=== PATIENT | female | born 1935 | race Caucasian/White ===

== ENCOUNTER 2017-12-13 21:16 | Emergency (ER) | payer MEDICARE, OTHER ==
[2017-12-13] MEDS ORDERED: Labetalol 100 MG/20 ML MDV IVPUSH ONE ×2 (21:58→22:41)
--- NOTE | 2017-12-13 22:05 | EDM.PDOC ---
ED HPI GENERAL MEDICAL PROBLEM - General Chief Complaint: Syncope Stated Complaint: MALINDA AMB Time Seen by Provider: 12/13/17 21:43 Source of Information: Reports: Patient History Limitations: Reports: No Limitations - History of Present Illness INITIAL COMMENTS - FREE TEXT/NARRATIVE: Patient is a 82-year-old female with history of hypertension, GERD, anemia, and hypothyroidism who presents to the ED via ambulance after becoming dizzy with standing at the counter cutting cheese. Patient states onset was at approximately 8:00 this evening. Patient lowered herself to the ground was unable to get back up off the floor. Patient crawled to her bedroom unable to activate her life alert. Once able to activate the life alert 911 was contacted and the ambulance was notified. She was transported to the ED found to be hypertensive with no concerning findings on initial exam by EMS. Patient states that no time did she fall or hit her head. She does feel weak on the right side and is concerned that she may be having a stroke.She denied any dizziness described as the room spinning. There was no chest pain, shortness of breath, nausea/vomiting, abdominal pain, vision changes, slurred speech, difficulty swallowing, numbness or tingling to extremities, dysuria, fever, or any additional complaints. - Related Data Allergies Allergy/AdvReac Type Severity Reaction Status Date / Time No Known Allergies Allergy Verified 12/13/17 21:35 Home Meds: Home Meds Atenolol 50 mg PO DAILY 07/21/14 [History] Doxazosin [Cardura] 2 mg PO DAILY 07/21/14 [History] Hydrochlorothiazide 25 mg PO DAILY 07/21/14 [History] Iron Polysaccharides Complex [Ferrex 150] 150 mg PO DAILY 07/21/14 [History] Levothyroxine 75 mcg PO DAILY 07/21/14 [History] Lisinopril 40 mg PO DAILY 07/21/14 [History] Omeprazole [priLOSEC OTC] 20 mg PO DAILY 07/21/14 [History] Acetaminophen [Tylenol] 650 mg PO TID 10 Days tab 07/24/14 [Rx] hydrALAZINE [Apresoline] 50 mg PO Q8H 30 Days tablet 07/24/14 [Rx] traMADol [Ultram] 50 mg PO Q4H PRN 30 Days tab 07/24/14 [Rx] Social & Family History - Tobacco Use Smoking Status *Q: Never Smoker Second Hand Smoke Exposure: No - Alcohol Use Days Per Week of Alcohol Use: 0 - Recreational Drug Use Recreational Drug Use: No ED ROS GENERAL - Review of Systems Review Of Systems: See Below Constitutional: Reports: No Symptoms HEENT: Reports: No Symptoms Respiratory: Reports: No Symptoms Cardiovascular: Reports: No Symptoms GI/Abdominal: Reports: No Symptoms : Reports: Incontinence (Patient states she's incontinent to urine unable to control her bladder.) Musculoskeletal: Reports: No Symptoms Skin: Reports: No Symptoms Neurological: Reports: Dizziness, Weakness. Denies: Headache, Numbness, Paresthesia, Tingling, Trouble Speaking, Difficulty Walking, Change in Speech, Gait Disturbance ED EXAM, NEURO - Physical Exam Exam: See Below Exam Limited By: No Limitations General Appearance: Alert, WD/WN, No Apparent Distress Eye Exam: Bilateral Eye: EOMI, Other (pin point pupils, difficult to ascertation responsiveness.) Ears: Hearing Grossly Normal Nose: Normal Inspection Throat/Mouth: Normal Voice, No Airway Compromise, Other (Slight deviation of the tongue to the right ). No: Dysphagia Head Exam: Atraumatic, Normocephalic Neck: Normal Inspection, Supple, Non-Tender, Full Range of Motion Respiratory/Chest: No Respiratory Distress, Lungs Clear, Normal Breath Sounds, No Accessory Muscle Use, Chest Non-Tender Cardiovascular: Normal Peripheral Pulses, Regular Rate, Rhythm, Systolic Murmur GI/Abdominal: Normal Bowel Sounds, Soft, Non-Tender, No Organomegaly, No Distention (Female) Exam: Other (Per patient she is unable to control her urine at this point. It is fairly running out of her. This is abnormal.) Neurological: Alert, Normal Mood/Affect, CN II-XII Intact, Oriented x 3, Abnormal Gait (With standing patient is unsteady on her feet unable to walk.), Other (Slight tongue deviation to the right. No facial droop. No significant slurred speech. Slight weakness noted to the right upper extremity. More dramatic on the right foot with plantar flexion. With rapid alternating movemets and fingerto nose testing patient is more ataxix on the right. Denies sensory changes. ). No: Normal Dorsiflexion, Normal Plantar Flexion DTR: 3+: Bicep (R), Bicep (L) Back Exam: Normal Inspection Extremities: Normal Inspection, Normal Range of Motion, Non-Tender, No Pedal Edema, Normal Capillary Refill Psychiatric: Normal Affect, Normal Mood Skin Exam: Warm, Dry, Intact, Normal Color Course - Vital Signs Last Recorded V/S: Last Vital Signs Temp 98.5 F 12/13/17 21:32 Pulse 72 12/13/17 22:59 Resp 18 12/13/17 21:32 BP 148/89 H 12/13/17 23:10 Pulse Ox 98 12/13/17 21:32 - Orders/Labs/Meds Orders: Active Orders 24 hr Category Date Time Status EKG Documentation Completion [RC] ASDIRECTED Care 12/13/17 21:39 Active EKG Documentation Completion [RC] STAT Care 12/13/17 21:40 Inactive Orthostatic Vital Signs [RC] ASDIRECTED Care 12/13/17 21:42 Active Chest 1V Frontal [CR] Stat Exams 12/13/17 21:40 Ordered Head wo Cont [CT] Stat Exams 12/13/17 22:06 Taken Labetalol [Normodyne] 100 mg Med 12/13/17 22:45 Active Sodium Chloride 0.9% [Normal Saline] 80 ml IV TITRATE Nitroglycerin/D5W [Nitroglycerin 25 MG/D5W 250 ML] Med 12/13/17 22:48 Active 25 mg in 250 ml IV TITRATE niCARdipine HCl [Nicardipine HCl] 25 mg Med 12/13/17 23:15 Active Sodium Chloride 0.9% [Normal Saline] 250 ml IV TITRATE EKG 12 Lead [EK] Stat Ther 12/13/17 21:39 Ordered Medication Orders Labetalol HCl 100 mg/ Sodium (Chloride) 100 mls @ 60 mls/hr IV TITRATE RICKY; 1 MG/MIN PRN Reason: Protocol Last Admin: 12/13/17 22:59 Dose: 1 mg/min, 60 mls/hr Nitroglycerin/Dextrose (Nitroglycerin 25 Mg/D5w 250 Ml) 25 mg in 250 mls @ 6 mls/hr IV TITRATE ONE; 10 MCG/MIN PRN Reason: Protocol Stop: 12/15/17 16:27 Last Titration: 12/13/17 23:27 Dose: 12 mcg/min, 7.2 mls/hr Admin: 12/13/17 23:00 Dose: 10 mcg/min, 6 mls/hr Nicardipine HCl 25 mg/ Sodium (Chloride) 260 mls @ 52 mls/hr IV TITRATE RICKY; 5 MG/HR PRN Reason: Protocol Last Admin: 12/13/17 23:34 Dose: 5 mg/hr, 52 mls/hr Labs: Laboratory Tests 12/13/17 12/13/17 12/13/17 Range/Units 21:36 21:47 21:47 WBC 12.05 H (3.98-10.04) K/mm3 RBC 3.95 L (3.98-5.22) M/mm3 Hgb 10.8 L (11.2-15.7) gm/L Hct 33.7 L (34.1-44.9) % MCV 85.3 (79.4-94.8) fl MCH 27.3 (25.6-32.2) pg MCHC 32.0 L (32.2-35.5) g/dl RDW Std Deviation 45.8 (36.4-46.3) fL Plt Count 311 (182-369) K/mm3 MPV 8.6 L (9.4-12.3) fl Neut % (Auto) 87.2 H (34.0-71.1) % Lymph % (Auto) 6.3 L (19.3-51.7) % Surry % (Auto) 4.6 L (4.7-12.5) % Eos % (Auto) 1.5 (0.7-5.8) Baso % (Auto) 0.2 (0.1-1.2) % Neut # (Auto) 10.51 H (1.56-6.13) K/mm3 Lymph # (Auto) 0.76 L (1.18-3.74) K/mm3 [place] # (Auto) 0.55 H (0.24-0.36) K/mm3 Eos # (Auto) 0.18 (0.04-0.36) K/mm3 Baso # (Auto) 0.03 (0.01-0.08) K/mm3 Manual Slide Review Abnormal smear PT 12.3 (8.0-13.0) SECONDS INR 1.15 APTT 34 (22-36) SECONDS Sodium 136 (136-145) mEq/L Potassium 3.5 (3.5-5.1) mEq/L Chloride 97 L (98-107) mEq/L Carbon Dioxide 26 (21-32) mEq/L Anion Gap 16.5 H (5-15) BUN 17 (7-18) mg/dL Creatinine 1.0 (0.55-1.02) mg/dL Est Cr Clr Drug Dosing 30.65 mL/min Estimated GFR (MDRD) 53 (>60) mL/min BUN/Creatinine Ratio 17.0 (14-18) Glucose 162 H (83-115) mg/dL Calcium 10.2 H (8.5-10.1) mg/dL Total Bilirubin 0.2 (0.2-1.0) mg/dL AST 23 (15-37) U/L ALT 23 (14-59) U/L Alkaline Phosphatase 73 (46-116) U/L Troponin I < 0.017 (0.00-0.056) ng/mL Total Protein 7.7 (6.4-8.2) g/dl Albumin 3.6 (3.4-5.0) g/dl Globulin 4.1 gm/dL Albumin/Globulin Ratio 0.9 L (1-2) TSH 3rd Generation 8.107 H (0.358-3.74) uIU/mL Urine Color (Yellow) Urine Appearance (Clear) Urine pH (5.0-8.0) Ur Specific [place] (1.005-1.030) Urine Protein (Negative) Urine Glucose (UA) (Negative) Urine Ketones (Negative) Urine Occult Blood (Negative) Urine Nitrite (Negative) Urine Bilirubin (Negative) Urine Urobilinogen (0.2-1.0) Ur Leukocyte Esterase (Negative) Urine RBC (0-5) /hpf Urine WBC (0-5) /hpf Ur Epithelial Cells (0-5) /hpf Urine Bacteria (FEW) /hpf Urine Mucus (FEW) /hpf 12/13/17 Range/Units 22:10 WBC (3.98-10.04) K/mm3 RBC (3.98-5.22) M/mm3 Hgb (11.2-15.7) gm/L Hct (34.1-44.9) % MCV (79.4-94.8) fl MCH (25.6-32.2) pg MCHC (32.2-35.5) g/dl RDW Std Deviation (36.4-46.3) fL Plt Count (182-369) K/mm3 MPV (9.4-12.3) fl Neut % (Auto) (34.0-71.1) % Lymph % (Auto) (19.3-51.7) % Surry % (Auto) (4.7-12.5) % Eos % (Auto) (0.7-5.8) Baso % (Auto) (0.1-1.2) % Neut # (Auto) (1.56-6.13) K/mm3 Lymph # (Auto) (1.18-3.74) K/mm3 [place] # (Auto) (0.24-0.36) K/mm3 Eos # (Auto) (0.04-0.36) K/mm3 Baso # (Auto) (0.01-0.08) K/mm3 Manual Slide Review PT (8.0-13.0) SECONDS INR APTT (22-36) SECONDS Sodium (136-145) mEq/L Potassium (3.5-5.1) mEq/L Chloride (98-107) mEq/L Carbon Dioxide (21-32) mEq/L Anion Gap (5-15) BUN (7-18) mg/dL Creatinine (0.55-1.02) mg/dL Est Cr Clr Drug Dosing mL/min Estimated GFR (MDRD) (>60) mL/min BUN/Creatinine Ratio (14-18) Glucose (83-115) mg/dL Calcium (8.5-10.1) mg/dL Total Bilirubin (0.2-1.0) mg/dL AST (15-37) U/L ALT (14-59) U/L Alkaline Phosphatase (46-116) U/L Troponin I (0.00-0.056) ng/mL Total Protein (6.4-8.2) g/dl Albumin (3.4-5.0) g/dl Globulin gm/dL Albumin/Globulin Ratio (1-2) TSH 3rd Generation (0.358-3.74) uIU/mL Urine Color Light yellow (Yellow) Urine Appearance Clear (Clear) Urine pH 7.5 (5.0-8.0) Ur Specific [place] 1.020 (1.005-1.030) Urine Protein 2+ H (Negative) Urine Glucose (UA) Negative (Negative) Urine Ketones Negative (Negative) Urine Occult Blood Trace-lysed H (Negative) Urine Nitrite Negative (Negative) Urine Bilirubin Negative (Negative) Urine Urobilinogen 0.2 (0.2-1.0) Ur Leukocyte Esterase Negative (Negative) Urine RBC 0-5 (0-5) /hpf Urine WBC 0-5 (0-5) /hpf Ur Epithelial Cells Not seen (0-5) /hpf Urine Bacteria Not seen (FEW) /hpf Urine Mucus Not seen (FEW) /hpf Meds: Medications Generic Name Dose Route Start Last Admin Trade Name Freq PRN Reason Stop Dose Admin Labetalol HCl 100 mg/ Sodium 100 mls @ 60 mls/hr 12/13/17 22:45 12/13/17 22: 59 Chloride IV 1 mg/min TITRATE RICKY 60 mls/hr Protocol Administration 1 MG/MIN Nitroglycerin/Dextrose 25 mg in 250 mls @ 6 mls/hr 12/13/17 22:48 12/13/17 23 :27 Nitroglycerin 25 Mg/D5w 250 Ml IV 12/15/17 16:27 12 mcg/min TITRATE ONE 7.2 mls/hr Protocol Titration 10 MCG/MIN Nicardipine HCl 25 mg/ Sodium 260 mls @ 52 mls/hr 12/13/17 23:15 12/13/17 23: 34 Chloride IV 5 mg/hr TITRATE RICKY 52 mls/hr Protocol Administration 5 MG/HR Discontinued Medications Generic Name Dose Route Start Last Admin Trade Name Cedricq PRN Reason Stop Dose Admin Labetalol HCl 10 mg 12/13/17 21:58 12/13/17 22:02 Normodyne IVPUSH 12/13/17 21:59 10 mg ONETIME ONE Administration Protocol Labetalol HCl 20 mg 12/13/17 22:41 12/13/17 22:43 Normodyne IVPUSH 12/13/17 22:42 20 mg ONETIME ONE Administration Protocol Labetalol HCl Confirm 12/13/17 22:42 Normodyne Administered 12/13/17 22:43 Dose 100 mg .ROUTE .STK-MED ONE Tenecteplase Confirm 12/13/17 23:09 Tnkase Administered 12/13/17 23:10 Dose 50 mg .ROUTE .STK-MED ONE - Re-Assessments/Exams Free Text/Narrative Re-Assessment/Exam: Initial examination findings concerning for a stroke. There is some mild tongue deviation to the right along with some ataxia of the upper extremity, weakness of the upper and lower extremities. [address] Reyes he will evaluate the patient as well. She is in the window for thrombolytic treatment. Onset per patient was 2 hours ago, 2000 hrs last known well time. Currently patient has no complaints other than feeling weak. Patient is hypertensive. Will order 10 milligrams of IV labetalol. EKG, CBC, chem 14, coag studies, troponin, TSH, UA, chest x-ray, and CT of the head will be obtained. [address] Reyes. Agrees mild weakness to the right upper extremities incomparison to the left. Right leg significantly more weak in comparison to the right with testing. Agrees patient is having a stroke. Per nursing staff symptoms are evolving. 12/13/17 22:27 CT head reviewed with Dr. Reyes. No intracranial hemorrhage noted. Small vessel edges the basal ganglia. Labs reviewed. Spoke with Patients daughter Rachelle Sethi to review Exclusion criteria. Patient has no exclusion criteria or relative contraindications. Blood pressure remains elevated 206/systolic. Ordered labetalol bolus 20 mg and IV drip 1 mg/m. Will also start a nitro drip in a second IV line 10 mics per minute to facilitate quicker decrease in BP. BP goal <160/90. Symptoms have slowly progressed during E.D. visit. No Neuro consult obtained. 3 hr window is approaching quickly. Discussed with Dr. Reyes and he agrees in administering TNK. Patient is a very active able to perform normal ADL's with no no issues. Dr. Reyes and myself spoke with the patient's daughter Rachelle Sethi and patient. They both agree with proceeding with administration of TNK. Risk, benefits, and alternative treatments were discussed with them. Risk of treatment is uncontrolled bleeding and at worst .All questions were answered. They both voiced understanding. TNK order placed. See order form. [40mg total, 4 mg IV bolus with 36 mg IV over the next hr.] 12/13/17 22:54 BP 196/82, heart rate 70, SPO2 97. 12/13/17 23:00 BP 177/81. Chest x-ray reviewed with Dr. Reyes with diffuse pulmonary vascularization and mild pulmonary fibrosis. Cardiomegaly present. 12/13/17 23:00 Per patients and daughters request will call [facility]. [facility]. No ICU beds available. [address] [facility] admission coordinator. Transferred to [facility] and spoke with Dr. Askew. He has accepted the patient. Requests starting nicardipine gtt for tighter control of BP. Transfer orders completed. Ambulance has been notified. Departure - Departure Time of Disposition: 11:50 Disposition: DC/Tfer to [facility] 02 Condition: Fair Clinical Impression: Cerebrovascular accident (CVA) Qualifiers: CVA mechanism: unspecified Qualified Code(s): I63.9 - Cerebral infarction, unspecified - Discharge Information Referrals: Marimar Huertas MD [Primary Care Provider] - Forms: ED Department Discharge - My Orders Last 24 Hours: My Active Orders 12/13/17 21:39 EKG Documentation Completion [RC] ASDIRECTED EKG 12 Lead [EK] Stat 12/13/17 21:40 EKG Documentation Completion [RC] STAT Chest 1V Frontal [CR] Stat 12/13/17 21:42 Orthostatic Vital Signs [RC] ASDIRECTED 12/13/17 22:06 Head wo Cont [CT] Stat 12/13/17 22:45 Labetalol [Normodyne] 100 mg Sodium Chloride 0.9% [Normal Saline] 80 ml IV TITRATE 12/13/17 22:48 Nitroglycerin/D5W [Nitroglycerin 25 MG/D5W 250 ML] 25 mg in 250 ml IV TITRATE 12/13/17 23:15 niCARdipine HCl [Nicardipine HCl] 25 mg Sodium Chloride 0.9% [Normal Saline] 250 ml IV TITRATE - Assessment/Plan Last 24 Hours: My Active Orders 12/13/17 21:39 EKG Documentation Completion [RC] ASDIRECTED EKG 12 Lead [EK] Stat 12/13/17 21:40 EKG Documentation Completion [RC] STAT Chest 1V Frontal [CR] Stat 12/13/17 21:42 Orthostatic Vital Signs [RC] ASDIRECTED 12/13/17 22:06 Head wo Cont [CT] Stat 12/13/17 22:45 Labetalol [Normodyne] 100 mg Sodium Chloride 0.9% [Normal Saline] 80 ml IV TITRATE 12/13/17 22:48 Nitroglycerin/D5W [Nitroglycerin 25 MG/D5W 250 ML] 25 mg in 250 ml IV TITRATE 12/13/17 23:15 niCARdipine HCl [Nicardipine HCl] 25 mg Sodium Chloride 0.9% [Normal Saline] 250 ml IV TITRATE
[2017-12-13] MEDS ORDERED: Labetalol 100 MG/20 ML MDV ONE (22:42)
[2017-12-13] MEDS ORDERED: Labetalol 100 MG in Sodium Chloride 0.9% 80 ML IV SCH (22:45)
[2017-12-13] MEDS ORDERED: Nitroglycerin/D5W 25 MG/250 ML BOTTLE IV ONE (22:48)
[2017-12-13] MEDS ORDERED: Tenecteplase 50 MG Kit ONE (23:09)
[2017-12-13] MEDS ORDERED: niCARdipine HCl 25 MG in Sodium Chloride 0.9% 250 ML IV SCH (23:15)
[2017-12-14 02:25] VITALS: BP 171/67
--- NOTE | 2017-12-14 08:04 | CT ---
Head CT Technique: Multiple axial sections through the brain were obtained. Intravenous contrast was not utilized. Comparison: Prior head CT exam of 07/21/14. Findings: Ventricles along with basal cisterns and sulci over the convexities are mildly prominent. No abnormal parenchymal densities are seen. No evidence of intracranial hemorrhage. No midline shift or mass effect is seen. Bone window settings were reviewed which show the visualized sinuses to appear clear. Impression: 1. Mild generalized atrophy. 2. No acute intracranial abnormality is identified on noncontrast head CT exam. Diagnostic code #2 I agree with preliminary report issued by [facility] ([facility] preliminary report dictated on 12/13/17, 11:30 PM Central Time)
--- NOTE | 2017-12-14 08:04 | CR ---
Chest: Portable view of the chest was obtained. Comparison: No prior chest x-ray. Heart is enlarged. Tortuous thoracic aorta is seen. Lungs are clear. Scoliosis is noted within the spine. Bony structures are osteopenic. Impression: 1. Cardiomegaly. Other incidental findings. Nothing acute is appreciated on portable chest x-ray. Diagnostic code #2
== END 2017-12-13 23:35 ==
LOC: JD.ED 21:16 → SUPCPDRO 21:16 → JD.ED 23:35
DX: I63.9 Cerebral infarction, unspecified (principal); I51.7 Cardiomegaly; J84.10 Pulmonary fibrosis, unspecified; Z79.899 Other long term (current) drug therapy
CPT/HCPCS: 36415; 70450; 71045; 80053; 81001; 84443; 84484; 85025; 85610; 85730; 93005; 96365; 96375; 96376; 99285; J7050; P9612

== ENCOUNTER 2019-11-09 10:47 | Day surgery (SDC) | payer MEDICARE, OTHER ==
[~2019-11-09 10:47] MED LIST: Lactated Ringers 1,000 ML IV SCH; Lidocaine 1%/Sod Bicarbonate in NS 8.4% 1 ML Syringe IDERM PRN; Sodium Chloride 0.9% 10 ML Syringe FLUSH PRN
[2019-11-09] MEDS ORDERED: Bacitracin Oint 15 GM Tube ONE (12:38)
[2019-11-09] MEDS ORDERED: Lidocaine 1% 30 ML SDV ONE (12:38)
--- NOTE | 2019-11-09 12:44 | PCM.PREANE ---
Preanesthetic Assessment - Anesthesia/Transfusion/Family Hx Anesthesia History: Prior Anesthesia Without Reaction Family History of Anesthesia Reaction: No - Review of Systems General: No Symptoms Pulmonary: No Symptoms Cardiovascular: No Symptoms (History of Atrial Fibrillation, Htn, elevated cholesterol. ) Gastrointestinal: No Symptoms Neurological: No Symptoms (TIA 2 years ago no residule symptoms) Other: Reports: None, Easy Bleeding, Easy Bruising (Anticoagulated on xarelto last dose was 11-07-19) - Physical Assessment NPO Status Date: 11/08/19 NPO Status Time: 23:45 Vital Signs: Last Vital Signs Temp 36.9 C 11/09/19 11:25 Pulse 58 L 11/09/19 11:25 Resp 16 11/09/19 11:25 BP 174/68 H 11/09/19 11:50 Pulse Ox 98 11/09/19 11:25 Height: 1.52 m Weight: 43.091 kg ASA Class: 3 Mental Status: Alert & Oriented x3 Airway Class: Mallampati = 2 Dentition: Reports: Normal Dentition Thyro-Mental Finger Breadths: 2 Mouth Opening Finger Breadths: 2 ROM/Head Extension: Full Lungs: Clear to Auscultation, Normal Respiratory Effort Cardiovascular: Regular Rate, Regular Rhythm - Allergies Allergies/Adverse Reactions: Allergies Allergy/AdvReac Type Severity Reaction Status Date / Time No Known Allergies Allergy Verified 11/08/19 15:07 - Acknowledgements Anesthesia Type Planned: General Anesthesia Pt an Appropriate Candidate for the Planned Anesthesia: Yes Alternatives and Risks of Anesthesia Discussed w Pt/Guardian: Yes Pt/Guardian Understands and Agrees with Anesthesia Plan: Yes PreAnesthesia Questionnaire HEENT History: Reports: Impaired Vision, Other (See Below) Other HEENT History: wears glasses, has partial Cardiovascular History: Reports: Afib, Aneurysm, High Cholesterol, Hypertension Respiratory History: Reports: None Gastrointestinal History: Reports: GERD, Hemorrhoids, PUD, Other (See Below) Other Gastrointestinal History: ulcer Genitourinary History: Reports: Other (See Below) Other Genitourinary History: hematuria, cystoscopy 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: Reports: None Musculoskeletal History: Reports: Osteoporosis Neurological History: Reports: TIA Psychiatric History: Reports: None Endocrine/Metabolic History: Reports: Hypothyroidism Hematologic History: Reports: Anemia, Iron Deficiency Immunologic History: Reports: None Oncologic (Cancer) History: Reports: None Dermatologic History: Reports: None - Past Surgical History Head Surgeries/Procedures: Reports: None HEENT Surgical History: Reports: Cataract Surgery Cardiovascular Surgical History: Reports: None Respiratory Surgical History: Reports: None GI Surgical History: Reports: Colonoscopy, EGD, Other (See Below) Other GI Surgeries/Procedures: stomach surgery x2 Female Surgical History: Reports: None Male Surgical History: Reports: None Endocrine Surgical History: Reports: None Neurological Surgical History: Reports: None Musculoskeletal Surgical History: Reports: None Oncologic Surgical History: Reports: None Dermatological Surgical History: Reports: None - SUBSTANCE USE Smoking Status *Q: Never Smoker Days Per Week of Alcohol Use: 3 Number of Drinks Per Day: 1 Total Drinks Per Week: 3 Recreational Drug Use History: No - HOME MEDS Home Medications: Home Meds Lisinopril 40 mg PO DAILY 07/21/14 [History] atenoloL [Atenolol] 50 mg PO DAILY 07/21/14 [History] hydroCHLOROthiazide [Hydrochlorothiazide] 25 mg PO DAILY 07/21/14 [History] hydrALAZINE [Apresoline] 50 mg PO Q8H 30 Days tablet 07/24/14 [Rx] Acetaminophen [Tylenol Extra Strength] 1,000 mg PO Q8H PRN 11/08/19 [History] Acetaminophen/Caffeine [Excedrin Tension Headache Cplt] 1 tab PO BID PRN [History] Calcium Carb/Vitamin D3/Vit K1 [Calcium + D Soft Chewable Tab] 1 tab PO DAILY [History] Folic Acid 1 mg PO DAILY 11/08/19 [History] Lactose-Reduced Food [Ensure] 237 ml PO BID 11/08/19 [History] Latanoprost 1 drop EYEBOTH BEDTIME 11/08/19 [History] Levothyroxine Sodium 88 mcg PO DAILY 11/08/19 [History] Multivitamin [Daily Multiple Vitamin] 1 tab PO DAILY 11/08/19 [History] Propylene Glycol/PEG 400/Pf [Systane 0.3-0.4% Eye Drop] 1 drop EYEBOTH QID PRN 11/08/19 [History] Rivaroxaban [Xarelto] 15 mg PO DAILY 11/08/19 [History] Urine Leukocyte Test [Azo] 2 tab PO TID PRN 11/08/19 [History] Vit C/Vit E/Lutein/Minerals 1 [Prosight with Lutein] 1 cap PO DAILY 11/08/19 [ History] amLODIPine [Norvasc] 5 mg PO DAILY 11/08/19 [History] atorvaSTATin [Lipitor] 40 mg PO DAILY 11/08/19 [History] polyethylene glycoL 3350 [MiraLAX] 17 gm PO DAILY 11/08/19 [History] raNITIdine HCl [Zantac] 150 mg PO DAILY 11/08/19 [History] - CURRENT (IN HOUSE) MEDS Current Meds: Current Medications Lactated Ringer's (Ringers, Lactated) 1,000 mls @ 125 mls/hr IV ASDIRECTED RICKY Stop: 11/09/19 23:00 Lidocaine/Sodium Bicarbonate (Buffered Lidocaine 1% In Ns 8.4%) 0.25 ml IDERM ONETIME PRN PRN Reason: Prior to IV Start Stop: 11/09/19 18:00 Sodium Chloride (Saline Flush) 10 ml FLUSH ASDIRECTED PRN PRN Reason: Keep Vein Open Stop: 11/09/19 18:00
[2019-11-09] MEDS ORDERED: Ondansetron 4 MG/2 ML SDV IVPUSH PRN (13:03)
[2019-11-09] MEDS ORDERED: fentaNYL 100 MCG/2 ML SDV IVPUSH PRN (13:03)
[2019-11-09] MEDS ORDERED: Lidocaine 1% 4 ML ONE (13:06)
[2019-11-09] MEDS ORDERED: Propofol 200 MG/20 ML SDV ONE (13:08)
[2019-11-09] MEDS ORDERED: fentaNYL 100 MCG/2 ML SDV ONE (13:08)
[2019-11-09] MEDS ORDERED: Lidocaine 1% with EPINEPHrine 1:100,000 20 ML MDV ONE (13:10)
[2019-11-09] MEDS ORDERED: Lactated Ringers 1,000 ML ONE (13:14)
--- NOTE | 2019-11-09 14:22 | PCM.OPNOTE ---
- General Post-Op/Procedure Note Date of Surgery/Procedure: 11/09/19 Operative Procedure(s): excsion of SCC left cheek with layered closure Pre Op Diagnosis: SCC of face Post-Op Diagnosis: Same Anesthesia Technique: MAC Primary Surgeon: Hardik Hennessy EBLeticia in mLs: 5 Complications: None Condition: Good
--- NOTE | 2019-11-09 14:45 | PCM48HPAN ---
Post Anesthesia Note - EVALUATION WITHIN 48HRS OF ANESTHETIC Vital Signs in Normal Range: Yes Patient Participated in Evaluation: Yes Respiratory Function Stable: Yes Airway Patent: Yes Cardiovascular Function Stable: Yes Hydration Status Stable: Yes Pain Control Satisfactory: Yes Nausea and Vomiting Control Satisfactory: Yes Mental Status Recovered: Yes Vital Signs: Last Vital Signs Temp 97.9 F 11/09/19 14:20 Pulse 55 L 11/09/19 14:20 Resp 14 11/09/19 14:20 BP 159/66 H 11/09/19 14:20 Pulse Ox 100 11/09/19 14:20
[2019-11-09 15:10] VITALS: BP 165/69; PULSE 61
--- NOTE | 2019-11-10 08:20 | OR ---
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 OPERATION PERFORMED: Excision and layered closure under frozen section control. ESTIMATED BLOOD LOSS: 5 mL. FINDINGS: Skin cancer, squamous cell carcinoma and the margins were clear. The margin and lesion measured 3 cm. DESCRIPTION OF PROCEDURE: The patient was taken to the operating room, placed in a supine position, connected to monitoring equipment, given IV sedation. The left cheek where the lesion had been marked was prepped with Betadine, draped off in a sterile fashion. Lesion was anesthetized with 1% Xylocaine, it measured 3 cm and elliptically incised with visual margins and sent to Pathology with a silk marking suture on the lateral margin. Frozen section control returned a diagnosis of invasive squamous cell carcinoma with clear margins. Bleeding points were controlled with suture ligature of 4-0 Vicryl suture and the deep tissues were brought together after undermining with interrupted 4-0 Vicryl suture, Burow's triangles were taken on the either side, and the skin was closed with interrupted 4-0 Prolene suture. Sterile dressing placed. Patient tolerated the procedure and sent to recovery room in a stable condition. ANESTHESIA: MMODAL /[id number]
== END 2019-11-09 15:10 | disposition home or self-care (01) ==
LOC: JD.SDS 10:47
PROVIDERS: ATTEND Surgery
DX: C76.0 Malignant neoplasm of head, face and neck (principal); I10 Essential (primary) hypertension; M81.0 Age-related osteoporosis without current pathological fracture; E78.49 Other hyperlipidemia; E03.9 Hypothyroidism, unspecified; Z79.899 Other long term (current) drug therapy; Z79.01 Long term (current) use of anticoagulants
CPT/HCPCS: 11643; 12052; A9270; J2001; J2704; J3010; J7120

== ENCOUNTER 2020-12-10 17:16 | Inpatient (IN) | payer MEDICARE, OTHER ==
[2020-12-10] MEDS ORDERED: Acetaminophen 325 MG Tab PO ONE (17:39)
[2020-12-10] MEDS ORDERED: cefTRIAXone 2 GM in Sodium Chloride 0.9% 100 ML IV ONE (17:42)
--- NOTE | 2020-12-10 17:42 | EDM.PDOC ---
ED HPI GENERAL MEDICAL PROBLEM - General Chief Complaint: Genitourinary Problem Stated Complaint: [facility] Time Seen by Provider: 12/10/20 17:39 Source of Information: Reports: Patient History Limitations: Reports: No Limitations - History of Present Illness INITIAL COMMENTS - FREE TEXT/NARRATIVE: 85-year-old female presents to the ED with acute onset of a fever of 102 degrees with yennifer rigors x2 today. Patient was diagnosed with a urinary tract infection through the walk-in clinic at [place] yesterday and started on Macrobid 100 mg twice daily for of which she has taken 2 tablets. She is nauseated and has eaten very little today. She feels generally weak lightheaded and dizzy upon standing. She complains of diffuse abdominal pressure discomfort and feels that she is constipated. Has not had a good bowel movement for at least 5 days. Patient has lost a good deal of weight since I have seen her last. He has not taken any Tylenol or Motrin for fever relief today. Onset: Sudden Onset Date: 12/07/20 Duration: Day(s):, Getting Worse Location: Reports: Generalized (Fever chills with rigors today. Loss of appetite no vomiting) Quality: Reports: Other (Or chills and loss of appetite) Severity: Severe Improves with: Reports: None Worsens with: Reports: None Context: Denies: Activity, Exercise, Lifting, Sick Contact, Trauma, Other Associated Symptoms: Reports: Cough, Fever/Chills, Loss of Appetite (Nonproductive cough), Malaise, Weakness. 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 (see below) (Only the Macrobid prescribed yesterday.) Lower Abdominal Pain Score (Numeric/FACES): 8 - Related Data Allergies Allergy/AdvReac Type Severity Reaction Status Date / Time No Known Allergies Allergy Verified 12/10/20 19:50 Home Meds: Home Meds Lisinopril 40 mg PO 199907/21/14 [History] atenoloL [Atenolol] 50 mg PO 0807/21/14 [History] hydroCHLOROthiazide [Hydrochlorothiazide] 25 mg PO 0807/21/14 [History] Acetaminophen [Tylenol Extra Strength] 1,000 mg PO Q8H PRN 11/08/19 [History] Acetaminophen/Caffeine [Excedrin Tension Headache Cplt] 1 tab PO BID PRN 11/08/19 [History] Calcium Carb/Vitamin D3/Vit K1 [Calcium + D Soft Chewable Tab] 1 tab PO 199911/08/19 [History] Folic Acid 1 mg PO 0800 11/08/19 [History] Lactose-Reduced Food [Ensure] 237 ml PO BID 11/08/19 [History] Latanoprost 1 drop EYEBOTH BEDTIME 11/08/19 [History] Levothyroxine Sodium 88 mcg PO 0800 11/08/19 [History] Multivitamin [Daily Multiple Vitamin] 1 tab PO DAILY 11/08/19 [History] Propylene Glycol/PEG 400/Pf [Systane 0.3-0.4% Eye Drop] 1 drop EYEBOTH QID PRN 11/08/19 [History] Rivaroxaban [Xarelto] 15 mg PO 1700 11/08/19 [History] Urine Leukocyte Test [Azo] 2 tab PO TID PRN 11/08/19 [History] Vit C/Vit E/Lutein/Minerals 1 [Prosight with Lutein] 1 cap PO DAILY 11/08/19 [History] amLODIPine [Norvasc] 5 mg PO 0800 11/08/19 [History] atorvaSTATin [Lipitor] 40 mg PO 199911/08/19 [History] polyethylene glycoL 3350 [MiraLAX] 17 gm PO 0800 11/08/19 [History] raNITIdine HCL [Zantac] 150 mg PO DAILY 11/08/19 [History] Ascorbic Acid [Vitamin C] 500 mg PO DAILY 12/10/20 [History] Famotidine [Pepcid] 20 mg PO 0800 12/10/20 [History] Zinc 50 mg PO DAILY 12/10/20 [History] hydrALAZINE [Apresoline] 50 mg PO 0800,1400,199912/10/20 [History] Past Medical History HEENT History: Reports: Impaired Vision, Other (See Below) Other HEENT History: wears glasses, has partial Cardiovascular History: Reports: Afib, Aneurysm, High Cholesterol, Hypertension Respiratory History: Reports: None Gastrointestinal History: Reports: GERD, Hemorrhoids, PUD, Other (See Below) Other Gastrointestinal History: ulcer Genitourinary History: Reports: Other (See Below) Other Genitourinary History: hematuria, cystoscopy 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 Musculoskeletal History: Reports: Osteoporosis Neurological History: Reports: TIA Psychiatric History: Reports: None Endocrine/Metabolic History: Reports: Hypothyroidism Hematologic History: Reports: Anemia, Iron Deficiency Immunologic History: Reports: None Oncologic (Cancer) History: Reports: None Dermatologic History: Reports: None - Past Surgical History Head Surgeries/Procedures: Reports: None HEENT Surgical History: Reports: Cataract Surgery Cardiovascular Surgical History: Reports: None Respiratory Surgical History: Reports: None GI Surgical History: Reports: Colonoscopy, EGD, Other (See Below) Other GI Surgeries/Procedures: stomach surgery x2 Female Surgical History: Reports: None Endocrine Surgical History: Reports: None Neurological Surgical History: Reports: None Musculoskeletal Surgical History: Reports: None Oncologic Surgical History: Reports: None Dermatological Surgical History: Reports: None Social & Family History - Tobacco Use Tobacco Use Status *Q: Never Tobacco User - Caffeine Use Caffeine Use: Reports: Tea - Recreational Drug Use Recreational Drug Use: No - Living Situation & Occupation Living situation: Reports: , Alone Occupation: Retired ED ROS GENERAL - Review of Systems Review Of Systems: See Below Constitutional: Reports: Fever, Chills, Malaise, Weakness, Fatigue, Decreased Appetite, Weight Loss HEENT: Reports: Glasses, Other (Decreased visual acuity from macular degeneration.) Respiratory: Reports: Shortness of Breath, Cough. Denies: Wheezing, Pleuritic Chest Pain, Sputum, Hemoptysis (Nonproductive) Cardiovascular: Reports: Blood Pressure Problem, Dyspnea on Exertion (A few times today.), Lightheadedness. Denies: Chest Pain, Claudication, Edema, Orthopnea, Palpitations Endocrine: Reports: Fatigue GI/Abdominal: Reports: Abdominal Pain, Constipation (Feels abdominal pain is all infraumbilical and lower due to not having a bowel 1 for the last 5 days.) : Reports: Dysuria, Frequency, Incontinence (3 days ago.), Urgency Musculoskeletal: Reports: Neck Pain, Shoulder Pain ( shoulder and neck at times.), Back Pain ( Incontinence both stress and urge components.), Joint Pain (Knees hips) Skin: Reports: Bruising (Bruises easily.) Neurological: Reports: Dizziness (Dizzy today.), Weakness. Denies: Confusion, Headache, Numbness, Pre-Existing Deficit, Syncope, Tingling, Trouble Speaking, Difficulty Walking Psychiatric: Reports: No Symptoms Hematologic/Lymphatic: Reports: No Symptoms Immunologic: Reports: No Symptoms ED EXAM, RENAL/ - Physical Exam Exam: See Below Exam Limited By: No Limitations General Appearance: Alert, WD/WN, Anxious, Mild Distress, Other (Patient is definitely very warm to palpation. Nurses recorded temperature 38.8 degrees. Heart rate is 88 and sinus respiratory 16 with sats of 92 to 94% room air BP 180/67.) Eye Exam: Bilateral Eye: Normal Inspection, PERRL (No scleral icterus mild blepharal pallor.) Throat/Mouth: Normal Oropharynx ( but not coated), Other (Is mildly dry) Head: Atraumatic, Normocephalic ( versus otherwise normal), Other (Overt signs of any head or facial trauma.) Neck: Normal Inspection, Supple, Limited Range of Motion (Limited range of motion of her neck with loss of 10 degrees flexion), Tender Lateral ( and lateral rotation bilaterally.). No: Full Range of Motion, Lymphadenopathy (L), Lymphadenopathy (R) Respiratory/Chest: No Respiratory Distress, Lungs Clear, Normal Breath Sounds, No Accessory Muscle Use Cardiovascular: Regular Rate, Rhythm, No Edema, No Gallop, No Rub, Systolic Murmur (Grade 1 out of 6 pansystolic ejection murmur). No: Normal Peripheral Pulses GI/Abdominal: No Organomegaly ( but no rebound tenderness), Distended (The abdomen is distended and diffusely tympanic to percussion. Tenderness in the midline infraumbilical.), Guarding, Abnormal Bowel Sounds (Sounds are hyperactive in all 4 quadrants.). No: Rigid, Rebound (Guarding), Tender Back Exam: Other (Her kyphosis of her thoracic spine.) Extremities: Normal Inspection, Normal Range of Motion, Non-Tender Neurological: Alert, Oriented, CN II-XII Intact, Normal Cognition Psychiatric: Normal Affect, Normal Mood Skin Exam: Warm, Dry, Intact, Normal Color, No Rash Course - Vital Signs Last Recorded V/S: Last Vital Signs Temp 37.7 C 12/10/20 18:29 Pulse 88 12/10/20 17:23 Resp 16 12/10/20 17:23 BP 180/67 H 12/10/20 17:23 Pulse Ox 92 L 12/10/20 17:23 - Orders/Labs/Meds Orders: Active Orders 24 hr Category Date Time Status EKG Documentation Completion [RC] STAT Care 12/10/20 18:43 Active CORONAVIRUS COVID-19 [facility] [MOLEC] Stat Lab 12/10/20 18:38 Ordered CULTURE BLOOD [BC] Stat Lab 12/10/20 18:14 Received CULTURE BLOOD [BC] Stat Lab 12/10/20 18:26 Received CULTURE URINE [RM] Stat Lab 12/10/20 18:00 Received REFLEX LACTIC ACID YES OR NO [CHEM] Routine Lab 12/10/20 19:11 Received Dextrose 5%-0.9% NaCl [Dextrose 5%-Normal Saline] 1,000 Med 12/10/20 17:45 Active ml IV ASDIRECTED Medication Orders Dextrose/Sodium Chloride (Dextrose 5%-Normal Saline) 1,000 mls @ 150 mls/hr IV ASDIRECTED RICKY Last Admin: 12/10/20 18:27 Dose: 150 mls/hr Documented by: TURNER Labs: Laboratory Tests 12/10/20 12/10/20 12/10/20 Range/Units 18:00 18:14 18:26 WBC 11.77 H (3.98-10.04) K/mm3 RBC 3.27 L (3.98-5.22) M/mm3 Hgb 9.5 L (11.2-15.7) gm/dl Hct 30.7 L (34.1-44.9) % MCV 93.9 D (79.4-94.8) fl MCH 29.1 (25.6-32.2) pg MCHC 30.9 L (32.2-35.5) g/dl RDW Std Deviation 46.2 (36.4-46.3) fL Plt Count 218 D (182-369) K/mm3 MPV 9.0 L (9.4-12.3) fl Neut % (Auto) 94.4 H (34.0-71.1) % Lymph % (Auto) 2.2 L (19.3-51.7) % Eagle % (Auto) 2.6 L (4.7-12.5) % Eos % (Auto) 0.3 L (0.7-5.8) Baso % (Auto) 0.2 (0.1-1.2) % Neut # (Auto) 11.12 H (1.56-6.13) K/mm3 Lymph # (Auto) 0.26 L (1.18-3.74) K/mm3 Eagle # (Auto) 0.31 (0.24-0.36) K/mm3 Eos # (Auto) 0.03 L (0.04-0.36) K/mm3 Baso # (Auto) 0.02 (0.01-0.08) K/mm3 Manual Slide Review Abnormal smear Sodium (136-145) mEq/L Potassium (3.5-5.1) mEq/L Chloride (98-107) mEq/L Carbon Dioxide (21-32) mEq/L Anion Gap (5-15) BUN (7-18) mg/dL Creatinine (0.55-1.02) mg/dL Est Cr Clr Drug Dosing mL/min Estimated GFR (MDRD) (>60) mL/min BUN/Creatinine Ratio (14-18) Glucose (83-115) mg/dL Lactic Acid 5.6 H* (0.4-2.0) mmol/L Calcium (8.5-10.1) mg/dL Magnesium (1.8-2.4) mg/dl Total Bilirubin (0.2-1.0) mg/dL AST (15-37) U/L ALT (14-59) U/L Alkaline Phosphatase (46-116) U/L C-Reactive Protein (<1.0) mg/dL NT-Pro-B Natriuret Pep (0-450) pg/mL Total Protein (6.4-8.2) g/dl Albumin (3.4-5.0) g/dl Globulin gm/dL Albumin/Globulin Ratio (1-2) Urine Color Yellow (Yellow) Urine Appearance Clear (Clear) Urine pH 7.0 (5.0-8.0) Ur Specific [place] 1.020 (1.005-1.030) Urine Protein 1+ H (Negative) Urine Glucose (UA) Negative (Negative) Urine Ketones 1+ H (Negative) Urine Occult Blood Trace-intact H (Negative) Urine Nitrite Negative (Negative) Urine Bilirubin Negative (Negative) Urine Urobilinogen 0.2 (0.2-1.0) Ur Leukocyte Esterase 1+ H (Negative) Urine RBC 10-20 H (0-5) /hpf Urine WBC 20-30 H (0-5) /hpf Ur Squamous Epith Cells Not seen (0-5) /hpf Urine Bacteria Few (FEW) /hpf Urine Mucus Not seen (FEW) /hpf 12/10/20 12/10/20 12/10/20 Range/Units 18:26 18:26 18:26 WBC (3.98-10.04) K/mm3 RBC (3.98-5.22) M/mm3 Hgb (11.2-15.7) gm/dl Hct (34.1-44.9) % MCV (79.4-94.8) fl MCH (25.6-32.2) pg MCHC (32.2-35.5) g/dl RDW Std Deviation (36.4-46.3) fL Plt Count (182-369) K/mm3 MPV (9.4-12.3) fl Neut % (Auto) (34.0-71.1) % Lymph % (Auto) (19.3-51.7) % Eagle % (Auto) (4.7-12.5) % Eos % (Auto) (0.7-5.8) Baso % (Auto) (0.1-1.2) % Neut # (Auto) (1.56-6.13) K/mm3 Lymph # (Auto) (1.18-3.74) K/mm3 Eagle # (Auto) (0.24-0.36) K/mm3 Eos # (Auto) (0.04-0.36) K/mm3 Baso # (Auto) (0.01-0.08) K/mm3 Manual Slide Review Sodium 135 L (136-145) mEq/L Potassium 3.4 L (3.5-5.1) mEq/L Chloride 99 (98-107) mEq/L Carbon Dioxide 23 (21-32) mEq/L Anion Gap 16.4 H (5-15) BUN 13 (7-18) mg/dL Creatinine 0.7 (0.55-1.02) mg/dL Est Cr Clr Drug Dosing 2.14 mL/min Estimated GFR (MDRD) > 60 (>60) mL/min BUN/Creatinine Ratio 18.6 H (14-18) Glucose 104 (83-115) mg/dL Lactic Acid (0.4-2.0) mmol/L Calcium 8.5 D (8.5-10.1) mg/dL Magnesium 1.0 L (1.8-2.4) mg/dl Total Bilirubin 0.4 (0.2-1.0) mg/dL AST 18 (15-37) U/L ALT 13 L (14-59) U/L Alkaline Phosphatase 49 (46-116) U/L C-Reactive Protein 3.4 H* (<1.0) mg/dL NT-Pro-B Natriuret Pep 4184 H (0-450) pg/mL Total Protein 5.5 L (6.4-8.2) g/dl Albumin 2.3 L (3.4-5.0) g/dl Globulin 3.2 gm/dL Albumin/Globulin Ratio 0.7 L (1-2) Urine Color (Yellow) Urine Appearance (Clear) Urine pH (5.0-8.0) Ur Specific [place] (1.005-1.030) Urine Protein (Negative) Urine Glucose (UA) (Negative) Urine Ketones (Negative) Urine Occult Blood (Negative) Urine Nitrite (Negative) Urine Bilirubin (Negative) Urine Urobilinogen (0.2-1.0) Ur Leukocyte Esterase (Negative) Urine RBC (0-5) /hpf Urine WBC (0-5) /hpf Ur Squamous Epith Cells (0-5) /hpf Urine Bacteria (FEW) /hpf Urine Mucus (FEW) /hpf Meds: Medications Generic Name Dose Route Start Last Admin Trade Name Freq PRN Reason Stop Dose Admin Dextrose/Sodium Chloride 1,000 mls @ 150 mls/hr 12/10/20 17:45 12/10/20 18:27 Dextrose 5%-Normal Saline IV 150 mls/hr ASDIRECTED RICKY Administration Discontinued Medications Generic Name Dose Route Start Last Admin Trade Name Freq PRN Reason Stop Dose Admin Acetaminophen 650 mg 12/10/20 17:39 12/10/20 18:29 Tylenol PO 12/10/20 17:40 650 mg ONETIME ONE Administration Ceftriaxone Sodium 2 gm/ 100 mls @ 200 mls/hr 12/10/20 17:42 12/10/20 18:28 Sodium Chloride IV 12/10/20 18:11 200 mls/hr ONETIME ONE Administration - Radiology Interpretation Free Text/Narrative:: 85-year-old female attends the ED with acute onset of high fever of 102 degrees at home and confirmed here to be 38.8 C. She has had associated rigors and chills x2 today. Not able to eat anything today. Has not taken anything for fever relief. She was seen through the walk-in clinic at [place] yesterday and diagnosed with a urinary tract infection. She was started on Macrobid 100 mg twice daily which she has taken 2 tablets. Her other complaint is diffuse lower abdominal pain and discomfort feeling very bloated. No bowel movement for about 5 days. Where she felt the bulge she had this morning was very minimal with no blood. Plan septic work-up to be completed. She will be given Rocephin 2 g IV as soon as blood cultures x2 are completed. X-ray of the abdomen x-ray of the chest to be done. She never did have COVID-19 illness and has had both of her COVID-19 illness vaccinations. She is likely going to need to come in to hospital for care due to weakness and living alone. Tylenol 650 mg by mouth for fever relief. - Re-Assessments/Exams Free Text/Narrative Re-Assessment/Exam: 12/10/20 18:45 KUB reveals soft tissue density within the pelvis most likely due to enlarged fecal filled rectum. No other findings of constipation are seen. Degenerative changes scoliosis is seen within the spine. No abnormal calcifications are appreciated vascular calcification is noted previous surgery is noted within the upper abdomen. Chest x-ray reveals heart is enlarged. Tortuous thoracic aorta is appreciated. Lungs are clear with no acute pa renchymal changes. Bony structures are grossly intact. 12/10/20 19:24 Total white count is elevated 11.77 with 94.4% neutrophils on the auto differential. Hemoglobin is low at 9.5 with hematocrit of 30.7 platelet count is 218,000. The smear reveals 1+ poikilocytosis 1+ hypochromasia 1+ ovalocytes neutrophilia and lymphopenia chemistry shows a sodium of 135 and a potassium low normal at 3.4. Chloride is 99 with a bicarb of 23. Anion gap is 16.4. BUN is 13 with a creatinine of 0.7. Estimated GFR is greater than 60. Glucose is 104. Lactic acid is markedly elevated at 5.6. Calcium is 8.5 with a magnesium of only 1.0. Total bilirubin is 0.4 AST is 18 ALT is 13 and alk phosphatase is 49 C-reactive protein is 3.4 total protein is 5.5 with an albumin fraction of only 2.3. The urinalysis today shows 1+ proteinuria 1+ ketones trace of occult blood. 1+ leukocyte esterase with 10-20 RBCs per high-power field and 20-30 WBCs per high-power field a urine culture will be ordered although the patient is on Macrobid for the last day. BNP is still in progress. 12/10/20 19:25 we had the urinalysis and urine culture that was ordered sent over from [place] but it is stating that there is no growth after 24 hour 12/10/20 19:45 Reactive protein is returned at 3.4 BNP is markedly elevated at 4184. 12/10/20 19:[address] Saha in regards to admitting this patient to the hospital. She has a combination of significant congestive heart failure with an elevated lactic acid due to not eating or drinking much for the last 2 to 3 days. Does have a significant urinary tract infection with fever chills and rigors. Her initial lactic acid returned at 5.6 months to my [facility]. Patient does not appear to be that ill. Blood pressure is currently 110/50 with O2 sats of 93% room air. Chest x-ray is clear with no signs of pulmonary edema or pleural effusion. Plan I will open her IV up to D5 normal saline at full. She will also be given Lasix 20 mg IV at this time. The plan will be to place her in the intensive care unit for adequate intake and output values. Departure - Departure Time of Disposition: 19:52 Disposition: Admitted As Inpatient 67 Condition: Fair Clinical Impression: Upper urinary tract infection, Acute febrile illness, Hypomagnesemia - Discharge Information *PRESCRIPTION DRUG MONITORING PROGRAM REVIEWED*: Not Applicable *COPY OF PRESCRIPTION DRUG MONITORING REPORT IN PATIENT TU: Not Applicable Instructions: Urinary Tract Infection, Adult, Hypomagnesemia Referrals: Marimar Huertas MD [Primary Care Provider] - Forms: ED Department Discharge Sepsis Event Note (ED) - Evaluation Sepsis Screening Result: No Definite Risk - Focused Exam Vital Signs: Vital Signs Temp Temp Pulse Resp BP Pulse Ox 12/10/20 18:29 37.7 C 12/10/20 17:23 38.8 C H 88 16 180/67 H 92 L - My Orders Last 24 Hours: My Active Orders 12/10/20 17:45 Dextrose 5%-0.9% NaCl [Dextrose 5%-Normal Saline] 1,000 ml IV ASDIRECTED 12/10/20 18:00 CULTURE URINE [RM] Stat 12/10/20 18:14 CULTURE BLOOD [BC] Stat 12/10/20 18:26 CULTURE BLOOD [BC] Stat 12/10/20 18:38 CORONAVIRUS COVID-19 MIKALA [MOLEC] Stat 12/10/20 18:43 EKG Documentation Completion [RC] STAT 12/10/20 19:11 REFLEX LACTIC ACID YES OR NO [CHEM] Routine - Assessment/Plan Last 24 Hours: My Active Orders 12/10/20 17:45 Dextrose 5%-0.9% NaCl [Dextrose 5%-Normal Saline] 1,000 ml IV ASDIRECTED 12/10/20 18:00 CULTURE URINE [RM] Stat 12/10/20 18:14 CULTURE BLOOD [BC] Stat 12/10/20 18:26 CULTURE BLOOD [BC] Stat 12/10/20 18:38 CORONAVIRUS COVID-19 MIKALA [MOLEC] Stat 12/10/20 18:43 EKG Documentation Completion [RC] STAT 12/10/20 19:11 REFLEX LACTIC ACID YES OR NO [CHEM] Routine
[2020-12-10] MEDS ORDERED: Dextrose 5%-0.9% NaCl 1,000 ML IV SCH ×2 (17:45→20:00)
--- NOTE | 2020-12-10 18:21 | CR ---
Abdomen: Supine portable view of the abdomen was obtained. Comparison: No prior abdominal x-ray is available Soft tissue density is seen within the pelvis most likely due to enlarged fecal filled rectum. No other findings of constipation are seen. Degenerative change and scoliosis is seen within the spine. No abnormal calcifications are appreciated. Vascular calcification is noted. Previous surgery is noted within the upper abdomen. Impression: 1. Soft tissue density within the pelvis most likely representing stool within an enlarged rectum. 2. Other findings as noted above. Nothing acute is otherwise seen. Diagnostic code #3
--- NOTE | 2020-12-10 18:21 | CR ---
Chest: Portable view of the chest was obtained. Comparison: Prior chest x-ray of 12/13/17. Heart is enlarged. Tortuous thoracic aorta is seen. Lungs are clear with no acute parenchymal change. Bony structures are grossly intact. Impression: 1. Findings as noted above. 2. Nothing acute is appreciated. Diagnostic code #2
[2020-12-10] MEDS ORDERED: Furosemide 20 MG/2 ML VIAL IVPUSH ONE (19:50)
[2020-12-10] MEDS ORDERED: Magnesium Sulfate/Water 4 GM in Premix Bag 1 BAG IV ONE (19:53)
[2020-12-10] MEDS ORDERED: Ondansetron 4 MG/2 ML SDV IV PRN (20:58)
[2020-12-10] MEDS ORDERED: Acetaminophen 325 MG Tab PO PRN (20:58)
--- NOTE | 2020-12-10 21:14 | PCM.HP.2 ---
H&P History of Present Illness - General Date of Service: 12/10/20 Admit Problem/Dx: Admission Diagnosis/Problem Admission Diagnosis/Problem Sepsis - History of Present Illness Initial Comments - Free Text/Narative: 85-year-old female who presents to the emergency department with complaints of fever, chills, and weakness. Patient was seen at the walk-in clinic yesterday after having dysuria for 1 week. She was started on Macrobid 100 mg twice a day, but symptoms worsened today after 2 doses. Patient states that she is feeling lightheaded and dizzy and worse when standing. She complains of constipation and some abdominal discomfort. She did have a good bowel movement just before I saw her in the emergency department. Patient is not eating well and has had a poor appetite. She states that she supposed to get an iron infusion because of worsening anemia by oncology. 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 When she arrived at the emergency department she had a fever of 102. Her white count was 11,000, Pulse 88, respiratory rate of 16, and a blood pressure of 180/67. She only fulfilled one of the SIRS criteria. Urine cultures done yesterday at the clinic showed no growth. In the emergency department her urine was positive for 20-30 WBCs, 10-20 RBCs and no epithelial cells making it a clean-catch. She was given 2 g Rocephin in the emergency department. Lactic acid was elevated at 5.6, anion gap was 16.4, and proBNP was 4184. Lower Abdominal Pain Score (Numeric/FACES): 8 - Related Data Allergies/Adverse Reactions: Allergies Allergy/AdvReac Type Severity Reaction Status Date / Time No Known Allergies Allergy Verified 12/10/20 19:50 Home Medications: Home Meds Lisinopril 40 mg PO 199907/21/14 [History] atenoloL [Atenolol] [place] 79907/21/14 [History] hydroCHLOROthiazide [Hydrochlorothiazide] 25 [place] 79907/21/14 [History] Acetaminophen [Tylenol Extra Strength] 1,000 mg PO Q8H PRN 11/08/19 [History] Calcium Carb/Vitamin D3/Vit K1 [Calcium + D Soft Chewable Tab] 2 tab PO 199911/08/19 [History] Folic Acid 1 [place] 79911/08/19 [History] Lactose-Reduced Food [Ensure] 237 ml PO BID 11/08/19 [History] Latanoprost 1 drop EYEBOTH BEDTIME 11/08/19 [History] Multivitamin [Daily Multiple Vitamin] 1 tab PO 0800 11/08/19 [History] Propylene Glycol/PEG 400/Pf [Systane 0.3-0.4% Eye Drop] 1 drop EYEBOTH QID PRN 11/08/19 [History] Urine Leukocyte Test [Azo] 2 tab PO TID PRN 11/08/19 [History] amLODIPine [Norvasc] 5 mg PO 0800 11/08/19 [History] Ascorbic Acid [Vitamin C] 500 mg PO DAILY 12/10/20 [History] Calcium Carbonate [Tums] 400 mg PO ASDIRECTED PRN 12/10/20 [History] Chlorhexidine Gluconate [Peridex] 0.5 oz PO BID 12/10/20 [History] Cholecalciferol (Vitamin D3) [Vitamin D3] 1,000 mg PO DAILY 12/10/20 [History] Famotidine [Pepcid] 20 mg PO 0800 12/10/20 [History] Levothyroxine [Synthroid] 100 mcg PO 0800 12/10/20 [History] Lutein/Minerals/Vit A,C & E [Ocuvite] 1 tab PO DAILY 12/10/20 [History] Neomycin/Bacitracin/Polymyxinb [Antibiotic Ointment] 1 applic TOP DAILY PRN 12/10/20 [History] Nitrofurantoin Monohyd/M-Cryst [Macrobid 100 mg Capsule] 100 mg PO 0800,1400 12/10/20 [History] Psyllium Husk/Aspartame [Metamucil Sugar Free] 1 tbsp PO 0800 12/10/20 [History] Rivaroxaban [Xarelto] 20 mg PO 1700 12/10/20 [History] Zinc 25 mg PO DAILY 12/10/20 [History] atorvaSTATin [Lipitor] 20 mg PO 199912/10/20 [History] hydrALAZINE [Apresoline] 50 mg PO 0800,1400,199912/10/20 [History] traMADol [Ultram] 50 mg PO Q6H PRN 12/10/20 [History] Propylene Glycol [Systane Balance] 1 drop EYEBOTH 12/11/20 [History] Past Medical History HEENT History: Reports: Impaired Vision, Other (See Below) Other HEENT History: wears glasses, has partial Cardiovascular History: Reports: Afib, Aneurysm, High Cholesterol, Hypertension Respiratory History: Reports: None Gastrointestinal History: Reports: GERD, Hemorrhoids, PUD, Other (See Below) Other Gastrointestinal History: ulcer Genitourinary History: Reports: Other (See Below) Other Genitourinary History: hematuria, cystoscopy DEEP FAT COOK FRY History: Reports: None Musculoskeletal History: Reports: Osteoporosis Neurological History: Reports: TIA Psychiatric History: Reports: None Endocrine/Metabolic History: Reports: Hypothyroidism Hematologic History: Reports: Anemia, Iron Deficiency Immunologic History: Reports: None Oncologic (Cancer) History: Reports: None Dermatologic History: Reports: None - Past Surgical History Head Surgeries/Procedures: Reports: None HEENT Surgical History: Reports: Cataract Surgery Cardiovascular Surgical History: Reports: None Respiratory Surgical History: Reports: None GI Surgical History: Reports: Colonoscopy, EGD, Other (See Below) Other GI Surgeries/Procedures: stomach surgery x2 Female Surgical History: Reports: None Endocrine Surgical History: Reports: None Neurological Surgical History: Reports: None Musculoskeletal Surgical History: Reports: None Oncologic Surgical History: Reports: None Dermatological Surgical History: Reports: None Social & Family History - Tobacco Use Tobacco Use Status *Q: Never Tobacco User - Caffeine Use Caffeine Use: Reports: Tea - Recreational Drug Use Recreational Drug Use: No - Living Situation & Occupation Living situation: Reports: , Alone Occupation: Retired H&P Review of Systems - Review of Systems: Review Of Systems: Comprehensive ROS is negative, except as noted in HPI. Exam - Exam Exam: See Below - Vital Signs Vital Signs: Last Vital Signs Temp 100 F 12/10/20 18:29 Pulse 88 12/10/20 17:23 Resp 16 12/10/20 17:23 BP 180/67 H 12/10/20 17:23 Pulse Ox 92 L 12/10/20 17:23 Weight: 5 lb - Exam Quality Assessment: No: Supplemental Oxygen General: Alert, Oriented, Mild Distress HEENT: Conjunctiva Clear, Hearing Intact, Mucosa Moist & [place], Normal Nasal Septum Neck: Supple, Trachea Midline, 2 Lungs: Clear to Auscultation, Normal Respiratory Effort Cardiovascular: Regular Rate, Regular Rhythm GI/Abdominal Exam: Normal Bowel Sounds, Soft, Non-Tender, No Organomegaly, No Distention Extremities: Normal Inspection, Normal Range of Motion, Non-Tender, No Pedal Edema, Normal Capillary Refill Skin: Warm, Dry, Intact Neuro Extensive - Mental Status: Alert, Oriented x3, Normal Mood/Affect, Normal Cognition Psychiatric: Alert, Normal Affect, Normal Mood - Patient Data Lab Results Last 24 hrs: Laboratory Results - last 24 hr 12/10/20 12/10/20 12/10/20 Range/Units 18:00 18:14 18:26 WBC 11.77 H (3.98-10.04) K/mm3 RBC 3.27 L (3.98-5.22) M/mm3 Hgb 9.5 L (11.2-15.7) gm/dl Hct 30.7 L (34.1-44.9) % MCV 93.9 D (79.4-94.8) fl MCH 29.1 (25.6-32.2) pg MCHC 30.9 L (32.2-35.5) g/dl RDW Std Deviation 46.2 (36.4-46.3) fL Plt Count 218 D (182-369) K/mm3 MPV 9.0 L (9.4-12.3) fl Neut % (Auto) 94.4 H (34.0-71.1) % Lymph % (Auto) 2.2 L (19.3-51.7) % [place] % (Auto) 2.6 L (4.7-12.5) % Eos % (Auto) 0.3 L (0.7-5.8) Baso % (Auto) 0.2 (0.1-1.2) % Neut # (Auto) 11.12 H (1.56-6.13) K/mm3 Lymph # (Auto) 0.26 L (1.18-3.74) K/mm3 [place] # (Auto) 0.31 (0.24-0.36) K/mm3 Eos # (Auto) 0.03 L (0.04-0.36) K/mm3 Baso # (Auto) 0.02 (0.01-0.08) K/mm3 Manual Slide Review Abnormal smear Sodium (136-145) mEq/L Potassium (3.5-5.1) mEq/L Chloride (98-107) mEq/L Carbon Dioxide (21-32) mEq/L Anion Gap (5-15) BUN (7-18) mg/dL Creatinine (0.55-1.02) mg/dL Est Cr Clr Drug Dosing mL/min Estimated GFR (MDRD) (>60) mL/min BUN/Creatinine Ratio (14-18) Glucose (83-115) mg/dL Lactic Acid 5.6 H* (0.4-2.0) mmol/L Calcium (8.5-10.1) mg/dL Magnesium (1.8-2.4) mg/dl Total Bilirubin (0.2-1.0) mg/dL AST (15-37) U/L ALT (14-59) U/L Alkaline Phosphatase (46-116) U/L C-Reactive Protein (<1.0) mg/dL NT-Pro-B Natriuret Pep (0-450) pg/mL Total Protein (6.4-8.2) g/dl Albumin (3.4-5.0) g/dl Globulin gm/dL Albumin/Globulin Ratio (1-2) Urine Color Yellow (Yellow) Urine Appearance Clear (Clear) Urine pH 7.0 (5.0-8.0) Ur Specific [place] 1.020 (1.005-1.030) Urine Protein 1+ H (Negative) Urine Glucose (UA) Negative (Negative) Urine Ketones 1+ H (Negative) Urine Occult Blood Trace-intact H (Negative) Urine Nitrite Negative (Negative) Urine Bilirubin Negative (Negative) Urine Urobilinogen 0.2 (0.2-1.0) Ur Leukocyte Esterase 1+ H (Negative) Urine RBC 10-20 H (0-5) /hpf Urine WBC 20-30 H (0-5) /hpf Ur Squamous Epith Cells Not seen (0-5) /hpf Urine Bacteria Few (FEW) /hpf Urine Mucus Not seen (FEW) /hpf 12/10/20 12/10/20 12/10/20 Range/Units 18:26 18:26 18:26 WBC (3.98-10.04) K/mm3 RBC (3.98-5.22) M/mm3 Hgb (11.2-15.7) gm/dl Hct (34.1-44.9) % MCV (79.4-94.8) fl MCH (25.6-32.2) pg MCHC (32.2-35.5) g/dl RDW Std Deviation (36.4-46.3) fL Plt Count (182-369) K/mm3 MPV (9.4-12.3) fl Neut % (Auto) (34.0-71.1) % Lymph % (Auto) (19.3-51.7) % [place] % (Auto) (4.7-12.5) % Eos % (Auto) (0.7-5.8) Baso % (Auto) (0.1-1.2) % Neut # (Auto) (1.56-6.13) K/mm3 Lymph # (Auto) (1.18-3.74) K/mm3 [place] # (Auto) (0.24-0.36) K/mm3 Eos # (Auto) (0.04-0.36) K/mm3 Baso # (Auto) (0.01-0.08) K/mm3 Manual Slide Review Sodium 135 L (136-145) mEq/L Potassium 3.4 L (3.5-5.1) mEq/L Chloride 99 (98-107) mEq/L Carbon Dioxide 23 (21-32) mEq/L Anion Gap 16.4 H (5-15) BUN 13 (7-18) mg/dL Creatinine 0.7 (0.55-1.02) mg/dL Est Cr Clr Drug Dosing 2.14 mL/min Estimated GFR (MDRD) > 60 (>60) mL/min BUN/Creatinine Ratio 18.6 H (14-18) Glucose 104 (83-115) mg/dL Lactic Acid (0.4-2.0) mmol/L Calcium 8.5 D (8.5-10.1) mg/dL Magnesium 1.0 L (1.8-2.4) mg/dl Total Bilirubin 0.4 (0.2-1.0) mg/dL AST 18 (15-37) U/L ALT 13 L (14-59) U/L Alkaline Phosphatase 49 (46-116) U/L C-Reactive Protein 3.4 H* (<1.0) mg/dL NT-Pro-B Natriuret Pep 4184 H (0-450) pg/mL Total Protein 5.5 L (6.4-8.2) g/dl Albumin 2.3 L (3.4-5.0) g/dl Globulin 3.2 gm/dL Albumin/Globulin Ratio 0.7 L (1-2) Urine Color (Yellow) Urine Appearance (Clear) Urine pH (5.0-8.0) Ur Specific [place] (1.005-1.030) Urine Protein (Negative) Urine Glucose (UA) (Negative) Urine Ketones (Negative) Urine Occult Blood (Negative) Urine Nitrite (Negative) Urine Bilirubin (Negative) Urine Urobilinogen (0.2-1.0) Ur Leukocyte Esterase (Negative) Urine RBC (0-5) /hpf Urine WBC (0-5) /hpf Ur Squamous Epith Cells (0-5) /hpf Urine Bacteria (FEW) /hpf Urine Mucus (FEW) /hpf Result Diagrams: 12/11/20 05:32 12/11/20 05:32 Sepsis Event Note - Evaluation Sepsis Screening Result: No Definite Risk - Focused Exam Vital Signs: Vital Signs Temp Temp Pulse Resp BP Pulse Ox 12/10/20 18:29 100 F 12/10/20 17:23 102 F H 88 16 180/67 H 92 L - Problem List (1) Severe sepsis SNOMED Code(s): 77338754 ICD Code: A41.9 - SEPSIS, UNSPECIFIED ORGANISM; R65.20 - SEVERE SEPSIS WITHOUT SEPTIC SHOCK Status: Acute Current Visit: Yes (2) Hypomagnesemia SNOMED Code(s): 144892568 ICD Code: E83.42 - HYPOMAGNESEMIA Status: Acute Current Visit: Yes (3) UTI, Urinary tract infectious disease SNOMED Code(s): 39070863 ICD Code: N39.0 - URINARY TRACT INFECTION, SITE NOT SPECIFIED Status: Acute Current Visit: No (4) CHF (congestive heart failure) SNOMED Code(s): 60938677 ICD Code: I50.9 - HEART FAILURE, UNSPECIFIED Status: Acute Current Visit: Yes Problem List Initiated/Reviewed/Updated: Yes Orders Last 24hrs: Active Orders 24 hr Category Date Time Status Admission Status [Patient Status] [ADT] Routine ADT 12/10/20 19:55 Active EKG Documentation Completion [RC] STAT Care 12/10/20 18:43 Active Oxygen Therapy [RC] PRN Care 12/10/20 20:59 Ordered Up With Assistance [RC] ASDIRECTED Care 12/10/20 20:58 Ordered VTE/DVT Education [RC] PER UNIT ROUTINE Care 12/10/20 20:59 Ordered Vital Signs [RC] ASDIRECTED Care 12/10/20 20:58 Ordered Consult to Entry Level Software Engineer [CONS] Routine Cons 12/10/20 20:58 Ordered PT Evaluation and Treatment [CONS] Routine Cons 12/10/20 20:58 Ordered Regular Diet [DIET] Diet 12/11/20 Breakfast Ordered C-REACTIVE PROTEIN [CHEM] AM Lab 12/11/20 05:11 Ordered CBC WITH AUTO DIFF [HEME] AM Lab 12/11/20 05:11 Ordered COMPREHENSIVE METABOLIC PN,CMP [CHEM] AM Lab 12/11/20 05:11 Ordered CORONAVIRUS COVID-19 MIKALA [MOLEC] Stat Lab 12/10/20 20:49 Received CULTURE BLOOD [BC] Stat Lab 12/10/20 18:14 Received CULTURE BLOOD [BC] Stat Lab 12/10/20 18:26 Received CULTURE URINE [RM] Stat Lab 12/10/20 18:00 Received MAGNESIUM [CHEM] AM Lab 12/11/20 05:11 Ordered REFLEX LACTIC ACID YES OR NO [CHEM] Routine Lab 12/10/20 19:11 Received Acetaminophen [TylenoL] Med 12/10/20 20:58 Ordered 650 mg PO Q4H PRN Dextrose 5%-0.9% NaCl [Dextrose 5%-Normal Saline] 1,000 Med 12/10/20 17:45 Act brenda ml IV ASDIRECTED Dextrose 5%-0.9% NaCl [Dextrose 5%-Normal Saline] 1,000 Med 12/10/20 20:00 Active ml IV ASDIRECTED Magnesium Sulfate/Water [Magnesium Sulfate in Water 4 Med 12/10/20 19:53 Active GM/50 ML] 4 gm Premix Bag 1 bag IV ONETIME Ondansetron [Zofran] Med 12/10/20 20:58 Ordered 4 mg IV Q4H PRN Sodium Chloride 0.9% with KCl 20 mEq @ 125 mL/Hr (1000 Med 12/10/20 21:15 Ordered mL) NS + KCl 20mEq/L [Normal Saline with 20 mEq KCl] 1,000 ml IV ASDIRECTED cefTRIAXone [Rocephin] 2 gm Med 12/11/20 18:00 Ordered Sodium Chloride 0.9% [Normal Saline] 100 ml IV Q24H Resuscitation Status Routine Resus Stat 12/10/20 20:58 Ordered Medication Orders Acetaminophen (Tylenol) 650 mg PO Q4H PRN PRN Reason: Pain (Mild 1-3)/fever Dextrose/Sodium Chloride (Dextrose 5%-Normal Saline) 1,000 mls @ 150 mls/hr IV ASDIRECTED [facility] Last Infusion: 12/10/20 20:03 Dose: 999 mls/hr Documented by: Admin: 12/10/20 18:27 Dose: 150 mls/hr Documented by: TURNER Dextrose/Sodium Chloride (Dextrose 5%-Normal Saline) 1,000 mls @ 999 mls/hr IV ASDIRECTED [facility] Magnesium Sulfate 4 gm/ Premix 50 mls @ 12.5 mls/hr IV ONETIME ONE Stop: 12/10/20 23:52 Last Admin: 12/10/20 20:35 Dose: 12.5 mls/hr Documented by: BONNY Potassium Chloride/Sodium Chloride (Normal Saline With 20 Meq Kcl) 1,000 mls @ 125 mls/hr IV ASDIRECTED [facility] Stop: 12/11/20 05:14 Ondansetron HCl (Zofran) 4 mg IV Q4H PRN PRN Reason: Nausea/Vomiting Assessment/Plan Comment:: Assessment 85-year-old female with severe sepsis secondary to a urinary tract infection started on Macrobid yesterday at the walk-in clinic and failed outpatient treatment. Severe sepsis Urinary tract infection * Patient with a fever of 102 on presentation to the emergency department * Normal heart rate although this may be blunted secondary to beta-paulino, atenolol * Blood pressure elevated * WBC 11.7 * C-reactive protein 3.4 * Lactic acid 5.6 * UA: WBC 20-30 * Blood cultures, urine cultures done in the emergency department * Urine culture was also done yesterday at the clinic * Rocephin 2 g given in the emergency department Possible CHF Hypertension * Cardiomegaly seen on chest x-ray, no signs of congestion * BNP markedly elevated at 4184 * History of atrial fibrillation * On Xarelto * Currently in sinus rhythm * Given Lasix 20 mg IV in the emergency department Hypomagnesemia Hypokalemia * Magnesium 1.0 * Potassium 3.4 Malnourished, protein, calorie deficient, moderate * 10 pound weight loss over the last year * Hypoalbuminemia with albumin of 2.3 likely secondary to poor oral intake although there are is slight proteinuria of 1+ on dipstick Iron deficiency anemia * 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 She did move them just before I saw her in the emergency department. * Abdominal x-ray showed likely stool in the rectum Plan * Admit to ICU * Strict I's and O's with Flores catheter for critical I's and O's * Replenish magnesium and potassium * Continue Rocephin 2 g daily * Follow CBC, CMP, magnesium, C-reactive protein * Get iron panel for the morning and B12 * Echocardiogram in the morning * Follow respiratory status closely secondary to possible fluid overload with fluid resuscitation * VTE prophylaxis with Xarelto * CODE STATUS DNR/DNI - Mortality Measure Prognosis:: Good
[2020-12-10] MEDS ORDERED: NS + KCl 20mEq/L 1,000 ML IV SCH ×2 (21:15→21:45)
[2020-12-10] MEDS: Potassium Chloride 10 MEQ in Premix Bag 1 BAG IV SCH (23:06)
[2020-12-10] MEDS: Magnesium Sulfate/Water 2 GM in Premix Bag 1 BAG IV ONE (23:33)
[2020-12-11] MEDS: Potassium Chloride 10 MEQ in Premix Bag 1 BAG IV SCH (00:06)
[2020-12-11] MEDS: Magnesium Sulfate/Water 2 GM in Premix Bag 1 BAG IV ONE (01:06)
[2020-12-11] MEDS ORDERED: NS + KCl 20mEq/L 1,000 ML IV SCH (02:30)
[2020-12-11] MEDS ORDERED: traMADol 50 MG Tab PO PRN (08:18)
[2020-12-11] MEDS ORDERED: Calcium Carbonate 500 MG Tab.Chew PO PRN (08:18)
[2020-12-11] MEDS: Folic Acid 1 MG Tab PO SCH (08:41)
[2020-12-11] MEDS ORDERED: Carboxymethylcellulose Sodium 1% Ophth Gel 15 ML Bottle EYEBOTH PRN (08:41)
[2020-12-11] MEDS: Multivitamins,Therapeutic Tab PO SCH (08:41)
[2020-12-11] MEDS: Famotidine 20 MG Tab PO SCH (08:41)
[2020-12-11] MEDS: Potassium Chloride 20 MEQ Tab.ER PO SCH ×2 (08:41→20:20)
[2020-12-11] MEDS: Atenolol 50 MG Tab PO SCH (08:41)
[2020-12-11] MEDS: hydrALAZINE 25 MG Tab PO SCH ×3 (08:42→20:19)
[2020-12-11] MEDS ORDERED: LACTOSE REDUCED FOOD PO SCH (09:00)
[2020-12-11] MEDS ORDERED: Chlorhexidine Gluconate 0.12% Oral Rinse 118 ML Bottle PO SCH (09:00)
[2020-12-11] MEDS ORDERED: Sodium Chloride 0.9% 10 ML Syringe FLUSH PRN (11:15)
--- NOTE | 2020-12-11 15:40 | PCM.PN ---
- General Info Date of Service: 12/11/20 Admission Dx/Problem (Free Text): Admission Diagnosis/Problem Admission Diagnosis/Problem Sepsis Subjective Update: Patient is doing much better. She is been afebrile overnight and she generally has started feeling better. Dietary consult was ordered and they are in to see her. Patient also states that she had a significant bowel movement this morning. Functional Status: Reports: Pain Controlled - Review of Systems General: Reports: No Symptoms HEENT: Reports: No Symptoms Pulmonary: Reports: No Symptoms Cardiovascular: Reports: No Symptoms Gastrointestinal: Reports: No Symptoms Musculoskeletal: Reports: No Symptoms Neurological: Reports: No Symptoms Psychiatric: Reports: No Symptoms - Patient Data Vitals - Most Recent: Last Vital Signs Temp 99.0 F 12/11/20 12:00 Pulse 64 12/11/20 11:00 Resp 18 12/11/20 11:00 BP 117/60 12/11/20 08:42 Pulse Ox 93 L 12/11/20 11:00 Weight - Most Recent: 82 lb 11.197 oz I&O - Last 24 Hours: Intake & Output 12/11/20 12/11/20 12/11/20 06:59 14:59 22:59 Intake Total 850 160 Output Total 750 425 Balance 100 -265 Lab Results Last 24 Hours: Laboratory Results - last 24 hr 12/10/20 12/10/20 12/10/20 Range/Units 18:00 18:14 18:26 WBC 11.77 H (3.98-10.04) K/mm3 RBC 3.27 L (3.98-5.22) M/mm3 Hgb 9.5 L (11.2-15.7) gm/dl Hct 30.7 L (34.1-44.9) % MCV 93.9 D (79.4-94.8) fl MCH 29.1 (25.6-32.2) pg MCHC 30.9 L (32.2-35.5) g/dl RDW Std Deviation 46.2 (36.4-46.3) fL Plt Count 218 D (182-369) K/mm3 MPV 9.0 L (9.4-12.3) fl Neut % (Auto) 94.4 H (34.0-71.1) % Lymph % (Auto) 2.2 L (19.3-51.7) % [place] % (Auto) 2.6 L (4.7-12.5) % Eos % (Auto) 0.3 L (0.7-5.8) Baso % (Auto) 0.2 (0.1-1.2) % Neut # (Auto) 11.12 H (1.56-6.13) K/mm3 Lymph # (Auto) 0.26 L (1.18-3.74) K/mm3 [place] # (Auto) 0.31 (0.24-0.36) K/mm3 Eos # (Auto) 0.03 L (0.04-0.36) K/mm3 Baso # (Auto) 0.02 (0.01-0.08) K/mm3 Manual Slide Review Abnormal smear Sodium (136-145) mEq/L Potassium (3.5-5.1) mEq/L Chloride (98-107) mEq/L Carbon Dioxide (21-32) mEq/L Anion Gap (5-15) BUN (7-18) mg/dL Creatinine (0.55-1.02) mg/dL Est Cr Clr Drug Dosing mL/min Estimated GFR (MDRD) (>60) mL/min BUN/Creatinine Ratio (14-18) Glucose (83-115) mg/dL Lactic Acid 5.6 H* (0.4-2.0) mmol/L Calcium (8.5-10.1) mg/dL Magnesium (1.8-2.4) mg/dl Iron (50-170) ug/dL TIBC (100-400) ug/dL % Saturation (20-55) % Transferrin (202-364) mg/dL Total Bilirubin (0.2-1.0) mg/dL AST (15-37) U/L ALT (14-59) U/L Alkaline Phosphatase (46-116) U/L C-Reactive Protein (<1.0) mg/dL NT-Pro-B Natriuret Pep (0-450) pg/mL Total Protein (6.4-8.2) g/dl Albumin (3.4-5.0) g/dl Globulin gm/dL Albumin/Globulin Ratio (1-2) Vitamin B12 (193-986) pg/ml Urine Color Yellow (Yellow) Urine Appearance Clear (Clear) Urine pH 7.0 (5.0-8.0) Ur Specific [place] 1.020 (1.005-1.030) Urine Protein 1+ H (Negative) Urine Glucose (UA) Negative (Negative) Urine Ketones 1+ H (Negative) Urine Occult Blood Trace-intact H (Negative) Urine Nitrite Negative (Negative) Urine Bilirubin Negative (Negative) Urine Urobilinogen 0.2 (0.2-1.0) Ur Leukocyte Esterase 1+ H (Negative) Urine RBC 10-20 H (0-5) /hpf Urine WBC 20-30 H (0-5) /hpf Ur Squamous Epith Cells Not seen (0-5) /hpf Urine Bacteria Few (FEW) /hpf Urine Mucus Not seen (FEW) /hpf SARS-CoV-2 RNA (MIKALA) (NEGATIVE) MRSA (PCR) 12/10/20 12/10/20 12/10/20 Range/Units 18:26 18:26 18:26 WBC (3.98-10.04) K/mm3 RBC (3.98-5.22) M/mm3 Hgb (11.2-15.7) gm/dl Hct (34.1-44.9) % MCV (79.4-94.8) fl MCH (25.6-32.2) pg MCHC (32.2-35.5) g/dl RDW Std Deviation (36.4-46.3) fL Plt Count (182-369) K/mm3 MPV (9.4-12.3) fl Neut % (Auto) (34.0-71.1) % Lymph % (Auto) (19.3-51.7) % [place] % (Auto) (4.7-12.5) % Eos % (Auto) (0.7-5.8) Baso % (Auto) (0.1-1.2) % Neut # (Auto) (1.56-6.13) K/mm3 Lymph # (Auto) (1.18-3.74) K/mm3 [place] # (Auto) (0.24-0.36) K/mm3 Eos # (Auto) (0.04-0.36) K/mm3 Baso # (Auto) (0.01-0.08) K/mm3 Manual Slide Review Sodium 135 L (136-145) mEq/L Potassium 3.4 L (3.5-5.1) mEq/L Chloride 99 (98-107) mEq/L Carbon Dioxide 23 (21-32) mEq/L Anion Gap 16.4 H (5-15) BUN 13 (7-18) mg/dL Creatinine 0.7 (0.55-1.02) mg/dL Est Cr Clr Drug Dosing 2.14 mL/min Estimated GFR (MDRD) > 60 (>60) mL/min BUN/Creatinine Ratio 18.6 H (14-18) Glucose 104 (83-115) mg/dL Lactic Acid (0.4-2.0) mmol/L Calcium 8.5 D (8.5-10.1) mg/dL Magnesium 1.0 L (1.8-2.4) mg/dl Iron (50-170) ug/dL TIBC (100-400) ug/dL % Saturation (20-55) % Transferrin (202-364) mg/dL Total Bilirubin 0.4 (0.2-1.0) mg/dL AST 18 (15-37) U/L ALT 13 L (14-59) U/L Alkaline Phosphatase 49 (46-116) U/L C-Reactive Protein 3.4 H* (<1.0) mg/dL NT-Pro-B Natriuret Pep 4184 H (0-450) pg/mL Total Protein 5.5 L (6.4-8.2) g/dl Albumin 2.3 L (3.4-5.0) g/dl Globulin 3.2 gm/dL Albumin/Globulin Ratio 0.7 L (1-2) Vitamin B12 (193-986) pg/ml Urine Color (Yellow) Urine Appearance (Clear) Urine pH (5.0-8.0) Ur Specific [place] (1.005-1.030) Urine Protein (Negative) Urine Glucose (UA) (Negative) Urine Ketones (Negative) Urine Occult Blood (Negative) Urine Nitrite (Negative) Urine Bilirubin (Negative) Urine Urobilinogen (0.2-1.0) Ur Leukocyte Esterase (Negative) Urine RBC (0-5) /hpf Urine WBC (0-5) /hpf Ur Squamous Epith Cells (0-5) /hpf Urine Bacteria (FEW) /hpf Urine Mucus (FEW) /hpf SARS-CoV-2 RNA ([place]AL[place]) (NEGATIVE) MRSA (PCR) 12/10/20 12/10/20 12/11/20 Range/Units 20:49 21:26 01:28 WBC (3.98-10.04) K/mm3 RBC (3.98-5.22) M/mm3 Hgb (11.2-15.7) gm/dl Hct (34.1-44.9) % MCV (79.4-94.8) fl MCH (25.6-32.2) pg MCHC (32.2-35.5) g/dl RDW Std Deviation (36.4-46.3) fL Plt Count (182-369) K/mm3 MPV (9.4-12.3) fl Neut % (Auto) (34.0-71.1) % Lymph % (Auto) (19.3-51.7) % [place] % (Auto) (4.7-12.5) % Eos % (Auto) (0.7-5.8) Baso % (Auto) (0.1-1.2) % Neut # (Auto) (1.56-6.13) K/mm3 Lymph # (Auto) (1.18-3.74) K/mm3 [place] # (Auto) (0.24-0.36) K/mm3 Eos # (Auto) (0.04-0.36) K/mm3 Baso # (Auto) (0.01-0.08) K/mm3 Manual Slide Review Sodium (136-145) mEq/L Potassium (3.5-5.1) mEq/L Chloride (98-107) mEq/L Carbon Dioxide (21-32) mEq/L Anion Gap (5-15) BUN (7-18) mg/dL Creatinine (0.55-1.02) mg/dL Est Cr Clr Drug Dosing mL/min Estimated GFR (MDRD) (>60) mL/min BUN/Creatinine Ratio (14-18) Glucose (83-115) mg/dL Lactic Acid 2.9 H* 1.4 (0.4-2.0) mmol/L Calcium (8.5-10.1) mg/dL Magnesium (1.8-2.4) mg/dl Iron (50-170) ug/dL TIBC (100-400) ug/dL % Saturation (20-55) % Transferrin (202-364) mg/dL Total Bilirubin (0.2-1.0) mg/dL AST (15-37) U/L ALT (14-59) U/L Alkaline Phosphatase (46-116) U/L C-Reactive Protein (<1.0) mg/dL NT-Pro-B Natriuret Pep (0-450) pg/mL Total Protein (6.4-8.2) g/dl Albumin (3.4-5.0) g/dl Globulin gm/dL Albumin/Globulin Ratio (1-2) Vitamin B12 (193-986) pg/ml Urine Color (Yellow) Urine Appearance (Clear) Urine pH (5.0-8.0) Ur Specific [place] (1.005-1.030) Urine Protein (Negative) Urine Glucose (UA) (Negative) Urine Ketones (Negative) Urine Occult Blood (Negative) Urine Nitrite (Negative) Urine Bilirubin (Negative) Urine Urobilinogen (0.2-1.0) Ur Leukocyte Esterase (Negative) Urine RBC (0-5) /hpf Urine WBC (0-5) /hpf Ur Squamous Epith Cells (0-5) /hpf Urine Bacteria (FEW) /hpf Urine Mucus (FEW) /hpf SARS-CoV-2 RNA ([place]) Negative (NEGATIVE) MRSA (PCR) 12/11/20 12/11/20 12/11/20 Range/Units 05:32 05:32 05:32 WBC 15.42 H (3.98-10.04) K/mm3 RBC 3.64 L (3.98-5.22) M/mm3 Hgb 10.5 L (11.2-15.7) gm/dl Hct 33.6 L (34.1-44.9) % MCV 92.3 (79.4-94.8) fl MCH 28.8 (25.6-32.2) pg MCHC 31.3 L (32.2-35.5) g/dl RDW Std Deviation 47.0 H (36.4-46.3) fL Plt Count 258 (182-369) K/mm3 MPV 9.0 L (9.4-12.3) fl Neut % (Auto) 92.6 H (34.0-71.1) % Lymph % (Auto) 4.0 L (19.3-51.7) % [place] % (Auto) 2.8 L (4.7-12.5) % Eos % (Auto) 0.3 L (0.7-5.8) Baso % (Auto) 0.1 (0.1-1.2) % Neut # (Auto) 14.27 H (1.56-6.13) K/mm3 Lymph # (Auto) 0.62 L (1.18-3.74) K/mm3 [place] # (Auto) 0.43 H (0.24-0.36) K/mm3 Eos # (Auto) 0.05 (0.04-0.36) K/mm3 Baso # (Auto) 0.02 (0.01-0.08) K/mm3 Manual Slide Review Abnormal smear Sodium 137 (136-145) mEq/L Potassium 3.2 L (3.5-5.1) mEq/L Chloride 101 (98-107) mEq/L Carbon Dioxide 26 (21-32) mEq/L Anion Gap 13.2 (5-15) BUN 14 (7-18) mg/dL Creatinine 0.9 (0.55-1.02) mg/dL Est Cr Clr Drug Dosing 27.55 mL/min Estimated GFR (MDRD) 60 (>60) mL/min BUN/Creatinine Ratio 15.6 (14-18) Glucose 123 H (83-115) mg/dL Lactic Acid (0.4-2.0) mmol/L Calcium 9.0 (8.5-10.1) mg/dL Magnesium 3.0 H (1.8-2.4) mg/dl Iron (50-170) ug/dL TIBC (100-400) ug/dL % Saturation (20-55) % Transferrin (202-364) mg/dL Total Bilirubin 0.3 (0.2-1.0) mg/dL AST 22 (15-37) U/L ALT 16 (14-59) U/L Alkaline Phosphatase 58 (46-116) U/L C-Reactive Protein 9.9 H* (<1.0) mg/dL NT-Pro-B Natriuret Pep (0-450) pg/mL Total Protein 6.6 (6.4-8.2) g/dl Albumin 2.5 L (3.4-5.0) g/dl Globulin 4.1 gm/dL Albumin/Globulin Ratio 0.6 L (1-2) Vitamin B12 687 (193-986) pg/ml Urine Color (Yellow) Urine Appearance (Clear) Urine pH (5.0-8.0) Ur Specific [place] (1.005-1.030) Urine Protein (Negative) Urine Glucose (UA) (Negative) Urine Ketones (Negative) Urine Occult Blood (Negative) Urine Nitrite (Negative) Urine Bilirubin (Negative) Urine Urobilinogen (0.2-1.0) Ur Leukocyte Esterase (Negative) Urine RBC (0-5) /hpf Urine WBC (0-5) /hpf Ur Squamous Epith Cells (0-5) /hpf Urine Bacteria (FEW) /hpf Urine Mucus (FEW) /hpf SARS-CoV-2 RNA ([place]) (NEGATIVE) MRSA (PCR) 12/11/20 12/11/20 Range/Units 05:32 07:25 WBC (3.98-10.04) K/mm3 RBC (3.98-5.22) M/mm3 Hgb (11.2-15.7) gm/dl Hct (34.1-44.9) % MCV (79.4-94.8) fl MCH (25.6-32.2) pg MCHC (32.2-35.5) g/dl RDW Std Deviation (36.4-46.3) fL Plt Count (182-369) K/mm3 MPV (9.4-12.3) fl Neut % (Auto) (34.0-71.1) % Lymph % (Auto) (19.3-51.7) % [place] % (Auto) (4.7-12.5) % Eos % (Auto) (0.7-5.8) Baso % (Auto) (0.1-1.2) % Neut # (Auto) (1.56-6.13) K/mm3 Lymph # (Auto) (1.18-3.74) K/mm3 [place] # (Auto) (0.24-0.36) K/mm3 Eos # (Auto) (0.04-0.36) K/mm3 Baso # (Auto) (0.01-0.08) K/mm3 Manual Slide Review Sodium (136-145) mEq/L Potassium (3.5-5.1) mEq/L Chloride (98-107) mEq/L Carbon Dioxide (21-32) mEq/L Anion Gap (5-15) BUN (7-18) mg/dL Creatinine (0.55-1.02) mg/dL Est Cr Clr Drug Dosing mL/min Estimated GFR (MDRD) (>60) mL/min BUN/Creatinine Ratio (14-18) Glucose (83-115) mg/dL Lactic Acid (0.4-2.0) mmol/L Calcium (8.5-10.1) mg/dL Magnesium (1.8-2.4) mg/dl Iron 12 L (50-170) ug/dL TIBC 230 (100-400) ug/dL % Saturation 5 L (20-55) % Transferrin 184 L (202-364) mg/dL Total Bilirubin (0.2-1.0) mg/dL AST (15-37) U/L ALT (14-59) U/L Alkaline Phosphatase (46-116) U/L C-Reactive Protein (<1.0) mg/dL NT-Pro-B Natriuret Pep (0-450) pg/mL Total Protein (6.4-8.2) g/dl Albumin (3.4-5.0) g/dl Globulin gm/dL Albumin/Globulin Ratio (1-2) Vitamin B12 (193-986) pg/ml Urine Color (Yellow) Urine Appearance (Clear) Urine pH (5.0-8.0) Ur Specific [place] (1.005-1.030) Urine Protein (Negative) Urine Glucose (UA) (Negative) Urine Ketones (Negative) Urine Occult Blood (Negative) Urine Nitrite (Negative) Urine Bilirubin (Negative) Urine Urobilinogen (0.2-1.0) Ur Leukocyte Esterase (Negative) Urine RBC (0-5) /hpf Urine WBC (0-5) /hpf Ur Squamous Epith Cells (0-5) /hpf Urine Bacteria (FEW) /hpf Urine Mucus (FEW) /hpf SARS-CoV-2 RNA ([place]) (NEGATIVE) MRSA (PCR) Negative Med Orders - Current: Current Medications Acetaminophen (Tylenol) 650 mg PO Q4H PRN PRN Reason: Pain (Mild 1-3)/fever Last Admin: 12/11/20 10:05 Dose: 650 mg Documented by: Amlodipine Besylate (Norvasc) 5 mg PO DAILY [facility] Artificial Tears (Refresh Liquigel 1%) 0 ml EYEBOTH QID PRN PRN Reason: Dry Eyes Atenolol (Tenormin) 50 mg PO DAILY [facility] Last Admin: 12/11/20 08:41 Dose: 50 mg Documented by: Calcium Carbonate/Glycine (Tums) 500 mg PO ASDIRECTED PRN PRN Reason: upset stomach Famotidine (Pepcid) 20 mg PO DAILY [facility] Last Admin: 12/11/20 08:41 Dose: 20 mg Documented by: Folic Acid (Folic Acid) 1 mg PO DAILY [facility] Last Admin: 12/11/20 08:41 Dose: 1 mg Documented by: Hydralazine HCl (Apresoline) 50 mg PO TID [facility] Last Admin: 12/11/20 08:42 Dose: 50 mg Documented by: Ceftriaxone Sodium 2 gm/ (Sodium Chloride) 100 mls @ 200 mls/hr IV Q24H [facility] Latanoprost (Xalatan 0.005% Ophth Soln) 0 ml EYEBOTH BEDTIME [facility] Levothyroxine Sodium (Synthroid) 100 mcg PO ACBREAKFAST [facility] Lisinopril (Prinivil) 40 mg PO 2000 [facility] Multivitamins (Thera) 1 each PO DAILY [facility] Last Admin: 12/11/20 08:41 Dose: 1 each Documented by: Ondansetron HCl (Zofran) 4 mg IV Q4H PRN PRN Reason: Nausea/Vomiting Potassium Chloride (Klor-Con M20) 40 meq PO BID [facility] Stop: 12/11/20 21:01 Last Admin: 12/11/20 08:41 Dose: 40 meq Documented by: Psyllium Husk (Metamucil Sugar Free) 1 pkt PO DAILY [facility] Rivaroxaban (Xarelto) 15 mg PO 1700 [facility] Simvastatin (Zocor) 20 mg PO 2000 [facility] Sodium Chloride (Saline Flush) 10 ml FLUSH ASDIRECTED PRN PRN Reason: Keep Vein Open Tramadol HCl (Ultram) 50 mg PO Q6H PRN PRN Reason: Pain Discontinued Medications Acetaminophen (Tylenol) 650 mg PO ONETIME ONE Stop: 12/10/20 17:40 Last Admin: 12/10/20 18:29 Dose: 650 mg Documented by: Chlorhexidine Gluconate (Chlorhexidine Gluconate 0.12% Rinse) 0 ml PO BID [facility] Furosemide (Lasix) 20 mg IVPUSH ONETIME ONE Stop: 12/10/20 19:51 Last Admin: 12/10/20 19:58 Dose: 20 mg Documented by: Dextrose/Sodium Chloride (Dextrose 5%-Normal Saline) 1,000 mls @ 150 mls/hr IV ASDIRECTED [facility] Last Infusion: 12/10/20 20:03 Dose: 999 mls/hr Documented by: Ceftriaxone Sodium 2 gm/ (Sodium Chloride) 100 mls @ 200 mls/hr IV ONETIME ONE Stop: 12/10/20 18:11 Last Admin: 12/10/20 18:28 Dose: 200 mls/hr Documented by: Dextrose/Sodium Chloride (Dextrose 5%-Normal Saline) 1,000 mls @ 999 mls/hr IV ASDIRECTED [facility] Magnesium Sulfate 4 gm/ Premix 50 mls @ 12.5 mls/hr IV ONETIME ONE Stop: 12/10/20 23:52 Last Admin: 12/10/20 20:35 Dose: 12.5 mls/hr Documented by: Potassium Chloride/Sodium Chloride (Normal Saline With 20 Meq Kcl) 1,000 mls @ 125 mls/hr IV ASDIRECTED [facility]ICK[facility] Stop: 12/11/20 05:14 Potassium Chloride/Sodium Chloride (Normal Saline With 20 Meq Kcl) 1,000 mls @ 75 mls/hr IV ASDIRECTED RICKY Last Infusion: 12/11/20 02:19 Dose: 50 mls/hr Documented by: Potassium Chloride 10 meq/ (Premix) 100 mls @ 100 mls/hr IV Q1H [facility] Stop: 12/11/20 00:29 Last Admin: 12/11/20 00:06 Dose: 100 mls/hr Documented by: Magnesium Sulfate 2 gm/ Premix 50 mls @ 25 mls/hr IV ONETIME ONE Stop: 12/11/20 02:59 Last Admin: 12/11/20 01:06 Dose: Not Given Documented by: Potassium Chloride/Sodium Chloride (Normal Saline With 20 Meq Kcl) 1,000 mls @ 50 mls/hr IV ASDIRECTED [facility]ICK[facility] Ferric Sodium Gluconate Complex 250 mg/ Sodium Chloride 120 mls @ 60 mls/hr IV ONETIME ONE Stop: 12/11/20 14:29 Last Admin: 12/11/20 12:59 Dose: 60 mls/hr Documented by: Non-Formulary Medication (Lactose-Reduced Food [Ensure]) 237 ml PO BID [facility]ICKY - Exam Quality Assessment: No: Supplemental Oxygen General: Alert, Oriented HEENT: Pupils Equal Neck: Supple Lungs: Clear to Auscultation, Normal Respiratory Effort Cardiovascular: Regular Rate, Regular Rhythm GI/Abdominal Exam: Normal Bowel Sounds, Soft, Non-Tender, No Organomegaly, No Distention, No Abnormal Bruit Back Exam: Normal Inspection, Full Range of Motion Peripheral Pulses: 2+: Posterior Tibial (L), Posterior Tibial (R), Dorsalis Pedis (L), Dorsalis Pedis (R) Skin: Warm, Dry, Intact Neurological: No New Focal Deficit Psy/Mental Status: Alert, Normal Affect, Normal Mood - Patient Data Lab Results Last 24 hrs: Laboratory Results - last 24 hr 12/10/20 12/10/20 12/10/20 Range/Units 18:00 18:14 18:26 WBC 11.77 H (3.98-10.04) K/mm3 RBC 3.27 L (3.98-5.22) M/mm3 Hgb 9.5 L (11.2-15.7) gm/dl Hct 30.7 L (34.1-44.9) % MCV 93.9 D (79.4-94.8) fl MCH 29.1 (25.6-32.2) pg MCHC 30.9 L (32.2-35.5) g/dl RDW Std Deviation 46.2 (36.4-46.3) fL Plt Count 218 D (182-369) K/mm3 MPV 9.0 L (9.4-12.3) fl Neut % (Auto) 94.4 H (34.0-71.1) % Lymph % (Auto) 2.2 L (19.3-51.7) % [place] % (Auto) 2.6 L (4.7-12.5) % Eos % (Auto) 0.3 L (0.7-5.8) Baso % (Auto) 0.2 (0.1-1.2) % Neut # (Auto) 11.12 H (1.56-6.13) K/mm3 Lymph # (Auto) 0.26 L (1.18-3.74) K/mm3 [place] # (Auto) 0.31 (0.24-0.36) K/mm3 Eos # (Auto) 0.03 L (0.04-0.36) K/mm3 Baso # (Auto) 0.02 (0.01-0.08) K/mm3 Manual Slide Review Abnormal smear Sodium (136-145) mEq/L Potassium (3.5-5.1) mEq/L Chloride (98-107) mEq/L Carbon Dioxide (21-32) mEq/L Anion Gap (5-15) BUN (7-18) mg/dL Creatinine (0.55-1.02) mg/dL Est Cr Clr Drug Dosing mL/min Estimated GFR (MDRD) (>60) mL/min BUN/Creatinine Ratio (14-18) Glucose (83-115) mg/dL Lactic Acid 5.6 H* (0.4-2.0) mmol/L Calcium (8.5-10.1) mg/dL Magnesium (1.8-2.4) mg/dl Iron (50-170) ug/dL TIBC (100-400) ug/dL % Saturation (20-55) % Transferrin (202-364) mg/dL Total Bilirubin (0.2-1.0) mg/dL AST (15-37) U/L ALT (14-59) U/L Alkaline Phosphatase (46-116) U/L C-Reactive Protein (<1.0) mg/dL NT-Pro-B Natriuret Pep (0-450) pg/mL Total Protein (6.4-8.2) g/dl Albumin (3.4-5.0) g/dl Globulin gm/dL Albumin/Globulin Ratio (1-2) Vitamin B12 (193-986) pg/ml Urine Color Yellow (Yellow) Urine Appearance Clear (Clear) Urine pH 7.0 (5.0-8.0) Ur Specific [place] 1.020 (1.005-1.030) Urine Protein 1+ H (Negative) Urine Glucose (UA) Negative (Negative) Urine Ketones 1+ H (Negative) Urine Occult Blood Trace-intact H (Negative) Urine Nitrite Negative (Negative) Urine Bilirubin Negative (Negative) Urine Urobilinogen 0.2 (0.2-1.0) Ur Leukocyte Esterase 1+ H (Negative) Urine RBC 10-20 H (0-5) /hpf Urine WBC 20-30 H (0-5) /hpf Ur Squamous Epith Cells Not seen (0-5) /hpf Urine Bacteria Few (FEW) /hpf Urine Mucus Not seen (FEW) /hpf SARS-CoV-2 RNA ([place]) (NEGATIVE) MRSA (PCR) 12/10/20 12/10/20 12/10/20 Range/Units 18:26 18:26 18:26 WBC (3.98-10.04) K/mm3 RBC (3.98-5.22) M/mm3 Hgb (11.2-15.7) gm/dl Hct (34.1-44.9) % MCV (79.4-94.8) fl MCH (25.6-32.2) pg MCHC (32.2-35.5) g/dl RDW Std Deviation (36.4-46.3) fL Plt Count (182-369) K/mm3 MPV (9.4-12.3) fl Neut % (Auto) (34.0-71.1) % Lymph % (Auto) (19.3-51.7) % [place] % (Auto) (4.7-12.5) % Eos % (Auto) (0.7-5.8) Baso % (Auto) (0.1-1.2) % Neut # (Auto) (1.56-6.13) K/mm3 Lymph # (Auto) (1.18-3.74) K/mm3 [place] # (Auto) (0.24-0.36) K/mm3 Eos # (Auto) (0.04-0.36) K/mm3 Baso # (Auto) (0.01-0.08) K/mm3 Manual Slide Review Sodium 135 L (136-145) mEq/L Potassium 3.4 L (3.5-5.1) mEq/L Chloride 99 (98-107) mEq/L Carbon Dioxide 23 (21-32) mEq/L Anion Gap 16.4 H (5-15) BUN 13 (7-18) mg/dL Creatinine 0.7 (0.55-1.02) mg/dL Est Cr Clr Drug Dosing 2.14 mL/min Estimated GFR (MDRD) > 60 (>60) mL/min BUN/Creatinine Ratio 18.6 H (14-18) Glucose 104 (83-115) mg/dL Lactic Acid (0.4-2.0) mmol/L Calcium 8.5 D (8.5-10.1) mg/dL Magnesium 1.0 L (1.8-2.4) mg/dl Iron (50-170) ug/dL TIBC (100-400) ug/dL % Saturation (20-55) % Transferrin (202-364) mg/dL Total Bilirubin 0.4 (0.2-1.0) mg/dL AST 18 (15-37) U/L ALT 13 L (14-59) U/L Alkaline Phosphatase 49 (46-116) U/L C-Reactive Protein 3.4 H* (<1.0) mg/dL NT-Pro-B Natriuret Pep 4184 H (0-450) pg/mL Total Protein 5.5 L (6.4-8.2) g/dl Albumin 2.3 L (3.4-5.0) g/dl Globulin 3.2 gm/dL Albumin/Globulin Ratio 0.7 L (1-2) Vitamin B12 (193-986) pg/ml Urine Color (Yellow) Urine Appearance (Clear) Urine pH (5.0-8.0) Ur Specific [place] (1.005-1.030) Urine Protein (Negative) Urine Glucose (UA) (Negative) Urine Ketones (Negative) Urine Occult Blood (Negative) Urine Nitrite (Negative) Urine Bilirubin (Negative) Urine Urobilinogen (0.2-1.0) Ur Leukocyte Esterase (Negative) Urine RBC (0-5) /hpf Urine WBC (0-5) /hpf Ur Squamous Epith Cells (0-5) /hpf Urine Bacteria (FEW) /hpf Urine Mucus (FEW) /hpf SARS-CoV-2 RNA ([facility]) (NEGATIVE) MRSA (PCR) 12/10/20 12/10/20 12/11/20 Range/Units 20:49 21:26 01:28 WBC (3.98-10.04) K/mm3 RBC (3.98-5.22) M/mm3 Hgb (11.2-15.7) gm/dl Hct (34.1-44.9) % MCV (79.4-94.8) fl MCH (25.6-32.2) pg MCHC (32.2-35.5) g/dl RDW Std Deviation (36.4-46.3) fL Plt Count (182-369) K/mm3 MPV (9.4-12.3) fl Neut % (Auto) (34.0-71.1) % Lymph % (Auto) (19.3-51.7) % [place] % (Auto) (4.7-12.5) % Eos % (Auto) (0.7-5.8) Baso % (Auto) (0.1-1.2) % Neut # (Auto) (1.56-6.13) K/mm3 Lymph # (Auto) (1.18-3.74) K/mm3 [place] # (Auto) (0.24-0.36) K/mm3 Eos # (Auto) (0.04-0.36) K/mm3 Baso # (Auto) (0.01-0.08) K/mm3 Manual Slide Review Sodium (136-145) mEq/L Potassium (3.5-5.1) mEq/L Chloride (98-107) mEq/L Carbon Dioxide (21-32) mEq/L Anion Gap (5-15) BUN (7-18) mg/dL Creatinine (0.55-1.02) mg/dL Est Cr Clr Drug Dosing mL/min Estimated GFR (MDRD) (>60) mL/min BUN/Creatinine Ratio (14-18) Glucose (83-115) mg/dL Lactic Acid 2.9 H* 1.4 (0.4-2.0) mmol/L Calcium (8.5-10.1) mg/dL Magnesium (1.8-2.4) mg/dl Iron (50-170) ug/dL TIBC (100-400) ug/dL % Saturation (20-55) % Transferrin (202-364) mg/dL Total Bilirubin (0.2-1.0) mg/dL AST (15-37) U/L ALT (14-59) U/L Alkaline Phosphatase (46-116) U/L C-Reactive Protein (<1.0) mg/dL NT-Pro-B Natriuret Pep (0-450) pg/mL Total Protein (6.4-8.2) g/dl Albumin (3.4-5.0) g/dl Globulin gm/dL Albumin/Globulin Ratio (1-2) Vitamin B12 (193-986) pg/ml Urine Color (Yellow) Urine Appearance (Clear) Urine pH (5.0-8.0) Ur Specific [place] (1.005-1.030) Urine Protein (Negative) Urine Glucose (UA) (Negative) Urine Ketones (Negative) Urine Occult Blood (Negative) Urine Nitrite (Negative) Urine Bilirubin (Negative) Urine Urobilinogen (0.2-1.0) Ur Leukocyte Esterase (Negative) Urine RBC (0-5) /hpf Urine WBC (0-5) /hpf Ur Squamous Epith Cells (0-5) /hpf Urine Bacteria (FEW) /hpf Urine Mucus (FEW) /hpf SARS-CoV-2 RNA ([facility]) Negative (NEGATIVE) MRSA (PCR) 12/11/20 12/11/20 12/11/20 Range/Units 05:32 05:32 05:32 WBC 15.42 H (3.98-10.04) K/mm3 RBC 3.64 L (3.98-5.22) M/mm3 Hgb 10.5 L (11.2-15.7) gm/dl Hct 33.6 L (34.1-44.9) % MCV 92.3 (79.4-94.8) fl MCH 28.8 (25.6-32.2) pg MCHC 31.3 L (32.2-35.5) g/dl RDW Std Deviation 47.0 H (36.4-46.3) fL Plt Count 258 (182-369) K/mm3 MPV 9.0 L (9.4-12.3) fl Neut % (Auto) 92.6 H (34.0-71.1) % Lymph % (Auto) 4.0 L (19.3-51.7) % [place] % (Auto) 2.8 L (4.7-12.5) % Eos % (Auto) 0.3 L (0.7-5.8) Baso % (Auto) 0.1 (0.1-1.2) % Neut # (Auto) 14.27 H (1.56-6.13) K/mm3 Lymph # (Auto) 0.62 L (1.18-3.74) K/mm3 [place] # (Auto) 0.43 H (0.24-0.36) K/mm3 Eos # (Auto) 0.05 (0.04-0.36) K/mm3 Baso # (Auto) 0.02 (0.01-0.08) K/mm3 Manual Slide Review Abnormal smear Sodium 137 (136-145) mEq/L Potassium 3.2 L (3.5-5.1) mEq/L Chloride 101 (98-107) mEq/L Carbon Dioxide 26 (21-32) mEq/L Anion Gap 13.2 (5-15) BUN 14 (7-18) mg/dL Creatinine 0.9 (0.55-1.02) mg/dL Est Cr Clr Drug Dosing 27.55 mL/min Estimated GFR (MDRD) 60 (>60) mL/min BUN/Creatinine Ratio 15.6 (14-18) Glucose 123 H (83-115) mg/dL Lactic Acid (0.4-2.0) mmol/L Calcium 9.0 (8.5-10.1) mg/dL Magnesium 3.0 H (1.8-2.4) mg/dl Iron (50-170) ug/dL TIBC (100-400) ug/dL % Saturation (20-55) % Transferrin (202-364) mg/dL Total Bilirubin 0.3 (0.2-1.0) mg/dL AST 22 (15-37) U/L ALT 16 (14-59) U/L Alkaline Phosphatase 58 (46-116) U/L C-Reactive Protein 9.9 H* (<1.0) mg/dL NT-Pro-B Natriuret Pep (0-450) pg/mL Total Protein 6.6 (6.4-8.2) g/dl Albumin 2.5 L (3.4-5.0) g/dl Globulin 4.1 gm/dL Albumin/Globulin Ratio 0.6 L (1-2) Vitamin B12 687 (193-986) pg/ml Urine Color (Yellow) Urine Appearance (Clear) Urine pH (5.0-8.0) Ur Specific [place] (1.005-1.030) Urine Protein (Negative) Urine Glucose (UA) (Negative) Urine Ketones (Negative) Urine Occult Blood (Negative) Urine Nitrite (Negative) Urine Bilirubin (Negative) Urine Urobilinogen (0.2-1.0) Ur Leukocyte Esterase (Negative) Urine RBC (0-5) /hpf Urine WBC (0-5) /hpf Ur Squamous Epith Cells (0-5) /hpf Urine Bacteria (FEW) /hpf Urine Mucus (FEW) /hpf SARS-CoV-2 RNA ([facility]) (NEGATIVE) MRSA (PCR) 12/11/20 12/11/20 Range/Units 05:32 07:25 WBC (3.98-10.04) K/mm3 RBC (3.98-5.22) M/mm3 Hgb (11.2-15.7) gm/dl Hct (34.1-44.9) % MCV (79.4-94.8) fl MCH (25.6-32.2) pg MCHC (32.2-35.5) g/dl RDW Std Deviation (36.4-46.3) fL Plt Count (182-369) K/mm3 MPV (9.4-12.3) fl Neut % (Auto) (34.0-71.1) % Lymph % (Auto) (19.3-51.7) % [place] % (Auto) (4.7-12.5) % Eos % (Auto) (0.7-5.8) Baso % (Auto) (0.1-1.2) % Neut # (Auto) (1.56-6.13) K/mm3 Lymph # (Auto) (1.18-3.74) K/mm3 [place] # (Auto) (0.24-0.36) K/mm3 Eos # (Auto) (0.04-0.36) K/mm3 Baso # (Auto) (0.01-0.08) K/mm3 Manual Slide Review Sodium (136-145) mEq/L Potassium (3.5-5.1) mEq/L Chloride (98-107) mEq/L Carbon Dioxide (21-32) mEq/L Anion Gap (5-15) BUN (7-18) mg/dL Creatinine (0.55-1.02) mg/dL Est Cr Clr Drug Dosing mL/min Estimated GFR (MDRD) (>60) mL/min BUN/Creatinine Ratio (14-18) Glucose (83-115) mg/dL Lactic Acid (0.4-2.0) mmol/L Calcium (8.5-10.1) mg/dL Magnesium (1.8-2.4) mg/dl Iron 12 L (50-170) ug/dL TIBC 230 (100-400) ug/dL % Saturation 5 L (20-55) % Transferrin 184 L (202-364) mg/dL Total Bilirubin (0.2-1.0) mg/dL AST (15-37) U/L ALT (14-59) U/L Alkaline Phosphatase (46-116) U/L C-Reactive Protein (<1.0) mg/dL NT-Pro-B Natriuret Pep (0-450) pg/mL Total Protein (6.4-8.2) g/dl Albumin (3.4-5.0) g/dl Globulin gm/dL Albumin/Globulin Ratio (1-2) Vitamin B12 (193-986) pg/ml Urine Color (Yellow) Urine Appearance (Clear) Urine pH (5.0-8.0) Ur Specific [place] (1.005-1.030) Urine Protein (Negative) Urine Glucose (UA) (Negative) Urine Ketones (Negative) Urine Occult Blood (Negative) Urine Nitrite (Negative) Urine Bilirubin (Negative) Urine Urobilinogen (0.2-1.0) Ur Leukocyte Esterase (Negative) Urine RBC (0-5) /hpf Urine WBC (0-5) /hpf Ur Squamous Epith Cells (0-5) /hpf Urine Bacteria (FEW) /hpf Urine Mucus (FEW) /hpf SARS-CoV-2 RNA ([place]) (NEGATIVE) MRSA (PCR) Negative Result Diagrams: 12/11/20 05:32 12/11/20 05:32 Sepsis Event Note - Evaluation Sepsis Screening Result: No Definite Risk - Focused Exam Vital Signs: Vital Signs Temp Pulse Resp BP BP Pulse Ox 12/11/20 12:00 99.0 F 12/11/20 11:00 64 18 93 L 12/11/20 10:44 99.1 F 12/11/20 10:00 67 17 94 L 12/11/20 09:00 67 18 95 12/11/20 08:42 117/60 12/11/20 08:41 71 21 H 117/60 91 L 12/11/20 08:40 72 20 93 L 12/11/20 08:01 77 20 92 L 02/23/21 08:00 99.9 F 80 23 H 116/51 L 92 L 12/11/20 07:59 79 25 H 91 L 12/11/20 07:00 76 19 89 L 12/11/20 06:00 73 19 89 L 12/11/20 05:00 70 17 91 L 12/11/20 04:00 99.2 F 20 133/53 L 92 L - Problem List & Annotations (1) Severe sepsis SNOMED Code(s): 52640385 Code(s): A41.9 - SEPSIS, UNSPECIFIED ORGANISM; R65.20 - SEVERE SEPSIS WITHOUT SEPTIC SHOCK Status: Acute Current Visit: Yes (2) Hypomagnesemia SNOMED Code(s): 376346923 Code(s): E83.42 - HYPOMAGNESEMIA Status: Acute Current Visit: Yes (3) UTI, Urinary tract infectious disease SNOMED Code(s): 40157144 Code(s): N39.0 - URINARY TRACT INFECTION, SITE NOT SPECIFIED Status: Acute Current Visit: No (4) CHF (congestive heart failure) SNOMED Code(s): 81918504 Code(s): I50.9 - HEART FAILURE, UNSPECIFIED Status: Acute Current Visit: Yes - Problem List Review Problem List Initiated/Reviewed/Updated: Yes - My Orders Last 24 Hours: My Active Orders 12/10/20 20:58 Up With Assistance [RC] ASDIRECTED Vital Signs [RC] Q4HR Consult to Credit Review Analyst [CONS] Routine PT Evaluation and Treatment [CONS] Routine Acetaminophen [TylenoL] 650 mg PO Q4H PRN Ondansetron [Zofran] 4 mg IV Q4H PRN Resuscitation Status Routine 12/10/20 20:59 Oxygen Therapy [RC] PRN VTE/DVT Education [RC] 12/10/20 22:32 Urinary Catheter Assessment [RC] Q4HR 12/10/20 22:45 Insert Flores Catheter [Insert Urinary Catheter] [OM.PC] Q24H 12/11/20 Breakfast Regular Diet [DIET] 12/11/20 08:18 Calcium Carbonate [Tums] 500 mg PO ASDIRECTED PRN traMADol [Ultram] 50 mg PO Q6H PRN 12/11/20 08:41 Carboxymethylcellulose Sodium [Refresh Liquigel 1%] 0 ml EYEBOTH QID PRN 12/11/20 09:00 Famotidine [Pepcid] 20 mg PO DAILY Folic Acid 1 mg PO DAILY Multivitamins,Therapeutic [Thera] 1 each PO DAILY Potassium Chloride [Klor-Con M20] 40 meq PO BID atenoloL [Tenormin] 50 mg PO DAILY hydrALAZINE [Apresoline] 50 mg PO TID 12/11/20 10:36 Consult to Occupational Therapy [OT Evaluation and Treatment] [CONS] Routine 12/11/20 11:15 Sodium Chloride 0.9% [Saline Flush] 10 ml FLUSH ASDIRECTED PRN Convert IV to Saline Lock [OM.PC] Routine 12/11/20 11:18 Patient Status [ADT] Routine 12/11/20 15:03 Remove Flores Catheter [Urinary Catheter Removal] [RC] PER UNIT ROUTINE 12/11/20 17:00 Rivaroxaban [Xarelto] 15 mg PO 1700 12/11/20 18:00 cefTRIAXone [Rocephin] 2 gm Sodium Chloride 0.9% [Normal Saline] 100 ml IV Q24H 12/11/20 20:00 Simvastatin [Zocor] 20 mg PO 1999 lisinopriL [Prinivil] 40 mg PO 199912/11/20 21:00 Latanoprost [Xalatan 0.005% Ophth Soln] 0 ml EYEBOTH BEDTIME 12/12/20 05:11 C-REACTIVE PROTEIN [CHEM] AM CBC WITH AUTO DIFF [HEME] AM CMP [COMPREHENSIVE METABOLIC PN,CMP] [CHEM] AM MAGNESIUM [CHEM] AM 12/12/20 06:00 Levothyroxine [Synthroid] 100 mcg PO ACBREAKFAST 12/12/20 07:00 Echo Comp wo Cont [US] Routine 12/12/20 09:00 Psyllium Husk/Aspartame [Metamucil Sugar Free] 1 pkt PO DAILY amLODIPine [Norvasc] 5 mg PO DAILY - Plan Plan:: 12/10/2020: Day of admission Assessment 85-year-old female with severe sepsis secondary to a urinary tract infection started on Macrobid yesterday at the walk-in clinic and failed outpatient treatment. Severe sepsis Urinary tract infection * Patient with a fever of 102 on presentation to the emergency department * Normal heart rate although this may be blunted secondary to beta-paulino, atenolol * Blood pressure elevated * WBC 11.7 * C-reactive protein 3.4 * Lactic acid 5.6 * UA: WBC 20-30 * Blood cultures, urine cultures done in the emergency department * Urine culture was also done yesterday at the clinic * Rocephin 2 g given in the emergency department Possible CHF Hypertension * Cardiomegaly seen on chest x-ray, no signs of congestion * BNP markedly elevated at 4184 * History of atrial fibrillation * On Xarelto * Currently in sinus rhythm * Given Lasix 20 mg IV in the emergency department Hypomagnesemia Hypokalemia * Magnesium 1.0 * Potassium 3.4 Malnourished, protein, calorie deficient, moderate * 10 pound weight loss over the last year * Hypoalbuminemia with albumin of 2.3 likely secondary to poor oral intake although there are is slight proteinuria of 1+ on dipstick Iron deficiency anemia * 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 She did move them just before I saw her in the emergency department. * Abdominal x-ray showed likely stool in the rectum Plan * Admit to ICU * Strict I's and O's with Flores catheter for critical I's and O's * Replenish magnesium and potassium * Continue Rocephin 2 g daily * Follow CBC, CMP, magnesium, C-reactive protein * Get iron panel for the morning and B12 * Echocardiogram in the morning * Follow respiratory status closely secondary to possible fluid overload with fluid resuscitation * VTE prophylaxis with Xarelto * CODE STATUS DNR/DNI 12/11/2020 Patient is doing much better. She no longer is septic, lactic acid is less than 2, but her WBC did increase to 15. This is not surprising secondary to severi ty of illness. Patient did not have any signs of congestive heart failure after the fluid boluses but will continue to wait for the echocardiogram. Urine and blood cultures are still pending. She continues on Rocephin 2 g daily. Magnesium increased to 3.0, this is likely secondary to labs being drawn shortly after the infusion of magnesium. We will recheck again in the morning. Potassium did decrease to 3.2 even with K riders. IV fluids can be stopped now and she can be removed off of ICU status. Anion gap improved to 13.2. Patient will receive IV iron today secondary to severe iron deficiency anemia. Iron is 12 with percent saturation of 5. B12 was normal. Dietary consulting. Recheck labs in the morning and patient length of stay should be 2 more days.
[2020-12-11] MEDS ORDERED: Rivaroxaban 15 MG Tab PO SCH (17:00)
[2020-12-11] MEDS ORDERED: cefTRIAXone 2 GM in Sodium Chloride 0.9% 100 ML IV SCH (18:00)
[2020-12-11] MEDS ORDERED: Lisinopril 20 MG Tab PO SCH (20:00)
[2020-12-11] MEDS ORDERED: Simvastatin 20 MG Tab PO SCH (20:00)
[2020-12-11] MEDS ORDERED: Latanoprost 0.005% Ophth Soln 2.5 ML Bottle EYEBOTH SCH (21:00)
[2020-12-12] MEDS ORDERED: Levothyroxine 100 MCG Tab PO SCH (06:00)
[2020-12-12] MEDS: Multivitamins,Therapeutic Tab PO SCH (08:27)
[2020-12-12] MEDS: Famotidine 20 MG Tab PO SCH (08:27)
[2020-12-12] MEDS: Atenolol 50 MG Tab PO SCH (08:28)
[2020-12-12] MEDS: Folic Acid 1 MG Tab PO SCH (08:30)
[2020-12-12] MEDS: hydrALAZINE 25 MG Tab PO SCH ×2 (08:30→15:29)
[2020-12-12] MEDS ORDERED: Psyllium Husk Powder Sugar Free 5.85 GM Packet PO SCH (09:00)
[2020-12-12] MEDS ORDERED: amLODIPine 5 MG Tab PO SCH (09:00)
[2020-12-12] MEDS ORDERED: Hydrochlorothiazide 25 MG Tab PO SCH (10:00)
[2020-12-12] MEDS ORDERED: Saccharomyces Boulardii (Probiotic) 250 MG Cap PO SCH (10:45)
[2020-12-12] MEDS: Bismuth Subsalicylate 262 MG/15 ML Susp 236 ML Bottle PO PRN ×2 (12:32→13:44)
[2020-12-12 13:57] VITALS: PULSE 56
[2020-12-12] MEDS ORDERED: Loperamide 2 MG Cap PO ONE (15:10)
--- NOTE | 2020-12-12 15:10 | PCM.DCSUM1 ---
Discharge Summary - Hospital Course HPI Initial Comments: 85-year-old female who presents to the emergency department with complaints of fever, chills, and weakness. Patient was seen at the walk-in clinic yesterday after having dysuria for 1 week. She was started on Macrobid 100 mg twice a day, but symptoms worsened today after 2 doses. Patient states that she is feeling lightheaded and dizzy and worse when standing. She complains of constipation and some abdominal discomfort. She did have a good bowel movement just before I saw her in the emergency department. Patient is not eating well and has had a poor appetite. She states that she supposed to get an iron infusion because of worsening anemia by oncology. 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 When she arrived at the emergency department she had a fever of 102. Her white count was 11,000, Pulse 88, respiratory rate of 16, and a blood pressure of 180/67. She only fulfilled one of the SIRS criteria. Urine cultures done yesterday at the clinic showed no growth. In the emergency department her urine was positive for 20-30 WBCs, 10-20 RBCs and no epithelial cells making it a clean-catch. She was given 2 g Rocephin in the emergency department. Lactic acid was elevated at 5.6, anion gap was 16.4, and proBNP was 4184. Assessment 85-year-old female with severe sepsis secondary to a urinary tract infection started on Macrobid yesterday at the walk-in clinic and failed outpatient treatment. Severe sepsis Urinary tract infection * Patient with a fever of 102 on presentation to the emergency department * Normal heart rate although this may be blunted secondary to beta-paulino, atenolol * Blood pressure elevated * WBC 11.7 * C-reactive protein 3.4 * Lactic acid 5.6 * UA: WBC 20-30 * Blood cultures, urine cultures done in the emergency department * Urine culture was also done yesterday at the clinic * Rocephin 2 g given in the emergency department Possible CHF Hypertension * Cardiomegaly seen on chest x-ray, no signs of congestion * BNP markedly elevated at 4184 * History of atrial fibrillation * On Xarelto * Currently in sinus rhythm * Given Lasix 20 mg IV in the emergency department Hypomagnesemia Hypokalemia * Magnesium 1.0 * Potassium 3.4 Malnourished, protein, calorie deficient, moderate * 10 pound weight loss over the last year * Hypoalbuminemia with albumin of 2.3 likely secondary to poor oral intake although there are is slight proteinuria of 1+ on dipstick Iron deficiency anemia * 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 She did move them just before I saw her in the emergency department. * Abdominal x-ray showed likely stool in the rectum Plan * Admit to ICU * Strict I's and O's with Flores catheter for critical I's and O's * Replenish magnesium and potassium * Continue Rocephin 2 g daily * Follow CBC, CMP, magnesium, C-reactive protein * Get iron panel for the morning and B12 * Echocardiogram in the morning * Follow respiratory status closely secondary to possible fluid overload with fluid resuscitation * VTE prophylaxis with Xarelto * CODE STATUS DNR/DNI Diagnosis: Stroke: No - Discharge Data Discharge Date: 12/12/20 Discharge Disposition: Home, Self-Care 01 Condition: Stable - Referral to Home Health Primary Care Physician: Marimar Huertas MD - Discharge Diagnosis/Problem(s) (1) Severe sepsis SNOMED Code(s): 73532082 ICD Code: A41.9 - SEPSIS, UNSPECIFIED ORGANISM; R65.20 - SEVERE SEPSIS WITHOUT SEPTIC SHOCK Status: Acute Current Visit: Yes (2) Hypomagnesemia SNOMED Code(s): 696640281 ICD Code: E83.42 - HYPOMAGNESEMIA Status: Acute Current Visit: Yes (3) UTI, Urinary tract infectious disease SNOMED Code(s): 48321016 ICD Code: N39.0 - URINARY TRACT INFECTION, SITE NOT SPECIFIED Status: Acute Current Visit: No (4) CHF (congestive heart failure) SNOMED Code(s): 20371546 ICD Code: I50.9 - HEART FAILURE, UNSPECIFIED Status: Acute Current Visit: Yes - Patient Summary/Data Consults: Consultations 12/10/20 20:58 Consult to [facility] [CONS] Routine PT Evaluation and Treatment [CONS] Routine 12/11/20 10:36 Consult to Occupational Therapy [OT Evaluation and Treatment] [CONS] Routine Hospital Course: 12/11/2020 Patient is doing much better. She no longer is septic, lactic acid is less than 2, but her WBC did increase to 15. This is not surprising secondary to severity of illness. Patient did not have any signs of congestive heart failure after the fluid boluses but will continue to wait for the echocardiogram. Urine and blood cultures are still pending. She continues on Rocephin 2 g daily. Magnesium increased to 3.0, this is likely secondary to labs being drawn shortly after the infusion of magnesium. We will recheck again in the morning. Potassium did decrease to 3.2 even with K riders. IV fluids can be stopped now and she can be removed off of ICU status. Anion gap improved to 13.2. Patient will receive IV iron today secondary to severe iron deficiency anemia. Iron is 12 with percent saturation of 5. B12 was normal. Dietary consulting. Recheck labs in the morning and patient length of stay should be 2 more days. 12/12/2020 Patient is doing well. She is ambulated with physical therapy on her walker. Her white count is dropped to 8.8. Urine culture both here and from [facility] were negative for growth. Magnesium is down to 2.1 and kidney function is normal. Echocardiogram did show normal left ventricular systolic function with ejection fraction of 65 to 70%. There was restrictive pattern of LV diastolic filling, grade 3. Otherwise essentially normal echo. Patient will be discharged today back to assisted living on Keflex. Patient did have multiple bouts of diarrhea while she was in the hospital. She when she came in she had a large amount of stool noted on x-ray. Apparently she takes Imodium at her assisted living when she has diarrhea then she becomes constipated and goes to the same cycle again. She will be given 1 Imodium 2 mg before discharge, but she will need to discuss this with her primary care provider. This is not secondary to infectious diarrhea but most likely functional. - Patient Instructions Diet: Usual Diet as Tolerated Activity: As Tolerated Driving: Do Not Drive Showering/Bathing: May Shower Notify Provider of: Fever, Increased Pain, Nausea and/or Vomiting Other/Special Instructions: Follow up with your PCP in a week. - Discharge Plan *PRESCRIPTION DRUG MONITORING PROGRAM REVIEWED*: Not Applicable *COPY OF PRESCRIPTION DRUG MONITORING REPORT IN PATIENT TU: Not Applicable Prescriptions/Med Rec: Saccharomyces Boulardii [Florastor] 500 mg PO BID #60 cap cephALEXin [Keflex] 500 mg PO QID #16 cap Home Medications: Home Meds Lisinopril 40 mg PO 199907/21/14 [History] atenoloL [Atenolol] 50 mg PO 0807/21/14 [History] hydroCHLOROthiazide [Hydrochlorothiazide] 25 mg PO 0807/21/14 [History] Acetaminophen [Tylenol Extra Strength] 1,000 mg PO Q8H PRN 11/08/19 [History] Calcium Carb/Vitamin D3/Vit K1 [Calcium + D Soft Chewable Tab] 2 tab PO 199911/08/19 [History] Folic Acid 1 mg PO 0811/08/19 [History] Lactose-Reduced Food [Ensure] 237 ml PO BID 11/08/19 [History] Latanoprost 1 drop EYEBOTH BEDTIME 11/08/19 [History] Multivitamin [Daily Multiple Vitamin] [place] [address]/08/19 [History] Propylene Glycol/PEG 400/Pf [Systane 0.3-0.4% Eye Drop] 1 drop EYEBOTH QID PRN 11/08/19 [History] Urine Leukocyte Test [Azo] 2 tab PO TID PRN 11/08/19 [History] amLODIPine [Norvasc] 5 mg PO 0800 11/08/19 [History] Ascorbic Acid [Vitamin C] 500 mg PO DAILY 12/10/20 [History] Calcium Carbonate [Tums] 400 mg PO ASDIRECTED PRN 12/10/20 [History] Chlorhexidine Gluconate [Peridex] 0.5 oz PO BID 12/10/20 [History] Cholecalciferol (Vitamin D3) [Vitamin D3] 1,000 mg PO DAILY 12/10/20 [History] Famotidine [Pepcid] 20 mg PO 0800 12/10/20 [History] Levothyroxine [Synthroid] 100 mcg PO 0800 12/10/20 [History] Lutein/Minerals/Vit A,C & E [Ocuvite] 1 tab PO DAILY 12/10/20 [History] Neomycin/Bacitracin/Polymyxinb [Antibiotic Ointment] 1 applic TOP DAILY PRN 12/10/20 [History] Nitrofurantoin Monohyd/M-Cryst [Macrobid 100 mg Capsule] 100 mg PO 0800,1400 12/10/20 [History] Psyllium Husk/Aspartame [Metamucil Sugar Free] 1 tbsp PO 0800 12/10/20 [History] Rivaroxaban [Xarelto] 20 mg PO 1700 12/10/20 [History] Zinc 25 mg PO DAILY 12/10/20 [History] atorvaSTATin [Lipitor] 20 mg PO 199912/10/20 [History] hydrALAZINE [Apresoline] 50 mg PO 0800,1400,199912/10/20 [History] traMADol [Ultram] 50 mg PO Q6H PRN 12/10/20 [History] Propylene Glycol [Systane Balance] 1 drop EYEBOTH 12/11/20 [History] Saccharomyces Boulardii [Florastor] 500 mg PO BID #60 cap 12/12/20 [Rx] cephALEXin [Keflex] 500 mg PO QID #16 cap 12/12/20 [Rx] Patient Handouts: Hypomagnesemia, Heart Failure Action Plan, Urinary Tract Infection, Adult, Sepsis, Self Care, Adult Forms: ED Department Discharge Referrals: Marimar Huertas MD [Primary Care Provider] - - Discharge Summary/Plan Comment DC Time >30 min.: Yes - General Info Date of Service: 12/12/20 Admission Dx/Problem (Free Text: Admission Diagnosis/Problem Admission Diagnosis/Problem Sepsis Subjective Update: Patient is doing well. Her only complaint is diarrhea. Functional Status: Reports: Pain Controlled - Review of Systems General: Reports: No Symptoms HEENT: Reports: No Symptoms Pulmonary: Reports: No Symptoms Cardiovascular: Reports: No Symptoms Gastrointestinal: Reports: Diarrhea Musculoskeletal: Reports: No Symptoms - Patient Data Vitals - Most Recent: Last Vital Signs Temp 97.9 F 12/12/20 13:45 Pulse 58 L 12/12/20 13:45 Resp 18 12/12/20 13:45 BP 147/74 H 12/12/20 13:45 Pulse Ox 97 12/12/20 13:45 Weight - Most Recent: 82 lb 8 oz I&O - Last 24 hours: Intake & Output 12/12/20 12/12/20 12/12/20 06:59 14:59 22:59 Intake Total 360 90 Output Total 750 Balance -390 90 Lab Results - Last 24 hrs: Laboratory Results - last 24 hr 12/12/20 12/12/20 Range/Units 05:45 05:45 WBC 8.80 (3.98-10.04) K/mm3 RBC 3.87 L (3.98-5.22) M/mm3 Hgb 11.0 L (11.2-15.7) gm/dl Hct 35.6 (34.1-44.9) % MCV 92.0 (79.4-94.8) fl MCH 28.4 (25.6-32.2) pg MCHC 30.9 L (32.2-35.5) g/dl RDW Std Deviation 47.2 H (36.4-46.3) fL Plt Count 249 (182-369) K/mm3 MPV 9.7 (9.4-12.3) fl Neut % (Auto) 73.0 H (34.0-71.1) % Lymph % (Auto) 9.9 L (19.3-51.7) % [place] % (Auto) 6.5 (4.7-12.5) % Eos % (Auto) 10.2 H (0.7-5.8) Baso % (Auto) 0.2 (0.1-1.2) % Neut # (Auto) 6.42 H (1.56-6.13) K/mm3 Lymph # (Auto) 0.87 L (1.18-3.74) K/mm3 [place] # (Auto) 0.57 H (0.24-0.36) K/mm3 Eos # (Auto) 0.90 H (0.04-0.36) K/mm3 Baso # (Auto) 0.02 (0.01-0.08) K/mm3 Manual Slide Review Abnormal smear Sodium 137 (136-145) mEq/L Potassium 4.4 (3.5-5.1) mEq/L Chloride 102 (98-107) mEq/L Carbon Dioxide 26 (21-32) mEq/L Anion Gap 13.4 (5-15) BUN 15 (7-18) mg/dL Creatinine 0.8 (0.55-1.02) mg/dL Est Cr Clr Drug Dosing 30.92 mL/min Estimated GFR (MDRD) > 60 (>60) mL/min BUN/Creatinine Ratio 18.8 H (14-18) Glucose 97 (83-115) mg/dL Calcium 9.1 (8.5-10.1) mg/dL Magnesium 2.1 (1.8-2.4) mg/dl Total Bilirubin 0.2 (0.2-1.0) mg/dL AST 27 (15-37) U/L ALT 16 (14-59) U/L Alkaline Phosphatase 57 (46-116) U/L C-Reactive Protein 10.9 H* (<1.0) mg/dL Total Protein 6.6 (6.4-8.2) g/dl Albumin 2.4 L (3.4-5.0) g/dl Globulin 4.2 gm/dL Albumin/Globulin Ratio 0.6 L (1-2) BUD Results - Last 24 hrs: Microbiology 12/10/20 18:00 Urine Culture - Final Urine, Bladder MIXED TRAVIS SUGGESTIVE OF CONTAMINATION. 12/10/20 18:14 Aerobic Blood Culture - Preliminary Blood NO GROWTH AFTER 1 DAY Anaerobic Blood Culture - Preliminary NO GROWTH AFTER 1 DAY 12/10/20 18:26 Aerobic Blood Culture - Preliminary Blood NO GROWTH AFTER 1 DAY Anaerobic Blood Culture - Preliminary NO GROWTH AFTER 1 DAY Med Orders - Current: Current Medications Acetaminophen (Tylenol) 650 mg PO Q4H PRN PRN Reason: Pain (Mild 1-3)/fever Last Admin: 12/11/20 10:05 Dose: 650 mg Documented by: Amlodipine Besylate (Norvasc) 5 mg PO DAILY [facility] Last Admin: 12/12/20 08:30 Dose: 5 mg Documented by: Artificial Tears (Refresh Liquigel 1%) 0 ml EYEBOTH QID PRN PRN Reason: Dry Eyes Atenolol (Tenormin) 50 mg PO DAILY [facility] Last Admin: 12/12/20 08:28 Dose: 50 mg Documented by: Bismuth Subsalicylate (Pepto Bismol) 30 ml PO Q1H PRN PRN Reason: Diarrhea Last Admin: 12/12/20 13:44 Dose: 30 ml Documented by: Calcium Carbonate/Glycine (Tums) 500 mg PO ASDIRECTED PRN PRN Reason: upset stomach Famotidine (Pepcid) 20 mg PO DAILY [facility] Last Admin: 12/12/20 08:27 Dose: 20 mg Documented by: Folic Acid (Folic Acid) 1 mg PO DAILY [facility] Last Admin: 12/12/20 08:30 Dose: 1 mg Documented by: Hydralazine HCl (Apresoline) 50 mg PO TID [facility] Last Admin: 12/12/20 08:30 Dose: 50 mg Documented by: Hydrochlorothiazide (Hydrochlorothiazide) 25 mg PO 0800 [facility] Last Admin: 12/12/20 10:15 Dose: 25 mg Documented by: Ceftriaxone Sodium 2 gm/ (Sodium Chloride) 100 mls @ 200 mls/hr IV Q24H [facility] Last Admin: 12/11/20 17:59 Dose: 200 mls/hr Documented by: Latanoprost (Xalatan 0.005% Ophth Soln) 0 ml EYEBOTH BEDTIME [facility] Last Admin: 12/11/20 20:47 Dose: 2 drop Documented by: Levothyroxine Sodium (Synthroid) 100 mcg PO ACBREAKFAST [facility] Last Admin: 12/12/20 05:43 Dose: 100 mcg Documented by: Lisinopril (Prinivil) 40 mg PO 1999 [facility] Last Admin: 12/11/20 20:27 Dose: 40 mg Documented by: Multivitamins (Thera) 1 each PO DAILY [facility] Last Admin: 12/12/20 08:27 Dose: 1 each Documented by: Ondansetron HCl (Zofran) 4 mg IV Q4H PRN PRN Reason: Nausea/Vomiting Psyllium Husk (Metamucil Sugar Free) 1 pkt PO DAILY [facility] Last Admin: 12/12/20 08:30 Dose: 1 pkt Documented by: Rivaroxaban (Xarelto) 15 mg PO 1700 [facility] Last Admin: 12/11/20 16:13 Dose: 15 mg Documented by: Saccharomyces Boulardii (Florastor) 500 mg PO BID [facility] Last Admin: 12/12/20 11:19 Dose: 500 mg Documented by: Simvastatin (Zocor) 20 mg PO 2000 [facility] Last Admin: 12/11/20 20:21 Dose: 20 mg Documented by: Sodium Chloride (Saline Flush) 10 ml FLUSH ASDIRECTED PRN PRN Reason: Keep Vein Open Tramadol HCl (Ultram) 50 mg PO Q6H PRN PRN Reason: Pain Discontinued Medications Acetaminophen (Tylenol) 650 mg PO ONETIME ONE Stop: 12/10/20 17:40 Last Admin: 12/10/20 18:29 Dose: 650 mg Documented by: Chlorhexidine Gluconate (Chlorhexidine Gluconate 0.12% Rinse) 0 ml PO BID RICKY Last Admin: 12/12/20 09:00 Dose: Not Given Documented by: Furosemide (Lasix) 20 mg IVPUSH ONETIME ONE Stop: 12/10/20 19:51 Last Admin: 12/10/20 19:58 Dose: 20 mg Documented by: Dextrose/Sodium Chloride (Dextrose 5%-Normal Saline) 1,000 mls @ 150 mls/hr IV ASDIRECTED [facility] Last Infusion: 12/10/20 20:03 Dose: 999 mls/hr Documented by: Ceftriaxone Sodium 2 gm/ (Sodium Chloride) 100 mls @ 200 mls/hr IV ONETIME ONE Stop: 12/10/20 18:11 Last Admin: 12/10/20 18:28 Dose: 200 mls/hr Documented by: Dextrose/Sodium Chloride (Dextrose 5%-Normal Saline) 1,000 mls @ 999 mls/hr IV ASDIRECTED [facility] Magnesium Sulfate 4 gm/ Premix 50 mls @ 12.5 mls/hr IV ONETIME ONE Stop: 12/10/20 23:52 Last Admin: 12/10/20 20:35 Dose: 12.5 mls/hr Documented by: Potassium Chloride/Sodium Chloride (Normal Saline With 20 Meq Kcl) 1,000 mls @ 125 mls/hr IV ASDIRECTED [facility] Stop: 12/11/20 05:14 Potassium Chloride/Sodium Chloride (Normal Saline With 20 Meq Kcl) 1,000 mls @ 75 mls/hr IV ASDIRECTED [facility] Last Infusion: 12/11/20 02:19 Dose: 50 mls/hr Documented by: Potassium Chloride 10 meq/ (Premix) 100 mls @ 100 mls/hr IV Q1H [facility] Stop: 12/11/20 00:29 Last Admin: 12/11/20 00:06 Dose: 100 mls/hr Documented by: Magnesium Sulfate 2 gm/ Premix 50 mls @ 25 mls/hr IV ONETIME ONE Stop: 12/11/20 02:59 Last Admin: 12/11/20 01:06 Dose: Not Given Documented by: Potassium Chloride/Sodium Chloride (Normal Saline With 20 Meq Kcl) 1,000 mls @ 50 mls/hr IV ASDIRECTED [facility] Ferric Sodium Gluconate Complex 250 mg/ Sodium Chloride 120 mls @ 60 mls/hr IV ONETIME ONE Stop: 12/11/20 14:29 Last Admin: 12/11/20 12:59 Dose: 60 mls/hr Documented by: Non-Formulary Medication (Lactose-Reduced Food [Ensure]) 237 ml PO BID RICYK Potassium Chloride (Klor-Con M20) 40 meq PO BID [facility]ICKY Stop: 12/11/20 21:01 Last Admin: 12/11/20 20:20 Dose: 40 meq Documented by: - Exam Quality Assessment: Denies: Supplemental Oxygen General: Reports: Alert, Oriented HEENT: Reports: Pupils Equal, Mucous Membr. Moist/[place] Neck: Reports: Supple Lungs: Reports: Clear to Auscultation, Normal Respiratory Effort Cardiovascular: Reports: Regular Rate, Regular Rhythm GI/Abdominal Exam: Normal Bowel Sounds, Soft, Non-Tender, No Organomegaly, No Distention, No Abnormal Bruit Extremities: Normal Inspection, Normal Range of Motion, Non-Tender, No Pedal Edema, Normal Capillary Refill Skin: Reports: Warm, Dry, Intact Psy/Mental Status: Reports: Alert, Normal Affect, Normal Mood
[2020-12-12 15:32] VITALS: BP 158/77
== END 2020-12-12 15:55 | disposition home or self-care (01) | DRG 872 ==
LOC: JD.ED 17:16 → JD.ICU 19:56 → UNDOADMIN 20:36 → JD.ICU 20:36 → UNDODISIN 12-12 15:55
PROVIDERS: ADMIT Family Medicine; ATTEND Family Medicine
DX: A41.9 Sepsis, unspecified organism (principal); N39.0 Urinary tract infection, site not specified; E44.0 Moderate protein-calorie malnutrition; R65.20 Severe sepsis without septic shock; I50.9 Heart failure, unspecified; I10 Essential (primary) hypertension; Z66 Do not resuscitate; Z87.11 Personal history of peptic ulcer disease; I11.0 Hypertensive heart disease with heart failure; E83.42 Hypomagnesemia; D64.9 Anemia, unspecified; I72.9 Aneurysm of unspecified site; E87.6 Hypokalemia; Z79.01 Long term (current) use of anticoagulants; D50.9 Iron deficiency anemia, unspecified; K59.00 Constipation, unspecified; K59.1 Functional diarrhea; H54.7 Unspecified visual loss; I48.91 Unspecified atrial fibrillation; E78.00 Pure hypercholesterolemia, unspecified; K21.9 Gastro-esophageal reflux disease without esophagitis; M81.0 Age-related osteoporosis without current pathological fracture; E03.9 Hypothyroidism, unspecified; Z20.822 Contact with and (suspected) exposure to COVID-19; Z86.73 Personal history of transient ischemic attack (TIA), and cerebral infarction without residual deficits; Z79.890 Hormone replacement therapy; Z98.49 Cataract extraction status, unspecified eye; Z79.899 Other long term (current) drug therapy; Z98.890 Other specified postprocedural states; R06.02 Shortness of breath
CPT/HCPCS: 36415; 51702; 71045; 71045-26; 74018; 74018-26; 80053; 81001; 82607; 83540; 83605; 83735; 83880; 84466; 85025; 86140; 87040; 87086; 87641; 93005; 93306; 96365; 97110-GO; 97110-GP; 97116-GP; 97162-GP; 97165-GO; 97530-GO; 99223; 99233; 99239; 99285; 99285-25; A9270-GY; J0696; J1940; J2916; J3475; J3480; J7042; U0002

== ENCOUNTER 2021-03-16 14:06 | Observation (INO) | payer MEDICARE, OTHER ==
[2021-03-16] MEDS ORDERED: Sodium Chloride 0.9% 10 ML Syringe FLUSH PRN ×2 (14:44→18:16)
[2021-03-16] MEDS ORDERED: Ondansetron 4 MG/2 ML SDV IVPUSH ONE (14:44)
[2021-03-16] MEDS ORDERED: Sodium Chloride 0.9% 1,000 ML IV SCH (14:45)
[2021-03-16] MEDS ORDERED: Ketorolac 15 MG/ML SDV IVPUSH ONE (14:45)
[2021-03-16] MEDS ORDERED: HYDROmorphone 0.5 MG/0.5 ML Syringe IVPUSH ONE (14:46)
--- NOTE | 2021-03-16 16:56 | EDM.PDOC ---
ED HPI GENERAL MEDICAL PROBLEM - General Chief Complaint: Back Pain or Injury Stated Complaint: [facility] Time Seen by Provider: 03/16/21 14:20 Source of Information: Reports: Patient, EMS, Family History Limitations: Reports: No Limitations - History of Present Illness INITIAL COMMENTS - FREE TEXT/NARRATIVE: The patient presents by [facility] from assisted living at [facility] for low back pain and abdominal pain. This started on Thursday with low back pain. She does not have a history of low back pain. She did not fall or hurt herself. She went to physical therapy on and that made it worse. She now has abdominal pain with it. She has not had a bowel movement since Thursday. She has some nausea but no vomiting. She has no fever, chills, cough, congestion, runny nose, chest pain or shortness of breath. She has no dysuria. She has generalized weakness. Her daughter saw her on Thursday and she was happy and active and getting around on with her walker. Today she cannot get out of bed. She was going to bring her in on her own but the patient could not get up. Onset: Gradual Duration: Day(s): Location: Reports: Abdomen, Back Quality: Reports: Sharp Severity: Severe Improves with: Reports: Immobilization Worsens with: Reports: Movement Associated Symptoms: Reports: Nausea/Vomiting. 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 ARTIST: Reports: EKG, IV/IO, Other Medication(s) Lower Back Pain Score (Numeric/FACES): 9 - Related Data Allergies Allergy/AdvReac Type Severity Reaction Status Date / Time No Known Allergies Allergy Verified 03/16/21 14:17 Home Meds: Home Meds Lisinopril 40 mg PO QPM 07/21/14 [History] atenoloL [Atenolol] 50 mg PO QAM 07/21/14 [History] hydroCHLOROthiazide [Hydrochlorothiazide] 25 mg PO QAM 07/21/14 [History] Acetaminophen [Tylenol Extra Strength] 500 mg PO TID PRN 11/08/19 [History] Calcium Carb/Vitamin D3/Vit K1 [Calcium + D Soft Chewable Tab] 2 tab PO QPM 11/08/19 [History] Folic Acid 1 mg PO QAM 11/08/19 [History] Latanoprost 1 drop EYEBOTH QPM 11/08/19 [History] Urine Leukocyte Test [Azo] 2 tab PO TID PRN 11/08/19 [History] amLODIPine [Norvasc] 5 mg PO QAM 11/08/19 [History] Calcium Carbonate [Tums] 400 mg PO ASDIRECTED PRN 12/10/20 [History] Cholecalciferol (Vitamin D3) [Vitamin D3] 1,000 mg PO QAM 12/10/20 [History] Famotidine [Pepcid] 20 mg PO QAM 12/10/20 [History] Levothyroxine [Synthroid] 100 mcg PO QAM 12/10/20 [History] Neomycin/Bacitracin/Polymyxinb [Antibiotic Ointment] 1 applic TOP DAILY PRN 12/10/20 [History] Psyllium Husk/Aspartame [Metamucil Sugar Free] 1 tbsp PO QAM PRN 12/10/20 [History] Rivaroxaban [Xarelto] 15 mg PO QPM 12/10/20 [History] atorvaSTATin [Lipitor] 20 mg PO QPM 12/10/20 [History] hydrALAZINE [Apresoline] 50 mg PO TID 12/10/20 [History] traMADol [Ultram] 50 mg PO Q6H PRN 12/10/20 [History] Multivit-Min/FA/Lycopen/Lutein [Centrum Silver Tablet] 1 tab PO QAM 03/16/21 [History] Non-Formulary Medication [NF Drug] 1 drop EYEBOTH DAILY PRN 03/16/21 [History] Non-Formulary Medication [NF Drug] 1 drop EYEBOTH QPM 03/16/21 [History] Past Medical History HEENT History: Reports: Impaired Vision, Other (See Below) Other HEENT History: wears glasses, has partial Cardiovascular History: Reports: Afib, Aneurysm, High Cholesterol, Hypertension Respiratory History: Reports: None Gastrointestinal History: Reports: GERD, Hemorrhoids, PUD, Other (See Below) Other Gastrointestinal History: ulcer Genitourinary History: Reports: Other (See Below) Other Genitourinary History: hematuria, cystoscopy 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: Musculoskeletal History: Reports: Osteoporosis Neurological History: Reports: TIA Psychiatric History: Reports: None Endocrine/Metabolic History: Reports: Hypothyroidism Hematologic History: Reports: Anemia, Iron Deficiency Immunologic History: Reports: None Oncologic (Cancer) History: Reports: None Dermatologic History: Reports: None - Infectious Disease History Infectious Disease History: Reports: None - Past Surgical History HEENT Surgical History: Reports: Cataract Surgery GI Surgical History: Reports: Colonoscopy, EGD, Other (See Below) Other GI Surgeries/Procedures: stomach surgery x2 Social & Family History - Tobacco Use Tobacco Use Status *Q: Never Tobacco User - Caffeine Use Caffeine Use: Reports: None - Recreational Drug Use Recreational Drug Use: No - Living Situation & Occupation Living situation: Reports: , Alone Occupation: Retired ED ROS GENERAL - Review of Systems Review Of Systems: See Below Constitutional: Reports: No Symptoms HEENT: Reports: No Symptoms Respiratory: Reports: No Symptoms Cardiovascular: Reports: No Symptoms Endocrine: Reports: No Symptoms GI/Abdominal: Reports: Abdominal Pain, Constipation, Nausea. Denies: Diarrhea, Vomiting : Reports: No Symptoms Musculoskeletal: Reports: Back Pain ED EXAM,LOWER BACK PAIN/INJURY - Physical Exam Exam: See Below Exam Limited By: No Limitations General Appearance: Alert, No Apparent Distress Ears: Normal External Exam Nose: Normal Inspection Head: Atraumatic, Normocephalic Neck: Normal Inspection, Supple, Non-Tender Respiratory/Chest: No Respiratory Distress, Lungs Clear, Normal Breath Sounds Cardiovascular: Regular Rate, Rhythm, No Edema, No Murmur GI/Abdominal: Soft, No Organomegaly, No Mass, Tender (moderate generalized tenderness) Back Exam: Other (Pain upon palpation to the lower back) Course - Vital Signs Last Recorded V/S: Last Vital Signs Temp 98 F 03/16/21 14:11 Pulse 73 03/16/21 14:11 Resp 18 03/16/21 14:11 BP 197/96 H 03/16/21 14:11 Pulse Ox 100 03/16/21 14:11 - Orders/Labs/Meds Orders: Active Orders 24 hr Category Date Time Status Cardiac Monitoring [RC] . DIRECTED Care 03/16/21 14:44 Active Enema [RC] ASDIRECTED Care 03/16/21 16:40 Active Oxygen Therapy [RC] PRN Care 03/16/21 14:44 Active Peripheral IV Care [RC] . DIRECTED Care 03/16/21 14:45 Active Abdomen Pelvis wo Cont [CT] Stat Exams 03/16/21 14:46 Taken Lumbar Spine wo Cont [CT] Stat Exams 03/16/21 14:46 Taken CORONAVIRUS COVID-19 MIKALA [MOLEC] Stat Lab 03/16/21 16:54 Ordered Sodium Chloride 0.9% [Normal Saline] 1,000 ml Med 03/16/21 14:45 Active IV ASDIRECTED Sodium Chloride 0.9% [Saline Flush] Med 03/16/21 14:44 Active 10 ml FLUSH ASDIRECTED PRN ED Antiemetic Medication Reflex [OM.PC] Stat Oth 03/16/21 14:44 Ordered Peripheral IV Insertion Adult [OM.PC] Stat Oth 03/16/21 14:44 Ordered Medication Orders Sodium Chloride (Normal Saline) 1,000 mls @ 125 mls/hr IV ASDIRECTED RICKY Last Admin: 03/16/21 15:02 Dose: 125 mls/hr Documented by: SADIE Sodium Chloride (Sodium Chloride 0.9% 10 Ml Syringe) 10 ml FLUSH ASDIRECTED PRN PRN Reason: Keep Vein Open Last Admin: 03/16/21 15:06 Dose: 10 ml Documented by: SADIE Labs: Laboratory Tests 03/16/21 03/16/21 03/16/21 Range/Units 14:20 15:00 15:00 WBC 10.25 H (3.98-10.04) K/mm3 RBC 4.22 (3.98-5.22) M/mm3 Hgb 13.2 D (11.2-15.7) gm/dl Hct 38.7 (34.1-44.9) % MCV 91.7 (79.4-94.8) fl MCH 31.3 (25.6-32.2) pg MCHC 34.1 (32.2-35.5) g/dl RDW Std Deviation 44.3 (36.4-46.3) fL Plt Count 207 (182-369) K/mm3 MPV 9.3 L (9.4-12.3) fl Neut % (Auto) 80.9 H (34.0-71.1) % Lymph % (Auto) 10.1 L (19.3-51.7) % [place] % (Auto) 8.6 (4.7-12.5) % Eos % (Auto) 0 L (0.7-5.8) Baso % (Auto) 0.1 (0.1-1.2) % Neut # (Auto) 8.29 H (1.56-6.13) K/mm3 Lymph # (Auto) 1.04 L (1.18-3.74) K/mm3 [place] # (Auto) 0.88 H (0.24-0.36) K/mm3 Eos # (Auto) 0.00 L (0.04-0.36) K/mm3 Baso # (Auto) 0.01 (0.01-0.08) K/mm3 PT 10.9 (9.7-12.0) SECONDS INR 1.02 APTT 28.0 (21.7-31.4) SECONDS Sodium (136-145) mEq/L Potassium (3.5-5.1) mEq/L Chloride (98-107) mEq/L Carbon Dioxide (21-32) mEq/L Anion Gap (5-15) BUN (7-18) mg/dL Creatinine (0.55-1.02) mg/dL Est Cr Clr Drug Dosing mL/min Estimated GFR (MDRD) (>60) mL/min BUN/Creatinine Ratio (14-18) Glucose (70-99) mg/dL Lactic Acid (0.4-2.0) mmol/L Calcium (8.5-10.1) mg/dL Total Bilirubin (0.2-1.0) mg/dL AST (15-37) U/L ALT (14-59) U/L Alkaline Phosphatase (46-116) U/L C-Reactive Protein (<1.0) mg/dL Total Protein (6.4-8.2) g/dl Albumin (3.4-5.0) g/dl Globulin gm/dL Albumin/Globulin Ratio (1-2) Lipase (73-393) U/L Urine Color Yellow (Yellow) Urine Appearance Clear (Clear) Urine pH 7.0 (5.0-8.0) Ur Specific [place] 1.025 (1.005-1.030) Urine Protein 2+ H (Negative) Urine Glucose (UA) Negative (Negative) Urine Ketones Negative (Negative) Urine Occult Blood 1+ H (Negative) Urine Nitrite Negative (Negative) Urine Bilirubin Negative (Negative) Urine Urobilinogen 0.2 (0.2-1.0) Ur Leukocyte Esterase Negative (Negative) Urine RBC 0-5 (0-5) /hpf Urine WBC 0-5 (0-5) /hpf Ur Epithelial Cells 0-5 (0-5) /hpf Urine Bacteria Rare (FEW) /hpf Urine Mucus Not seen (FEW) /hpf 03/16/21 03/16/21 Range/Units 15:00 15:00 WBC (3.98-10.04) K/mm3 RBC (3.98-5.22) M/mm3 Hgb (11.2-15.7) gm/dl Hct (34.1-44.9) % MCV (79.4-94.8) fl MCH (25.6-32.2) pg MCHC (32.2-35.5) g/dl RDW Std Deviation (36.4-46.3) fL Plt Count (182-369) K/mm3 MPV (9.4-12.3) fl Neut % (Auto) (34.0-71.1) % Lymph % (Auto) (19.3-51.7) % [place] % (Auto) (4.7-12.5) % Eos % (Auto) (0.7-5.8) Baso % (Auto) (0.1-1.2) % Neut # (Auto) (1.56-6.13) K/mm3 Lymph # (Auto) (1.18-3.74) K/mm3 [place] # (Auto) (0.24-0.36) K/mm3 Eos # (Auto) (0.04-0.36) K/mm3 Baso # (Auto) (0.01-0.08) K/mm3 PT (9.7-12.0) SECONDS INR APTT (21.7-31.4) SECONDS Sodium 124 L D (136-145) mEq/L Potassium 3.5 (3.5-5.1) mEq/L Chloride 86 L D (98-107) mEq/L Carbon Dioxide 24 (21-32) mEq/L Anion Gap 17.5 H (5-15) BUN 12 (7-18) mg/dL Creatinine 0.7 (0.55-1.02) mg/dL Est Cr Clr Drug Dosing 37.45 mL/min Estimated GFR (MDRD) > 60 (>60) mL/min BUN/Creatinine Ratio 17.1 (14-18) Glucose 110 H (70-99) mg/dL Lactic Acid 1.6 (0.4-2.0) mmol/L Calcium 9.3 (8.5-10.1) mg/dL Total Bilirubin 0.6 (0.2-1.0) mg/dL AST 28 (15-37) U/L ALT 29 (14-59) U/L Alkaline Phosphatase 86 (46-116) U/L C-Reactive Protein 1.9 H* (<1.0) mg/dL Total Protein 7.4 (6.4-8.2) g/dl Albumin 3.2 L (3.4-5.0) g/dl Globulin 4.2 gm/dL Albumin/Globulin Ratio 0.8 L (1-2) Lipase 201 (73-393) U/L Urine Color (Yellow) Urine Appearance (Clear) Urine pH (5.0-8.0) Ur Specific [place] (1.005-1.030) Urine Protein (Negative) Urine Glucose (UA) (Negative) Urine Ketones (Negative) Urine Occult Blood (Negative) Urine Nitrite (Negative) Urine Bilirubin (Negative) Urine Urobilinogen (0.2-1.0) Ur Leukocyte Esterase (Negative) Urine RBC (0-5) /hpf Urine WBC (0-5) /hpf Ur Epithelial Cells (0-5) /hpf Urine Bacteria (FEW) /hpf Urine Mucus (FEW) /hpf Meds: Medications Generic Name Dose Route Start Last Admin Trade Name Cedricq PRN Reason Stop Dose Admin Sodium Chloride 1,000 mls @ 125 mls/hr 03/16/21 14:45 03/16/21 15:02 Normal Saline IV 125 mls/hr ASDIRECTED RICKY Administration Sodium Chloride 10 ml 03/16/21 14:44 03/16/21 15:06 Sodium Chloride 0.9% 10 Ml Syringe FLUSH 10 ml ASDIRECTED PRN Administration Keep Vein Open Discontinued Medications Generic Name Dose Route Start Last Admin Trade Name Freq PRN Reason Stop Dose Admin Hydromorphone HCl 0.25 mg 03/16/21 14:46 03/16/21 14:59 Hydromorphone 0.5 Mg/0.5 Ml Syringe IVPUSH 03/16/21 14:47 0.25 mg ONETIME ONE Administration Ketorolac Tromethamine 15 mg 03/16/21 14:45 03/16/21 14:56 Ketorolac 15 Mg/Ml Sdv IVPUSH 03/16/21 14:46 15 mg ONETIME ONE Administration Ondansetron HCl 4 mg 03/16/21 14:44 03/16/21 14:56 Ondansetron 4 Mg/2 Ml Sdv IVPUSH 03/16/21 14:45 4 mg ONETIME ONE Administration - Re-Assessments/Exams Free Text/Narrative Re-Assessment/Exam: 03/16/21 17:05 I ordered an IV NS at 125mL/hr, zofran 4mg IV, dilaudid 0.25mg IV, toradol 15mg IV, labs, UA and a CT of her abdomen and pelvis and CT of her lumbar spine. 03/16/21 17:18 Her WBC was elevated at 10.25. Her PT and PTT look good. Her Na was low at 124. Her anion gap is elevated at 17.5. Her CRP is elevated at 1.9. Her lipase is normal. Her UA shows no UTI. The CT of her abdomen and pelvis shows severe constipation with several air and fluid filled loops of bowel seen throughout the abdomen. Grossly, there is no definitive evidence for a discrete high grade bowel obstruction at this time. Not that there is a right femoral hernia with herniated loops of small bowel which do not appear obstructed or strangulated at this time. Consider bloating, mild ileus, or mild partial obstruction related to severe constipation. No evidence of bowel perforation. Incidental findings as detailed above. Note is made of a 5cm X 3.8cm infrarenal abdominal aortic aneurysm. No definitive evidence of aneurysmal rupture at this time. The CT of her lumbar spine shows compression injury at L1 with approximately 30% loss in vertebral body height. Additional linear fracture through the right L1 pedicle. There is mild associated prevertebral swelling at this level. Findings are therefore concerning for acute to subacute injuries. Acute on chronic injuries are all also within the differential. Consider correlation with lumbar spine. Multilevel degenerative and disc disease. I had my nurse try an enema and she could not hold any water. I feel she needs to be admitted for the compression fracture and constipation. I talked with Dr Romano and he agreed to the admission. Departure - Departure Time of Disposition: 17:30 Disposition: Refer to Observation Condition: Fair Clinical Impression: Hyponatremia Fracture of lumbar spine Qualifiers: Encounter type: initial encounter Lumbar vertebra fracture level: L1 Fracture type: closed Fracture morphology: other fracture Qualified Code(s): S32.018A - Other fracture of first lumbar vertebra, initial encounter for closed fracture Constipation Qualifiers: Constipation type: other constipation type Qualified Code(s): K59.09 - Other constipation - Discharge Information Referrals: Marimar Huertas MD [Primary Care Provider] - Forms: ED Department Discharge Sepsis Event Note (ED) - Evaluation Sepsis Screening Result: No Definite Risk - Focused Exam Vital Signs: Vital Signs Temp Pulse Resp BP Pulse Ox 03/16/21 14:11 98 F 73 18 197/96 H 100 - My Orders Last 24 Hours: My Active Orders 03/16/21 14:44 Cardiac Monitoring [RC] . DIRECTED Oxygen Therapy [RC] PRN Sodium Chloride 0.9% [Saline Flush] 10 ml FLUSH ASDIRECTED PRN ED Antiemetic Medication Reflex [OM.PC] Stat Peripheral IV Insertion Adult [OM.PC] Stat 03/16/21 14:45 Peripheral IV Care [RC] . DIRECTED Sodium Chloride 0.9% [Normal Saline] 1,000 ml IV ASDIRECTED 03/16/21 14:46 Abdomen Pelvis wo Cont [CT] Stat Lumbar Spine wo Cont [CT] Stat 03/16/21 16:40 Enema [RC] ASDIRECTED 03/16/21 16:54 CORONAVIRUS COVID-19 MIKALA [MOLEC] Stat - Assessment/Plan Last 24 Hours: My Active Orders 03/16/21 14:44 Cardiac Monitoring [RC] . DIRECTED Oxygen Therapy [RC] PRN Sodium Chloride 0.9% [Saline Flush] 10 ml FLUSH ASDIRECTED PRN ED Antiemetic Medication Reflex [OM.PC] Stat Peripheral IV Insertion Adult [OM.PC] Stat 03/16/21 14:45 Peripheral IV Care [RC] . DIRECTED Sodium Chloride 0.9% [Normal Saline] 1,000 ml IV ASDIRECTED 03/16/21 14:46 Abdomen Pelvis wo Cont [CT] Stat Lumbar Spine wo Cont [CT] Stat 03/16/21 16:40 Enema [RC] ASDIRECTED 03/16/21 16:54 CORONAVIRUS COVID-19 MIKALA [MOLEC] Stat
[2021-03-16] MEDS ORDERED: Magnesium Citrate Solution 296 ML Bottle PO ONE (18:20)
[2021-03-16] MEDS ORDERED: Temazepam 7.5 MG Cap PO PRN (18:23)
[2021-03-16] MEDS: Acetaminophen 325 MG Tab PO PRN (21:51)
[2021-03-17] MEDS ORDERED: Psyllium Husk Powder Sugar Free 5.85 GM Packet PO PRN (06:51)
[2021-03-17] MEDS ORDERED: Calcium Carbonate 500 MG Tab.Chew PO PRN (06:51)
--- NOTE | 2021-03-17 06:51 | PCM.HP.2 ---
H&P History of Present Illness - General Date of Service: 03/16/21 Admit Problem/Dx: Admission Diagnosis/Problem Admission Diagnosis/Problem Compression fracture Source of Information: Patient, Family History Limitations: Reports: No Limitations - History of Present Illness Initial Comments - Free Text/Narative: The patient is an 86-year-old lady who had been brought to the emergency department via EMS secondary to severe back pain. The patient has been in assisted living at [facility]. She had also been having some abdominal pain. Patient says that the pain in her back started 5 days ago. She had gone to a chiropractor and she said that this made it worse. CT scan completed in the emergency department showed compression fracture of L1 along with severe consti pation and increased intestinal gas. The patient also reported that she had constipation and had not had a bowel movement since 4 days prior to presentation. She also has generalized weakness. She has denied any fever or chills. Some nausea but no vomiting. She was unable to get out of bed. The patient has her daughter with her today. Note: The patient was seen and examined on March 16, 2021 however, [employer] was nonfunctional at time of history and physical. IT was called and take it was established. Ticket number [phone] [id number] Onset of Symptoms: Reports: Gradual Duration of Symptoms: Reports: Day(s): Location: Reports: Back Quality: Reports: Ache, Stabbing Severity: Moderate Improves with: Reports: Medication, Rest Worsens with: Reports: Movement Associated Symptoms: Reports: Other (Constipation, abdominal pain) Lower Back Pain Score (Numeric/FACES): 0 - Related Data Allergies/Adverse Reactions: Allergies Allergy/AdvReac Type Severity Reaction Status Date / Time No Known Allergies Allergy Verified 03/16/21 14:17 Home Medications: Home Meds Lisinopril 40 mg PO QPM 07/21/14 [History] atenoloL [Atenolol] 50 mg PO QAM 07/21/14 [History] hydroCHLOROthiazide [Hydrochlorothiazide] 25 mg PO QAM 07/21/14 [History] Acetaminophen [Tylenol Extra Strength] 500 mg PO TID PRN 11/08/19 [History] Calcium Carb/Vitamin D3/Vit K1 [Calcium + D Soft Chewable Tab] 2 tab PO QPM [History] Folic Acid 1 mg PO QAM 11/08/19 [History] Latanoprost 1 drop EYEBOTH QPM 11/08/19 [History] Urine Leukocyte Test [Azo] 2 tab PO TID PRN 11/08/19 [History] amLODIPine [Norvasc] 5 mg PO QAM 11/08/19 [History] Calcium Carbonate [Tums] 400 mg PO ASDIRECTED PRN 12/10/20 [History] Cholecalciferol (Vitamin D3) [Vitamin D3] 1,000 mg PO QAM 12/10/20 [History] Famotidine [Pepcid] 20 mg PO QAM 12/10/20 [History] Levothyroxine [Synthroid] 100 mcg PO QAM 12/10/20 [History] Neomycin/Bacitracin/Polymyxinb [Antibiotic Ointment] 1 applic TOP DAILY PRN 12/10/20 [History] Psyllium Husk/Aspartame [Metamucil Sugar Free] 1 tbsp PO QAM PRN 12/10/20 [History] Rivaroxaban [Xarelto] 15 mg PO PCDINNER 12/10/20 [History] atorvaSTATin [Lipitor] 20 mg PO QPM 12/10/20 [History] hydrALAZINE [Apresoline] 50 mg PO TID 12/10/20 [History] traMADol [Ultram] 50 mg PO Q6H PRN 12/10/20 [History] Multivit-Min/FA/Lycopen/Lutein [Centrum Silver Tablet] 1 tab PO QAM 03/16/21 [History] Past Medical History HEENT History: Reports: Impaired Vision, Other (See Below) Other HEENT History: wears glasses, has partial Cardiovascular History: Reports: Afib, Aneurysm, High Cholesterol, Hypertension Respiratory History: Reports: None Gastrointestinal History: Reports: GERD, Hemorrhoids, PUD, Other (See Below) Other Gastrointestinal History: ulcer Genitourinary History: Reports: Other (See Below) Other Genitourinary History: hematuria, cystoscopy 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: Musculoskeletal History: Reports: Arthritis, Osteoporosis Neurological History: Reports: Migraines, TIA Psychiatric History: Reports: None Endocrine/Metabolic History: Reports: Hypothyroidism Hematologic History: Reports: Anemia, Iron Deficiency Immunologic History: Reports: None Oncologic (Cancer) History: Reports: None Dermatologic History: Reports: None - Infectious Disease History Infectious Disease History: Reports: None - Past Surgical History Head Surgeries/Procedures: Reports: None HEENT Surgical History: Reports: Cataract Surgery Cardiovascular Surgical History: Reports: None Respiratory Surgical History: Reports: None GI Surgical History: Reports: Colonoscopy, EGD, Other (See Below) Other GI Surgeries/Procedures: stomach surgery x2 Female Surgical History: Reports: None Endocrine Surgical History: Reports: None Neurological Surgical History: Reports: None Musculoskeletal Surgical History: Reports: None Oncologic Surgical History: Reports: None Dermatological Surgical History: Reports: None Social & Family History - Tobacco Use Tobacco Use Status *Q: Never Tobacco User - Caffeine Use Caffeine Use: Reports: Tea Caffeine Use Comment: Patient reports she drink some tea but not very often - Recreational Drug Use Recreational Drug Use: No - Living Situation & Occupation Living situation: Reports: , Alone, Assisted Living Occupation: Retired H&P Review of Systems - Review of Systems: Review Of Systems: See Below General: Reports: Weakness HEENT: Reports: No Symptoms Pulmonary: Reports: No Symptoms Cardiovascular: Reports: No Symptoms Gastrointestinal: Reports: Abdominal Pain, Constipation, Other (Bloating) Genitourinary: Reports: No Symptoms Musculoskeletal: Reports: Back Pain Skin: Reports: No Symptoms Psychiatric: Reports: No Symptoms Neurological: Reports: No Symptoms Hematologic/Lymphatic: Reports: No Symptoms Immunologic: Reports: No Symptoms Exam - Exam Exam: See Below - Vital Signs Vital Signs: Last Vital Signs Temp 36.8 C 03/16/21 21:28 Pulse 61 03/16/21 21:28 Resp 13 03/16/21 21:28 BP 157/61 H 03/16/21 21:28 Pulse Ox 96 03/16/21 21:28 Weight: 42.366 kg - Exam Quality Assessment: No: Supplemental Oxygen, DVT Prophylaxis General: Alert, Oriented, Cooperative, Mild Distress, Other (Thin, elderly) HEENT: Conjunctiva Clear, EACs Clear, EOMI, Hearing Intact, Nares Patent, PERRLA. No: Mucosa Moist & [place] (Dry) Neck: Supple, Trachea Midline Lungs: Clear to Auscultation, Normal Respiratory Effort Cardiovascular: Regular Rate, Regular Rhythm GI/Abdominal Exam: Soft, Non-Tender, Distended. No: Normal Bowel Sounds (Hypoactive), Guarding, Rigid (Female) Exam: Deferred Rectal (Female) Exam: Deferred Back Exam: Paraspinal Tenderness (Around L1). No: Normal Inspection (Appropriate for age) Extremities: Normal Inspection, No Pedal Edema Skin: Warm, Dry, Intact Neuro Extensive - Mental Status: Alert, Oriented x3 Psychiatric: Alert, Normal Affect - Patient Data Lab Results Last 24 hrs: Laboratory Results - last 24 hr 03/16/21 03/16/21 03/16/21 Range/Units 14:20 15:00 15:00 WBC 10.25 H (3.98-10.04) K/mm3 RBC 4.22 (3.98-5.22) M/mm3 Hgb 13.2 D (11.2-15.7) gm/dl Hct 38.7 (34.1-44.9) % MCV 91.7 (79.4-94.8) fl MCH 31.3 (25.6-32.2) pg MCHC 34.1 (32.2-35.5) g/dl RDW Std Deviation 44.3 (36.4-46.3) fL Plt Count 207 (182-369) K/mm3 MPV 9.3 L (9.4-12.3) fl Neut % (Auto) 80.9 H (34.0-71.1) % Lymph % (Auto) 10.1 L (19.3-51.7) % [place] % (Auto) 8.6 (4.7-12.5) % Eos % (Auto) 0 L (0.7-5.8) Baso % (Auto) 0.1 (0.1-1.2) % Neut # (Auto) 8.29 H (1.56-6.13) K/mm3 Lymph # (Auto) 1.04 L (1.18-3.74) K/mm3 [place] # (Auto) 0.88 H (0.24-0.36) K/mm3 Eos # (Auto) 0.00 L (0.04-0.36) K/mm3 Baso # (Auto) 0.01 (0.01-0.08) K/mm3 PT 10.9 (9.7-12.0) SECONDS INR 1.02 APTT 28.0 (21.7-31.4) SECONDS Sodium (136-145) mEq/L Potassium (3.5-5.1) mEq/L Chloride (98-107) mEq/L Carbon Dioxide (21-32) mEq/L Anion Gap (5-15) BUN (7-18) mg/dL Creatinine (0.55-1.02) mg/dL Est Cr Clr Drug Dosing mL/min Estimated GFR (MDRD) (>60) mL/min BUN/Creatinine Ratio (14-18) Glucose (70-99) mg/dL Lactic Acid (0.4-2.0) mmol/L Calcium (8.5-10.1) mg/dL Total Bilirubin (0.2-1.0) mg/dL AST (15-37) U/L ALT (14-59) U/L Alkaline Phosphatase (46-116) U/L C-Reactive Protein (<1.0) mg/dL Total Protein (6.4-8.2) g/dl Albumin (3.4-5.0) g/dl Globulin gm/dL Albumin/Globulin Ratio (1-2) Lipase (73-393) U/L Urine Color Yellow (Yellow) Urine Appearance Clear (Clear) Urine pH 7.0 (5.0-8.0) Ur Specific [place] 1.025 (1.005-1.030) Urine Protein 2+ H (Negative) Urine Glucose (UA) Negative (Negative) Urine Ketones Negative (Negative) Urine Occult Blood 1+ H (Negative) Urine Nitrite Negative (Negative) Urine Bilirubin Negative (Negative) Urine Urobilinogen 0.2 (0.2-1.0) Ur Leukocyte Esterase Negative (Negative) Urine RBC 0-5 (0-5) /hpf Urine WBC 0-5 (0-5) /hpf Ur Epithelial Cells 0-5 (0-5) /hpf Urine Bacteria Rare (FEW) /hpf Urine Mucus Not seen (FEW) /hpf SARS-CoV-2 RNA ([place]) (NEGATIVE) MRSA (PCR) 03/16/21 03/16/21 03/16/21 Range/Units 15:00 15:00 17:04 WBC (3.98-10.04) K/mm3 RBC (3.98-5.22) M/mm3 Hgb (11.2-15.7) gm/dl Hct (34.1-44.9) % MCV (79.4-94.8) fl MCH (25.6-32.2) pg MCHC (32.2-35.5) g/dl RDW Std Deviation (36.4-46.3) fL Plt Count (182-369) K/mm3 MPV (9.4-12.3) fl Neut % (Auto) (34.0-71.1) % Lymph % (Auto) (19.3-51.7) % [place] % (Auto) (4.7-12.5) % Eos % (Auto) (0.7-5.8) Baso % (Auto) (0.1-1.2) % Neut # (Auto) (1.56-6.13) K/mm3 Lymph # (Auto) (1.18-3.74) K/mm3 [place] # (Auto) (0.24-0.36) K/mm3 Eos # (Auto) (0.04-0.36) K/mm3 Baso # (Auto) (0.01-0.08) K/mm3 PT (9.7-12.0) SECONDS INR APTT (21.7-31.4) SECONDS Sodium 124 L D (136-145) mEq/L Potassium 3.5 (3.5-5.1) mEq/L Chloride 86 L D (98-107) mEq/L Carbon Dioxide 24 (21-32) mEq/L Anion Gap 17.5 H (5-15) BUN 12 (7-18) mg/dL Creatinine 0.7 (0.55-1.02) mg/dL Est Cr Clr Drug Dosing 37.45 mL/min Estimated GFR (MDRD) > 60 (>60) mL/min BUN/Creatinine Ratio 17.1 (14-18) Glucose 110 H (70-99) mg/dL Lactic Acid 1.6 (0.4-2.0) mmol/L Calcium 9.3 (8.5-10.1) mg/dL Total Bilirubin 0.6 (0.2-1.0) mg/dL AST 28 (15-37) U/L ALT 29 (14-59) U/L Alkaline Phosphatase 86 (46-116) U/L C-Reactive Protein 1.9 H* (<1.0) mg/dL Total Protein 7.4 (6.4-8.2) g/dl Albumin 3.2 L (3.4-5.0) g/dl Globulin 4.2 gm/dL Albumin/Globulin Ratio 0.8 L (1-2) Lipase 201 (73-393) U/L Urine Color (Yellow) Urine Appearance (Clear) Urine pH (5.0-8.0) Ur Specific [place] (1.005-1.030) Urine Protein (Negative) Urine Glucose (UA) (Negative) Urine Ketones (Negative) Urine Occult Blood (Negative) Urine Nitrite (Negative) Urine Bilirubin (Negative) Urine Urobilinogen (0.2-1.0) Ur Leukocyte Esterase (Negative) Urine RBC (0-5) /hpf Urine WBC (0-5) /hpf Ur Epithelial Cells (0-5) /hpf Urine Bacteria (FEW) /hpf Urine Mucus (FEW) /hpf SARS-CoV-2 RNA ([place]) Negative (NEGATIVE) MRSA (PCR) 03/16/21 03/17/21 Range/Units 21:10 05:25 WBC 7.04 (3.98-10.04) K/mm3 RBC 4.32 (3.98-5.22) M/mm3 Hgb 13.3 (11.2-15.7) gm/dl Hct 40.5 (34.1-44.9) % MCV 93.8 (79.4-94.8) fl MCH 30.8 (25.6-32.2) pg MCHC 32.8 (32.2-35.5) g/dl RDW Std Deviation 44.8 (36.4-46.3) fL Plt Count 211 (182-369) K/mm3 MPV 9.9 (9.4-12.3) fl Neut % (Auto) 70.5 (34.0-71.1) % Lymph % (Auto) 18.0 L (19.3-51.7) % [place] % (Auto) 10.2 (4.7-12.5) % Eos % (Auto) 0.9 (0.7-5.8) Baso % (Auto) 0.1 (0.1-1.2) % Neut # (Auto) 4.96 (1.56-6.13) K/mm3 Lymph # (Auto) 1.27 (1.18-3.74) K/mm3 [place] # (Auto) 0.72 H (0.24-0.36) K/mm3 Eos # (Auto) 0.06 (0.04-0.36) K/mm3 Baso # (Auto) 0.01 (0.01-0.08) K/mm3 PT (9.7-12.0) SECONDS INR APTT (21.7-31.4) SECONDS Sodium (136-145) mEq/L Potassium (3.5-5.1) mEq/L Chloride (98-107) mEq/L Carbon Dioxide (21-32) mEq/L Anion Gap (5-15) BUN (7-18) mg/dL Creatinine (0.55-1.02) mg/dL Est Cr Clr Drug Dosing mL/min Estimated GFR (MDRD) (>60) mL/min BUN/Creatinine Ratio (14-18) Glucose (70-99) mg/dL Lactic Acid (0.4-2.0) mmol/L Calcium (8.5-10.1) mg/dL Total Bilirubin (0.2-1.0) mg/dL AST (15-37) U/L ALT (14-59) U/L Alkaline Phosphatase (46-116) U/L C-Reactive Protein (<1.0) mg/dL Total Protein (6.4-8.2) g/dl Albumin (3.4-5.0) g/dl Globulin gm/dL Albumin/Globulin Ratio (1-2) Lipase (73-393) U/L Urine Color (Yellow) Urine Appearance (Clear) Urine pH (5.0-8.0) Ur Specific [place] (1.005-1.030) Urine Protein (Negative) Urine Glucose (UA) (Negative) Urine Ketones (Negative) Urine Occult Blood (Negative) Urine Nitrite (Negative) Urine Bilirubin (Negative) Urine Urobilinogen (0.2-1.0) Ur Leukocyte Esterase (Negative) Urine RBC (0-5) /hpf Urine WBC (0-5) /hpf Ur Epithelial Cells (0-5) /hpf Urine Bacteria (FEW) /hpf Urine Mucus (FEW) /hpf SARS-CoV-2 RNA ([place]) (NEGATIVE) MRSA (PCR) Negative Result Diagrams: 03/17/21 05:25 03/17/21 05:25 Sepsis Event Note - Evaluation Sepsis Screening Result: No Definite Risk - Focused Exam Vital Signs: Vital Signs Temp Pulse Resp BP Pulse Ox 03/16/21 21:28 36.8 C 61 13 157/61 H 96 - Problem List (1) Compression fracture of first lumbar vertebra SNOMED Code(s): 912140014, 417384679, [id number] ICD Code: S32.010A - WEDGE COMPRESSION FRACTURE OF FIRST LUMBAR VERTEBRA, INIT Status: Acute Priority: High Current Visit: Yes Qualifiers: Encounter type: subsequent encounter Fracture healing: with routine healing Qualified Code(s): S32.010D - Wedge compression fracture of first lumbar vertebra, subsequent encounter for fracture with routine healing (2) Low back pain SNOMED Code(s): 054564597 ICD Code: M54.5 - LOW BACK PAIN Status: Chronic Priority: High Current Visit: Yes Qualifiers: Chronicity: chronic Back pain laterality: bilateral Sciatica presence: unspecified whether sciatica present Qualified Code(s): M54.5 - Low back pain; G89.29 - Other chronic pain (3) Constipation SNOMED Code(s): 46107998 ICD Code: K59.00 - CONSTIPATION, UNSPECIFIED Status: Acute Priority: High Current Visit: Yes Qualifiers: Constipation type: slow transit constipation Qualified Code(s): K59.01 - Slow transit constipation (4) Weakness generalized SNOMED Code(s): 49528122 ICD Code: R53.1 - WEAKNESS Status: Chronic Priority: Medium Current Visit: Yes Problem List Initiated/Reviewed/Updated: Yes Orders Last 24hrs: Active Orders 24 hr Category Date Time Status Patient Status [ADT] Routine ADT 03/16/21 18:02 Active Oxygen Therapy [RC] PRN Care 03/16/21 14:44 Active OT Evaluation and Treatment [CONS] Routine Cons 03/16/21 18:23 Active PT Evaluation and Treatment [CONS] Routine Cons 03/16/21 18:22 Active Clear Liquid Diet [DIET] Diet 03/16/21 Dinner Active Abdomen Pelvis wo Cont [CT] Stat Exams 03/16/21 14:46 Taken Lumbar Spine wo Cont [CT] Stat Exams 03/16/21 14:46 Taken CMP [COMPREHENSIVE METABOLIC PN,CMP] [CHEM] Routine Lab 03/17/21 05:25 Received MAGNESIUM [CHEM] Routine Lab 03/17/21 05:25 Received Acetaminophen [TylenoL] Med 03/16/21 18:22 Active 650 mg PO Q6H PRN Sodium Chloride 0.9% [Saline Flush] Med 03/16/21 14:44 Active 10 ml FLUSH ASDIRECTED PRN Temazepam [Restoril] Med 03/16/21 18:23 Active 7.5 mg PO BEDTIME PRN Convert IV to Saline Lock [OM.PC] Routine Oth 03/16/21 18:16 Ordered ED Antiemetic Medication Reflex [OM.PC] Stat Ot 03/16/21 14:44 Ordered Peripheral IV Insertion Adult [OM.PC] Stat Oth 03/16/21 14:44 Ordered Resuscitation Status Routine Resus Stat 03/16/21 18:15 Ordered Medication Orders Acetaminophen (Acetaminophen 325 Mg Tab) 650 mg PO Q6H PRN PRN Reason: Pain (moderate 4-6) Last Admin: 03/16/21 21:51 Dose: 650 mg Documented by: BENJAMIN Sodium Chloride (Sodium Chloride 0.9% 10 Ml Syringe) 10 ml FLUSH ASDIRECTED PRN PRN Reason: Keep Vein Open Last Admin: 03/16/21 15:06 Dose: 10 ml Documented by: SADIE Temazepam (Temazepam 7.5 Mg Cap) 7.5 mg PO BEDTIME PRN PRN Reason: Sleep Last Admin: 03/16/21 21:50 Dose: 7.5 mg Documented by: BENJAMIN Assessment/Plan Comment:: The patient is an 86-year-old lady who had been admitted to observation out of concern for constipation, compression fracture of L1 vertebrae and associated lower back pain. The patient has been placed on magnesium citrate along with soapsuds enema if magnesium citrate does not work. The patient will also be ad mitted for pain control due to the compression fracture. The patient will be kept on other than narcotic pain medications as this can worsen her constipation. This will need to be followed as an outpatient. I have also ordered the patient to have clear liquid diet initially. The concern for this patient is that if she has worsening weakness that she may not be eligible for current level of care at her [facility] assisted living. PT OT has been ordered. Repeat laboratory studies have been ordered for the morning. - Mortality Measure Prognosis:: Good
[2021-03-17] MEDS ORDERED: Famotidine 20 MG Tab PO SCH (08:00)
[2021-03-17] MEDS ORDERED: amLODIPine 5 MG Tab PO SCH (08:00)
[2021-03-17] MEDS ORDERED: Hydrochlorothiazide 25 MG Tab PO SCH (08:00)
[2021-03-17] MEDS ORDERED: Folic Acid 1 MG Tab PO SCH (08:00)
[2021-03-17] MEDS ORDERED: Levothyroxine 100 MCG Tab PO SCH (08:00)
[2021-03-17] MEDS ORDERED: Atenolol 50 MG Tab PO SCH (08:00)
[2021-03-17 08:22] VITALS: PULSE 61
--- NOTE | 2021-03-17 08:39 | PCM.DCSUM1 ---
Discharge Summary - Hospital Course HPI Initial Comments: The patient was admitted secondary to pain control as well as severe constipation with bloating. Diagnosis: Stroke: No - Discharge Data Discharge Date: 03/17/21 Discharge Disposition: Home, Self-Care 01 Condition: Good - Referral to Home Health Primary Care Physician: Marimar Huertas MD - Patient Summary/Data Consults: Consultations 03/16/21 18:22 PT Evaluation and Treatment [CONS] Routine 03/16/21 18:23 OT Evaluation and Treatment [CONS] Routine Hospital Course: The patient is an 86-year-old lady who had been admitted to observation yesterday out of concern for severe back pain. The patient reportedly had at least 6 days worth of severe back pain and she had gone to a chiropractor which she thought made the pain worse. In the emergency department the patient had a CT scan was found to have a compression fracture of L1. CT scan also showed that the patient had considerable fecal loading along with bloating from gas. She had not had a bowel movement in at least 4 to 5 days. She did have some uncomfortable abdominal pain as well. The patient had been given mag citrate with the possibility of having soapsuds enema if necessary. By day of discharge the patient had several bowel movements and had been feeling better. The patient also had been recommended to follow-up with her primary care physician for possible referral for kyphoplasty. With the use of nonnarcotic pain medication the patient had improved. The patient had been tolerating her diet. The patient's daughter also reports that she has a higher level of care available at the assisted living center if necessary. The patient has been recommended to continue with her diet as tolerated. She is also to have activity as tolerated. The patient has been discharged from acute hospitalization with the recommendations listed above. - Patient Instructions Diet: Heart Healthy Diet Activity: As Tolerated - Discharge Plan Home Medications: Home Meds Lisinopril 40 mg PO QPM 07/21/14 [History] atenoloL [Atenolol] 50 mg PO QAM 07/21/14 [History] hydroCHLOROthiazide [Hydrochlorothiazide] 25 mg PO QAM 07/21/14 [History] Acetaminophen [Tylenol Extra Strength] 500 mg PO TID PRN 11/08/19 [History] Calcium Carb/Vitamin D3/Vit K1 [Calcium + D Soft Chewable Tab] 2 tab PO QPM 11/08/19 [History] Folic Acid 1 mg PO QAM 11/08/19 [History] Latanoprost 1 drop EYEBOTH QPM 11/08/19 [History] Urine Leukocyte Test [Azo] 2 tab PO TID PRN 11/08/19 [History] amLODIPine [Norvasc] 5 mg PO QAM 11/08/19 [History] Calcium Carbonate [Tums] 400 mg PO ASDIRECTED PRN 12/10/20 [History] Cholecalciferol (Vitamin D3) [Vitamin D3] 1,000 mg PO QAM 12/10/20 [History] Famotidine [Pepcid] 20 mg PO QAM 12/10/20 [History] Levothyroxine [Synthroid] 100 mcg PO QAM 12/10/20 [History] Neomycin/Bacitracin/Polymyxinb [Antibiotic Ointment] 1 applic TOP DAILY PRN 12/10/20 [History] Psyllium Husk/Aspartame [Metamucil Sugar Free] 1 tbsp PO QAM PRN 12/10/20 [History] Rivaroxaban [Xarelto] 15 mg PO PCDINNER 12/10/20 [History] atorvaSTATin [Lipitor] 20 mg PO QPM 12/10/20 [History] hydrALAZINE [Apresoline] 50 mg PO TID 12/10/20 [History] Multivit-Min/FA/Lycopen/Lutein [Centrum Silver Tablet] 1 tab PO QAM 03/16/21 [History] Patient Handouts: Chronic Constipation Forms: ED Department Discharge Referrals: Marimar Huertas MD [Primary Care Provider] - - Discharge Summary/Plan Comment DC Time >30 min.: Yes - General Info Date of Service: 03/17/21 Admission Dx/Problem (Free Text: Admission Diagnosis/Problem Admission Diagnosis/Problem Compression fracture L1, Constipation Subjective Update: The patient has been ambulating. She says that she feels much better. She has been transitioning to the bathroom without assistance. She feels like she can go home. Functional Status: Reports: Pain Controlled, Tolerating Diet - Review of Systems General: Reports: No Symptoms HEENT: Reports: No Symptoms Pulmonary: Reports: No Symptoms Cardiovascular: Reports: No Symptoms Gastrointestinal: Reports: No Symptoms Genitourinary: Reports: No Symptoms Musculoskeletal: Reports: Neck Pain Skin: Reports: No Symptoms Neurological: Reports: No Symptoms Psychiatric: Reports: No Symptoms - Patient Data Vitals - Most Recent: Last Vital Signs Temp 36.7 C 03/17/21 08:13 Pulse 61 03/17/21 08:13 Resp 16 03/17/21 08:13 BP 168/64 H 03/17/21 08:13 Pulse Ox 98 03/17/21 08:13 Weight - Most Recent: 42.366 kg I&O - Last 24 hours: Intake & Output 03/16/21 03/17/21 03/17/21 22:59 06:59 14:59 Intake Total 400 Output Total 600 Balance -200 Lab Results - Last 24 hrs: Laboratory Results - last 24 hr 03/16/21 03/16/21 03/16/21 Range/Units 14:20 15:00 15:00 WBC 10.25 H (3.98-10.04) K/mm3 RBC 4.22 (3.98-5.22) M/mm3 Hgb 13.2 D (11.2-15.7) gm/dl Hct 38.7 (34.1-44.9) % MCV 91.7 (79.4-94.8) fl MCH 31.3 (25.6-32.2) pg MCHC 34.1 (32.2-35.5) g/dl RDW Std Deviation 44.3 (36.4-46.3) fL Plt Count 207 (182-369) K/mm3 MPV 9.3 L (9.4-12.3) fl Neut % (Auto) 80.9 H (34.0-71.1) % Lymph % (Auto) 10.1 L (19.3-51.7) % [place] % (Auto) 8.6 (4.7-12.5) % Eos % (Auto) 0 L (0.7-5.8) Baso % (Auto) 0.1 (0.1-1.2) % Neut # (Auto) 8.29 H (1.56-6.13) K/mm3 Lymph # (Auto) 1.04 L (1.18-3.74) K/mm3 [place] # (Auto) 0.88 H (0.24-0.36) K/mm3 Eos # (Auto) 0.00 L (0.04-0.36) K/mm3 Baso # (Auto) 0.01 (0.01-0.08) K/mm3 PT 10.9 (9.7-12.0) SECONDS INR 1.02 APTT 28.0 (21.7-31.4) SECONDS Sodium (136-145) mEq/L Potassium (3.5-5.1) mEq/L Chloride (98-107) mEq/L Carbon Dioxide (21-32) mEq/L Anion Gap (5-15) BUN (7-18) mg/dL Creatinine (0.55-1.02) mg/dL Est Cr Clr Drug Dosing mL/min Estimated GFR (MDRD) (>60) mL/min BUN/Creatinine Ratio (14-18) Glucose (70-99) mg/dL Lactic Acid (0.4-2.0) mmol/L Calcium (8.5-10.1) mg/dL Magnesium (1.8-2.4) mg/dL Total Bilirubin (0.2-1.0) mg/dL AST (15-37) U/L ALT (14-59) U/L Alkaline Phosphatase (46-116) U/L C-Reactive Protein (<1.0) mg/dL Total Protein (6.4-8.2) g/dl Albumin (3.4-5.0) g/dl Globulin gm/dL Albumin/Globulin Ratio (1-2) Lipase (73-393) U/L Urine Color Yellow (Yellow) Urine Appearance Clear (Clear) Urine pH 7.0 (5.0-8.0) Ur Specific [place] 1.025 (1.005-1.030) Urine Protein 2+ H (Negative) Urine Glucose (UA) Negative (Negative) Urine Ketones Negative (Negative) Urine Occult Blood 1+ H (Negative) Urine Nitrite Negative (Negative) Urine Bilirubin Negative (Negative) Urine Urobilinogen 0.2 (0.2-1.0) Ur Leukocyte Esterase Negative (Negative) Urine RBC 0-5 (0-5) /hpf Urine WBC 0-5 (0-5) /hpf Ur Epithelial Cells 0-5 (0-5) /hpf Urine Bacteria Rare (FEW) /hpf Urine Mucus Not seen (FEW) /hpf SARS-CoV-2 RNA (MI[place]ALA) (NEGATIVE) MRSA (PCR) 05/29/21 05/29/21 05/29/21 Range/Units 15:00 15:00 17:04 WBC (3.98-10.04) K/mm3 RBC (3.98-5.22) M/mm3 Hgb (11.2-15.7) gm/dl Hct (34.1-44.9) % MCV (79.4-94.8) fl MCH (25.6-32.2) pg MCHC (32.2-35.5) g/dl RDW Std Deviation (36.4-46.3) fL Plt Count (182-369) K/mm3 MPV (9.4-12.3) fl Neut % (Auto) (34.0-71.1) % Lymph % (Auto) (19.3-51.7) % [place] % (Auto) (4.7-12.5) % Eos % (Auto) (0.7-5.8) Baso % (Auto) (0.1-1.2) % Neut # (Auto) (1.56-6.13) K/mm3 Lymph # (Auto) (1.18-3.74) K/mm3 [place] # (Auto) (0.24-0.36) K/mm3 Eos # (Auto) (0.04-0.36) K/mm3 Baso # (Auto) (0.01-0.08) K/mm3 PT (9.7-12.0) SECONDS INR APTT (21.7-31.4) SECONDS Sodium 124 L D (136-145) mEq/L Potassium 3.5 (3.5-5.1) mEq/L Chloride 86 L D (98-107) mEq/L Carbon Dioxide 24 (21-32) mEq/L Anion Gap 17.5 H (5-15) BUN 12 (7-18) mg/dL Creatinine 0.7 (0.55-1.02) mg/dL Est Cr Clr Drug Dosing 37.45 mL/min Estimated GFR (MDRD) > 60 (>60) mL/min BUN/Creatinine Ratio 17.1 (14-18) Glucose 110 H (70-99) mg/dL Lactic Acid 1.6 (0.4-2.0) mmol/L Calcium 9.3 (8.5-10.1) mg/dL Magnesium (1.8-2.4) mg/dL Total Bilirubin 0.6 (0.2-1.0) mg/dL AST 28 (15-37) U/L ALT 29 (14-59) U/L Alkaline Phosphatase 86 (46-116) U/L C-Reactive Protein 1.9 H* (<1.0) mg/dL Total Protein 7.4 (6.4-8.2) g/dl Albumin 3.2 L (3.4-5.0) g/dl Globulin 4.2 gm/dL Albumin/Globulin Ratio 0.8 L (1-2) Lipase 201 (73-393) U/L Urine Color (Yellow) Urine Appearance (Clear) Urine pH (5.0-8.0) Ur Specific [place] (1.005-1.030) Urine Protein (Negative) Urine Glucose (UA) (Negative) Urine Ketones (Negative) Urine Occult Blood (Negative) Urine Nitrite (Negative) Urine Bilirubin (Negative) Urine Urobilinogen (0.2-1.0) Ur Leukocyte Esterase (Negative) Urine RBC (0-5) /hpf Urine WBC (0-5) /hpf Ur Epithelial Cells (0-5) /hpf Urine Bacteria (FEW) /hpf Urine Mucus (FEW) /hpf SARS-CoV-2 RNA ([place]) Negative (NEGATIVE) MRSA (PCR) 03/16/21 03/17/21 03/17/21 Range/Units 21:10 05:25 05:25 WBC 7.04 (3.98-10.04) K/mm3 RBC 4.32 (3.98-5.22) M/mm3 Hgb 13.3 (11.2-15.7) gm/dl Hct 40.5 (34.1-44.9) % MCV 93.8 (79.4-94.8) fl MCH 30.8 (25.6-32.2) pg MCHC 32.8 (32.2-35.5) g/dl RDW Std Deviation 44.8 (36.4-46.3) fL Plt Count 211 (182-369) K/mm3 MPV 9.9 (9.4-12.3) fl Neut % (Auto) 70.5 (34.0-71.1) % Lymph % (Auto) 18.0 L (19.3-51.7) % [place] % (Auto) 10.2 (4.7-12.5) % Eos % (Auto) 0.9 (0.7-5.8) Baso % (Auto) 0.1 (0.1-1.2) % Neut # (Auto) 4.96 (1.56-6.13) K/mm3 Lymph # (Auto) 1.27 (1.18-3.74) K/mm3 [place] # (Auto) 0.72 H (0.24-0.36) K/mm3 Eos # (Auto) 0.06 (0.04-0.36) K/mm3 Baso # (Auto) 0.01 (0.01-0.08) K/mm3 PT (9.7-12.0) SECONDS INR APTT (21.7-31.4) SECONDS Sodium 128 L (136-145) mEq/L Potassium 3.6 (3.5-5.1) mEq/L Chloride 92 L (98-107) mEq/L Carbon Dioxide 30 (21-32) mEq/L Anion Gap 9.6 (5-15) BUN 12 (7-18) mg/dL Creatinine 0.7 (0.55-1.02) mg/dL Est Cr Clr Drug Dosing 39.30 mL/min Estimated GFR (MDRD) > 60 (>60) mL/min BUN/Creatinine Ratio 17.1 (14-18) Glucose 91 (70-99) mg/dL Lactic Acid (0.4-2.0) mmol/L Calcium 9.0 (8.5-10.1) mg/dL Magnesium 2.0 (1.8-2.4) mg/dL Total Bilirubin 0.5 (0.2-1.0) mg/dL AST 33 (15-37) U/L ALT 30 (14-59) U/L Alkaline Phosphatase 83 (46-116) U/L C-Reactive Protein (<1.0) mg/dL Total Protein 7.1 (6.4-8.2) g/dl Albumin 2.9 L (3.4-5.0) g/dl Globulin 4.2 gm/dL Albumin/Globulin Ratio 0.7 L (1-2) Lipase (73-393) U/L Urine Color (Yellow) Urine Appearance (Clear) Urine pH (5.0-8.0) Ur Specific [place] (1.005-1.030) Urine Protein (Negative) Urine Glucose (UA) (Negative) Urine Ketones (Negative) Urine Occult Blood (Negative) Urine Nitrite (Negative) Urine Bilirubin (Negative) Urine Urobilinogen (0.2-1.0) Ur Leukocyte Esterase (Negative) Urine RBC (0-5) /hpf Urine WBC (0-5) /hpf Ur Epithelial Cells (0-5) /hpf Urine Bacteria (FEW) /hpf Urine Mucus (FEW) /hpf SARS-CoV-2 RNA ([place]) (NEGATIVE) MRSA (PCR) Negative Med Orders - Current: Current Medications Acetaminophen (Acetaminophen 325 Mg Tab) 650 mg PO Q6H PRN PRN Reason: Pain (moderate 4-6) Last Admin: 03/16/21 21:51 Dose: 650 mg Documented by: Amlodipine Besylate (Amlodipine 5 Mg Tab) 5 mg PO QAM RICKY Atenolol (Atenolol 50 Mg Tab) 50 mg PO QAM [facility] Atorvastatin Calcium (Atorvastatin 20 Mg Tab) 20 mg PO QPM [facility] Calcium Carbonate/Glycine (Calcium Carbonate 500 Mg Tab.Chew) 500 mg PO ASDIRECTED PRN PRN Reason: upset stomach Famotidine (Famotidine 20 Mg Tab) 20 mg PO QAM [facility] Folic Acid (Folic Acid 1 Mg Tab) 1 mg PO QAM [facility] Hydralazine HCl (Hydralazine 25 Mg Tab) 50 mg PO TID RICKY Hydrochlorothiazide (Hydrochlorothiazide 25 Mg Tab) 25 mg PO QAM [facility] Latanoprost (Latanoprost 0.005% Ophth Soln 2.5 Ml Bottle) ml EYEBOTH QPM [facility] Levothyroxine Sodium (Levothyroxine 100 Mcg Tab) 100 mcg PO QAM [facility] Non-Formulary Medication (Calcium Carb/Vitamin D3/Vit K1 [Calcium + D Soft Chewable Tab]) 2 tab PO QPM RICKY Non-Formulary Medication (Lisinopril [Lisinopril]) 40 mg PO QPM RICKY Non-Formulary Medication (Rivaroxaban [Xarelto]) 15 mg PO PCDINNER [facility] Psyllium Husk (Psyllium Husk Powder Sugar Free 5.85 Gm Packet) 1 pkt PO QAM PRN PRN Reason: Constipation Sodium Chloride (Sodium Chloride 0.9% 10 Ml Syringe) 10 ml FLUSH ASDIRECTED PRN PRN Reason: Keep Vein Open Last Admin: 03/16/21 15:06 Dose: 10 ml Documented by: Temazepam (Temazepam 7.5 Mg Cap) 7.5 mg PO BEDTIME PRN PRN Reason: Sleep Last Admin: 03/16/21 21:50 Dose: 7.5 mg Documented by: Discontinued Medications Hydromorphone HCl (Hydromorphone 0.5 Mg/0.5 Ml Syringe) 0.25 mg IVPUSH ONETIME ONE Stop: 03/16/21 14:47 Last Admin: 03/16/21 14:59 Dose: 0.25 mg Documented by: Sodium Chloride (Normal Saline) 1,000 mls @ 125 mls/hr IV ASDIRECTED RICKY Last Admin: 03/16/21 15:02 Dose: 125 mls/hr Documented by: Ketorolac Tromethamine (Ketorolac 15 Mg/Ml Sdv) 15 mg IVPUSH ONETIME ONE Stop: 03/16/21 14:46 Last Admin: 03/16/21 14:56 Dose: 15 mg Documented by: Magnesium Citrate (Magnesium Citrate Solution 296 Ml Bottle) 296 ml PO ONETIME ONE Stop: 03/16/21 18:21 Last Admin: 03/16/21 18:36 Dose: 296 ml Documented by: Ondansetron HCl (Ondansetron 4 Mg/2 Ml Sdv) 4 mg IVPUSH ONETIME ONE Stop: 03/16/21 14:45 Last Admin: 03/16/21 14:56 Dose: 4 mg Documented by: Sodium Chloride (Sodium Chloride 0.9% 10 Ml Syringe) 10 ml FLUSH ASDIRECTED PRN PRN Reason: Keep Vein Open - Exam Quality Assessment: Denies: Supplemental Oxygen, DVT Prophylaxis General: Reports: Alert, Oriented, Cooperative HEENT: Reports: Pupils Equal, Pupils Reactive, EOMI Neck: Reports: Supple, Trachea Midline Lungs: Reports: Clear to Auscultation, Normal Respiratory Effort Cardiovascular: Reports: Regular Rate, Regular Rhythm GI/Abdominal Exam: Normal Bowel Sounds, Soft, Non-Tender, No Distention (Female) Exam: Deferred Rectal (Female) Exam: Deferred Back Exam: Reports: Normal Inspection (Age-appropriate), Vertebral Tenderness (Much improved) Extremities: Normal Inspection, No Pedal Edema Skin: Reports: Warm, Dry, Intact Neurological: Reports: No New Focal Deficit Psy/Mental Status: Reports: Alert, Normal Affect, Normal Mood
[2021-03-17] MEDS: Acetaminophen 325 MG Tab PO PRN (08:51)
[2021-03-17] MEDS ORDERED: hydrALAZINE 25 MG Tab PO SCH (09:00)
--- NOTE | 2021-03-17 16:27 | CT ---
CT abdomen and pelvis Technique: Multiple axial sections were obtained from above the dome of the diaphragm inferiorly through the pubic symphysis. Intravenous and oral contrast were not utilized. Reconstructed coronal and sagittal images were obtained. Comparison: Prior CT abdomen study of 01/18/14. Findings: Visualized lung bases show nothing acute. Noncontrast appearance of the liver shows no focal abnormality. Gallbladder is felt to be visualized. Extrahepatic biliary ducts appear to be slightly prominent in size which most likely is incidental if patient has no corresponding symptoms. Spleen size is normal. Minimal calcifications are seen within the spleen compatible with old granuloma. No adrenal abnormalities are seen. Left kidney shows a cyst within the upper pole measuring 1.5 cm. Pancreas shows no discrete abnormality. Ectasia is noted of the distal thoracic aorta with AP dimension of 2.9 cm. Distal aorta is aneurysmal with AP dimension of 3.7 cm. Diffuse atherosclerotic calcification is seen within the abdominal aorta and iliac vessels. No pelvic mass or adenopathy is seen. There is a distal sigmoid loop of bowel which descends into a right inguinal hernia without evidence of bowel dilatation. Slight increased stool is seen within the colon. Diffuse degenerative change and scoliosis is noted within the spine. Compression fracture is seen within L1 which most likely is fairly acute in age. Old fracture is noted within the inferior right pubic ramus. Impression: 1. Mild increased stool throughout the colon is seen. 2. 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 3. Right inguinal hernia containing a loop of sigmoid bowel. 4. Fairly acute compression fracture of L1. 5. Other findings believed to be incidental as noted above. Diagnostic code #3 I agree with preliminary report from [facility], finalized on 03/16/21, 5:15 PM CDT, code 1
[2021-03-17] MEDS ORDERED: Latanoprost 0.005% Ophth Soln 2.5 ML Bottle EYEBOTH SCH (18:00)
[2021-03-17] MEDS ORDERED: LISINOPRIL 40 MG PO SCH (18:00)
[2021-03-17] MEDS ORDERED: Calcium Carbonate/Vitamin D3 600 MG-200 Units Tab PO SCH (18:00)
[2021-03-17] MEDS ORDERED: atorvaSTATin 20 MG Tab PO SCH (18:00)
--- NOTE | 2021-03-17 18:33 | CT ---
CT lumbar spine Technique: Multiple axial sections were obtained from the top of T12 inferiorly through the L5-S1 disc. Reconstructed coronal and sagittal images were obtained. No intravenous or oral contrast was utilized. Findings: T12-L1: There is a compression deformity within the superior L1 vertebral body. Fracture is also noted within the right side of the L1 pedicle. No extension into the other posterior elements are seen. Very minimal retrolisthesis of the posterior vertebral line is seen into the central canal by approximately 3.4 mm. No central canal stenosis is seen. Severe disc space narrowing is noted at L2-3, L3-4 and L4-5 with diffuse vacuum phenomena. Spondylolisthesis is noted at L4-5 due to degenerative apophyseal change. There is diffuse posterior disc bulges noted throughout the lumbar spine. Scoliosis is seen within the spine. Diffuse osteopenia is noted. Small unilateral spondylitic defect is seen at L5-S1 on the right side. Impression: 1. Mild compressive deformity within the superior endplate of L1 with fracture involving the right pedicle. These findings are most likely fairly acute. 2. Diffuse degenerative change as noted above. Diagnostic code #3 I agree with preliminary report from [facility], finalized on 03/16/21, 5:27 PM CDT, code 1
[2021-03-17] MEDS ORDERED: RIVAROXABAN 15 MG PO SCH (19:00)
[2021-03-18 06:00] VITALS: BP 177/61
== END 2021-03-17 13:38 | disposition home or self-care (01) ==
LOC: JD.ED 14:06 → JD.MS 18:02
PROVIDERS: ADMIT Internal Medicine; ATTEND Internal Medicine
DX: S32.010A Wedge compression fracture of first lumbar vertebra, initial encounter for closed fracture (principal); K59.00 Constipation, unspecified; G89.29 Other chronic pain; R14.0 Abdominal distension (gaseous); I10 Essential (primary) hypertension; E78.00 Pure hypercholesterolemia, unspecified; K21.9 Gastro-esophageal reflux disease without esophagitis; E03.9 Hypothyroidism, unspecified; Z20.822 Contact with and (suspected) exposure to COVID-19; Z79.899 Other long term (current) drug therapy; Z79.890 Hormone replacement therapy; Z98.890 Other specified postprocedural states
CPT/HCPCS: 36415; 72131; 74176; 80053; 81001; 83605; 83690; 83735; 85025; 85610; 85730; 86140; 87641; A9270; J1170; J1885; J2405; J7030; U0002; 96374; 96375; 99217; 99219; 99285; 99285-25; G0378

== ENCOUNTER 2021-03-18 09:55 | Inpatient (IN) | payer MEDICARE, OTHER ==
[2021-03-18] MEDS ORDERED: Sodium Chloride 0.9% 10 ML Syringe FLUSH PRN (10:22)
[2021-03-18] MEDS ORDERED: Ketorolac 15 MG/ML SDV IVPUSH ONE (10:23)
[2021-03-18] MEDS ORDERED: HYDROmorphone 0.5 MG/0.5 ML Syringe IVPUSH ONE (10:23)
--- NOTE | 2021-03-18 11:26 | EDM.PDOC ---
ED HPI GENERAL MEDICAL PROBLEM - General Chief Complaint: Back Pain or Injury Stated Complaint: [facility] Time Seen by Provider: 03/18/21 10:03 Source of Information: Reports: Patient, EMS History Limitations: Reports: No Limitations - History of Present Illness INITIAL COMMENTS - FREE TEXT/NARRATIVE: The patient presents by [facility] for low back pain. She was seen in the ER a couple of days ago and admitted. She has a compression fracture at L1 and she had severe constipation. She is having good bowel movements but she continues to have sever pain in her low back. She is requiring help at the assisted living facility. Our hospitalist did want to keep her in the hospital one more day but the patient admits she wanted to go home and she was doing good. The tylenol she is taking is not helping. Her ultram she was on was stopped because it was thought that caused the severe constipation. She has no fever, chills, cough, chest pain, shortness of breath, numbness or weakness. She has no bowel or bladder problems. Onset: Gradual Duration: Day(s): Location: Reports: Back Quality: Reports: Sharp Severity: Severe Improves with: Reports: Immobilization Worsens with: Reports: Movement Context: Denies: Trauma Associated Symptoms: Reports: No Other Symptoms Middle Back Pain Score (Numeric/FACES): 8 - Related Data Allergies Allergy/AdvReac Type Severity Reaction Status Date / Time No Known Allergies Allergy Verified 03/18/21 10:10 Home Meds: Home Meds Lisinopril 40 mg PO QPM 07/21/14 [History] atenoloL [Atenolol] 50 mg PO QAM 07/21/14 [History] hydroCHLOROthiazide [Hydrochlorothiazide] 25 mg PO QAM 07/21/14 [History] Acetaminophen [Tylenol Extra Strength] 500 mg PO TID PRN 11/08/19 [History] Calcium Carb/Vitamin D3/Vit K1 [Calcium + D Soft Chewable Tab] 2 tab PO QPM 11/08/19 [History] Folic Acid 1 mg PO QAM 11/08/19 [History] Latanoprost 1 drop EYEBOTH QPM 11/08/19 [History] amLODIPine [Norvasc] 5 mg PO QAM 11/08/19 [History] Calcium Carbonate [Tums] 400 mg PO ASDIRECTED PRN 12/10/20 [History] Cholecalciferol (Vitamin D3) [Vitamin D3] 1,000 mg PO QAM 12/10/20 [History] Famotidine [Pepcid] 20 mg PO QAM 12/10/20 [History] Levothyroxine [Synthroid] 100 mcg PO QAM 12/10/20 [History] Neomycin/Bacitracin/Polymyxinb [Antibiotic Ointment] 1 applic TOP DAILY PRN 12/10/20 [History] Psyllium Husk/Aspartame [Metamucil Sugar Free] 1 tbsp PO QAM PRN 12/10/20 [History] Rivaroxaban [Xarelto] 15 mg PO PCDINNER 12/10/20 [History] atorvaSTATin [Lipitor] 20 mg PO QPM 12/10/20 [History] hydrALAZINE [Apresoline] 50 mg PO TID 12/10/20 [History] Multivit-Min/FA/Lycopen/Lutein [Centrum Silver Tablet] 1 tab PO QAM 03/16/21 [History] Past Medical History HEENT History: Reports: Impaired Vision, Other (See Below) Other HEENT History: wears glasses, has partial Cardiovascular History: Reports: Afib, Aneurysm, High Cholesterol, Hypertension Respiratory History: Reports: None Gastrointestinal History: Reports: GERD, Hemorrhoids, PUD, Other (See Below) Other Gastrointestinal History: ulcer Genitourinary History: Reports: Other (See Below) Other Genitourinary History: hematuria, cystoscopy [employer] History: Reports: Musculoskeletal History: Reports: Arthritis, Osteoporosis Neurological History: Reports: Migraines, TIA Psychiatric History: Reports: None Endocrine/Metabolic History: Reports: Hypothyroidism Hematologic History: Reports: Anemia, Iron Deficiency Immunologic History: Reports: None Oncologic (Cancer) History: Reports: None Dermatologic History: Reports: None - Infectious Disease History Infectious Disease History: Reports: None - Past Surgical History Head Surgeries/Procedures: Reports: None HEENT Surgical History: Reports: Cataract Surgery Cardiovascular Surgical History: Reports: None Respiratory Surgical History: Reports: None GI Surgical History: Reports: Colonoscopy, EGD, Other (See Below) Other GI Surgeries/Procedures: stomach surgery x2 Female Surgical History: Reports: None Endocrine Surgical History: Reports: None Neurological Surgical History: Reports: None Musculoskeletal Surgical History: Reports: None Oncologic Surgical History: Reports: None Dermatological Surgical History: Reports: None Social & Family History - Tobacco Use Tobacco Use Status *Q: Never Tobacco User - Caffeine Use Caffeine Use: Reports: None Caffeine Use Comment: Patient reports she drink some tea but not very often - Recreational Drug Use Recreational Drug Use: No - Living Situation & Occupation Living situation: Reports: , Alone, Assisted Living Occupation: Retired ED ROS GENERAL - Review of Systems Review Of Systems: See Below Constitutional: Reports: No Symptoms HEENT: Reports: No Symptoms Respiratory: Reports: No Symptoms Cardiovascular: Reports: No Symptoms Endocrine: Reports: No Symptoms GI/Abdominal: Reports: No Symptoms : Reports: No Symptoms Musculoskeletal: Reports: Back Pain ED EXAM,LOWER BACK PAIN/INJURY - Physical Exam Exam: See Below Exam Limited By: No Limitations General Appearance: Alert, No Apparent Distress Ears: Normal External Exam Nose: Normal Inspection Head: Atraumatic, Normocephalic Neck: Normal Inspection Respiratory/Chest: No Respiratory Distress, Lungs Clear, Normal Breath Sounds Cardiovascular: Regular Rate, Rhythm, No Edema, No Murmur GI/Abdominal: Soft, Non-Tender, No Organomegaly, No Mass Back Exam: Other (Pain upon palpation to the low back) Course - Vital Signs Last Recorded V/S: Last Vital Signs Temp 98.1 F 03/18/21 10:00 Pulse 65 03/18/21 10:00 Resp 16 03/18/21 10:00 BP 188/83 H 03/18/21 10:00 Pulse Ox 9 L 03/18/21 10:00 - Orders/Labs/Meds Orders: Active Orders 24 hr Category Date Time Status Peripheral IV Care [RC] . DIRECTED Care 03/18/21 10:22 Active Potassium Chloride [KCl in Water 10 MEQ/100 ML] 10 meq Med 03/18/21 13:48 Active Premix Bag 1 bag IV ONETIME Sodium Chloride 0.9% [Normal Saline] 1,000 ml Med 03/18/21 14:00 Active IV ASDIRECTED Sodium Chloride 0.9% [Saline Flush] Med 03/18/21 10:22 Active 10 ml FLUSH ASDIRECTED PRN Peripheral IV Insertion Adult [OM.PC] Routine Oth 03/18/21 10:22 Ordered Medication Orders Potassium Chloride 10 meq/ (Premix) 100 mls @ 100 mls/hr IV ONETIME ONE Stop: 03/18/21 14:47 Sodium Chloride (Normal Saline) 1,000 mls @ 100 mls/hr IV ASDIRECTED RICKY Sodium Chloride (Sodium Chloride 0.9% 10 Ml Syringe) 10 ml FLUSH ASDIRECTED PRN PRN Reason: Keep Vein Open Last Admin: 03/18/21 10:37 Dose: 10 ml Documented by: SADIE Labs: Laboratory Tests 03/18/21 03/18/21 03/18/21 Range/Units 11:05 11:05 13:25 WBC 9.88 (3.98-10.04) K/mm3 RBC 4.12 (3.98-5.22) M/mm3 Hgb 12.9 (11.2-15.7) gm/dl Hct 37.5 (34.1-44.9) % MCV 91.0 (79.4-94.8) fl MCH 31.3 (25.6-32.2) pg MCHC 34.4 (32.2-35.5) g/dl RDW Std Deviation 42.8 (36.4-46.3) fL Plt Count 207 (182-369) K/mm3 MPV 9.4 (9.4-12.3) fl Neut % (Auto) 84.9 H (34.0-71.1) % Lymph % (Auto) 6.3 L (19.3-51.7) % Henry % (Auto) 8.4 (4.7-12.5) % Eos % (Auto) 0 L (0.7-5.8) Baso % (Auto) 0.1 (0.1-1.2) % Neut # (Auto) 8.39 H (1.56-6.13) K/mm3 Lymph # (Auto) 0.62 L (1.18-3.74) K/mm3 Henry # (Auto) 0.83 H (0.24-0.36) K/mm3 Eos # (Auto) 0.00 L (0.04-0.36) K/mm3 Baso # (Auto) 0.01 (0.01-0.08) K/mm3 Manual Slide Review Abnormal smear Sodium 119 L (136-145) mEq/L Potassium 2.9 L (3.5-5.1) mEq/L Chloride 83 L (98-107) mEq/L Carbon Dioxide 28 (21-32) mEq/L Anion Gap 10.9 (5-15) BUN 9 (7-18) mg/dL Creatinine 0.6 (0.55-1.02) mg/dL Est Cr Clr Drug Dosing 51.73 mL/min Estimated GFR (MDRD) > 60 (>60) mL/min BUN/Creatinine Ratio 15.0 (14-18) Glucose 122 H (70-99) mg/dL Calcium 9.1 (8.5-10.1) mg/dL Total Bilirubin 0.6 (0.2-1.0) mg/dL AST 52 H (15-37) U/L ALT 46 (14-59) U/L Alkaline Phosphatase 90 (46-116) U/L Total Protein 7.2 (6.4-8.2) g/dl Albumin 2.9 L (3.4-5.0) g/dl Globulin 4.3 gm/dL Albumin/Globulin Ratio 0.7 L (1-2) Urine Color Yellow (Yellow) Urine Appearance Clear (Clear) Urine pH 7.5 (5.0-8.0) Ur Specific [place] 1.025 (1.005-1.030) Urine Protein 1+ H (Negative) Urine Glucose (UA) Negative (Negative) Urine Ketones Negative (Negative) Urine Occult Blood Trace-intact H (Negative) Urine Nitrite Negative (Negative) Urine Bilirubin Negative (Negative) Urine Urobilinogen 0.2 (0.2-1.0) Ur Leukocyte Esterase Negative (Negative) Urine RBC 5-10 H (0-5) /hpf Urine WBC Not seen (0-5) /hpf Ur Epithelial Cells 0-5 (0-5) /hpf Urine Bacteria Rare (FEW) /hpf Urine Mucus Not seen (FEW) /hpf Meds: Medications Generic Name Dose Route Start Last Admin Trade Name Freq PRN Reason Stop Dose Admin Potassium Chloride 10 meq/ 100 mls @ 100 mls/hr 03/18/21 13:48 Premix IV 03/18/21 14:47 ONETIME ONE Sodium Chloride 1,000 mls @ 100 mls/hr 03/18/21 14:00 Normal Saline IV ASDIRECTED RICKY Sodium Chloride 10 ml 03/18/21 10:22 03/18/21 10:37 Sodium Chloride 0.9% 10 Ml Syringe FLUSH 10 ml ASDIRECTED PRN Administration Keep Vein Open Discontinued Medications Generic Name Dose Route Start Last Admin Trade Name Billy PRN Reason Stop Dose Admin Hydromorphone HCl 0.25 mg 03/18/21 10:23 03/18/21 10:37 Hydromorphone 0.5 Mg/0.5 Ml Syringe IVPUSH 03/18/21 10:24 0.25 mg ONETIME ONE Administration Ketorolac Tromethamine 15 mg 03/18/21 10:23 03/18/21 10:34 Ketorolac 15 Mg/Ml Sdv IVPUSH 03/18/21 10:24 15 mg ONETIME ONE Administration - Re-Assessments/Exams Free Text/Narrative Re-Assessment/Exam: 03/18/21 11:27 I ordered an IV saline lock, labs, toradol 15mg IV and dilaudid 0.25mg IV. 03/18/21 14:08 Her CBC looks good. Her Na is low at 119. Her potassium is low at 2.9. Her AST is elevated at 52. Her UA shows no UTI. My nurse gave her something to eat and drink but she would not eat or drink. We did get her up. She needed help and had more pain. She is slightly confused. I do not feel she will do well at home. I called Dr Romano and he agreed to the admission. Departure - Departure Time of Disposition: 14:20 Disposition: Refer to Observation Clinical Impression: Generalized weakness, Hyponatremia, Hypokalemia Compression fracture of L1 lumbar vertebra Qualifiers: Encounter type: subsequent encounter Fracture healing: with routine healing Qualified Code(s): S32.010D - Wedge compression fracture of first lumbar vertebra, subsequent encounter for fracture with routine healing Failure to thrive Qualifiers: Failure to thrive age range: in Qualified Code(s): P92.6 - Failure to thrive in - Discharge Information Referrals: Marimar Huertas MD [Primary Care Provider] - Forms: ED Department Discharge Sepsis Event Note (ED) - Evaluation Sepsis Screening Result: No Definite Risk - Focused Exam Vital Signs: Vital Signs Temp Pulse Resp BP Pulse Ox 03/18/21 10:00 98.1 F 65 16 188/83 H 9 L - My Orders Last 24 Hours: My Active Orders 03/18/21 10:22 Peripheral IV Care [RC] . DIRECTED Sodium Chloride 0.9% [Saline Flush] 10 ml FLUSH ASDIRECTED PRN Peripheral IV Insertion Adult [OM.PC] Routine 03/18/21 13:48 Potassium Chloride [KCl in Water 10 MEQ/100 ML] 10 meq Premix Bag 1 bag IV ONETIME 03/18/21 14:00 Sodium Chloride 0.9% [Normal Saline] 1,000 ml IV ASDIRECTED - Assessment/Plan Last 24 Hours: My Active Orders 03/18/21 10:22 Peripheral IV Care [RC] . DIRECTED Sodium Chloride 0.9% [Saline Flush] 10 ml FLUSH ASDIRECTED PRN Peripheral IV Insertion Adult [OM.PC] Routine 03/18/21 13:48 Potassium Chloride [KCl in Water 10 MEQ/100 ML] 10 meq Premix Bag 1 bag IV ONETIME 03/18/21 14:00 Sodium Chloride 0.9% [Normal Saline] 1,000 ml IV ASDIRECTED
[2021-03-18] MEDS ORDERED: Potassium Chloride 10 MEQ in Premix Bag 1 BAG IV ONE (13:48)
[2021-03-18] MEDS ORDERED: Sodium Chloride 0.9% 1,000 ML IV SCH ×2 (14:00→14:30)
[2021-03-18] MEDS ORDERED: Psyllium Husk Powder Sugar Free 5.85 GM Packet PO PRN (14:13)
[2021-03-18] MEDS ORDERED: HYDROmorphone 0.5 MG/0.5 ML Syringe IVPUSH PRN (14:16)
[2021-03-18] MEDS ORDERED: Docusate Sodium 100 MG Cap PO PRN (14:16)
[2021-03-18] MEDS ORDERED: Ondansetron 4 MG Tab.DIS PO PRN (14:16)
--- NOTE | 2021-03-18 14:27 | PCM.HP.2 ---
H&P History of Present Illness - General Date of Service: 03/18/21 Admit Problem/Dx: Admission Diagnosis/Problem Admission Diagnosis/Problem Failure to thrive Source of Information: Patient History Limitations: Reports: No Limitations - History of Present Illness Initial Comments - Free Text/Narative: The patient is an 86-year-old lady who was admitted to acute inpatient [facility] – [place], [place] secondary to pain control as well as inability to ambulate. Patient previously had been admitted on March 16, 2021 for lower back pain due to a compression fracture of L1 and she had been discharged on March 17, 2021 as she thought she could safely go home. The patient came back into the emergency department unable to care for herself and requiring extensive pain control. The patient's history otherwise has been unchanged from her previous history on March 16, 2021. Onset of Symptoms: Reports: Gradual Duration of Symptoms: Reports: Day(s):, Getting Worse Location: Reports: Back Quality: Reports: Ache, Stabbing Severity: Moderate Improves with: Reports: Medication Worsens with: Reports: Movement Context: Reports: Trauma (Compression fracture L1) Associated Symptoms: Reports: Confusion Middle Back Pain Score (Numeric/FACES): 8 - Related Data Allergies/Adverse Reactions: Allergies Allergy/AdvReac Type Severity Reaction Status Date / Time No Known Allergies Allergy Verified 03/18/21 10:10 Home Medications: Home Meds Lisinopril 40 mg PO QPM 07/21/14 [History] atenoloL [Atenolol] 50 mg PO QAM 07/21/14 [History] hydroCHLOROthiazide [Hydrochlorothiazide] 25 mg PO QAM 07/21/14 [History] Acetaminophen [Tylenol Extra Strength] 500 mg PO TID PRN 11/08/19 [History] Calcium Carb/Vitamin D3/Vit K1 [Calcium + D Soft Chewable Tab] 2 tab PO QPM 11/08/19 [History] Folic Acid 1 mg PO QAM 11/08/19 [History] Latanoprost 1 drop EYEBOTH QPM 11/08/19 [History] amLODIPine [Norvasc] 5 mg PO QAM 11/08/19 [History] Calcium Carbonate [Tums] 400 mg PO ASDIRECTED PRN 12/10/20 [History] Cholecalciferol (Vitamin D3) [Vitamin D3] 1,000 mg PO QAM 12/10/20 [History] Famotidine [Pepcid] 20 mg PO QAM 12/10/20 [History] Levothyroxine [Synthroid] 100 mcg PO QAM 12/10/20 [History] Neomycin/Bacitracin/Polymyxinb [Antibiotic Ointment] 1 applic TOP DAILY PRN 12/10/20 [History] Psyllium Husk/Aspartame [Metamucil Sugar Free] 1 tbsp PO QAM PRN 12/10/20 [History] Rivaroxaban [Xarelto] 15 mg PO PCDINNER 12/10/20 [History] atorvaSTATin [Lipitor] 20 mg PO QPM 12/10/20 [History] hydrALAZINE [Apresoline] 50 mg PO TID 12/10/20 [History] Multivit-Min/FA/Lycopen/Lutein [Centrum Silver Tablet] 1 tab PO QAM 03/16/21 [History] Past Medical History HEENT History: Reports: Impaired Vision, Other (See Below) Other HEENT History: wears glasses, has partial Cardiovascular History: Reports: Afib, Aneurysm, High Cholesterol, Hypertension Respiratory History: Reports: None Gastrointestinal History: Reports: GERD, Hemorrhoids, PUD, Other (See Below) Other Gastrointestinal History: ulcer Genitourinary History: Reports: Other (See Below) Other Genitourinary History: hematuria, cystoscopy GOVERNMENT AFFAIRS FELLOW History: Reports: Musculoskeletal History: Reports: Arthritis, Osteoporosis Neurological History: Reports: Migraines, TIA Psychiatric History: Reports: None Endocrine/Metabolic History: Reports: Hypothyroidism Hematologic History: Reports: Anemia, Iron Deficiency Immunologic History: Reports: None Oncologic (Cancer) History: Reports: None Dermatologic History: Reports: None - Infectious Disease History Infectious Disease History: Reports: None - Past Surgical History Head Surgeries/Procedures: Reports: None HEENT Surgical History: Reports: Cataract Surgery Cardiovascular Surgical History: Reports: None Respiratory Surgical History: Reports: None GI Surgical History: Reports: Colonoscopy, EGD, Other (See Below) Other GI Surgeries/Procedures: stomach surgery x2 Female Surgical History: Reports: None Endocrine Surgical History: Reports: None Neurological Surgical History: Reports: None Musculoskeletal Surgical History: Reports: None Oncologic Surgical History: Reports: None Dermatological Surgical History: Reports: None Social & Family History - Tobacco Use Tobacco Use Status *Q: Never Tobacco User - Caffeine Use Caffeine Use: Reports: None Caffeine Use Comment: Patient reports she drink some tea but not very often - Recreational Drug Use Recreational Drug Use: No - Living Situation & Occupation Living situation: Reports: , Alone, Assisted Living Occupation: Retired H&P Review of Systems - Review of Systems: Review Of Systems: See Below General: Reports: Weakness HEENT: Reports: No Symptoms Pulmonary: Reports: No Symptoms Cardiovascular: Reports: No Symptoms Gastrointestinal: Reports: No Symptoms Genitourinary: Reports: No Symptoms Musculoskeletal: Reports: Back Pain Skin: Reports: No Symptoms Psychiatric: Reports: No Symptoms Neurological: Reports: No Symptoms Hematologic/Lymphatic: Reports: No Symptoms Immunologic: Reports: No Symptoms Exam - Exam Exam: See Below - Vital Signs Vital Signs: Last Vital Signs Temp 36.7 C 03/18/21 10:00 Pulse 65 03/18/21 10:00 Resp 16 03/18/21 10:00 BP 188/83 H 03/18/21 10:00 Pulse Ox 9 L 03/18/21 10:00 Weight: 49.895 kg - Exam Quality Assessment: DVT Prophylaxis (The patient is currently taking Xarelto). No: Supplemental Oxygen General: Alert, Oriented, Cooperative, Lethargic HEENT: Conjunctiva Clear, EACs Clear, EOMI, Hearing Intact. No: Mucosa Moist & [place] (Dry) Neck: Supple, Trachea Midline Lungs: Clear to Auscultation, Normal Respiratory Effort, Other (Increased AP diameter stiff rib cage) Cardiovascular: Regular Rate, Regular Rhythm GI/Abdominal Exam: Normal Bowel Sounds, Soft, No Distention (Female) Exam: Deferred Rectal (Female) Exam: Deferred Back Exam: Decreased Range of Motion, Paraspinal Tenderness (Lumbar) Extremities: Normal Inspection, Normal Range of Motion, No Pedal Edema Skin: Warm, Dry, Intact Neurological: Cranial Nerves Intact, Normal Speech. No: Normal Gait Psychiatric: Alert, Normal Affect, Normal Mood - Patient Data Lab Results Last 24 hrs: Laboratory Results - last 24 hr 03/18/21 03/18/21 03/18/21 Range/Units 11:05 11:05 13:25 WBC 9.88 (3.98-10.04) K/mm3 RBC 4.12 (3.98-5.22) M/mm3 Hgb 12.9 (11.2-15.7) gm/dl Hct 37.5 (34.1-44.9) % MCV 91.0 (79.4-94.8) fl MCH 31.3 (25.6-32.2) pg MCHC 34.4 (32.2-35.5) g/dl RDW Std Deviation 42.8 (36.4-46.3) fL Plt Count 207 (182-369) K/mm3 MPV 9.4 (9.4-12.3) fl Neut % (Auto) 84.9 H (34.0-71.1) % Lymph % (Auto) 6.3 L (19.3-51.7) % [place] % (Auto) 8.4 (4.7-12.5) % Eos % (Auto) 0 L (0.7-5.8) Baso % (Auto) 0.1 (0.1-1.2) % Neut # (Auto) 8.39 H (1.56-6.13) K/mm3 Lymph # (Auto) 0.62 L (1.18-3.74) K/mm3 [place] # (Auto) 0.83 H (0.24-0.36) K/mm3 Eos # (Auto) 0.00 L (0.04-0.36) K/mm3 Baso # (Auto) 0.01 (0.01-0.08) K/mm3 Manual Slide Review Abnormal smear Sodium 119 L (136-145) mEq/L Potassium 2.9 L (3.5-5.1) mEq/L Chloride 83 L (98-107) mEq/L Carbon Dioxide 28 (21-32) mEq/L Anion Gap 10.9 (5-15) BUN 9 (7-18) mg/dL Creatinine 0.6 (0.55-1.02) mg/dL Est Cr Clr Drug Dosing 51.73 mL/min Estimated GFR (MDRD) > 60 (>60) mL/min BUN/Creatinine Ratio 15.0 (14-18) Glucose 122 H (70-99) mg/dL Calcium 9.1 (8.5-10.1) mg/dL Total Bilirubin 0.6 (0.2-1.0) mg/dL AST 52 H (15-37) U/L ALT 46 (14-59) U/L Alkaline Phosphatase 90 (46-116) U/L Total Protein 7.2 (6.4-8.2) g/dl Albumin 2.9 L (3.4-5.0) g/dl Globulin 4.3 gm/dL Albumin/Globulin Ratio 0.7 L (1-2) Urine Color Yellow (Yellow) Urine Appearance Clear (Clear) Urine pH 7.5 (5.0-8.0) Ur Specific [place] 1.025 (1.005-1.030) Urine Protein 1+ H (Negative) Urine Glucose (UA) Negative (Negative) Urine Ketones Negative (Negative) Urine Occult Blood Trace-intact H (Negative) Urine Nitrite Negative (Negative) Urine Bilirubin Negative (Negative) Urine Urobilinogen 0.2 (0.2-1.0) Ur Leukocyte Esterase Negative (Negative) Urine RBC 5-10 H (0-5) /hpf Urine WBC Not seen (0-5) /hpf Ur Epithelial Cells 0-5 (0-5) /hpf Urine Bacteria Rare (FEW) /hpf Urine Mucus Not seen (FEW) /hpf Result Diagrams: 03/18/21 11:05 03/18/21 11:05 Sepsis Event Note - Evaluation Sepsis Screening Result: No Definite Risk - Focused Exam Vital Signs: Vital Signs Temp Pulse Resp BP Pulse Ox 03/18/21 10:00 36.7 C 65 16 188/83 H 9 L *Q Meaningful Use (ADM) - VTE *Q VTE Mechanical Contraindications *Q: At Risk for Falls VTE Pharmacological Contraindications *Q: Risk of Bleeding - Problem List (1) Compression fracture of first lumbar vertebra SNOMED Code(s): 984012006, 213290043, 49743067531544000 ICD Code: S32.010A - WEDGE COMPRESSION FRACTURE OF FIRST LUMBAR VERTEBRA, INIT Status: Chronic Priority: High Current Visit: Yes Qualifiers: Encounter type: subsequent encounter Fracture healing: with routine healing Qualified Code(s): S32.010D - Wedge compression fracture of first lumbar vertebra, subsequent encounter for fracture with routine healing (2) Failure to thrive SNOMED Code(s): 12191692 ICD Code: [id number] - Status: Chronic Priority: High Current Visit: Yes Qualifiers: Failure to thrive age range: in adult Qualified Code(s): R62.7 - Adult failure to thrive (3) Hypokalemia SNOMED Code(s): 42490242 ICD Code: E87.6 - HYPOKALEMIA Status: Acute Priority: High Current Visit: Yes (4) Hyponatremia SNOMED Code(s): 19230944 ICD Code: E87.1 - HYPO-OSMOLALITY AND HYPONATREMIA Status: Acute Priority: High Current Visit: Yes (5) Weakness generalized SNOMED Code(s): 98612146 ICD Code: R53.1 - WEAKNESS Status: Chronic Priority: Medium Current Visit: Yes Problem List Initiated/Reviewed/Updated: Yes Orders Last 24hrs: Active Orders 24 hr Category Date Time Status Patient Status [ADT] Routine ADT 03/18/21 14:16 Ordered Oxygen Therapy [RC] PRN Care 03/18/21 14:16 Ordered Peripheral IV Care [RC] . DIRECTED Care 03/18/21 10:22 Active Up With Assistance [RC] ASDIRECTED Care 03/18/21 14:16 Ordered VTE/DVT Education [RC] PER UNIT ROUTINE Care 03/18/21 14:16 Ordered Vital Signs [RC] Q4H Care 03/18/21 14:16 Ordered OT Evaluation and Treatment [CONS] Routine Cons 03/18/21 14:16 Ordered PT Evaluation and Treatment [CONS] Routine Cons 03/18/21 14:16 Ordered Heart Healthy Diet [DIET] Diet 03/18/21 Dinner Ordered CBC WITH AUTO DIFF [HEME] AM Lab 03/19/21 05:11 Ordered COMPREHENSIVE METABOLIC PN,CMP [CHEM] AM Lab 03/19/21 05:11 Ordered MAGNESIUM [CHEM] AM Lab 03/19/21 05:11 Ordered Acetaminophen [TylenoL] Med 03/18/21 14:16 Ordered 650 mg PO Q4H PRN Calcium Carb/Vitamin D3/Vit K1 [Calcium + D Soft Med 03/18/21 18:00 Ordered Chewable Tab] 2 tab PO QPM Calcium Carbonate [Tums] Med 03/18/21 14:13 Ordered 400 mg PO ASDIRECTED PRN Cholecalciferol (Vitamin D3) [Vitamin D3] Med 03/19/21 08:00 Ordered 1,000 mg PO QAM Docusate Sodium [Colace] Med 03/18/21 14:16 Ordered 100 mg PO BID PRN Famotidine [Pepcid] Med 03/19/21 08:00 Ordered 20 mg PO QAM Folic Acid Med 03/19/21 08:00 Ordered 1 mg PO QAM HYDROmorphone [Dilaudid] Med 03/18/21 14:16 Ordered 0.25 mg IVPUSH Q2H PRN Latanoprost [Xalatan 0.005% Ophth Soln] Med 03/18/21 18:00 Ordered 1 drop EYEBOTH QPM Levothyroxine [Synthroid] Med 03/19/21 08:00 Ordered 100 mcg PO QAM Lisinopril [Lisinopril] Med 03/18/21 18:00 Ordered 40 mg PO QPM Ondansetron [Zofran ODT] Med 03/18/21 14:16 Ordered 4 mg PO Q4H PRN Potassium Chloride [KCl in Water 10 MEQ/100 ML] 10 meq Med 03/18/21 13:48 Active Premix Bag 1 bag IV ONETIME Potassium Chloride [KCl in Water 10 MEQ/100 ML] 10 meq Med 03/18/21 14:30 Ordered Premix Bag 1 bag IV Q1H Psyllium Husk/Aspartame [Metamucil Sugar Free] Med 03/18/21 14:13 Ordered 1 tbsp PO QAM PRN Rivaroxaban [Xarelto] Med 03/18/21 19:00 Ordered 15 mg PO PCDINNER Sodium Chloride 0.9% [Normal Saline] 1,000 ml Med 03/18/21 14:00 Active IV ASDIRECTED Sodium Chloride 0.9% [Normal Saline] 1,000 ml Med 03/18/21 14:30 Ordered IV ASDIRECTED Sodium Chloride 0.9% [Saline Flush] Med 03/18/21 10:22 Active 10 ml FLUSH ASDIRECTED PRN Temazepam [Restoril] Med 03/18/21 14:16 Ordered 7.5 mg PO BEDTIME PRN amLODIPine [Norvasc] Med 03/19/21 08:00 Ordered 5 mg PO QAM atenoloL [Tenormin] Med 03/19/21 08:00 Ordered 50 mg PO QAM atorvaSTATin [Lipitor] Med 03/18/21 18:00 Ordered 20 mg PO QPM hydrALAZINE [Apresoline] Med 03/18/21 15:00 Ordered 50 mg PO TID hydroCHLOROthiazide Med 03/19/21 08:00 Ordered 25 mg PO QAM oxyCODONE Med 03/18/21 14:16 Ordered 5 mg PO Q4H PRN Peripheral IV Insertion Adult [OM.PC] Routine Oth 03/18/21 10:22 Ordered VTE Mechanical Contraindications [AST] Per Unit Routine Oth 03/18/21 14:16 Ord ered VTE Pharmacological Contraindications [AST] Per Unit Oth 03/18/21 14:16 Ordered Routine Resuscitation Status Routine Resus Stat 03/18/21 14:16 Ordered Medication Orders Acetaminophen (Acetaminophen 325 Mg Tab) 650 mg PO Q4H PRN PRN Reason: Pain (Mild 1-3)/fever Amlodipine Besylate (Amlodipine 5 Mg Tab) 5 mg PO QAM RICKY Atenolol (Atenolol 50 Mg Tab) 50 mg PO QAM [facility]ICK[facility] Atorvastatin Calcium (Atorvastatin 20 Mg Tab) 20 mg PO QPM [facility]ICK[facility] Calcium Carbonate/Glycine (Calcium Carbonate 500 Mg Tab.Chew) 400 mg PO ASDIRECTED PRN PRN Reason: upset stomach Docusate Sodium (Docusate Sodium 100 Mg Cap) 100 mg PO BID PRN PRN Reason: Constipation Famotidine (Famotidine 20 Mg Tab) 20 mg PO QAM RICKY Folic Acid (Folic Acid 1 Mg Tab) 1 mg PO QAM [facility]ICK[facility] Hydralazine HCl (Hydralazine 25 Mg Tab) 50 mg PO TID RICK[facility] Hydrochlorothiazide (Hydrochlorothiazide 25 Mg Tab) 25 mg PO QAM [facility] Hydromorphone HCl (Hydromorphone 0.5 Mg/0.5 Ml Syringe) 0.25 mg IVPUSH Q2H PRN PRN Reason: Pain (severe 7-10) Potassium Chloride 10 meq/ (Premix) 100 mls @ 100 mls/hr IV ONETIME ONE Stop: 03/18/21 14:47 Last Admin: 03/18/21 14:21 Dose: 100 mls/hr Documented by: MORKJOR Sodium Chloride (Normal Saline) 1,000 mls @ 100 mls/hr IV ASDIRECTED [facility] Last Admin: 03/18/21 14:22 Dose: 100 mls/hr Documented by: MORKJOR Sodium Chloride (Normal Saline) 1,000 mls @ 75 mls/hr IV ASDIRECTED RICKY Potassium Chloride 10 meq/ (Premix) 100 mls @ 100 mls/hr IV Q1H [facility]ICKY Stop: 03/18/21 18:29 Latanoprost (Latanoprost 0.005% Ophth Soln 2.5 Ml Bottle) 0 ml EYEBOTH QPM [facility]ICK[facility] Levothyroxine Sodium (Levothyroxine 100 Mcg Tab) 100 mcg [facility] Non-Formulary Medication (Calcium Carb/Vitamin D3/Vit K1 [Calcium + D Soft Chewable Tab]) 2 tab PO QPM [facility] Non-Formulary Medication (Cholecalciferol (Vitamin D3) [Vitamin D3]) 1,000 mg PO QAM [facility] Non-Formulary Medication (Lisinopril [Lisinopril]) 40 mg PO QPM [facility] Non-Formulary Medication (Rivaroxaban [Xarelto]) 15 mg PO PCDINNER [facility] Ondansetron HCl (Ondansetron 4 Mg Tab.Dis) 4 mg PO Q4H PRN PRN Reason: nausea, able to take PO Oxycodone HCl (Oxycodone 5 Mg Tab) 5 mg PO Q4H PRN PRN Reason: Pain (moderate 4-6) Psyllium Husk (Psyllium Husk Powder Sugar Free 5.85 Gm Packet) pkt PO QAM PRN PRN Reason: Constipation Sodium Chloride (Sodium Chloride 0.9% 10 Ml Syringe) 10 ml FLUSH ASDIRECTED PRN PRN Reason: Keep Vein Open Last Admin: 03/18/21 10:37 Dose: 10 ml Documented by: SADIE Temazepam (Temazepam 7.5 Mg Cap) 7.5 mg PO BEDTIME PRN PRN Reason: Sleep Assessment/Plan Comment:: Patient is an 86-year-old lady who has been readmitted secondary to increasing pain at home and inability to complete her activities of daily living. The patient has been admitted as an inpatient in order to receive intensive PT OT, I V fluid support and monitoring. Patient be kept on regular diet as tolerated. The patient's pain will be controlled with the use of IV narcotics. I have also ordered PT OT to assist the patient to evaluate her for rehabilitation. Patient is currently in a DO NOT INTUBATE/DO NOT RESUSCITATE category. I have ordered repeat labs for the morning. The patient also does not require DVT prophylaxis as she is a fall risk and she is currently taking Xarelto. The patient is likely going to be requiring skilled nursing care. - Mortality Measure Prognosis:: Good
[2021-03-18] MEDS: hydrALAZINE 25 MG Tab PO SCH ×2 (15:49→19:59)
[2021-03-18] MEDS: Potassium Chloride 10 MEQ in Premix Bag 1 BAG IV SCH ×4 (17:07→20:53)
[2021-03-18] MEDS: Latanoprost 0.005% Ophth Soln 2.5 ML Bottle EYEBOTH SCH (17:09)
[2021-03-18] MEDS: Lisinopril 20 MG Tab PO SCH (17:09)
[2021-03-18] MEDS: atorvaSTATin 20 MG Tab PO SCH (17:09)
[2021-03-18] MEDS: Rivaroxaban 15 MG Tab PO SCH (18:19)
[2021-03-18] MEDS: Simethicone 80 MG Tab.Chew PO PRN (18:48)
[2021-03-18] MEDS: oxyCODONE 5 MG Tab PO PRN (20:00)
[2021-03-19] MEDS: oxyCODONE 5 MG Tab PO PRN ×3 (01:05→15:35)
[2021-03-19] MEDS: Simethicone 80 MG Tab.Chew PO PRN ×3 (01:06→13:58)
[2021-03-19] MEDS: Acetaminophen 325 MG Tab PO PRN ×2 (02:44→19:34)
[2021-03-19] MEDS: Levothyroxine 100 MCG Tab PO SCH (05:48)
--- NOTE | 2021-03-19 07:23 | PCM.PN ---
- General Info Date of Service: 03/19/21 - Patient Data Vitals - Most Recent: Last Vital Signs Temp 36.6 C 03/19/21 04:08 Pulse 55 L 03/19/21 04:08 Resp 16 03/19/21 04:08 BP 170/67 H 03/19/21 04:08 Pulse Ox 99 03/19/21 04:08 Weight - Most Recent: 42.093 kg I&O - Last 24 Hours: Intake & Output 03/18/21 03/19/21 03/19/21 22:59 06:59 14:59 Intake Total 450 2046 Output Total 700 Balance 450 1346 Lab Results Last 24 Hours: Laboratory Results - last 24 hr 03/18/21 03/18/21 03/18/21 Range/Units 11:05 11:05 13:25 WBC 9.88 (3.98-10.04) K/mm3 RBC 4.12 (3.98-5.22) M/mm3 Hgb 12.9 (11.2-15.7) gm/dl Hct 37.5 (34.1-44.9) % MCV 91.0 (79.4-94.8) fl MCH 31.3 (25.6-32.2) pg MCHC 34.4 (32.2-35.5) g/dl RDW Std Deviation 42.8 (36.4-46.3) fL Plt Count 207 (182-369) K/mm3 MPV 9.4 (9.4-12.3) fl Neut % (Auto) 84.9 H (34.0-71.1) % Lymph % (Auto) 6.3 L (19.3-51.7) % Eddy % (Auto) 8.4 (4.7-12.5) % Eos % (Auto) 0 L (0.7-5.8) Baso % (Auto) 0.1 (0.1-1.2) % Neut # (Auto) 8.39 H (1.56-6.13) K/mm3 Lymph # (Auto) 0.62 L (1.18-3.74) K/mm3 Eddy # (Auto) 0.83 H (0.24-0.36) K/mm3 Eos # (Auto) 0.00 L (0.04-0.36) K/mm3 Baso # (Auto) 0.01 (0.01-0.08) K/mm3 Manual Slide Review Abnormal smear Sodium 119 L (136-145) mEq/L Potassium 2.9 L (3.5-5.1) mEq/L Chloride 83 L (98-107) mEq/L Carbon Dioxide 28 (21-32) mEq/L Anion Gap 10.9 (5-15) BUN 9 (7-18) mg/dL Creatinine 0.6 (0.55-1.02) mg/dL Est Cr Clr Drug Dosing 51.73 mL/min Estimated GFR (MDRD) > 60 (>60) mL/min BUN/Creatinine Ratio 15.0 (14-18) Glucose 122 H (70-99) mg/dL Calcium 9.1 (8.5-10.1) mg/dL Magnesium (1.8-2.4) mg/dL Total Bilirubin 0.6 (0.2-1.0) mg/dL AST 52 H (15-37) U/L ALT 46 (14-59) U/L Alkaline Phosphatase 90 (46-116) U/L Total Protein 7.2 (6.4-8.2) g/dl Albumin 2.9 L (3.4-5.0) g/dl Globulin 4.3 gm/dL Albumin/Globulin Ratio 0.7 L (1-2) Urine Color Yellow (Yellow) Urine Appearance Clear (Clear) Urine pH 7.5 (5.0-8.0) Ur Specific [place] 1.025 (1.005-1.030) Urine Protein 1+ H (Negative) Urine Glucose (UA) Negative (Negative) Urine Ketones Negative (Negative) Urine Occult Blood Trace-intact H (Negative) Urine Nitrite Negative (Negative) Urine Bilirubin Negative (Negative) Urine Urobilinogen 0.2 (0.2-1.0) Ur Leukocyte Esterase Negative (Negative) Urine RBC 5-10 H (0-5) /hpf Urine WBC Not seen (0-5) /hpf Ur Epithelial Cells 0-5 (0-5) /hpf Urine Bacteria Rare (FEW) /hpf Urine Mucus Not seen (FEW) /hpf 03/19/21 03/19/21 Range/Units 06:20 06:20 WBC 6.78 (3.98-10.04) K/mm3 RBC 4.23 (3.98-5.22) M/mm3 Hgb 13.0 (11.2-15.7) gm/dl Hct 37.8 (34.1-44.9) % MCV 89.4 (79.4-94.8) fl MCH 30.7 (25.6-32.2) pg MCHC 34.4 (32.2-35.5) g/dl RDW Std Deviation 41.4 (36.4-46.3) fL Plt Count 218 (182-369) K/mm3 MPV 9.3 L (9.4-12.3) fl Neut % (Auto) (34.0-71.1) % Lymph % (Auto) (19.3-51.7) % Eddy % (Auto) (4.7-12.5) % Eos % (Auto) (0.7-5.8) Baso % (Auto) (0.1-1.2) % Neut # (Auto) (1.56-6.13) K/mm3 Lymph # (Auto) (1.18-3.74) K/mm3 Eddy # (Auto) (0.24-0.36) K/mm3 Eos # (Auto) (0.04-0.36) K/mm3 Baso # (Auto) (0.01-0.08) K/mm3 Manual Slide Review Sodium 119 L (136-145) mEq/L Potassium 3.7 (3.5-5.1) mEq/L Chloride 85 L (98-107) mEq/L Carbon Dioxide 26 (21-32) mEq/L Anion Gap 11.7 (5-15) BUN 13 (7-18) mg/dL Creatinine 0.5 L (0.55-1.02) mg/dL Est Cr Clr Drug Dosing 54.66 mL/min Estimated GFR (MDRD) > 60 (>60) mL/min BUN/Creatinine Ratio 26.0 H (14-18) Glucose 109 H (70-99) mg/dL Calcium 8.7 (8.5-10.1) mg/dL Magnesium 1.4 L (1.8-2.4) mg/dL Total Bilirubin 0.5 (0.2-1.0) mg/dL AST 58 H (15-37) U/L ALT 58 (14-59) U/L Alkaline Phosphatase 89 (46-116) U/L Total Protein 6.8 (6.4-8.2) g/dl Albumin 2.6 L (3.4-5.0) g/dl Globulin 4.2 gm/dL Albumin/Globulin Ratio 0.6 L (1-2) Urine Color (Yellow) Urine Appearance (Clear) Urine pH (5.0-8.0) Ur Specific [place] (1.005-1.030) Urine Protein (Negative) Urine Glucose (UA) (Negative) Urine Ketones (Negative) Urine Occult Blood (Negative) Urine Nitrite (Negative) Urine Bilirubin (Negative) Urine Urobilinogen (0.2-1.0) Ur Leukocyte Esterase (Negative) Urine RBC (0-5) /hpf Urine WBC (0-5) /hpf Ur Epithelial Cells (0-5) /hpf Urine Bacteria (FEW) /hpf Urine Mucus (FEW) /hpf Med Orders - Current: Current Medications Acetaminophen (Acetaminophen 325 Mg Tab) 650 mg PO Q4H PRN PRN Reason: Pain (Mild 1-3)/fever Last Admin: 03/19/21 02:44 Dose: 650 mg Documented by: Amlodipine Besylate (Amlodipine 5 Mg Tab) 5 mg PO QAM [facility] Atenolol (Atenolol 50 Mg Tab) 50 mg PO QAM [facility] Atorvastatin Calcium (Atorvastatin 20 Mg Tab) 20 mg PO QPM [facility] Last Admin: 03/18/21 17:09 Dose: 20 mg Documented by: Calcium Carbonate (Calcium Carbonate/Vitamin D3 600 Mg-200 Units Tab) 2 tab PO QPM [facility] Calcium Carbonate/Glycine (Calcium Carbonate 500 Mg Tab.Chew) 500 mg PO ASDIRECTED PRN PRN Reason: upset stomach Cholecalciferol (Cholecalciferol (Vitamin D3) 25 Mcg Tab) 25 mcg PO QAM [facility] Docusate Sodium (Docusate Sodium 100 Mg Cap) 100 mg PO BID PRN PRN Reason: Constipation Famotidine (Famotidine 20 Mg Tab) 20 mg PO QAM [facility] Folic Acid (Folic Acid 1 Mg Tab) 1 mg PO QAM [facility] Hydralazine HCl (Hydralazine 25 Mg Tab) 50 mg PO TID [facility] Last Admin: 03/18/21 19:59 Dose: 50 mg Documented by: Hydrochlorothiazide (Hydrochlorothiazide 25 Mg Tab) 25 mg PO QAM [facility] Hydromorphone HCl (Hydromorphone 0.5 Mg/0.5 Ml Syringe) 0.25 mg IVPUSH Q2H PRN PRN Reason: Pain (severe 7-10) Last Admin: 03/18/21 17:15 Dose: 0.25 mg Documented by: Sodium Chloride (Normal Saline) 1,000 mls @ 75 mls/hr IV ASDIRECTED [facility] Last Admin: 03/19/21 01:53 Dose: 75 mls/hr Documented by: Latanoprost (Latanoprost 0.005% Ophth Soln 2.5 Ml Bottle) 0 ml EYEBOTH QPM [facility] Last Admin: 03/18/21 17:09 Dose: 2.5 ml Documented by: Levothyroxine Sodium (Levothyroxine 100 Mcg Tab) 100 mcg PO ACBREAKFAST [facility] Last Admin: 03/19/21 05:48 Dose: 100 mcg Documented by: Lisinopril (Lisinopril 20 Mg Tab) 40 mg PO QPM [facility] Last Admin: 03/18/21 17:09 Dose: 40 mg Documented by: Ondansetron HCl (Ondansetron 4 Mg Tab.Dis) 4 mg PO Q4H PRN PRN Reason: nausea, able to take PO Last Admin: 03/18/21 22:07 Dose: 4 mg Documented by: Oxycodone HCl (Oxycodone 5 Mg Tab) 5 mg PO Q4H PRN PRN Reason: Pain (moderate 4-6) Last Admin: 03/19/21 01:05 Dose: 5 mg Documented by: Psyllium Husk (Psyllium Husk Powder Sugar Free 5.85 Gm Packet) 1 pkt PO QAM PRN PRN Reason: Constipation Rivaroxaban (Rivaroxaban 15 Mg Tab) 15 mg PO PCDINNER [facility] Last Admin: 03/18/21 18:19 Dose: 15 mg Documented by: Simethicone (Simethicone 80 Mg Tab.Chew) 80 mg PO Q6H PRN PRN Reason: Gas Last Admin: 03/19/21 01:06 Dose: 80 mg Documented by: Sodium Chloride (Sodium Chloride 0.9% 10 Ml Syringe) 10 ml FLUSH ASDIRECTED PRN PRN Reason: Keep Vein Open Last Admin: 03/18/21 10:37 Dose: 10 ml Documented by: Temazepam (Temazepam 7.5 Mg Cap) 7.5 mg PO BEDTIME PRN PRN Reason: Sleep Discontinued Medications Hydromorphone HCl (Hydromorphone 0.5 Mg/0.5 Ml Syringe) 0.25 mg IVPUSH ONETIME ONE Stop: 03/18/21 10:24 Last Admin: 03/18/21 10:37 Dose: 0.25 mg Documented by: Potassium Chloride 10 meq/ (Premix) 100 mls @ 100 mls/hr IV ONETIME ONE Stop: 03/18/21 14:47 Last Admin: 03/18/21 14:21 Dose: 100 mls/hr Documented by: Sodium Chloride (Normal Saline) 1,000 mls @ 100 mls/hr IV ASDIRECTED [facility] Last Admin: 03/18/21 14:22 Dose: 100 mls/hr Documented by: Potassium Chloride 10 meq/ (Premix) 100 mls @ 100 mls/hr IV Q1H [facility] Stop: 03/18/21 18:29 Last Admin: 03/18/21 20:53 Dose: 100 mls/hr Documented by: Ketorolac Tromethamine (Ketorolac 15 Mg/Ml Sdv) 15 mg IVPUSH ONETIME ONE Stop: 03/18/21 10:24 Last Admin: 03/18/21 10:34 Dose: 15 mg Documented by: - Patient Data Lab Results Last 24 hrs: Laboratory Results - last 24 hr 03/18/21 03/18/21 03/18/21 Range/Units 11:05 11:05 13:25 WBC 9.88 (3.98-10.04) K/mm3 RBC 4.12 (3.98-5.22) M/mm3 Hgb 12.9 (11.2-15.7) gm/dl Hct 37.5 (34.1-44.9) % MCV 91.0 (79.4-94.8) fl MCH 31.3 (25.6-32.2) pg MCHC 34.4 (32.2-35.5) g/dl RDW Std Deviation 42.8 (36.4-46.3) fL Plt Count 207 (182-369) K/mm3 MPV 9.4 (9.4-12.3) fl Neut % (Auto) 84.9 H (34.0-71.1) % Lymph % (Auto) 6.3 L (19.3-51.7) % Eddy % (Auto) 8.4 (4.7-12.5) % Eos % (Auto) 0 L (0.7-5.8) Baso % (Auto) 0.1 (0.1-1.2) % Neut # (Auto) 8.39 H (1.56-6.13) K/mm3 Lymph # (Auto) 0.62 L (1.18-3.74) K/mm3 Eddy # (Auto) 0.83 H (0.24-0.36) K/mm3 Eos # (Auto) 0.00 L (0.04-0.36) K/mm3 Baso # (Auto) 0.01 (0.01-0.08) K/mm3 Manual Slide Review Abnormal smear Sodium 119 L (136-145) mEq/L Potassium 2.9 L (3.5-5.1) mEq/L Chloride 83 L (98-107) mEq/L Carbon Dioxide 28 (21-32) mEq/L Anion Gap 10.9 (5-15) BUN 9 (7-18) mg/dL Creatinine 0.6 (0.55-1.02) mg/dL Est Cr Clr Drug Dosing 51.73 mL/min Estimated GFR (MDRD) > 60 (>60) mL/min BUN/Creatinine Ratio 15.0 (14-18) Glucose 122 H (70-99) mg/dL Calcium 9.1 (8.5-10.1) mg/dL Magnesium (1.8-2.4) mg/dL Total Bilirubin 0.6 (0.2-1.0) mg/dL AST 52 H (15-37) U/L ALT 46 (14-59) U/L Alkaline Phosphatase 90 (46-116) U/L Total Protein 7.2 (6.4-8.2) g/dl Albumin 2.9 L (3.4-5.0) g/dl Globulin 4.3 gm/dL Albumin/Globulin Ratio 0.7 L (1-2) Urine Color Yellow (Yellow) Urine Appearance Clear (Clear) Urine pH 7.5 (5.0-8.0) Ur Specific [place] 1.025 (1.005-1.030) Urine Protein 1+ H (Negative) Urine Glucose (UA) Negative (Negative) Urine Ketones Negative (Negative) Urine Occult Blood Trace-intact H (Negative) Urine Nitrite Negative (Negative) Urine Bilirubin Negative (Negative) Urine Urobilinogen 0.2 (0.2-1.0) Ur Leukocyte Esterase Negative (Negative) Urine RBC 5-10 H (0-5) /hpf Urine WBC Not seen (0-5) /hpf Ur Epithelial Cells 0-5 (0-5) /hpf Urine Bacteria Rare (FEW) /hpf Urine Mucus Not seen (FEW) /hpf 03/19/21 03/19/21 Range/Units 06:20 06:20 WBC 6.78 (3.98-10.04) K/mm3 RBC 4.23 (3.98-5.22) M/mm3 Hgb 13.0 (11.2-15.7) gm/dl Hct 37.8 (34.1-44.9) % MCV 89.4 (79.4-94.8) fl MCH 30.7 (25.6-32.2) pg MCHC 34.4 (32.2-35.5) g/dl RDW Std Deviation 41.4 (36.4-46.3) fL Plt Count 218 (182-369) K/mm3 MPV 9.3 L (9.4-12.3) fl Neut % (Auto) (34.0-71.1) % Lymph % (Auto) (19.3-51.7) % Eddy % (Auto) (4.7-12.5) % Eos % (Auto) (0.7-5.8) Baso % (Auto) (0.1-1.2) % Neut # (Auto) (1.56-6.13) K/mm3 Lymph # (Auto) (1.18-3.74) K/mm3 Eddy # (Auto) (0.24-0.36) K/mm3 Eos # (Auto) (0.04-0.36) K/mm3 Baso # (Auto) (0.01-0.08) K/mm3 Manual Slide Review Sodium 119 L (136-145) mEq/L Potassium 3.7 (3.5-5.1) mEq/L Chloride 85 L (98-107) mEq/L Carbon Dioxide 26 (21-32) mEq/L Anion Gap 11.7 (5-15) BUN 13 (7-18) mg/dL Creatinine 0.5 L (0.55-1.02) mg/dL Est Cr Clr Drug Dosing 54.66 mL/min Estimated GFR (MDRD) > 60 (>60) mL/min BUN/Creatinine Ratio 26.0 H (14-18) Glucose 109 H (70-99) mg/dL Calcium 8.7 (8.5-10.1) mg/dL Magnesium 1.4 L (1.8-2.4) mg/dL Total Bilirubin 0.5 (0.2-1.0) mg/dL AST 58 H (15-37) U/L ALT 58 (14-59) U/L Alkaline Phosphatase 89 (46-116) U/L Total Protein 6.8 (6.4-8.2) g/dl Albumin 2.6 L (3.4-5.0) g/dl Globulin 4.2 gm/dL Albumin/Globulin Ratio 0.6 L (1-2) Urine Color (Yellow) Urine Appearance (Clear) Urine pH (5.0-8.0) Ur Specific [place] (1.005-1.030) Urine Protein (Negative) Urine Glucose (UA) (Negative) Urine Ketones (Negative) Urine Occult Blood (Negative) Urine Nitrite (Negative) Urine Bilirubin (Negative) Urine Urobilinogen (0.2-1.0) Ur Leukocyte Esterase (Negative) Urine RBC (0-5) /hpf Urine WBC (0-5) /hpf Ur Epithelial Cells (0-5) /hpf Urine Bacteria (FEW) /hpf Urine Mucus (FEW) /hpf Result Diagrams: 03/19/21 06:20 03/19/21 06:20 Sepsis Event Note - Evaluation Sepsis Screening Result: No Definite Risk - Focused Exam Vital Signs: Vital Signs Temp Pulse Resp BP Pulse Ox 03/19/21 04:08 36.6 C 55 L 16 170/67 H 99 03/19/21 01:10 179/84 H 03/19/21 00:59 36.4 C 65 18 179/94 H 99 03/18/21 19:59 162/87 H 03/18/21 19:53 36.4 C 57 L 16 162/87 H 97 - Plan Plan:: Patient is an 86-year-old lady who has been readmitted secondary to increasing pain at home and inability to complete her activities of daily living. The patient has been admitted as an inpatient in order to receive intensive PT OT, IV fluid support and monitoring. Patient be kept on regular diet as tolerated. The patient's pain will be controlled with the use of IV narcotics. I have also ordered PT OT to assist the patient to evaluate her for rehabilitation. Patient is currently in a DO NOT INTUBATE/DO NOT RESUSCITATE category. I have ordered repeat labs for the morning. The patient also does not require DVT prophylaxis as she is a fall risk and she is currently taking Xarelto. The patient is likely going to be requiring snf care.
--- NOTE | 2021-03-19 07:25 | PCM.PN ---
- General Info Date of Service: 03/19/21 Admission Dx/Problem (Free Text): Admission Diagnosis/Problem Admission Diagnosis/Problem Failure to thrive Functional Status: Reports: Pain Controlled, Tolerating Diet, Ambulating, Urinating. Denies: New Symptoms - Review of Systems General: Reports: Weakness, Fatigue. Denies: Fever, Malaise, Chills HEENT: Reports: No Symptoms. Denies: Headaches, Visual Changes Pulmonary: Reports: No Symptoms. Denies: Shortness of Breath, Cough, Sputum, Wheezing Cardiovascular: Reports: No Symptoms. Denies: Chest Pain, Palpitations, Dyspnea on Exertion, Edema Gastrointestinal: Reports: Abdominal Pain (lower quadrant), Constipation (chronic ), Decreased Appetite (chronic per daughter ). Denies: Diarrhea, Nausea, Vomiting Genitourinary: Reports: No Symptoms. Denies: Pain Musculoskeletal: Reports: Back Pain Skin: Reports: No Symptoms. Denies: Cyanosis Neurological: Reports: Difficulty Walking, Weakness, Gait Disturbance. Denies: Confusion, Dizziness, Headache, Numbness, Seizure, Syncope, Tingling Psychiatric: Reports: No Symptoms - Patient Data Vitals - Most Recent: Last Vital Signs Temp 97.9 F 03/19/21 04:08 Pulse 55 L 03/19/21 04:08 Resp 16 03/19/21 04:08 BP 170/67 H 03/19/21 04:08 Pulse Ox 99 03/19/21 04:08 Weight - Most Recent: 92 lb 12.8 oz I&O - Last 24 Hours: Intake & Output 03/18/21 03/19/21 03/19/21 22:59 06:59 14:59 Intake Total 450 2046 Output Total 700 Balance 450 1346 Lab Results Last 24 Hours: Laboratory Results - last 24 hr 03/18/21 03/18/21 03/18/21 Range/Units 11:05 11:05 13:25 WBC 9.88 (3.98-10.04) K/mm3 RBC 4.12 (3.98-5.22) M/mm3 Hgb 12.9 (11.2-15.7) gm/dl Hct 37.5 (34.1-44.9) % MCV 91.0 (79.4-94.8) fl MCH 31.3 (25.6-32.2) pg MCHC 34.4 (32.2-35.5) g/dl RDW Std Deviation 42.8 (36.4-46.3) fL Plt Count 207 (182-369) K/mm3 MPV 9.4 (9.4-12.3) fl Neut % (Auto) 84.9 H (34.0-71.1) % Lymph % (Auto) 6.3 L (19.3-51.7) % [place] % (Auto) 8.4 (4.7-12.5) % Eos % (Auto) 0 L (0.7-5.8) Baso % (Auto) 0.1 (0.1-1.2) % Neut # (Auto) 8.39 H (1.56-6.13) K/mm3 Lymph # (Auto) 0.62 L (1.18-3.74) K/mm3 [place] # (Auto) 0.83 H (0.24-0.36) K/mm3 Eos # (Auto) 0.00 L (0.04-0.36) K/mm3 Baso # (Auto) 0.01 (0.01-0.08) K/mm3 Manual Slide Review Abnormal smear Sodium 119 L (136-145) mEq/L Potassium 2.9 L (3.5-5.1) mEq/L Chloride 83 L (98-107) mEq/L Carbon Dioxide 28 (21-32) mEq/L Anion Gap 10.9 (5-15) BUN 9 (7-18) mg/dL Creatinine 0.6 (0.55-1.02) mg/dL Est Cr Clr Drug Dosing 51.73 mL/min Estimated GFR (MDRD) > 60 (>60) mL/min BUN/Creatinine Ratio 15.0 (14-18) Glucose 122 H (70-99) mg/dL Calcium 9.1 (8.5-10.1) mg/dL Magnesium (1.8-2.4) mg/dL Total Bilirubin 0.6 (0.2-1.0) mg/dL AST 52 H (15-37) U/L ALT 46 (14-59) U/L Alkaline Phosphatase 90 (46-116) U/L Total Protein 7.2 (6.4-8.2) g/dl Albumin 2.9 L (3.4-5.0) g/dl Globulin 4.3 gm/dL Albumin/Globulin Ratio 0.7 L (1-2) Urine Color Yellow (Yellow) Urine Appearance Clear (Clear) Urine pH 7.5 (5.0-8.0) Ur Specific [place] 1.025 (1.005-1.030) Urine Protein 1+ H (Negative) Urine Glucose (UA) Negative (Negative) Urine Ketones Negative (Negative) Urine Occult Blood Trace-intact H (Negative) Urine Nitrite Negative (Negative) Urine Bilirubin Negative (Negative) Urine Urobilinogen 0.2 (0.2-1.0) Ur Leukocyte Esterase Negative (Negative) Urine RBC 5-10 H (0-5) /hpf Urine WBC Not seen (0-5) /hpf Ur Epithelial Cells 0-5 (0-5) /hpf Urine Bacteria Rare (FEW) /hpf Urine Mucus Not seen (FEW) /hpf 03/19/21 03/19/21 Range/Units 06:20 06:20 WBC 6.78 (3.98-10.04) K/mm3 RBC 4.23 (3.98-5.22) M/mm3 Hgb 13.0 (11.2-15.7) gm/dl Hct 37.8 (34.1-44.9) % MCV 89.4 (79.4-94.8) fl MCH 30.7 (25.6-32.2) pg MCHC 34.4 (32.2-35.5) g/dl RDW Std Deviation 41.4 (36.4-46.3) fL Plt Count 218 (182-369) K/mm3 MPV 9.3 L (9.4-12.3) fl Neut % (Auto) 80.5 H (34.0-71.1) % Lymph % (Auto) 9.6 L (19.3-51.7) % [place] % (Auto) 9.6 (4.7-12.5) % Eos % (Auto) 0 L (0.7-5.8) Baso % (Auto) 0.0 L (0.1-1.2) % Neut # (Auto) 5.60 (1.56-6.13) K/mm3 Lymph # (Auto) 0.67 L (1.18-3.74) K/mm3 [place] # (Auto) 0.67 H (0.24-0.36) K/mm3 Eos # (Auto) 0.00 L (0.04-0.36) K/mm3 Baso # (Auto) 0.00 L (0.01-0.08) K/mm3 Manual Slide Review Normal smear Sodium 119 L (136-145) mEq/L Potassium 3.7 (3.5-5.1) mEq/L Chloride 85 L (98-107) mEq/L Carbon Dioxide 26 (21-32) mEq/L Anion Gap 11.7 (5-15) BUN 13 (7-18) mg/dL Creatinine 0.5 L (0.55-1.02) mg/dL Est Cr Clr Drug Dosing 54.66 mL/min Estimated GFR (MDRD) > 60 (>60) mL/min BUN/Creatinine Ratio 26.0 H (14-18) Glucose 109 H (70-99) mg/dL Calcium 8.7 (8.5-10.1) mg/dL Magnesium 1.4 L (1.8-2.4) mg/dL Total Bilirubin 0.5 (0.2-1.0) mg/dL AST 58 H (15-37) U/L ALT 58 (14-59) U/L Alkaline Phosphatase 89 (46-116) U/L Total Protein 6.8 (6.4-8.2) g/dl Albumin 2.6 L (3.4-5.0) g/dl Globulin 4.2 gm/dL Albumin/Globulin Ratio 0.6 L (1-2) Urine Color (Yellow) Urine Appearance (Clear) Urine pH (5.0-8.0) Ur Specific [place] (1.005-1.030) Urine Protein (Negative) Urine Glucose (UA) (Negative) Urine Ketones (Negative) Urine Occult Blood (Negative) Urine Nitrite (Negative) Urine Bilirubin (Negative) Urine Urobilinogen (0.2-1.0) Ur Leukocyte Esterase (Negative) Urine RBC (0-5) /hpf Urine WBC (0-5) /hpf Ur Epithelial Cells (0-5) /hpf Urine Bacteria (FEW) /hpf Urine Mucus (FEW) /hpf Med Orders - Current: Current Medications Acetaminophen (Acetaminophen 325 Mg Tab) 650 mg PO Q4H PRN PRN Reason: Pain (Mild 1-3)/fever Last Admin: 03/19/21 02:44 Dose: 650 mg Documented by: Amlodipine Besylate (Amlodipine 5 Mg Tab) 5 mg PO QAM [facility] Atenolol (Atenolol 50 Mg Tab) 50 mg PO QAM [facility] Atorvastatin Calcium (Atorvastatin 20 Mg Tab) 20 mg PO QPM [facility] Last Admin: 03/18/21 17:09 Dose: 20 mg Documented by: Calcium Carbonate (Calcium Carbonate/Vitamin D3 600 Mg-200 Units Tab) 2 tab PO QPM [facility] Calcium Carbonate/Glycine (Calcium Carbonate 500 Mg Tab.Chew) 500 mg PO ASDIRECTED PRN PRN Reason: upset stomach Cholecalciferol (Cholecalciferol (Vitamin D3) 25 Mcg Tab) 25 mcg PO QAM [facility] Docusate Sodium (Docusate Sodium 100 Mg Cap) 100 mg PO BID PRN PRN Reason: Constipation Famotidine (Famotidine 20 Mg Tab) 20 mg PO QAM [facility] Folic Acid (Folic Acid 1 Mg Tab) 1 mg PO QAM [facility] Hydralazine HCl (Hydralazine 25 Mg Tab) 50 mg PO TID [facility] Last Admin: 03/18/21 19:59 Dose: 50 mg Documented by: Hydrochlorothiazide (Hydrochlorothiazide 25 Mg Tab) 25 mg PO QAM [facility] Hydromorphone HCl (Hydromorphone 0.5 Mg/0.5 Ml Syringe) 0.25 mg IVPUSH Q2H PRN PRN Reason: Pain (severe 7-10) Last Admin: 03/18/21 17:15 Dose: 0.25 mg Documented by: Sodium Chloride (Normal Saline) 1,000 mls @ 75 mls/hr IV ASDIRECTED [facility] Last Admin: 03/19/21 01:53 Dose: 75 mls/hr Documented by: Latanoprost (Latanoprost 0.005% Ophth Soln 2.5 Ml Bottle) 0 ml EYEBOTH QPM [facility] Last Admin: 03/18/21 17:09 Dose: 2.5 ml Documented by: Levothyroxine Sodium (Levothyroxine 100 Mcg Tab) 100 mcg PO ACBREAKFAST [facility] Last Admin: 03/19/21 05:48 Dose: 100 mcg Documented by: Lisinopril (Lisinopril 20 Mg Tab) 40 mg PO QPM [facility] Last Admin: 03/18/21 17:09 Dose: 40 mg Documented by: Ondansetron HCl (Ondansetron 4 Mg Tab.Dis) 4 mg PO Q4H PRN PRN Reason: nausea, able to take PO Last Admin: 03/18/21 22:07 Dose: 4 mg Documented by: Oxycodone HCl (Oxycodone 5 Mg Tab) 5 mg PO Q4H PRN PRN Reason: Pain (moderate 4-6) Last Admin: 03/19/21 01:05 Dose: 5 mg Documented by: Psyllium Husk (Psyllium Husk Powder Sugar Free 5.85 Gm Packet) 1 pkt PO QAM PRN PRN Reason: Constipation Rivaroxaban (Rivaroxaban 15 Mg Tab) 15 mg PO PCDINNER [facility] Last Admin: 03/18/21 18:19 Dose: 15 mg Documented by: Simethicone (Simethicone 80 Mg Tab.Chew) 80 mg PO Q6H PRN PRN Reason: Gas Last Admin: 03/19/21 01:06 Dose: 80 mg Documented by: Sodium Chloride (Sodium Chloride 0.9% 10 Ml Syringe) 10 ml FLUSH ASDIRECTED PRN PRN Reason: Keep Vein Open Last Admin: 03/18/21 10:37 Dose: 10 ml Documented by: Temazepam (Temazepam 7.5 Mg Cap) 7.5 mg PO BEDTIME PRN PRN Reason: Sleep Discontinued Medications Hydromorphone HCl (Hydromorphone 0.5 Mg/0.5 Ml Syringe) 0.25 mg IVPUSH ONETIME ONE Stop: 03/18/21 10:24 Last Admin: 03/18/21 10:37 Dose: 0.25 mg Documented by: Potassium Chloride 10 meq/ (Premix) 100 mls @ 100 mls/hr IV ONETIME ONE Stop: 03/18/21 14:47 Last Admin: 03/18/21 14:21 Dose: 100 mls/hr Documented by: Sodium Chloride (Normal Saline) 1,000 mls @ 100 mls/hr IV ASDIRECTED RICKY Last Admin: 03/18/21 14:22 Dose: 100 mls/hr Documented by: Potassium Chloride 10 meq/ (Premix) 100 mls @ 100 mls/hr IV Q1H [facility] Stop: 03/18/21 18:29 Last Admin: 03/18/21 20:53 Dose: 100 mls/hr Documented by: Ketorolac Tromethamine (Ketorolac 15 Mg/Ml Sdv) 15 mg IVPUSH ONETIME ONE Stop: 03/18/21 10:24 Last Admin: 03/18/21 10:34 Dose: 15 mg Documented by: - Exam Quality Assessment: DVT Prophylaxis. No: Supplemental Oxygen, Urine Catheter General: Alert, Oriented, Cooperative, No Acute Distress HEENT: Pupils Equal, Pupils Reactive, Mucous Membr. Moist/[place] Neck: Supple, Trachea Midline Lungs: Clear to Auscultation, Normal Respiratory Effort Cardiovascular: Regular Rate, Regular Rhythm GI/Abdominal Exam: Normal Bowel Sounds, Soft, Distended (mildly ), Tender (generalized mild ) (Female) Exam: Deferred Back Exam: Normal Inspection, Decreased Range of Motion Extremities: Normal Inspection, Normal Range of Motion, Non-Tender, No Pedal Edema, Normal Capillary Refill Peripheral Pulses: 2+: Radial (L), Radial (R), Dorsalis Pedis (L), Dorsalis Pedis (R) Skin: Warm, Dry, Intact Neurological: No New Focal Deficit Psy/Mental Status: Alert - Patient Data Lab Results Last 24 hrs: Laboratory Results - last 24 hr 03/18/21 03/18/21 03/18/21 Range/Units 11:05 11:05 13:25 WBC 9.88 (3.98-10.04) K/mm3 RBC 4.12 (3.98-5.22) M/mm3 Hgb 12.9 (11.2-15.7) gm/dl Hct 37.5 (34.1-44.9) % MCV 91.0 (79.4-94.8) fl MCH 31.3 (25.6-32.2) pg MCHC 34.4 (32.2-35.5) g/dl RDW Std Deviation 42.8 (36.4-46.3) fL Plt Count 207 (182-369) K/mm3 MPV 9.4 (9.4-12.3) fl Neut % (Auto) 84.9 H (34.0-71.1) % Lymph % (Auto) 6.3 L (19.3-51.7) % [place] % (Auto) 8.4 (4.7-12.5) % Eos % (Auto) 0 L (0.7-5.8) Baso % (Auto) 0.1 (0.1-1.2) % Neut # (Auto) 8.39 H (1.56-6.13) K/mm3 Lymph # (Auto) 0.62 L (1.18-3.74) K/mm3 [place] # (Auto) 0.83 H (0.24-0.36) K/mm3 Eos # (Auto) 0.00 L (0.04-0.36) K/mm3 Baso # (Auto) 0.01 (0.01-0.08) K/mm3 Manual Slide Review Abnormal smear Sodium 119 L (136-145) mEq/L Potassium 2.9 L (3.5-5.1) mEq/L Chloride 83 L (98-107) mEq/L Carbon Dioxide 28 (21-32) mEq/L Anion Gap 10.9 (5-15) BUN 9 (7-18) mg/dL Creatinine 0.6 (0.55-1.02) mg/dL Est Cr Clr Drug Dosing 51.73 mL/min Estimated GFR (MDRD) > 60 (>60) mL/min BUN/Creatinine Ratio 15.0 (14-18) Glucose 122 H (70-99) mg/dL Calcium 9.1 (8.5-10.1) mg/dL Magnesium (1.8-2.4) mg/dL Total Bilirubin 0.6 (0.2-1.0) mg/dL AST 52 H (15-37) U/L ALT 46 (14-59) U/L Alkaline Phosphatase 90 (46-116) U/L Total Protein 7.2 (6.4-8.2) g/dl Albumin 2.9 L (3.4-5.0) g/dl Globulin 4.3 gm/dL Albumin/Globulin Ratio 0.7 L (1-2) Urine Color Yellow (Yellow) Urine Appearance Clear (Clear) Urine pH 7.5 (5.0-8.0) Ur Specific [place] 1.025 (1.005-1.030) Urine Protein 1+ H (Negative) Urine Glucose (UA) Negative (Negative) Urine Ketones Negative (Negative) Urine Occult Blood Trace-intact H (Negative) Urine Nitrite Negative (Negative) Urine Bilirubin Negative (Negative) Urine Urobilinogen 0.2 (0.2-1.0) Ur Leukocyte Esterase Negative (Negative) Urine RBC 5-10 H (0-5) /hpf Urine WBC Not seen (0-5) /hpf Ur Epithelial Cells 0-5 (0-5) /hpf Urine Bacteria Rare (FEW) /hpf Urine Mucus Not seen (FEW) /hpf 03/19/21 03/19/21 Range/Units 06:20 06:20 WBC 6.78 (3.98-10.04) K/mm3 RBC 4.23 (3.98-5.22) M/mm3 Hgb 13.0 (11.2-15.7) gm/dl Hct 37.8 (34.1-44.9) % MCV 89.4 (79.4-94.8) fl MCH 30.7 (25.6-32.2) pg MCHC 34.4 (32.2-35.5) g/dl RDW Std Deviation 41.4 (36.4-46.3) fL Plt Count 218 (182-369) K/mm3 MPV 9.3 L (9.4-12.3) fl Neut % (Auto) 80.5 H (34.0-71.1) % Lymph % (Auto) 9.6 L (19.3-51.7) % [place] % (Auto) 9.6 (4.7-12.5) % Eos % (Auto) 0 L (0.7-5.8) Baso % (Auto) 0.0 L (0.1-1.2) % Neut # (Auto) 5.60 (1.56-6.13) K/mm3 Lymph # (Auto) 0.67 L (1.18-3.74) K/mm3 [place] # (Auto) 0.67 H (0.24-0.36) K/mm3 Eos # (Auto) 0.00 L (0.04-0.36) K/mm3 Baso # (Auto) 0.00 L (0.01-0.08) K/mm3 Manual Slide Review Normal smear Sodium 119 L (136-145) mEq/L Potassium 3.7 (3.5-5.1) mEq/L Chloride 85 L (98-107) mEq/L Carbon Dioxide 26 (21-32) mEq/L Anion Gap 11.7 (5-15) BUN 13 (7-18) mg/dL Creatinine 0.5 L (0.55-1.02) mg/dL Est Cr Clr Drug Dosing 54.66 mL/min Estimated GFR (MDRD) > 60 (>60) mL/min BUN/Creatinine Ratio 26.0 H (14-18) Glucose 109 H (70-99) mg/dL Calcium 8.7 (8.5-10.1) mg/dL Magnesium 1.4 L (1.8-2.4) mg/dL Total Bilirubin 0.5 (0.2-1.0) mg/dL AST 58 H (15-37) U/L ALT 58 (14-59) U/L Alkaline Phosphatase 89 (46-116) U/L Total Protein 6.8 (6.4-8.2) g/dl Albumin 2.6 L (3.4-5.0) g/dl Globulin 4.2 gm/dL Albumin/Globulin Ratio 0.6 L (1-2) Urine Color (Yellow) Urine Appearance (Clear) Urine pH (5.0-8.0) Ur Specific [place] (1.005-1.030) Urine Protein (Negative) Urine Glucose (UA) (Negative) Urine Ketones (Negative) Urine Occult Blood (Negative) Urine Nitrite (Negative) Urine Bilirubin (Negative) Urine Urobilinogen (0.2-1.0) Ur Leukocyte Esterase (Negative) Urine RBC (0-5) /hpf Urine WBC (0-5) /hpf Ur Epithelial Cells (0-5) /hpf Urine Bacteria (FEW) /hpf Urine Mucus (FEW) /hpf Result Diagrams: 03/19/21 06:20 03/19/21 10:21 Sepsis Event Note - Evaluation Sepsis Screening Result: No Definite Risk - Focused Exam Vital Signs: Vital Signs Temp Pulse Resp BP Pulse Ox 03/19/21 04:08 97.9 F 55 L 16 170/67 H 99 03/19/21 01:10 179/84 H 03/19/21 00:59 97.5 F 65 18 179/94 H 99 03/18/21 19:59 162/87 H 03/18/21 19:53 97.5 F 57 L 16 162/87 H 97 - Problem List & Annotations (1) Hyponatremia SNOMED Code(s): 94306367 Code(s): E87.1 - HYPO-OSMOLALITY AND HYPONATREMIA Status: Acute Priority: High Current Visit: Yes (2) Compression fracture of first lumbar vertebra SNOMED Code(s): 750299213, 954380627, 60340101757633218 Code(s): S32.010A - WEDGE COMPRESSION FRACTURE OF FIRST LUMBAR VERTEBRA, INIT Status: Chronic Priority: High Current Visit: Yes Qualifiers: Encounter type: subsequent encounter Fracture healing: with routine healing Qualified Code(s): S32.010D - Wedge compression fracture of first lumbar vertebra, subsequent encounter for fracture with routine healing (3) Failure to thrive SNOMED Code(s): 30982597 Code(s): [id number] - Status: Chronic Priority: High Current Visit: Yes Qualifiers: Failure to thrive age range: in adult Qualified Code(s): R62.7 - Adult failure to thrive (4) Weakness generalized SNOMED Code(s): 65029797 Code(s): R53.1 - WEAKNESS Status: Chronic Priority: High Current Visit: Yes (5) Afib SNOMED Code(s): 81110602 Code(s): I48.91 - UNSPECIFIED ATRIAL FIBRILLATION Status: Chronic Priority: Medium Current Visit: No Qualifiers: Atrial fibrillation type: unspecified Qualified Code(s): I48.91 - Unspecified atrial fibrillation (6) Aneurysm SNOMED Code(s): 566672709 Code(s): I72.9 - ANEURYSM OF UNSPECIFIED SITE Status: Chronic Priority: Low Current Visit: No (7) HLD (hyperlipidemia) SNOMED Code(s): 91059264 Code(s): E78.5 - HYPERLIPIDEMIA, UNSPECIFIED Status: Chronic Priority: Low Current Visit: No (8) HTN (hypertension) SNOMED Code(s): 97212446 Code(s): I10 - ESSENTIAL (PRIMARY) HYPERTENSION Status: Acute Priority: Medium Current Visit: No Qualifiers: Hypertension type: unspecified Qualified Code(s): I10 - Essential (primary) hypertension (9) GERD (gastroesophageal reflux disease) SNOMED Code(s): 003551020 Code(s): K21.9 - GASTRO-ESOPHAGEAL REFLUX DISEASE WITHOUT ESOPHAGITIS Status: Chronic Priority: Low Current Visit: No Qualifiers: Esophagitis presence: esophagitis presence not specified Qualified Code(s): K21.9 - Gastro-esophageal reflux disease without esophagitis (10) PUD (peptic ulcer disease) SNOMED Code(s): 24352702 Code(s): K27.9 - PEPTIC ULC, SITE UNSP, UNSP AC OR CHR, W/O HEMOR OR PERF Status: Chronic Priority: Low Current Visit: No (11) Osteoporosis SNOMED Code(s): 26205665 Code(s): M81.0 - AGE-RELATED OSTEOPOROSIS W/O CURRENT PATHOLOGICAL FRACTURE Status: Chronic Priority: Low Current Visit: No Qualifiers: Osteoporosis type: unspecified Presence of current pathological fracture: unspecified Qualified Code(s): M81.0 - Age-related osteoporosis without current pathological fracture (12) Arthritis SNOMED Code(s): 8041735 Code(s): M19.90 - UNSPECIFIED OSTEOARTHRITIS, UNSPECIFIED SITE Status: Chronic Priority: Low Current Visit: No (13) Migraines SNOMED Code(s): 00421624 Code(s): G43.909 - MIGRAINE, UNSP, NOT INTRACTABLE, WITHOUT STATUS MIGRAINOSUS Status: Chronic Priority: Low Current Visit: No Qualifiers: Migraine type: unspecified Status migrainosus presence: without status migrainosus Intractability: not intractable Qualified Code(s): G43.909 - Migraine, unspecified, not intractable, without status migrainosus (14) History of TIA (transient ischemic attack) SNOMED Code(s): 201959299 Code(s): Z86.73 - PRSNL HX OF TIA (TIA), AND CEREB INFRC W/O RESID DEFICITS Status: Chronic Priority: Low Current Visit: No (15) Hypothyroidism SNOMED Code(s): 73822023 Code(s): E03.9 - HYPOTHYROIDISM, UNSPECIFIED Status: Chronic Priority: Low Current Visit: No Qualifiers: Hypothyroidism type: unspecified Qualified Code(s): E03.9 - Hypothyroidism, unspecified (16) BELKYS (iron deficiency anemia) SNOMED Code(s): 76338690 Code(s): D50.9 - IRON DEFICIENCY ANEMIA, UNSPECIFIED Status: Chronic Priority: Low Current Visit: No Qualifiers: Iron deficiency anemia type: unspecified iron deficiency Qualified Code(s): D50.9 - Iron deficiency anemia, unspecified (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 SNOMED Code(s): 064374711 Code(s): Z90.3 - ACQUIRED ABSENCE OF STOMACH [PART OF] Status: Chronic Priority: Low Current Visit: No (18) Chronic constipation SNOMED Code(s): 087432159 Code(s): K59.09 - OTHER CONSTIPATION Status: Chronic Priority: Medium Current Visit: Yes (19) Anemia SNOMED Code(s): 645413399 Code(s): D64.9 - ANEMIA, UNSPECIFIED Status: Chronic Priority: Low Current Visit: No Qualifiers: Anemia type: unspecified type Qualified Code(s): D64.9 - Anemia, unspecified - Problem List Review Problem List Initiated/Reviewed/Updated: Yes - My Orders Last 24 Hours: My Active Orders 03/19/21 07:25 Consult to Case Management/Management Department Chair [CONS] Routine - Assessment Assessment:: Assessement - day of admission 03/18/2021 Patient is an 86-year-old lady who has been readmitted secondary to increasing pain at home and inability to complete her activities of daily living. The patient has been admitted as an inpatient in order to receive intensive PT OT, IV fluid support and monitoring. Patient be kept on regular diet as tolerated. The patient's pain will be controlled with the use of IV narcotics. I have also ordered PT OT to assist the patient to evaluate her for rehabilitation. Patient is currently in a DO NOT INTUBATE/DO NOT RESUSCITATE category. I have ordered repeat labs for the morning. The patient also does not require DVT prophylaxis as she is a fall risk and she is currently taking Xarelto. The patient is likely going to be requiring fpc care. 03/19/2021 86-year-old female admitted to the floor for failure to thrive, weakness, and pain secondary to lumbar spine compression fracture. Patient resides at [facility] and has reportedly been struggling there. She was recently hospitalized for pain control of her lumbar spine compression fracture. PT and OT have been evaluated along with case management and social work. Sodium is been noted to be very low at 119. Restarted seizure precautions and will place her on a fluid restriction. Of note patient's sodium on prior discharge was 128. We will run NS at 75ml/hr. urine sodium is on the low end of normal. Urine osmolality is pending. Serum osmolality is low. We will start every 4 hour BMPs to ensure sodium does not get any lower. We will also start hypertonic saline 3% at 15 cc/h. Otherwise patient is asymptomatic reports she feels pretty good. She does have some abdominal pain and feels like she may be constipated. This has been an ongoing issue for her. We will order a 1 view abdomen to check for stool load. Daughter was present in room. Likely length of stay 3 to 4 days total. Will upgrade to ICU status given severe hyponatremia and risk of seizures. - Plan Plan:: Hyponatremia * Seizure precautions * Check BMP Q4hr for now * hypertonic saline for 3hr * Urine sodium WNP * Urine osmolality pending * Serum osmolality low * NS at 75 ml/hr * Stop HCTZ * Goal sodium is 120-122 in first 24 hours * Strict I&O monitoring Compression fracture of first lumbar vertebra Failure to thrive Weakness generalized Osteoporosis Arthritis * PT/OT * CM/SW * Will likely need placement Afib * No acute concerns * Continue home Xarelto Aneurysm * No acute concerns HLD (hyperlipidemia) * No acute concerns * Continue home Lipitor HTN (hypertension) * Stop HCTZ as above * Increase home Norvasc from 5m to 10mg * Monitor GERD (gastroesophageal reflux disease) PUD (peptic ulcer disease) History of resection of stomach Chronic constipation * Continue home pepcid * Check 1 view abdominal X-ray today * PRN stool softeners/laxatives * Monitor Migraines * No acute concerns History of TIA (transient ischemic attack) * No acute concerns Hypothyroidism * No acute concerns * Continue home levothyroxine BELKYS (iron deficiency anemia) Anemia * No acute concerns * Continue home folic acid Code status: DNR/DNI PCP: Dr. Huertas DVT prophylaxis: Home xarelto Social: Patient resides at [facility] however she has been requiring more assistance than they can offer lately. Will likely require placement. Disposition: Admitted to hospital floor for management of failure to thrive and hyponatremia. Will upgrade to ICU today due to severe hyponatremia and risk for seizures. Likely length of stay 3 to 4 days.
[2021-03-19] MEDS ORDERED: amLODIPine 5 MG Tab PO SCH (08:00)
[2021-03-19] MEDS ORDERED: Hydrochlorothiazide 25 MG Tab PO SCH (08:00)
[2021-03-19] MEDS: hydrALAZINE 25 MG Tab PO SCH ×3 (08:56→20:05)
[2021-03-19] MEDS: Calcium Carbonate 500 MG Tab.Chew PO PRN (08:56)
[2021-03-19] MEDS: Famotidine 20 MG Tab PO SCH (08:58)
[2021-03-19] MEDS: Folic Acid 1 MG Tab PO SCH (08:58)
[2021-03-19] MEDS: Cholecalciferol (Vitamin D3) 25 MCG Tab PO SCH (08:58)
[2021-03-19] MEDS: amLODIPine 10 MG Tab PO SCH (08:58)
[2021-03-19] MEDS: Atenolol 50 MG Tab PO SCH (08:59)
--- NOTE | 2021-03-19 10:43 | CR ---
Abdomen: Supine view of the abdomen was obtained. Comparison: Prior abdominal x-ray of 12/10/20. 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 This appears to be stable. Vascular calcification and ectasia are also noted within the aorta. Scattered bowel gas is felt to be within normal limits. Prior abdominal surgery is noted. Impression: 1. Nothing acute is identified on supine abdominal x-ray. Diagnostic code #2
[2021-03-19] MEDS ORDERED: Sodium Chloride 3% 500 ML IV SCH ×2 (11:00→15:00)
[2021-03-19] MEDS ORDERED: Ondansetron 4 MG/2 ML SDV IVPUSH PRN (11:47)
[2021-03-19] MEDS: Sodium Chloride 0.9% 1,000 ML IV SCH (11:52)
[2021-03-19] MEDS ORDERED: Magnesium Sulfate/Water 2 GM in Premix Bag 1 BAG IV ONE (12:00)
[2021-03-19] MEDS: Calcium Carbonate/Vitamin D3 600 MG-200 Units Tab PO SCH (18:04)
[2021-03-19] MEDS: Rivaroxaban 15 MG Tab PO SCH (18:04)
[2021-03-19] MEDS: Lisinopril 20 MG Tab PO SCH (18:04)
[2021-03-19] MEDS: Latanoprost 0.005% Ophth Soln 2.5 ML Bottle EYEBOTH SCH (18:04)
[2021-03-19] MEDS: atorvaSTATin 20 MG Tab PO SCH (18:04)
[2021-03-19] MEDS ORDERED: Sodium Chloride 1 GM Tab PO ONE (19:20)
[2021-03-20] MEDS: oxyCODONE 5 MG Tab PO PRN ×3 (00:47→20:49)
[2021-03-20] MEDS: Sodium Chloride 0.9% 1,000 ML IV SCH (01:36)
[2021-03-20] MEDS ORDERED: Dextrose 5% in Water 1,000 ML IV SCH ×2 (07:15→08:00)
[2021-03-20] MEDS: Levothyroxine 100 MCG Tab PO SCH (07:25)
--- NOTE | 2021-03-20 07:36 | PCM.PN ---
- General Info Date of Service: 03/20/21 Admission Dx/Problem (Free Text): Admission Diagnosis/Problem Admission Diagnosis/Problem Failure to thrive Functional Status: Reports: Pain Controlled, Tolerating Diet (minimal intake ), Ambulating, Urinating. Denies: New Symptoms - Review of Systems General: Reports: No Symptoms, Weakness, Fatigue. Denies: Fever, Malaise, Chills HEENT: Reports: No Symptoms. Denies: Headaches, Sore Throat Pulmonary: Reports: No Symptoms. Denies: Shortness of Breath, Pleuritic Chest Pain, Cough, Sputum, Wheezing Cardiovascular: Reports: No Symptoms. Denies: Chest Pain, Palpitations, Dyspnea on Exertion Gastrointestinal: Reports: Constipation (chronic ), Decreased Appetite. Denies: Abdominal Pain, Diarrhea, Nausea Genitourinary: Reports: No Symptoms. Denies: Pain Musculoskeletal: Reports: No Symptoms Skin: Reports: No Symptoms. Denies: Cyanosis Neurological: Reports: Difficulty Walking, Weakness, Gait Disturbance. Denies: Confusion, Numbness, Tingling Psychiatric: Reports: No Symptoms - Patient Data Vitals - Most Recent: Last Vital Signs Temp 97.8 F 03/20/21 04:25 Pulse 55 L 03/20/21 04:25 Resp 16 03/20/21 04:25 BP 153/64 H 03/20/21 04:25 Pulse Ox 95 03/20/21 04:25 Weight - Most Recent: 102 lb 1.6 oz I&O - Last 24 Hours: Intake & Output 03/19/21 03/20/21 03/20/21 22:59 06:59 14:59 Intake Total 1558 1180 Output Total 325 1000 Balance 1233 180 Lab Results Last 24 Hours: Laboratory Results - last 24 hr 03/19/21 03/19/21 03/19/21 Range/Units 06:20 10:21 10:30 WBC (3.98-10.04) K/mm3 RBC (3.98-5.22) M/mm3 Hgb (11.2-15.7) gm/dl Hct (34.1-44.9) % MCV (79.4-94.8) fl MCH (25.6-32.2) pg MCHC (32.2-35.5) g/dl RDW Std Deviation (36.4-46.3) fL Plt Count (182-369) K/mm3 MPV (9.4-12.3) fl Neut % (Auto) (34.0-71.1) % Lymph % (Auto) (19.3-51.7) % [place] % (Auto) (4.7-12.5) % Eos % (Auto) (0.7-5.8) Baso % (Auto) (0.1-1.2) % Neut # (Auto) (1.56-6.13) K/mm3 Lymph # (Auto) (1.18-3.74) K/mm3 [place] # (Auto) (0.24-0.36) K/mm3 Eos # (Auto) (0.04-0.36) K/mm3 Baso # (Auto) (0.01-0.08) K/mm3 Sodium 116 L* (136-145) mEq/L Potassium 3.5 (3.5-5.1) mEq/L Chloride 82 L (98-107) mEq/L Carbon Dioxide 25 (21-32) mEq/L Anion Gap 12.5 (5-15) BUN 15 (7-18) mg/dL Creatinine 0.6 (0.55-1.02) mg/dL Est Cr Clr Drug Dosing 45.55 mL/min Estimated GFR (MDRD) > 60 (>60) mL/min BUN/Creatinine Ratio 25.0 H (14-18) Glucose 160 H (70-99) mg/dL Serum Osmolality 249 L (280-300) mosm/kg Calcium 8.5 (8.5-10.1) mg/dL Phosphorus (2.6-4.7) mg/dL Magnesium (1.8-2.4) mg/dL Total Bilirubin (0.2-1.0) mg/dL AST (15-37) U/L ALT (14-59) U/L Alkaline Phosphatase (46-116) U/L Total Protein (6.4-8.2) g/dl Albumin (3.4-5.0) g/dl Globulin gm/dL Albumin/Globulin Ratio (1-2) TSH 3rd Generation 0.485 (0.358-3.74) uIU/mL Urine Osmolality 414 (400-1100) mosm/kg Ur Random Sodium 44 (40-220) mEq/L 06/11/0803/19/21 03/19/21 Range/Units 13:55 18:20 22:06 WBC (3.98-10.04) K/mm3 RBC (3.98-5.22) M/mm3 Hgb (11.2-15.7) gm/dl Hct (34.1-44.9) % MCV (79.4-94.8) fl MCH (25.6-32.2) pg MCHC (32.2-35.5) g/dl RDW Std Deviation (36.4-46.3) fL Plt Count (182-369) K/mm3 MPV (9.4-12.3) fl Neut % (Auto) (34.0-71.1) % Lymph % (Auto) (19.3-51.7) % [place] % (Auto) (4.7-12.5) % Eos % (Auto) (0.7-5.8) Baso % (Auto) (0.1-1.2) % Neut # (Auto) (1.56-6.13) K/mm3 Lymph # (Auto) (1.18-3.74) K/mm3 [place] # (Auto) (0.24-0.36) K/mm3 Eos # (Auto) (0.04-0.36) K/mm3 Baso # (Auto) (0.01-0.08) K/mm3 Sodium 118 L 118 L 122 L (136-145) mEq/L Potassium 3.7 3.4 L 3.4 L (3.5-5.1) mEq/L Chloride 84 L 85 L 88 L (98-107) mEq/L Carbon Dioxide 25 25 25 (21-32) mEq/L Anion Gap 12.7 11.4 12.4 (5-15) BUN 14 14 13 (7-18) mg/dL Creatinine 0.6 0.6 0.5 L (0.55-1.02) mg/dL Est Cr Clr Drug Dosing 45.16 45.16 54.19 mL/min Estimated GFR (MDRD) > 60 > 60 > 60 (>60) mL/min BUN/Creatinine Ratio 23.3 H 23.3 H 26.0 H (14-18) Glucose 116 H 181 H 111 H (70-99) mg/dL Serum Osmolality (280-300) mosm/kg Calcium 8.9 8.6 8.4 L (8.5-10.1) mg/dL Phosphorus (2.6-4.7) mg/dL Magnesium (1.8-2.4) mg/dL Total Bilirubin (0.2-1.0) mg/dL AST (15-37) U/L ALT (14-59) U/L Alkaline Phosphatase (46-116) U/L Total Protein (6.4-8.2) g/dl Albumin (3.4-5.0) g/dl Globulin gm/dL Albumin/Globulin Ratio (1-2) TSH 3rd Generation (0.358-3.74) uIU/mL Urine Osmolality (400-1100) mosm/kg Ur Random Sodium (40-220) mEq/L 03/20/21 03/20/21 Range/Units 06:13 06:13 WBC 7.64 (3.98-10.04) K/mm3 RBC 4.24 (3.98-5.22) M/mm3 Hgb 13.4 (11.2-15.7) gm/dl Hct 37.9 (34.1-44.9) % MCV 89.4 (79.4-94.8) fl MCH 31.6 (25.6-32.2) pg MCHC 35.4 (32.2-35.5) g/dl RDW Std Deviation 41.6 (36.4-46.3) fL Plt Count 243 (182-369) K/mm3 MPV 9.3 L (9.4-12.3) fl Neut % (Auto) 76.0 H (34.0-71.1) % Lymph % (Auto) 11.6 L (19.3-51.7) % [place] % (Auto) 11.6 (4.7-12.5) % Eos % (Auto) 0.4 L (0.7-5.8) Baso % (Auto) 0.1 (0.1-1.2) % Neut # (Auto) 5.80 (1.56-6.13) K/mm3 Lymph # (Auto) 0.89 L (1.18-3.74) K/mm3 [place] # (Auto) 0.89 H (0.24-0.36) K/mm3 Eos # (Auto) 0.03 L (0.04-0.36) K/mm3 Baso # (Auto) 0.01 (0.01-0.08) K/mm3 Sodium 127 L (136-145) mEq/L Potassium 3.3 L (3.5-5.1) mEq/L Chloride 92 L (98-107) mEq/L Carbon Dioxide 28 (21-32) mEq/L Anion Gap 10.3 (5-15) BUN 10 (7-18) mg/dL Creatinine 0.5 L (0.55-1.02) mg/dL Est Cr Clr Drug Dosing 59.09 mL/min Estimated GFR (MDRD) > 60 (>60) mL/min BUN/Creatinine Ratio 20.0 H (14-18) Glucose 107 H (70-99) mg/dL Serum Osmolality (280-300) mosm/kg Calcium 8.5 (8.5-10.1) mg/dL Phosphorus 1.5 L (2.6-4.7) mg/dL Magnesium 1.6 L (1.8-2.4) mg/dL Total Bilirubin 0.4 (0.2-1.0) mg/dL AST 41 H (15-37) U/L ALT 50 (14-59) U/L Alkaline Phosphatase 88 (46-116) U/L Total Protein 6.6 (6.4-8.2) g/dl Albumin 2.6 L (3.4-5.0) g/dl Globulin 4.0 gm/dL Albumin/Globulin Ratio 0.7 L (1-2) TSH 3rd Generation (0.358-3.74) uIU/mL Urine Osmolality (400-1100) mosm/kg Ur Random Sodium (40-220) mEq/L Med Orders - Current: Current Medications Acetaminophen (Acetaminophen 325 Mg Tab) 650 mg PO Q4H PRN PRN Reason: Pain (Mild 1-3)/fever Last Admin: 03/19/21 19:34 Dose: 650 mg Documented by: Amlodipine Besylate (Amlodipine 10 Mg Tab) 10 mg PO [facility] Last Admin: 03/19/21 08:58 Dose: 10 mg Documented by: Atenolol (Atenolol 50 Mg Tab) 50 mg PO [facility] Last Admin: 03/19/21 08:59 Dose: 50 mg Documented by: Atorvastatin Calcium (Atorvastatin 20 Mg Tab) 20 mg PO QPM [facility] Last Admin: 03/19/21 18:04 Dose: 20 mg Documented by: Calcium Carbonate (Calcium Carbonate/Vitamin D3 600 Mg-200 Units Tab) 2 tab PO QPM [facility] Last Admin: 03/19/21 18:04 Dose: 2 tab Documented by: Calcium Carbonate/Glycine (Calcium Carbonate 500 Mg Tab.Chew) 500 mg PO ASDIRECTED PRN PRN Reason: upset stomach Last Admin: 03/19/21 08:56 Dose: 500 mg Documented by: Cholecalciferol (Cholecalciferol (Vitamin D3) 25 Mcg Tab) 25 mcg PO QAM [facility] Last Admin: 03/19/21 08:58 Dose: 25 mcg Documented by: Docusate Sodium (Docusate Sodium 100 Mg Cap) 100 mg PO BID PRN PRN Reason: Constipation Famotidine ([facility] 20 Mg Tab) [facility] Admin: 03/19/21 08:58 Dose: 20 mg Documented by: Folic Acid (Folic Acid 1 Mg Tab) [facility] [place] Last Admin: 03/19/21 08:58 Dose: 1 mg Documented by: Hydralazine HCl (Hydralazine 25 Mg Tab) 50 mg PO TID [facility] Last Admin: 03/19/21 20:05 Dose: 50 mg Documented by: Hydromorphone HCl (Hydromorphone 0.5 Mg/0.5 Ml Syringe) 0.25 mg IVPUSH Q2H PRN PRN Reason: Pain (severe 7-10) Last Admin: 03/18/21 17:15 Dose: 0.25 mg Documented by: Sodium Chloride (Normal Saline) 1,000 mls @ 75 mls/hr IV ASDIRECTED [facility] Last Admin: 03/20/21 01:36 Dose: 75 mls/hr Documented by: Dextrose/Water (Dextrose 5% In Water) 1,000 mls @ 75 mls/hr IV ASDIRECTED [facility] Latanoprost (Latanoprost 0.005% Ophth Soln 2.5 Ml Bottle) 0 ml EYEBOTH QPM [facility] Last Admin: 03/19/21 18:04 Dose: 1 drop Documented by: Levothyroxine Sodium (Levothyroxine 100 Mcg Tab) 100 mcg PO ACBREAKFAST [facility] Last Admin: 03/20/21 07:25 Dose: 100 mcg Documented by: Lisinopril (Lisinopril 20 Mg Tab) 40 mg PO QPM [facility] Last Admin: 03/19/21 18:04 Dose: 40 mg Documented by: Ondansetron HCl (Ondansetron 4 Mg Tab.Dis) 4 mg PO Q4H PRN PRN Reason: nausea, able to take PO Last Admin: 03/18/21 22:07 Dose: 4 mg Documented by: Ondansetron HCl (Ondansetron 4 Mg/2 Ml Sdv) 4 mg IVPUSH Q6H PRN PRN Reason: Nausea/Vomiting Last Admin: 03/19/21 11:52 Dose: 4 mg Documented by: Oxycodone HCl (Oxycodone 5 Mg Tab) 5 mg PO Q4H PRN PRN Reason: Pain (moderate 4-6) Last Admin: 03/20/21 00:47 Dose: 5 mg Documented by: Potassium Chloride (Potassium Chloride 20 Meq Tab.Er) 40 meq PO BID [facility] Psyllium Husk (Psyllium Husk Powder Sugar Free 5.85 Gm Packet) 1 pkt PO QAM PRN PRN Reason: Constipation Rivaroxaban (Rivaroxaban 15 Mg Tab) 15 mg PO PCDINNER [facility] Last Admin: 03/19/21 18:04 Dose: 15 mg Documented by: Simethicone (Simethicone 80 Mg Tab.Chew) 80 mg PO Q6H PRN PRN Reason: Gas Last Admin: 03/19/21 13:58 Dose: 80 mg Documented by: Sodium Chloride (Sodium Chloride 0.9% 10 Ml Syringe) 10 ml FLUSH ASDIRECTED PRN PRN Reason: Keep Vein Open Last Admin: 03/18/21 10:37 Dose: 10 ml Documented by: Temazepam (Temazepam 7.5 Mg Cap) 7.5 mg PO BEDTIME PRN PRN Reason: Sleep Discontinued Medications Amlodipine Besylate (Amlodipine 5 Mg Tab) 5 mg PO QAM [facility] Last Admin: 03/19/21 10:02 Dose: Not Given Documented by: Hydrochlorothiazide (Hydrochlorothiazide 25 Mg Tab) 25 mg PO QAM [facility] Hydromorphone HCl (Hydromorphone 0.5 Mg/0.5 Ml Syringe) 0.25 mg IVPUSH ONETIME ONE Stop: 03/18/21 10:24 Last Admin: 03/18/21 10:37 Dose: 0.25 mg Documented by: Potassium Chloride 10 meq/ (Premix) 100 mls @ 100 mls/hr IV ONETIME ONE Stop: 03/18/21 14:47 Last Admin: 03/18/21 14:21 Dose: 100 mls/hr Documented by: Sodium Chloride (Normal Saline) 1,000 mls @ 100 mls/hr IV ASDIRECTED [facility] Last Admin: 03/18/21 14:22 Dose: 100 mls/hr Documented by: Sodium Chloride (Normal Saline) 1,000 mls @ 75 mls/hr IV ASDIRECTED [facility] Last Admin: 03/19/21 01:53 Dose: 75 mls/hr Documented by: Potassium Chloride 10 meq/ (Premix) 100 mls @ 100 mls/hr IV Q1H [facility] Stop: 03/18/21 18:29 Last Admin: 03/18/21 20:53 Dose: 100 mls/hr Documented by: Sodium Chloride (Sodium Chloride 3%) 500 mls @ 15 mls/hr IV ONETIME [facility] Stop: 03/19/21 14:00 Last Admin: 03/19/21 11:29 Dose: 15 mls/hr Documented by: Magnesium Sulfate 2 gm/ Premix 50 mls @ 25 mls/hr IV ONETIME ONE Stop: 03/19/21 13:59 Last Admin: 03/19/21 13:55 Dose: 25 mls/hr Documented by: Sodium Chloride (Sodium Chloride 3%) 500 mls @ 15 mls/hr IV ONETIME [facility] Stop: 03/19/21 17:00 Sodium Chloride (Sodium Chloride 3%) 30 mls @ 15 mls/hr IV ASDIRECTED [facility] Stop: 03/19/21 21:30 Ketorolac Tromethamine (Ketorolac 15 Mg/Ml Sdv) 15 mg IVPUSH ONETIME ONE Stop: 03/18/21 10:24 Last Admin: 03/18/21 10:34 Dose: 15 mg Documented by: Sodium Chloride (Sodium Chloride 1 Gm Tab) 1 gm PO ONETIME ONE Stop: 03/19/21 19:21 Last Admin: 03/19/21 19:34 Dose: 1 gm Documented by: - Exam Quality Assessment: DVT Prophylaxis. No: Supplemental Oxygen, Urine Catheter General: Alert, Oriented, Cooperative, No Acute Distress HEENT: Pupils Equal, Pupils Reactive, Mucous Membr. Moist/[place] Neck: Supple, Trachea Midline Lungs: Clear to Auscultation, Normal Respiratory Effort Cardiovascular: Regular Rate, Regular Rhythm GI/Abdominal Exam: Normal Bowel Sounds, Soft, No Distention, Tender (Mild generalized ) (Female) Exam: Deferred Back Exam: Decreased Range of Motion, Other (Chronic scoliosis) Extremities: Normal Inspection, Normal Range of Motion, Non-Tender, No Pedal E enedelia, Normal Capillary Refill Peripheral Pulses: 2+: Radial (L), Radial (R), Dorsalis Pedis (L), Dorsalis Pedis (R) Skin: Warm, Dry, Intact Neurological: No New Focal Deficit Psy/Mental Status: Alert, Normal Affect, Normal Mood - Patient Data Lab Results Last 24 hrs: Laboratory Results - last 24 hr 03/19/21 03/19/21 03/19/21 Range/Units 06:20 10:21 10:30 WBC (3.98-10.04) K/mm3 RBC (3.98-5.22) M/mm3 Hgb (11.2-15.7) gm/dl Hct (34.1-44.9) % MCV (79.4-94.8) fl MCH (25.6-32.2) pg MCHC (32.2-35.5) g/dl RDW Std Deviation (36.4-46.3) fL Plt Count (182-369) K/mm3 MPV (9.4-12.3) fl Neut % (Auto) (34.0-71.1) % Lymph % (Auto) (19.3-51.7) % [place] % (Auto) (4.7-12.5) % Eos % (Auto) (0.7-5.8) Baso % (Auto) (0.1-1.2) % Neut # (Auto) (1.56-6.13) K/mm3 Lymph # (Auto) (1.18-3.74) K/mm3 [place] # (Auto) (0.24-0.36) K/mm3 Eos # (Auto) (0.04-0.36) K/mm3 Baso # (Auto) (0.01-0.08) K/mm3 Sodium 116 L* (136-145) mEq/L Potassium 3.5 (3.5-5.1) mEq/L Chloride 82 L (98-107) mEq/L Carbon Dioxide 25 (21-32) mEq/L Anion Gap 12.5 (5-15) BUN 15 (7-18) mg/dL Creatinine 0.6 (0.55-1.02) mg/dL Est Cr Clr Drug Dosing 45.55 mL/min Estimated GFR (MDRD) > 60 (>60) mL/min BUN/Creatinine Ratio 25.0 H (14-18) Glucose 160 H (70-99) mg/dL Serum Osmolality 249 L (280-300) mosm/kg Calcium 8.5 (8.5-10.1) mg/dL Phosphorus (2.6-4.7) mg/dL Magnesium (1.8-2.4) mg/dL Total Bilirubin (0.2-1.0) mg/dL AST (15-37) U/L ALT (14-59) U/L Alkaline Phosphatase (46-116) U/L Total Protein (6.4-8.2) g/dl Albumin (3.4-5.0) g/dl Globulin gm/dL Albumin/Globulin Ratio (1-2) TSH 3rd Generation 0.485 (0.358-3.74) uIU/mL Urine Osmolality 414 (400-1100) mosm/kg Ur Random Sodium 44 (40-220) mEq/L 03/19/21 03/19/21 03/19/21 Range/Units 13:55 18:20 22:06 WBC (3.98-10.04) K/mm3 RBC (3.98-5.22) M/mm3 Hgb (11.2-15.7) gm/dl Hct (34.1-44.9) % MCV (79.4-94.8) fl MCH (25.6-32.2) pg MCHC (32.2-35.5) g/dl RDW Std Deviation (36.4-46.3) fL Plt Count (182-369) K/mm3 MPV (9.4-12.3) fl Neut % (Auto) (34.0-71.1) % Lymph % (Auto) (19.3-51.7) % [place] % (Auto) (4.7-12.5) % Eos % (Auto) (0.7-5.8) Baso % (Auto) (0.1-1.2) % Neut # (Auto) (1.56-6.13) K/mm3 Lymph # (Auto) (1.18-3.74) K/mm3 [place] # (Auto) (0.24-0.36) K/mm3 Eos # (Auto) (0.04-0.36) K/mm3 Baso # (Auto) (0.01-0.08) K/mm3 Sodium 118 L 118 L 122 L (136-145) mEq/L Potassium 3.7 3.4 L 3.4 L (3.5-5.1) mEq/L Chloride 84 L 85 L 88 L (98-107) mEq/L Carbon Dioxide 25 25 25 (21-32) mEq/L Anion Gap 12.7 11.4 12.4 (5-15) BUN 14 14 13 (7-18) mg/dL Creatinine 0.6 0.6 0.5 L (0.55-1.02) mg/dL Est Cr Clr Drug Dosing 45.16 45.16 54.19 mL/min Estimated GFR (MDRD) > 60 > 60 > 60 (>60) mL/min BUN/Creatinine Ratio 23.3 H 23.3 H 26.0 H (14-18) Glucose 116 H 181 H 111 H (70-99) mg/dL Serum Osmolality (280-300) mosm/kg Calcium 8.9 8.6 8.4 L (8.5-10.1) mg/dL Phosphorus (2.6-4.7) mg/dL Magnesium (1.8-2.4) mg/dL Total Bilirubin (0.2-1.0) mg/dL AST (15-37) U/L ALT (14-59) U/L Alkaline Phosphatase (46-116) U/L Total Protein (6.4-8.2) g/dl Albumin (3.4-5.0) g/dl Globulin gm/dL Albumin/Globulin Ratio (1-2) TSH 3rd Generation (0.358-3.74) uIU/mL Urine Osmolality (400-1100) mosm/kg Ur Random Sodium (40-220) mEq/L 06/02/21 06/02/21 Range/Units 06:13 06:13 WBC 7.64 (3.98-10.04) K/mm3 RBC 4.24 (3.98-5.22) M/mm3 Hgb 13.4 (11.2-15.7) gm/dl Hct 37.9 (34.1-44.9) % MCV 89.4 (79.4-94.8) fl MCH 31.6 (25.6-32.2) pg MCHC 35.4 (32.2-35.5) g/dl RDW Std Deviation 41.6 (36.4-46.3) fL Plt Count 243 (182-369) K/mm3 MPV 9.3 L (9.4-12.3) fl Neut % (Auto) 76.0 H (34.0-71.1) % Lymph % (Auto) 11.6 L (19.3-51.7) % [place] % (Auto) 11.6 (4.7-12.5) % Eos % (Auto) 0.4 L (0.7-5.8) Baso % (Auto) 0.1 (0.1-1.2) % Neut # (Auto) 5.80 (1.56-6.13) K/mm3 Lymph # (Auto) 0.89 L (1.18-3.74) K/mm3 [place] # (Auto) 0.89 H (0.24-0.36) K/mm3 Eos # (Auto) 0.03 L (0.04-0.36) K/mm3 Baso # (Auto) 0.01 (0.01-0.08) K/mm3 Sodium 127 L (136-145) mEq/L Potassium 3.3 L (3.5-5.1) mEq/L Chloride 92 L (98-107) mEq/L Carbon Dioxide 28 (21-32) mEq/L Anion Gap 10.3 (5-15) BUN 10 (7-18) mg/dL Creatinine 0.5 L (0.55-1.02) mg/dL Est Cr Clr Drug Dosing 59.09 mL/min Estimated GFR (MDRD) > 60 (>60) mL/min BUN/Creatinine Ratio 20.0 H (14-18) Glucose 107 H (70-99) mg/dL Serum Osmolality (280-300) mosm/kg Calcium 8.5 (8.5-10.1) mg/dL Phosphorus 1.5 L (2.6-4.7) mg/dL Magnesium 1.6 L (1.8-2.4) mg/dL Total Bilirubin 0.4 (0.2-1.0) mg/dL AST 41 H (15-37) U/L ALT 50 (14-59) U/L Alkaline Phosphatase 88 (46-116) U/L Total Protein 6.6 (6.4-8.2) g/dl Albumin 2.6 L (3.4-5.0) g/dl Globulin 4.0 gm/dL Albumin/Globulin Ratio 0.7 L (1-2) TSH 3rd Generation (0.358-3.74) uIU/mL Urine Osmolality (400-1100) mosm/kg Ur Random Sodium (40-220) mEq/L Result Diagrams: 03/20/21 06:13 03/20/21 06:13 Sepsis Event Note - Evaluation Sepsis Screening Result: No Definite Risk - Focused Exam Vital Signs: Vital Signs Temp Pulse Resp BP BP Pulse Ox 03/20/21 04:25 97.8 F 55 L 16 153/64 H 95 03/20/21 01:00 97.8 F 53 L 16 147/55 H 95 03/20/21 00:00 98.2 F 56 L 15 175/72 H 95 03/19/21 20:05 136/60 03/19/21 19:44 96.7 F L 55 L 12 144/55 H 95 - Problem List & Annotations (1) Hyponatremia SNOMED Code(s): 96925550 Code(s): E87.1 - HYPO-OSMOLALITY AND HYPONATREMIA Status: Acute Priority: High Current Visit: Yes (2) Compression fracture of first lumbar vertebra SNOMED Code(s): 996976227, 446898890, [id number] Code(s): S32.010A - WEDGE COMPRESSION FRACTURE OF FIRST LUMBAR VERTEBRA, INIT Status: Chronic Priority: High Current Visit: Yes Qualifiers: Encounter type: subsequent encounter Fracture healing: with routine healing Qualified Code(s): S32.010D - Wedge compression fracture of first lumbar vertebra, subsequent encounter for fracture with routine healing (3) Failure to thrive SNOMED Code(s): 07272341 Code(s): IGV0655 - Status: Chronic Priority: High Current Visit: Yes Qualifiers: Failure to thrive age range: in adult Qualified Code(s): R62.7 - Adult failure to thrive (4) Weakness generalized SNOMED Code(s): 25967760 Code(s): R53.1 - WEAKNESS Status: Chronic Priority: High Current Visit: Yes (5) Afib SNOMED Code(s): 63223795 Code(s): I48.91 - UNSPECIFIED ATRIAL FIBRILLATION Status: Chronic Priority: Medium Current Visit: No Qualifiers: Atrial fibrillation type: unspecified Qualified Code(s): I48.91 - Unspecified atrial fibrillation (6) Aneurysm SNOMED Code(s): 635246631 Code(s): I72.9 - ANEURYSM OF UNSPECIFIED SITE Status: Chronic Priority: Low Current Visit: No (7) HLD (hyperlipidemia) SNOMED Code(s): 58521811 Code(s): E78.5 - HYPERLIPIDEMIA, UNSPECIFIED Status: Chronic Priority: Low Current Visit: No (8) HTN (hypertension) SNOMED Code(s): 33687343 Code(s): I10 - ESSENTIAL (PRIMARY) HYPERTENSION Status: Acute Priority: Medium Current Visit: No Qualifiers: Hypertension type: unspecified Qualified Code(s): I10 - Essential (primary) hypertension (9) GERD (gastroesophageal reflux disease) SNOMED Code(s): 304966191 Code(s): K21.9 - GASTRO-ESOPHAGEAL REFLUX DISEASE WITHOUT ESOPHAGITIS Status: Chronic Priority: Low Current Visit: No Qualifiers: Esophagitis presence: esophagitis presence not specified Qualified Code(s): K21.9 - Gastro-esophageal reflux disease without esophagitis (10) PUD (peptic ulcer disease) SNOMED Code(s): 46027820 Code(s): K27.9 - PEPTIC ULC, SITE UNSP, UNSP AC OR CHR, W/O HEMOR OR PERF Status: Chronic Priority: Low Current Visit: No (11) Osteoporosis SNOMED Code(s): 04678130 Code(s): M81.0 - AGE-RELATED OSTEOPOROSIS W/O CURRENT PATHOLOGICAL FRACTURE Status: Chronic Priority: Low Current Visit: No Qualifiers: Osteoporosis type: unspecified Presence of current pathological fracture: unspecified Qualified Code(s): M81.0 - Age-related osteoporosis without current pathological fracture (12) Arthritis SNOMED Code(s): 5591733 Code(s): M19.90 - UNSPECIFIED OSTEOARTHRITIS, UNSPECIFIED SITE Status: Chronic Priority: Low Current Visit: No (13) Migraines SNOMED Code(s): 18719008 Code(s): G43.909 - MIGRAINE, UNSP, NOT INTRACTABLE, WITHOUT STATUS MIGRAINOSUS Status: Chronic Priority: Low Current Visit: No Qualifiers: Migraine type: unspecified Status migrainosus presence: without status m igrainosus Intractability: not intractable Qualified Code(s): G43.909 - Migraine, unspecified, not intractable, without status migrainosus (14) History of TIA (transient ischemic attack) SNOMED Code(s): 226770156 Code(s): Z86.73 - PRSNL HX OF TIA (TIA), AND CEREB INFRC W/O RESID DEFICITS Status: Chronic Priority: Low Current Visit: No (15) Hypothyroidism SNOMED Code(s): 41871729 Code(s): E03.9 - HYPOTHYROIDISM, UNSPECIFIED Status: Chronic Priority: Low Current Visit: No Qualifiers: Hypothyroidism type: unspecified Qualified Code(s): E03.9 - Hypothyroidism, unspecified (16) BELKYS (iron deficiency anemia) SNOMED Code(s): 27699460 Code(s): D50.9 - IRON DEFICIENCY ANEMIA, UNSPECIFIED Status: Chronic Priority: Low Current Visit: No Qualifiers: Iron deficiency anemia type: unspecified iron deficiency Qualified Code(s): D50.9 - Iron deficiency anemia, unspecified (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 SNOMED Code(s): 616619723 Code(s): Z90.3 - ACQUIRED ABSENCE OF STOMACH [PART OF] Status: Chronic Priority: Low Current Visit: No (18) Chronic constipation SNOMED Code(s): 446343554 Code(s): K59.09 - OTHER CONSTIPATION Status: Chronic Priority: Medium Current Visit: Yes (19) Anemia SNOMED Code(s): 267004332 Code(s): D64.9 - ANEMIA, UNSPECIFIED Status: Chronic Priority: Low Current Visit: No Qualifiers: Anemia type: unspecified type Qualified Code(s): D64.9 - Anemia, unspecified (20) Hypophosphatemia SNOMED Code(s): 9866634 Code(s): E83.39 - OTHER DISORDERS OF PHOSPHORUS METABOLISM Status: Acute Priority: High Current Visit: Yes (21) Hypokalemia SNOMED Code(s): 87050519 Code(s): E87.6 - HYPOKALEMIA Status: Acute Priority: High Current Visit: Yes (22) Hypomagnesemia SNOMED Code(s): 791491420 Code(s): E83.42 - HYPOMAGNESEMIA Status: Acute Priority: High Current Visit: Yes - Problem List Review Problem List Initiated/Reviewed/Updated: Yes - My Orders Last 24 Hours: My Active Orders 03/19/21 07:25 Consult to Case Management/S Iron Worker [CONS] Routine 03/19/21 08:15 amLODIPine [Norvasc] 10 mg PO QAM 03/19/21 09:07 Consult to Beam Carrier Hauler Pusher [CONS] Routine 03/19/21 09:41 Seizure Precautions [OM.PC] Routine 03/19/21 10:57 Admission Status [Patient Status] [ADT] Routine Cardiac Monitoring [RC] . DIRECTED 03/19/21 Lunch Regular Diet [DIET] Sodium Chloride 0.9% [Normal Saline] 1,000 ml IV ASDIRECTED 03/19/21 11:21 Intake and Output Strict [RC] Q2HR 03/19/21 11:47 Ondansetron [Zofran] 4 mg IVPUSH Q6H PRN 03/20/21 07:34 Magnesium Sulfate/Water [Magnesium Sulfate in Water 4 GM/50 ML] 4 gm Premix Bag 1 bag IV ONETIME 03/20/21 07:45 Potassium Phosp 30 MMOLE in Sodium Chloride 0.9% @ 100 MLS/HR(500ml) Potassium Phosphates 30 mmole Sodium Chloride 0.9% [Normal Saline] 500 ml IV ASDIRECTED 03/20/21 09:00 Potassium Chloride [Klor-Con M20] 40 meq PO BID 03/21/21 05:11 CBC WITH AUTO DIFF [HEME] AM CMP [COMPREHENSIVE METABOLIC PN,CMP] [CHEM] AM MAGNESIUM [CHEM] AM 03/22/21 05:11 CBC WITH AUTO DIFF [HEME] AM CMP [COMPREHENSIVE METABOLIC PN,CMP] [CHEM] AM MAGNESIUM [CHEM] AM 03/23/21 05:11 CBC WITH AUTO DIFF [HEME] AM MAGNESIUM [CHEM] AM - Assessment Assessment:: Assessement - day of admission 03/18/2021 Patient is an 86-year-old lady who has been readmitted secondary to increasing pain at home and inability to complete her activities of daily living. The patient has been admitted as an inpatient in order to receive intensive PT OT, IV fluid support and monitoring. Patient be kept on regular diet as tolerated. The patient's pain will be controlled with the use of IV narcotics. I have also ordered PT OT to assist the patient to evaluate her for rehabilitation. Patient is currently in a DO NOT INTUBATE/DO NOT RESUSCITATE category. I have ordered repeat labs for the morning. The patient also does not require DVT prophylaxis as she is a fall risk and she is currently taking Xarelto. The patient is likely going to be requiring snf care. 03/19/2021 86-year-old female admitted to the floor for failure to thrive, weakness, and pain secondary to lumbar spine compression fracture. Patient resides at [facility] and has reportedly been struggling there. She was recently hospitalized for pain control of her lumbar spine compression fracture. PT and OT have been evaluated along with case management and social work. Sodium is been noted to be very low at 119. Restarted seizure precautions and will place her on a fluid restriction. Of note patient's sodium on prior discharge was 128. We will run NS at 75ml/hr. urine sodium is on the low end of normal. Urine osmolality is pending. Serum osmolality is low. We will start every 4 hour BMPs to ensure sodium does not get any lower. We will also start hypertonic saline 3% at 15 cc/h. Otherwise patient is asymptomatic reports she feels pretty good. She does have some abdominal pain and feels like she may be constipated. This has been an ongoing issue for her. We will order a 1 view abdomen to check for stool load. Daughter was present in room. Likely length of stay 3 to 4 days total. Will upgrade to ICU status given severe hyponatremia and risk of seizures. 03/20/2021 This is a 86-year-old female who was admitted after a prior hospitalization due to back pain secondary to a fairly acute lumbar spine compression fracture. She resides at [facility] and has been struggling there. She was evaluated by PT and OT who are recommending SNF placement. Both patient and family are on board with this. On admission her sodium was noted to be 119. Urine sodium and urine osmolality were both within normal limits. She was given hypertonic saline with an excellent response and her sodium has been slowly climbing. This morning her sodium is 127 so she was started on D5W with a plan to recheck her sodium this afternoon and either continue p.o. supplementation or hold pending lab results. Her potassium, magnesium, and phosphorus were all low and were supplemented. 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 Her p.o. intake is been very poor. Dietitian has been consulted. Abdominal x- ray was obtained yesterday which does not show much stool in the abdomen however there is quite a bit of bowel gas noted. She was upgraded to ICU yesterday and downgraded today as her sodium has improved. Anticipate discharge in 2 to 3 days pending labs and placement. - Plan Plan:: Hyponatremia Hypomagnesemia Hypophosphatemia Hypokalemia * Seizure precautions * D5W at 75ml/hr for 2 hours and re-check sodium * Urine sodium WNP * Stop HCTZ * Strict I&O monitoring * Encourage PO intake * Re-check labs this afternoon * Consider giving 1gm PO sodium chloride pending labs * Supplement potassium phosphate * Supplement magnesium * Telemetry Compression fracture of first lumbar vertebra Failure to thrive Weakness generalized Osteoporosis Arthritis * PT/OT * CM/SW * Will likely need placement Afib * No acute concerns * Continue home Xarelto Aneurysm * No acute concerns HLD (hyperlipidemia) * No acute concerns * Continue home Lipitor HTN (hypertension) * Stop HCTZ as above * Increase home Norvasc from 5m to 10mg * Start imdur 30mg daily * Monitor GERD (gastroesophageal reflux disease) PUD (peptic ulcer disease) History of resection of stomach Chronic constipation * Continue home pepcid * PRN stool softeners/laxatives * Monitor Migraines * No acute concerns History of TIA (transient ischemic attack) * No acute concerns Hypothyroidism * No acute concerns * Continue home levothyroxine BELKYS (iron deficiency anemia) Anemia * No acute concerns * Continue home folic acid Code status: DNR/DNI PCP: Dr. Huertas DVT prophylaxis: Home xarelto Social: Patient resides at [facility] however she has been requiring more assistance than they can offer lately. Will likely require placement. Disposition: Admitted to hospital floor for management of failure to thrive and hyponatremia. Will downgrade to MSP status with telemetry today due to improvement in sodium. We will continue telemetry due to electrolyte abnormalities. Likely length of stay 3 to 4 days total.
[2021-03-20] MEDS ORDERED: Potassium Phosphates 30 MMOLE in Sodium Chloride 0.9% 500 ML IV ONE (08:00)
[2021-03-20] MEDS: Simethicone 80 MG Tab.Chew PO PRN (08:48)
[2021-03-20] MEDS: Cholecalciferol (Vitamin D3) 25 MCG Tab PO SCH (08:49)
[2021-03-20] MEDS: hydrALAZINE 25 MG Tab PO SCH ×3 (08:49→21:19)
[2021-03-20] MEDS: Atenolol 50 MG Tab PO SCH ×2 (08:49→21:18)
[2021-03-20] MEDS: amLODIPine 10 MG Tab PO SCH (08:49)
[2021-03-20] MEDS: Folic Acid 1 MG Tab PO SCH (08:49)
[2021-03-20] MEDS: Famotidine 20 MG Tab PO SCH (08:49)
[2021-03-20] MEDS ORDERED: Potassium Chloride 20 MEQ Tab.ER PO SCH (09:00)
[2021-03-20] MEDS: Calcium Carbonate 500 MG Tab.Chew PO PRN (09:41)
[2021-03-20] MEDS ORDERED: Potassium Chloride 20 MEQ Tab.ER PO ONE (12:15)
[2021-03-20] MEDS ORDERED: Magnesium Sulfate/Water 4 GM in Premix Bag 1 BAG IV ONE (13:00)
[2021-03-20] MEDS: Isosorbide Mononitrate 30 MG Tab.ER PO SCH (13:45)
[2021-03-20] MEDS: Sodium Chloride 1 GM Tab PO SCH (16:31)
[2021-03-20] MEDS: Lisinopril 20 MG Tab PO SCH (17:47)
[2021-03-20] MEDS: Calcium Carbonate/Vitamin D3 600 MG-200 Units Tab PO SCH (17:47)
[2021-03-20] MEDS: atorvaSTATin 20 MG Tab PO SCH (17:47)
[2021-03-20] MEDS: Latanoprost 0.005% Ophth Soln 2.5 ML Bottle EYEBOTH SCH (18:08)
[2021-03-20] MEDS: Rivaroxaban 15 MG Tab PO SCH (18:09)
[2021-03-20] MEDS: Temazepam 7.5 MG Cap PO PRN (20:49)
--- NOTE | 2021-03-21 07:54 | PCM.PN ---
<Clayton Venegas - Last Filed: 03/21/21 13:05> - General Info Date of Service: 03/21/21 Admission Dx/Problem (Free Text): Admission Diagnosis/Problem Admission Diagnosis/Problem Failure to thrive Functional Status: Reports: Pain Controlled, Tolerating Diet (working on intake ), Ambulating, Urinating. Denies: New Symptoms - Review of Systems General: Reports: Weakness, Fatigue. Denies: Fever, Malaise, Chills HEENT: Reports: No Symptoms. Denies: Headaches, Sore Throat Pulmonary: Reports: No Symptoms. Denies: Shortness of Breath, Pleuritic Chest Pain, Cough, Sputum, Wheezing Cardiovascular: Reports: No Symptoms. Denies: Chest Pain, Palpitations, Dyspnea on Exertion, Lightheadedness Gastrointestinal: Reports: Abdominal Pain (mild lower quadrant ), Constipation. Denies: Diarrhea, Nausea, Vomiting Genitourinary: Reports: No Symptoms. Denies: Pain Musculoskeletal: Reports: No Symptoms Skin: Reports: No Symptoms. Denies: Cyanosis Neurological: Reports: Difficulty Walking, Weakness, Gait Disturbance. Denies: Confusion Psychiatric: Reports: No Symptoms - Patient Data Vitals - Most Recent: Last Vital Signs Temp 97.5 F 03/21/21 04:00 Pulse 60 03/20/21 08:49 Resp 18 03/21/21 04:00 BP 161/64 H 03/21/21 04:00 Pulse Ox 98 03/21/21 04:00 Weight - Most Recent: 89 lb 6.4 oz I&O - Last 24 Hours: Intake & Output 03/20/21 03/21/21 03/21/21 22:59 06:59 14:59 Intake Total 1609 75 Output Total 475 525 Balance 1134 -450 Lab Results Last 24 Hours: Laboratory Results - last 24 hr 03/20/21 03/20/21 03/21/21 Range/Units 12:06 17:36 04:34 WBC 5.84 (3.98-10.04) K/mm3 RBC 3.93 L (3.98-5.22) M/mm3 Hgb 12.2 (11.2-15.7) gm/dl Hct 36.1 (34.1-44.9) % MCV 91.9 (79.4-94.8) fl MCH 31.0 (25.6-32.2) pg MCHC 33.8 (32.2-35.5) g/dl RDW Std Deviation 43.0 (36.4-46.3) fL Plt Count 245 (182-369) K/mm3 MPV 9.1 L (9.4-12.3) fl Neut % (Auto) 70.7 (34.0-71.1) % Lymph % (Auto) 14.4 L (19.3-51.7) % [place] % (Auto) 13.2 H (4.7-12.5) % Eos % (Auto) 1.2 (0.7-5.8) Baso % (Auto) 0.2 (0.1-1.2) % Neut # (Auto) 4.13 (1.56-6.13) K/mm3 Lymph # (Auto) 0.84 L (1.18-3.74) K/mm3 [place] # (Auto) 0.77 H (0.24-0.36) K/mm3 Eos # (Auto) 0.07 (0.04-0.36) K/mm3 Baso # (Auto) 0.01 (0.01-0.08) K/mm3 Sodium 124 L 127 L (136-145) mEq/L Potassium 4.3 (3.5-5.1) mEq/L Chloride 92 L (98-107) mEq/L Carbon Dioxide 25 (21-32) mEq/L Anion Gap 11.3 (5-15) BUN 16 (7-18) mg/dL Creatinine 0.6 (0.55-1.02) mg/dL Est Cr Clr Drug Dosing 49.24 mL/min Estimated GFR (MDRD) > 60 (>60) mL/min BUN/Creatinine Ratio 26.7 H (14-18) Glucose 122 H (70-99) mg/dL Calcium 8.7 (8.5-10.1) mg/dL Phosphorus (2.6-4.7) mg/dL Magnesium (1.8-2.4) mg/dL Total Bilirubin (0.2-1.0) mg/dL AST (15-37) U/L ALT (14-59) U/L Alkaline Phosphatase (46-116) U/L Total Protein (6.4-8.2) g/dl Albumin (3.4-5.0) g/dl Globulin gm/dL Albumin/Globulin Ratio (1-2) 03/21/21 Range/Units 04:34 WBC (3.98-10.04) K/mm3 RBC (3.98-5.22) M/mm3 Hgb (11.2-15.7) gm/dl Hct (34.1-44.9) % MCV (79.4-94.8) fl MCH (25.6-32.2) pg MCHC (32.2-35.5) g/dl RDW Std Deviation (36.4-46.3) fL Plt Count (182-369) K/mm3 MPV (9.4-12.3) fl Neut % (Auto) (34.0-71.1) % Lymph % (Auto) (19.3-51.7) % [place] % (Auto) (4.7-12.5) % Eos % (Auto) (0.7-5.8) Baso % (Auto) (0.1-1.2) % Neut # (Auto) (1.56-6.13) K/mm3 Lymph # (Auto) (1.18-3.74) K/mm3 [place] # (Auto) (0.24-0.36) K/mm3 Eos # (Auto) (0.04-0.36) K/mm3 Baso # (Auto) (0.01-0.08) K/mm3 Sodium 130 L (136-145) mEq/L Potassium 3.8 (3.5-5.1) mEq/L Chloride 97 L (98-107) mEq/L Carbon Dioxide 27 (21-32) mEq/L Anion Gap 9.8 (5-15) BUN 14 (7-18) mg/dL Creatinine 0.6 (0.55-1.02) mg/dL Est Cr Clr Drug Dosing 43.88 mL/min Estimated GFR (MDRD) > 60 (>60) mL/min BUN/Creatinine Ratio 23.3 H (14-18) Glucose 91 (70-99) mg/dL Calcium 8.8 (8.5-10.1) mg/dL Phosphorus 1.5 L (2.6-4.7) mg/dL Magnesium 2.2 (1.8-2.4) mg/dL Total Bilirubin 0.3 (0.2-1.0) mg/dL AST 31 (15-37) U/L ALT 39 (14-59) U/L Alkaline Phosphatase 77 (46-116) U/L Total Protein 5.9 L (6.4-8.2) g/dl Albumin 2.3 L (3.4-5.0) g/dl Globulin 3.6 gm/dL Albumin/Globulin Ratio 0.6 L (1-2) Med Orders - Current: Current Medications Acetaminophen (Acetaminophen 325 Mg Tab) 650 mg PO Q4H PRN PRN Reason: Pain (Mild 1-3)/fever Last Admin: 03/19/21 19:34 Dose: 650 mg Documented by: Amlodipine Besylate (Amlodipine 10 Mg Tab) [facility] Last Admin: 03/20/21 08:49 Dose: 10 mg Documented by: Atenolol (Atenolol 50 Mg Tab) 50 mg PO BID [facility] Last Admin: 03/20/21 21:18 Dose: Not Given Documented by: Atorvastatin Calcium (Atorvastatin 20 Mg Tab) 20 mg PO QPM [facility] Last Admin: 03/20/21 17:47 Dose: 20 mg Documented by: Calcium Carbonate (Calcium Carbonate/Vitamin D3 600 Mg-200 Units Tab) 2 tab PO QPM [facility] Last Admin: 03/20/21 17:47 Dose: 2 tab Documented by: Calcium Carbonate/Glycine (Calcium Carbonate 500 Mg Tab.Chew) 500 mg PO ASDIRECTED PRN PRN Reason: upset stomach Last Admin: 03/20/21 09:41 Dose: 500 mg Documented by: Cholecalciferol (Cholecalciferol (Vitamin D3) 25 Mcg Tab) 25 mcg PO [facility] Last Admin: 03/20/21 08:49 Dose: 25 mcg Documented by: Docusate Sodium (Docusate Sodium 100 Mg Cap) 100 mg PO BID PRN PRN Reason: Constipation Famotidine (Famotidine 20 Mg Tab) 20 mg PO [facility] Last Admin: 03/20/21 08:49 Dose: 20 mg Documented by: Folic Acid (Folic Acid 1 Mg Tab) [facility] [place] Last Admin: 03/20/21 08:49 Dose: 1 mg Documented by: Hydralazine HCl (Hydralazine 25 Mg Tab) 50 mg PO TID [facility] Last Admin: 03/20/21 21:19 Dose: 50 mg Documented by: Hydromorphone HCl (Hydromorphone 0.5 Mg/0.5 Ml Syringe) 0.25 mg IVPUSH Q2H PRN PRN Reason: Pain (severe 7-10) Last Admin: 03/18/21 17:15 Dose: 0.25 mg Documented by: Isosorbide Mononitrate (Isosorbide Mononitrate 30 Mg Tab.Er) 30 mg PO DAILY [facility] Last Admin: 03/20/21 13:45 Dose: 30 mg Documented by: Latanoprost (Latanoprost 0.005% Ophth Soln 2.5 Ml Bottle) 0 ml EYEBOTH QPM [facility] Last Admin: 03/20/21 18:08 Dose: 1 drop Documented by: Levothyroxine Sodium (Levothyroxine 100 Mcg Tab) 100 mcg PO ACBREAKFAST [facility] Last Admin: 03/20/21 07:25 Dose: 100 mcg Documented by: Lisinopril (Lisinopril 20 Mg Tab) 40 mg PO QPM [facility] Last Admin: 03/20/21 17:47 Dose: 40 mg Documented by: Ondansetron HCl (Ondansetron 4 Mg Tab.Dis) 4 mg PO Q4H PRN PRN Reason: nausea, able to take PO Last Admin: 03/18/21 22:07 Dose: 4 mg Documented by: Ondansetron HCl (Ondansetron 4 Mg/2 Ml Sdv) 4 mg IVPUSH Q6H PRN PRN Reason: Nausea/Vomiting Last Admin: 03/19/21 11:52 Dose: 4 mg Documented by: Oxycodone HCl (Oxycodone 5 Mg Tab) 5 mg PO Q4H PRN PRN Reason: Pain (moderate 4-6) Last Admin: 03/20/21 20:49 Dose: 5 mg Documented by: Psyllium Husk (Psyllium Husk Powder Sugar Free 5.85 Gm Packet) 1 pkt PO QAM PRN PRN Reason: Constipation Rivaroxaban (Rivaroxaban 15 Mg Tab) 15 mg PO PCDINNER [facility] Last Admin: 03/20/21 18:09 Dose: 15 mg Documented by: Simethicone (Simethicone 80 Mg Tab.Chew) 80 mg PO Q6H PRN PRN Reason: Gas Last Admin: 03/20/21 08:48 Dose: 80 mg Documented by: Sodium Chloride (Sodium Chloride 0.9% 10 Ml Syringe) 10 ml FLUSH ASDIRECTED PRN PRN Reason: Keep Vein Open Last Admin: 03/18/21 10:37 Dose: 10 ml Documented by: Sodium Chloride (Sodium Chloride 1 Gm Tab) 1 gm PO TIDAC [facility] Last Admin: 03/20/21 16:31 Dose: 1 gm Documented by: Temazepam (Temazepam 7.5 Mg Cap) 7.5 mg PO BEDTIME PRN PRN Reason: Sleep Last Admin: 03/20/21 20:49 Dose: 7.5 mg Documented by: Discontinued Medications Amlodipine Besylate (Amlodipine 5 Mg Tab) 5 mg PO QAM [facility] Last Admin: 03/19/21 10:02 Dose: Not Given Documented by: Atenolol (Atenolol 50 Mg Tab) 50 mg PO QAM [facility] Last Admin: 03/20/21 08:49 Dose: 50 mg Documented by: Hydrochlorothiazide (Hydrochlorothiazide 25 Mg Tab) 25 mg PO QAM [facility] Hydromorphone HCl (Hydromorphone 0.5 Mg/0.5 Ml Syringe) 0.25 mg IVPUSH ONETIME ONE Stop: 03/18/21 10:24 Last Admin: 03/18/21 10:37 Dose: 0.25 mg Documented by: Potassium Chloride 10 meq/ (Premix) 100 mls @ 100 mls/hr IV ONETIME ONE Stop: 03/18/21 14:47 Last Admin: 03/18/21 14:21 Dose: 100 mls/hr Documented by: Sodium Chloride (Normal Saline) 1,000 mls @ 100 mls/hr IV ASDIRECTED [facility] Last Admin: 03/18/21 14:22 Dose: 100 mls/hr Documented by: Sodium Chloride (Normal Saline) 1,000 mls @ 75 mls/hr IV ASDIRECTED [facility] Last Admin: 03/19/21 01:53 Dose: 75 mls/hr Documented by: Potassium Chloride 10 meq/ (Premix) 100 mls @ 100 mls/hr IV Q1H [facility] Stop: 03/18/21 18:29 Last Admin: 03/18/21 20:53 Dose: 100 mls/hr Documented by: Sodium Chloride (Normal Saline) 1,000 mls @ 75 mls/hr IV ASDIRECTED [facility] Last Admin: 03/20/21 01:36 Dose: 75 mls/hr Documented by: Sodium Chloride (Sodium Chloride 3%) 500 mls @ 15 mls/hr IV ONETIME [facility]ICK[facility] Stop: 03/19/21 14:00 Last Admin: 03/19/21 11:29 Dose: 15 mls/hr Documented by: Magnesium Sulfate 2 gm/ Premix 50 mls @ 25 mls/hr IV ONETIME ONE Stop: 03/19/21 13:59 Last Admin: 03/19/21 13:55 Dose: 25 mls/hr Documented by: Sodium Chloride (Sodium Chloride 3%) 500 mls @ 15 mls/hr IV ONETIME [facility] Stop: 03/19/21 17:00 Sodium Chloride (Sodium Chloride 3%) 30 mls @ 15 mls/hr IV ASDIRECTED [facility] Stop: 03/19/21 21:30 Dextrose/Water (Dextrose 5% In Water) 1,000 mls @ 75 mls/hr IV ASDIRECTED [facility] Last Admin: 03/20/21 08:50 Dose: 75 mls/hr Documented by: Potassium Phosphate 30 mmole/ (Sodium Chloride) 510 mls @ 102 mls/hr IV ONETIME ONE Stop: 03/20/21 12:59 Last Admin: 03/20/21 08:50 Dose: 102 mls/hr Documented by: Magnesium Sulfate 4 gm/ Premix 50 mls @ 12.5 mls/hr IV ONETIME ONE Stop: 03/20/21 16:59 Last Admin: 03/20/21 13:46 Dose: 12.5 mls/hr Documented by: Dextrose/Water (Dextrose 5% In Water) 1,000 mls @ 75 mls/hr IV ASDIRECTED [facility] Ketorolac Tromethamine (Ketorolac 15 Mg/Ml Sdv) 15 mg IVPUSH ONETIME ONE Stop: 03/18/21 10:24 Last Admin: 03/18/21 10:34 Dose: 15 mg Documented by: Potassium Chloride (Potassium Chloride 20 Meq Tab.Er) 40 meq PO BID [facility] Potassium Chloride (Potassium Chloride 20 Meq Tab.Er) 20 meq PO ONETIME ONE Stop: 03/20/21 12:16 Last Admin: 03/20/21 13:45 Dose: 20 meq Documented by: Sodium Chloride (Sodium Chloride 1 Gm Tab) 1 gm PO ONETIME ONE Stop: 03/19/21 19:21 Last Admin: 03/19/21 19:34 Dose: 1 gm Documented by: - Exam Quality Assessment: DVT Prophylaxis. No: Supplemental Oxygen, Urine Catheter General: Alert, Oriented, Cooperative, No Acute Distress HEENT: Pupils Equal, Pupils Reactive, Mucous Membr. Moist/[place] Neck: Supple, Trachea Midline Lungs: Clear to Auscultation, Normal Respiratory Effort Cardiovascular: Regular Rate, Regular Rhythm GI/Abdominal Exam: Normal Bowel Sounds, Soft, No Distention, No Abnormal Bruit, Tender (Mild lower quadrant abdominal tenderness) (Female) Exam: Deferred Back Exam: Normal Inspection, Decreased Range of Motion Extremities: Normal Inspection, Normal Range of Motion, Non-Tender, No Pedal Edema, Normal Capillary Refill Skin: Warm, Dry, Intact Neurological: No New Focal Deficit Psy/Mental Status: Alert, Normal Affect, Normal Mood - Patient Data Lab Results Last 24 hrs: Laboratory Results - last 24 hr 03/20/21 03/20/21 03/21/21 Range/Units 12:06 17:36 04:34 WBC 5.84 (3.98-10.04) K/mm3 RBC 3.93 L (3.98-5.22) M/mm3 Hgb 12.2 (11.2-15.7) gm/dl Hct 36.1 (34.1-44.9) % MCV 91.9 (79.4-94.8) fl MCH 31.0 (25.6-32.2) pg MCHC 33.8 (32.2-35.5) g/dl RDW Std Deviation 43.0 (36.4-46.3) fL Plt Count 245 (182-369) K/mm3 MPV 9.1 L (9.4-12.3) fl Neut % (Auto) 70.7 (34.0-71.1) % Lymph % (Auto) 14.4 L (19.3-51.7) % [place] % (Auto) 13.2 H (4.7-12.5) % Eos % (Auto) 1.2 (0.7-5.8) Baso % (Auto) 0.2 (0.1-1.2) % Neut # (Auto) 4.13 (1.56-6.13) K/mm3 Lymph # (Auto) 0.84 L (1.18-3.74) K/mm3 [place] # (Auto) 0.77 H (0.24-0.36) K/mm3 Eos # (Auto) 0.07 (0.04-0.36) K/mm3 Baso # (Auto) 0.01 (0.01-0.08) K/mm3 Sodium 124 L 127 L (136-145) mEq/L Potassium 4.3 (3.5-5.1) mEq/L Chloride 92 L (98-107) mEq/L Carbon Dioxide 25 (21-32) mEq/L Anion Gap 11.3 (5-15) BUN 16 (7-18) mg/dL Creatinine 0.6 (0.55-1.02) mg/dL Est Cr Clr Drug Dosing 49.24 mL/min Estimated GFR (MDRD) > 60 (>60) mL/min BUN/Creatinine Ratio 26.7 H (14-18) Glucose 122 H (70-99) mg/dL Calcium 8.7 (8.5-10.1) mg/dL Phosphorus (2.6-4.7) mg/dL Magnesium (1.8-2.4) mg/dL Total Bilirubin (0.2-1.0) mg/dL AST (15-37) U/L ALT (14-59) U/L Alkaline Phosphatase (46-116) U/L Total Protein (6.4-8.2) g/dl Albumin (3.4-5.0) g/dl Globulin gm/dL Albumin/Globulin Ratio (1-2) 03/21/21 Range/Units 04:34 WBC (3.98-10.04) K/mm3 RBC (3.98-5.22) M/mm3 Hgb (11.2-15.7) gm/dl Hct (34.1-44.9) % MCV (79.4-94.8) fl MCH (25.6-32.2) pg MCHC (32.2-35.5) g/dl RDW Std Deviation (36.4-46.3) fL Plt Count (182-369) K/mm3 MPV (9.4-12.3) fl Neut % (Auto) (34.0-71.1) % Lymph % (Auto) (19.3-51.7) % [place] % (Auto) (4.7-12.5) % Eos % (Auto) (0.7-5.8) Baso % (Auto) (0.1-1.2) % Neut # (Auto) (1.56-6.13) K/mm3 Lymph # (Auto) (1.18-3.74) K/mm3 [place] # (Auto) (0.24-0.36) K/mm3 Eos # (Auto) (0.04-0.36) K/mm3 Baso # (Auto) (0.01-0.08) K/mm3 Sodium 130 L (136-145) mEq/L Potassium 3.8 (3.5-5.1) mEq/L Chloride 97 L (98-107) mEq/L Carbon Dioxide 27 (21-32) mEq/L Anion Gap 9.8 (5-15) BUN 14 (7-18) mg/dL Creatinine 0.6 (0.55-1.02) mg/dL Est Cr Clr Drug Dosing 43.88 mL/min Estimated GFR (MDRD) > 60 (>60) mL/min BUN/Creatinine Ratio 23.3 H (14-18) Glucose 91 (70-99) mg/dL Calcium 8.8 (8.5-10.1) mg/dL Phosphorus 1.5 L (2.6-4.7) mg/dL Magnesium 2.2 (1.8-2.4) mg/dL Total Bilirubin 0.3 (0.2-1.0) mg/dL AST 31 (15-37) U/L ALT 39 (14-59) U/L Alkaline Phosphatase 77 (46-116) U/L Total Protein 5.9 L (6.4-8.2) g/dl Albumin 2.3 L (3.4-5.0) g/dl Globulin 3.6 gm/dL Albumin/Globulin Ratio 0.6 L (1-2) Result Diagrams: 03/21/21 04:34 03/21/21 04:34 Sepsis Event Note - Evaluation Sepsis Screening Result: No Definite Risk - Focused Exam Vital Signs: Vital Signs Temp Resp BP BP Pulse Ox 03/21/21 04:00 97.5 F 18 161/64 H 98 03/20/21 21:19 124/53 L 03/20/21 21:18 124/53 L 03/20/21 20:00 98.2 F 16 124/53 L 97 - Problem List & Annotations (1) Hyponatremia SNOMED Code(s): 26946041 Code(s): E87.1 - HYPO-OSMOLALITY AND HYPONATREMIA Status: Acute Priority: High Current Visit: Yes (2) Compression fracture of first lumbar vertebra SNOMED Code(s): 567967709, 822994723, 27329246103185419 Code(s): S32.010A - WEDGE COMPRESSION FRACTURE OF FIRST LUMBAR VERTEBRA, INIT Status: Chronic Priority: High Current Visit: Yes Qualifiers: Encounter type: subsequent encounter Fracture healing: with routine healing Qualified Code(s): S32.010D - Wedge compression fracture of first lumbar vertebra, subsequent encounter for fracture with routine healing (3) Failure to thrive SNOMED Code(s): 96333787 Code(s): SXY0055 - Status: Chronic Priority: High Current Visit: Yes Qualifiers: Failure to thrive age range: in adult Qualified Code(s): R62.7 - Adult failure to thrive (4) Weakness generalized SNOMED Code(s): 77633306 Code(s): R53.1 - WEAKNESS Status: Chronic Priority: High Current Visit: Yes (5) Afib SNOMED Code(s): 56509139 Code(s): I48.91 - UNSPECIFIED ATRIAL FIBRILLATION Status: Chronic Priority: Medium Current Visit: No Qualifiers: Atrial fibrillation type: unspecified Qualified Code(s): I48.91 - Unspecified atrial fibrillation (6) Aneurysm SNOMED Code(s): 707562124 Code(s): I72.9 - ANEURYSM OF UNSPECIFIED SITE Status: Chronic Priority: Low Current Visit: No (7) HLD (hyperlipidemia) SNOMED Code(s): 31706665 Code(s): E78.5 - HYPERLIPIDEMIA, UNSPECIFIED Status: Chronic Priority: L ow Current Visit: No (8) HTN (hypertension) SNOMED Code(s): 45749458 Code(s): I10 - ESSENTIAL (PRIMARY) HYPERTENSION Status: Acute Priority: Medium Current Visit: No Qualifiers: Hypertension type: unspecified Qualified Code(s): I10 - Essential (primary) hypertension (9) GERD (gastroesophageal reflux disease) SNOMED Code(s): 271641675 Code(s): K21.9 - GASTRO-ESOPHAGEAL REFLUX DISEASE WITHOUT ESOPHAGITIS Status: Chronic Priority: Low Current Visit: No Qualifiers: Esophagitis presence: esophagitis presence not specified Qualified Code(s): K21.9 - Gastro-esophageal reflux disease without esophagitis (10) PUD (peptic ulcer disease) SNOMED Code(s): 35757246 Code(s): K27.9 - PEPTIC ULC, SITE UNSP, UNSP AC OR CHR, W/O HEMOR OR PERF Status: Chronic Priority: Low Current Visit: No (11) Osteoporosis SNOMED Code(s): 23734080 Code(s): M81.0 - AGE-RELATED OSTEOPOROSIS W/O CURRENT PATHOLOGICAL FRACTURE Status: Chronic Priority: Low Current Visit: No Qualifiers: Osteoporosis type: unspecified Presence of current pathological fracture: unspecified Qualified Code(s): M81.0 - Age-related osteoporosis without current pathological fracture (12) Arthritis SNOMED Code(s): 2414412 Code(s): M19.90 - UNSPECIFIED OSTEOARTHRITIS, UNSPECIFIED SITE Status: Chronic Priority: Low Current Visit: No (13) Migraines SNOMED Code(s): 59316151 Code(s): G43.909 - MIGRAINE, UNSP, NOT INTRACTABLE, WITHOUT STATUS MIGRAINOSUS Status: Chronic Priority: Low Current Visit: No Qualifiers: Migraine type: unspecified Status migrainosus presence: without status migrainosus Intractability: not intractable Qualified Code(s): G43.909 - Migraine, unspecified, not intractable, without status migrainosus (14) History of TIA (transient ischemic attack) SNOMED Code(s): 907967888 Code(s): Z86.73 - PRSNL HX OF TIA (TIA), AND CEREB INFRC W/O RESID DEFICITS Status: Chronic Priority: Low Current Visit: No (15) Hypothyroidism SNOMED Code(s): 52846640 Code(s): E03.9 - HYPOTHYROIDISM, UNSPECIFIED Status: Chronic Priority: Low Current Visit: No Qualifiers: Hypothyroidism type: unspecified Qualified Code(s): E03.9 - Hypothyroidism, unspecified (16) BELKYS (iron deficiency anemia) SNOMED Code(s): 95232343 Code(s): D50.9 - IRON DEFICIENCY ANEMIA, UNSPECIFIED Status: Chronic Priority: Low Current Visit: No Qualifiers: Iron deficiency anemia type: unspecified iron deficiency Qualified Code(s): D50.9 - Iron deficiency anemia, unspecified (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 SNOMED Code(s): 114581613 Code(s): Z90.3 - ACQUIRED ABSENCE OF STOMACH [PART OF] Status: Chronic Priority: Low Current Visit: No (18) Chronic constipation SNOMED Code(s): 288941929 Code(s): K59.09 - OTHER CONSTIPATION Status: Chronic Priority: Medium Current Visit: Yes (19) Anemia SNOMED Code(s): 007304674 Code(s): D64.9 - ANEMIA, UNSPECIFIED Status: Chronic Priority: Low Current Visit: No Qualifiers: Anemia type: unspecified type Qualified Code(s): D64.9 - Anemia, unspecified (20) Hypophosphatemia SNOMED Code(s): 6689031 Code(s): E83.39 - OTHER DISORDERS OF PHOSPHORUS METABOLISM Status: Acute Priority: High Current Visit: Yes (21) Hypokalemia SNOMED Code(s): 55535796 Code(s): E87.6 - HYPOKALEMIA Status: Resolved Priority: High Current Visit: Yes (22) Hypomagnesemia SNOMED Code(s): 620426275 Code(s): E83.42 - HYPOMAGNESEMIA Status: Resolved Priority: High Current Visit: Yes - Problem List Review Problem List Initiated/Reviewed/Updated: Yes - My Orders Last 24 Hours: My Active Orders 03/20/21 09:35 Admission Status [Patient Status] [ADT] Routine 03/20/21 12:15 Isosorbide Mononitrate [Imdur] 30 mg PO DAILY 03/20/21 17:00 Sodium Chloride 1 gm PO TIDAC 03/20/21 21:00 atenoloL [Tenormin] 50 mg PO BID 03/22/21 05:11 CBC WITH AUTO DIFF [HEME] AM CMP [COMPREHENSIVE METABOLIC PN,CMP] [CHEM] AM MAGNESIUM [CHEM] AM 03/23/21 05:11 CBC WITH AUTO DIFF [HEME] AM MAGNESIUM [CHEM] AM - Assessment Assessment:: Assessement - day of admission 03/18/2021 Patient is an 86-year-old lady who has been readmitted secondary to increasing pain at home and inability to complete her activities of daily living. The patient has been admitted as an inpatient in order to receive intensive PT OT, IV fluid support and monitoring. Patient be kept on regular diet as tolerated. The patient's pain will be controlled with the use of IV narcotics. I have also ordered PT OT to assist the patient to evaluate her for rehabilitation. Patient is currently in a DO NOT INTUBATE/DO NOT RESUSCITATE category. I have ordered repeat labs for the morning. The patient also does not require DVT prophylaxis as she is a fall risk and she is currently taking Xarelto. The patient is likely going to be requiring senior living care. 03/19/2021 86-year-old female admitted to the floor for failure to thrive, weakness, and pain secondary to lumbar spine compression fracture. Patient resides at [facility] and has reportedly been struggling there. She was recently hospitalized for pain control of her lumbar spine compression fracture. PT and OT have been evaluated along with case management and social work. Sodium is been noted to be very low at 119. Restarted seizure precautions and will place her on a fluid restriction. Of note patient's sodium on prior discharge was 128. We will run NS at 75ml/hr. urine sodium is on the low end of normal. Urine osmolality is pending. Serum osmolality is low. We will start every 4 hour BMPs to ensure sodium does not get any lower. We will also start hyper tonic saline 3% at 15 cc/h. Otherwise patient is asymptomatic reports she feels pretty good. She does have some abdominal pain and feels like she may be constipated. This has been an ongoing issue for her. We will order a 1 view abdomen to check for stool load. Daughter was present in room. Likely length of stay 3 to 4 days total. Will upgrade to ICU status given severe hyponatremia and risk of seizures. 03/20/2021 This is a 86-year-old female who was admitted after a prior hospitalization due to back pain secondary to a fairly acute lumbar spine compression fracture. She resides at [facility] and has been struggling there. She was evaluated by PT and OT who are recommending SNF placement. Both patient and family are on board with this. On admission her sodium was noted to be 119. Urine sodium and urine osmolality were both within normal limits. She was given hypertonic saline with an excellent response and her sodium has been slowly climbing. This morning her sodium is 127 so she was started on D5W with a plan to recheck her sodium this afternoon and either continue p.o. supplementation or hold pending lab results. Her potassium, magnesium, and phosphorus were all low and were supplemented. 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 Her p.o. intake is been very poor. Dietitian has been consulted. Abdominal x- ray was obtained yesterday which does not show much stool in the abdomen however there is quite a bit of bowel gas noted. She was upgraded to ICU yesterday and downgraded today as her sodium has improved. Anticipate discharge in 2 to 3 days pending labs and placement. 03/21/2021 86-year-old female presented to our ED with weakness and failure to thrive at home. Patient was supplemented for placement found to be hyponatremic, hypokalemic, hypophosphatemic, and hypomagnesemic. Supplementation was started. Patient does report chronic constipation and gas. She has had a section of her stomach removed in the past. We have started her on 3 times daily 1 g sodium chloride with meals. Today labs have shown improvement with no leukocytosis and platelet count of 245. Sodium is 130. Potassium 3.8. Chloride 97. Carbon dioxide 27. Anion gap 9.8. BUN is 14, creatinine 0.6, GFR greater than 60. Glucose is 91. Phosphorus is 1.5. Magnesium is 2.2. Albumin is 2.3. She is receiving 30 mmol of potassium phosphate via IV currently. She reports she feels overall pretty good but did just receive a rectal suppository as she feels like she is constipated. Plan is for discharge tomorrow to SNF and she has a ready been accepted at [facility]. Blood pressures have been elevated and she was started on Imdur yesterday 30 mg p.o. daily. She did show some improvement with her blood pressures yesterday however her blood pressures this morning were elevated again. These were obtained prior to administration of morning meds. We will continue to follow her blood pressures. Primary care provider will likely need to continue working at this. - Plan Plan:: Hyponatremia Hypomagnesemia Hypophosphatemia Hypokalemia * Stop home HCTZ * Encourage PO intake * Re-check labs in AM * TIDAC sodium chloride supplement * Consider need for continued potassium and/or magnesium supplementation at discharge * Supplement potassium phosphate 30 mmol now * Discontinue Telemetry * Clinical Services Manager consult Compression fracture of first lumbar vertebra Failure to thrive Weakness generalized Osteoporosis Arthritis * PT/OT * CM/SW * Will likely need placement Afib * No acute concerns * Continue home Xarelto Aneurysm * No acute concerns HLD (hyperlipidemia) * No acute concerns * Continue home Lipitor HTN (hypertension) * Stop HCTZ as above * Increase home Norvasc from 5m to 10mg * Continue Imdur 30mg daily * Monitor GERD (gastroesophageal reflux disease) PUD (peptic ulcer disease) History of resection of stomach Chronic constipation * Continue home pepcid * PRN stool softeners/laxatives * Monitor Migraines * No acute concerns History of TIA (transient ischemic attack) * No acute concerns Hypothyroidism * No acute concerns * Continue home levothyroxine BELKYS (iron deficiency anemia) Anemia * No acute concerns * Continue home folic acid Code status: DNR/DNI PCP: Dr. Huertas DVT prophylaxis: Home xarelto Social: Patient resides at [facility] however she has been requiring more assistance than they can offer lately. Will likely require placement. Disposition: Admitted to hospital floor for management of failure to thrive and hyponatremia. We will discontinue telemetry as potassium and magnesium have normalized. Likely discharge tomorrow. <Norris Tran Jr - Last Filed: 03/21/21 16:15> - Patient Data Vitals - Most Recent: Last Vital Signs Temp 97.9 F 03/21/21 15:20 Pulse 63 03/21/21 15:20 Resp 20 03/21/21 15:20 BP 151/89 H 03/21/21 15:20 Pulse Ox 97 03/21/21 15:20 I&O - Last 24 Hours: Intake & Output 03/21/21 03/21/21 03/21/21 06:59 14:59 22:59 Intake Total 75 0 750 Output Total 525 200 200 Balance -450 -200 550 Lab Results Last 24 Hours: Laboratory Results - last 24 hr 03/20/21 03/21/21 03/21/21 Range/Units 17:36 04:34 04:34 WBC 5.84 (3.98-10.04) K/mm3 RBC 3.93 L (3.98-5.22) M/mm3 Hgb 12.2 (11.2-15.7) gm/dl Hct 36.1 (34.1-44.9) % MCV 91.9 (79.4-94.8) fl MCH 31.0 (25.6-32.2) pg MCHC 33.8 (32.2-35.5) g/dl RDW Std Deviation 43.0 (36.4-46.3) fL Plt Count 245 (182-369) K/mm3 MPV 9.1 L (9.4-12.3) fl Neut % (Auto) 70.7 (34.0-71.1) % Lymph % (Auto) 14.4 L (19.3-51.7) % [place] % (Auto) 13.2 H (4.7-12.5) % Eos % (Auto) 1.2 (0.7-5.8) Baso % (Auto) 0.2 (0.1-1.2) % Neut # (Auto) 4.13 (1.56-6.13) K/mm3 Lymph # (Auto) 0.84 L (1.18-3.74) K/mm3 [place] # (Auto) 0.77 H (0.24-0.36) K/mm3 Eos # (Auto) 0.07 (0.04-0.36) K/mm3 Baso # (Auto) 0.01 (0.01-0.08) K/mm3 Sodium 127 L 130 L (136-145) mEq/L Potassium 3.8 (3.5-5.1) mEq/L Chloride 97 L (98-107) mEq/L Carbon Dioxide 27 (21-32) mEq/L Anion Gap 9.8 (5-15) BUN 14 (7-18) mg/dL Creatinine 0.6 (0.55-1.02) mg/dL Est Cr Clr Drug Dosing 43.88 mL/min Estimated GFR (MDRD) > 60 (>60) mL/min BUN/Creatinine Ratio 23.3 H (14-18) Glucose 91 (70-99) mg/dL Calcium 8.8 (8.5-10.1) mg/dL Phosphorus 1.5 L (2.6-4.7) mg/dL Magnesium 2.2 (1.8-2.4) mg/dL Total Bilirubin 0.3 (0.2-1.0) mg/dL AST 31 (15-37) U/L ALT 39 (14-59) U/L Alkaline Phosphatase 77 (46-116) U/L Total Protein 5.9 L (6.4-8.2) g/dl Albumin 2.3 L (3.4-5.0) g/dl Globulin 3.6 gm/dL Albumin/Globulin Ratio 0.6 L (1-2) Med Orders - Current: Current Medications Acetaminophen (Acetaminophen 325 Mg Tab) 650 mg PO Q4H PRN PRN Reason: Pain (Mild 1-3)/fever Last Admin: 03/19/21 19:34 Dose: 650 mg Documented by: Amlodipine Besylate (Amlodipine 10 Mg Tab) 10 mg PO QAM [facility] Last Admin: 03/21/21 08:12 Dose: 10 mg Documented by: Atenolol (Atenolol 50 Mg Tab) 50 mg PO BID [facility] Last Admin: 03/21/21 08:12 Dose: 50 mg Documented by: Atorvastatin Calcium (Atorvastatin 20 Mg Tab) 20 mg PO QPM [facility] Last Admin: 03/20/21 17:47 Dose: 20 mg Documented by: Bisacodyl (Bisacodyl 10 Mg Supp) 10 mg RECTAL DAILY PRN PRN Reason: Constipation Last Admin: 03/21/21 11:56 Dose: 10 mg Documented by: Calcium Carbonate (Calcium Carbonate/Vitamin D3 600 Mg-200 Units Tab) 2 tab PO QPM [facility] Last Admin: 03/20/21 17:47 Dose: 2 tab Documented by: Calcium Carbonate/Glycine (Calcium Carbonate 500 Mg Tab.Chew) 500 mg PO ASDIRECTED PRN PRN Reason: upset stomach Last Admin: 03/20/21 09:41 Dose: 500 mg Documented by: Cholecalciferol (Cholecalciferol (Vitamin D3) 25 Mcg Tab) 25 mcg PO QAM [facility] Last Admin: 03/21/21 08:11 Dose: 25 mcg Documented by: Docusate Sodium (Docusate Sodium 100 Mg Cap) 100 mg PO BID PRN PRN Reason: Constipation Last Admin: 03/21/21 08:16 Dose: 100 mg Documented by: Famotidine (Famotidine 20 Mg Tab) 20 mg PO QAM [facility] Last Admin: 03/21/21 08:11 Dose: 20 mg Documented by: Folic Acid (Folic Acid 1 Mg Tab) 1 mg PO QAM [facility] Last Admin: 03/21/21 08:12 Dose: 1 mg Documented by: Hydralazine HCl (Hydralazine 25 Mg Tab) 50 mg PO TID [facility] Last Admin: 03/21/21 15:09 Dose: 50 mg Documented by: Hydromorphone HCl (Hydromorphone 0.5 Mg/0.5 Ml Syringe) 0.25 mg IVPUSH Q2H PRN PRN Reason: Pain (severe 7-10) Last Admin: 03/18/21 17:15 Dose: 0.25 mg Documented by: Isosorbide Mononitrate (Isosorbide Mononitrate 30 Mg Tab.Er) 30 mg PO DAILY [facility] Last Admin: 03/21/21 08:12 Dose: 30 mg Documented by: Latanoprost (Latanoprost 0.005% Ophth Soln 2.5 Ml Bottle) 0 ml EYEBOTH QPM [facility] Last Admin: 03/20/21 18:08 Dose: 1 drop Documented by: Levothyroxine Sodium (Levothyroxine 100 Mcg Tab) 100 mcg PO ACBREAKFAST [facility] Last Admin: 03/21/21 08:04 Dose: 100 mcg Documented by: Lisinopril (Lisinopril 20 Mg Tab) 40 mg PO QPM [facility] Last Admin: 03/20/21 17:47 Dose: 40 mg Documented by: Ondansetron HCl (Ondansetron 4 Mg Tab.Dis) 4 mg PO Q4H PRN PRN Reason: nausea, able to take PO Last Admin: 03/18/21 22:07 Dose: 4 mg Documented by: Ondansetron HCl (Ondansetron 4 Mg/2 Ml Sdv) 4 mg IVPUSH Q6H PRN PRN Reason: Nausea/Vomiting Last Admin: 03/19/21 11:52 Dose: 4 mg Documented by: Oxycodone HCl (Oxycodone 5 Mg Tab) 5 mg PO Q4H PRN PRN Reason: Pain (moderate 4-6) Last Admin: 03/20/21 20:49 Dose: 5 mg Documented by: Psyllium Husk (Psyllium Husk Powder Sugar Free 5.85 Gm Packet) 1 pkt PO QAM PRN PRN Reason: Constipation Last Admin: 03/21/21 08:21 Dose: 1 pkt Documented by: Rivaroxaban (Rivaroxaban 15 Mg Tab) 15 mg PO PCDINNER [facility] Last Admin: 03/20/21 18:09 Dose: 15 mg Documented by: Simethicone (Simethicone 80 Mg Tab.Chew) 80 mg PO Q6H PRN PRN Reason: Gas Last Admin: 03/20/21 08:48 Dose: 80 mg Documented by: Sodium Chloride (Sodium Chloride 0.9% 10 Ml Syringe) 10 ml FLUSH ASDIRECTED PRN PRN Reason: Keep Vein Open Last Admin: 03/18/21 10:37 Dose: 10 ml Documented by: Sodium Chloride (Sodium Chloride 1 Gm Tab) 1 gm PO TIDAC [facility] Last Admin: 03/21/21 11:22 Dose: 1 gm Documented by: Temazepam (Temazepam 7.5 Mg Cap) 7.5 mg PO BEDTIME PRN PRN Reason: Sleep Last Admin: 03/20/21 20:49 Dose: 7.5 mg Documented by: Discontinued Medications Amlodipine Besylate (Amlodipine 5 Mg Tab) 5 mg PO [facility] Last Admin: 03/19/21 10:02 Dose: Not Given Documented by: Atenolol (Atenolol 50 Mg Tab) [facility] Last Admin: 03/20/21 08:49 Dose: 50 mg Documented by: Hydrochlorothiazide (Hydrochlorothiazide 25 Mg Tab) 25 mg PO [facility] Hydromorphone HCl (Hydromorphone 0.5 Mg/0.5 Ml Syringe) 0.25 mg IVPUSH ONETIME ONE Stop: 03/18/21 10:24 Last Admin: 03/18/21 10:37 Dose: 0.25 mg Documented by: Potassium Chloride 10 meq/ (Premix) 100 mls @ 100 mls/hr IV ONETIME ONE Stop: 03/18/21 14:47 Last Admin: 03/18/21 14:21 Dose: 100 mls/hr Documented by: Sodium Chloride (Normal Saline) 1,000 mls @ 100 mls/hr IV ASDIRECTED [facility] Last Admin: 03/18/21 14:22 Dose: 100 mls/hr Documented by: Sodium Chloride (Normal Saline) 1,000 mls @ 75 mls/hr IV ASDIRECTED [facility] Last Admin: 03/19/21 01:53 Dose: 75 mls/hr Documented by: Potassium Chloride 10 meq/ (Premix) 100 mls @ 100 mls/hr IV Q1H [facility] Stop: 03/18/21 18:29 Last Admin: 03/18/21 20:53 Dose: 100 mls/hr Documented by: Sodium Chloride (Normal Saline) 1,000 mls @ 75 mls/hr IV ASDIRECTED [facility] Last Admin: 03/20/21 01:36 Dose: 75 mls/hr Documented by: Sodium Chloride (Sodium Chloride 3%) 500 mls @ 15 mls/hr IV ONETIME [facility] Stop: 03/19/21 14:00 Last Admin: 03/19/21 11:29 Dose: 15 mls/hr Documented by: Magnesium Sulfate 2 gm/ Premix 50 mls @ 25 mls/hr IV ONETIME ONE Stop: 03/19/21 13:59 Last Admin: 03/19/21 13:55 Dose: 25 mls/hr Documented by: Sodium Chloride (Sodium Chloride 3%) 500 mls @ 15 mls/hr IV ONETIME [facility] Stop: 03/19/21 17:00 Sodium Chloride (Sodium Chloride 3%) 30 mls @ 15 mls/hr IV ASDIRECTED [facility] Stop: 03/19/21 21:30 Dextrose/Water (Dextrose 5% In Water) 1,000 mls @ 75 mls/hr IV ASDIRECTED [facility] Last Admin: 03/20/21 08:50 Dose: 75 mls/hr Documented by: Potassium Phosphate 30 mmole/ (Sodium Chloride) 510 mls @ 102 mls/hr IV ONETIME ONE Stop: 03/20/21 12:59 Last Admin: 03/20/21 08:50 Dose: 102 mls/hr Documented by: Magnesium Sulfate 4 gm/ Premix 50 mls @ 12.5 mls/hr IV ONETIME ONE Stop: 03/20/21 16:59 Last Admin: 03/20/21 13:46 Dose: 12.5 mls/hr Documented by: Dextrose/Water (Dextrose 5% In Water) 1,000 mls @ 75 mls/hr IV ASDIRECTED [facility] Potassium Phosphate 30 mmole/ (Sodium Chloride) 510 mls @ 102 mls/hr IV ONETIME ONE Stop: 03/21/21 13:59 Last Admin: 03/21/21 09:25 Dose: 102 mls/hr Documented by: Ketorolac Tromethamine (Ketorolac 15 Mg/Ml Sdv) 15 mg IVPUSH ONETIME ONE Stop: 03/18/21 10:24 Last Admin: 03/18/21 10:34 Dose: 15 mg Documented by: Potassium Chloride (Potassium Chloride 20 Meq Tab.Er) 40 meq PO BID [facility] Potassium Chloride (Potassium Chloride 20 Meq Tab.Er) 20 meq PO ONETIME ONE Stop: 03/20/21 12:16 Last Admin: 03/20/21 13:45 Dose: 20 meq Documented by: Sodium Chloride (Sodium Chloride 1 Gm Tab) 1 gm PO ONETIME ONE Stop: 03/19/21 19:21 Last Admin: 03/19/21 19:34 Dose: 1 gm Documented by: - Patient Data Lab Results Last 24 hrs: Laboratory Results - last 24 hr 03/20/21 03/21/21 03/21/21 Range/Units 17:36 04:34 04:34 WBC 5.84 (3.98-10.04) K/mm3 RBC 3.93 L (3.98-5.22) M/mm3 Hgb 12.2 (11.2-15.7) gm/dl Hct 36.1 (34.1-44.9) % MCV 91.9 (79.4-94.8) fl MCH 31.0 (25.6-32.2) pg MCHC 33.8 (32.2-35.5) g/dl RDW Std Deviation 43.0 (36.4-46.3) fL Plt Count 245 (182-369) K/mm3 MPV 9.1 L (9.4-12.3) fl Neut % (Auto) 70.7 (34.0-71.1) % Lymph % (Auto) 14.4 L (19.3-51.7) % [place] % (Auto) 13.2 H (4.7-12.5) % Eos % (Auto) 1.2 (0.7-5.8) Baso % (Auto) 0.2 (0.1-1.2) % Neut # (Auto) 4.13 (1.56-6.13) K/mm3 Lymph # (Auto) 0.84 L (1.18-3.74) K/mm3 [place] # (Auto) 0.77 H (0.24-0.36) K/mm3 Eos # (Auto) 0.07 (0.04-0.36) K/mm3 Baso # (Auto) 0.01 (0.01-0.08) K/mm3 Sodium 127 L 130 L (136-145) mEq/L Potassium 3.8 (3.5-5.1) mEq/L Chloride 97 L (98-107) mEq/L Carbon Dioxide 27 (21-32) mEq/L Anion Gap 9.8 (5-15) BUN 14 (7-18) mg/dL Creatinine 0.6 (0.55-1.02) mg/dL Est Cr Clr Drug Dosing 43.88 mL/min Estimated GFR (MDRD) > 60 (>60) mL/min BUN/Creatinine Ratio 23.3 H (14-18) Glucose 91 (70-99) mg/dL Calcium 8.8 (8.5-10.1) mg/dL Phosphorus 1.5 L (2.6-4.7) mg/dL Magnesium 2.2 (1.8-2.4) mg/dL Total Bilirubin 0.3 (0.2-1.0) mg/dL AST 31 (15-37) U/L ALT 39 (14-59) U/L Alkaline Phosphatase 77 (46-116) U/L Total Protein 5.9 L (6.4-8.2) g/dl Albumin 2.3 L (3.4-5.0) g/dl Globulin 3.6 gm/dL Albumin/Globulin Ratio 0.6 L (1-2) Result Diagrams: 03/21/21 04:34 03/21/21 04:34 Sepsis Event Note - Focused Exam Vital Signs: Vital Signs Temp Temp Pulse Resp BP BP Pulse Ox 03/21/21 15:20 97.9 F 63 20 151/89 H 97 03/21/21 15:09 151/89 H 03/21/21 08:12 60 177/73 H 03/21/21 08:06 177/73 H 03/21/21 08:00 98.0 F 17 177/73 H 98 03/21/21 04:38 161/64 H - My Orders Last 24 Hours: My Active Orders 03/21/21 11:32 bisacodyL [Dulcolax] 10 mg RECTAL DAILY PRN - Plan Plan:: Case personally precepted. Agree with exam and assessment and plan as above.
[2021-03-21] MEDS: Levothyroxine 100 MCG Tab PO SCH (08:04)
[2021-03-21] MEDS: Sodium Chloride 1 GM Tab PO SCH ×3 (08:11→18:11)
[2021-03-21] MEDS: Famotidine 20 MG Tab PO SCH (08:11)
[2021-03-21] MEDS: Cholecalciferol (Vitamin D3) 25 MCG Tab PO SCH (08:11)
[2021-03-21] MEDS: Isosorbide Mononitrate 30 MG Tab.ER PO SCH (08:12)
[2021-03-21] MEDS: Folic Acid 1 MG Tab PO SCH (08:12)
[2021-03-21] MEDS: amLODIPine 10 MG Tab PO SCH (08:12)
[2021-03-21] MEDS: hydrALAZINE 25 MG Tab PO SCH ×3 (08:12→20:48)
[2021-03-21] MEDS: Atenolol 50 MG Tab PO SCH ×2 (08:12→20:52)
[2021-03-21] MEDS ORDERED: Potassium Phosphates 30 MMOLE in Sodium Chloride 0.9% 500 ML IV ONE (09:00)
[2021-03-21] MEDS ORDERED: Bisacodyl 10 MG Supp RECTAL PRN (11:32)
[2021-03-21] MEDS: Rivaroxaban 15 MG Tab PO SCH (18:11)
[2021-03-21] MEDS: Calcium Carbonate/Vitamin D3 600 MG-200 Units Tab PO SCH (18:12)
[2021-03-21] MEDS: Lisinopril 20 MG Tab PO SCH (18:12)
[2021-03-21] MEDS: atorvaSTATin 20 MG Tab PO SCH (18:12)
[2021-03-21] MEDS: Latanoprost 0.005% Ophth Soln 2.5 ML Bottle EYEBOTH SCH (18:15)
[2021-03-21] MEDS: oxyCODONE 5 MG Tab PO PRN (19:02)
[2021-03-22] MEDS: oxyCODONE 5 MG Tab PO PRN ×2 (00:26→06:07)
[2021-03-22] MEDS: Temazepam 7.5 MG Cap PO PRN (00:26)
[2021-03-22] MEDS: Sodium Chloride 1 GM Tab PO SCH ×2 (06:07→12:15)
[2021-03-22] MEDS: Levothyroxine 100 MCG Tab PO SCH (06:07)
--- NOTE | 2021-03-22 07:46 | PCM.DCSUM1 ---
<Clayton Venegas - Last Filed: 03/22/21 11:43> Discharge Summary - Hospital Course HPI Initial Comments: The patient is an 86-year-old lady who was admitted to acute inpatient hospitalization secondary to pain control as well as inability to ambulate. Patient previously had been admitted on March 16, 2021 for lower back pain due to a compression fracture of L1 and she had been discharged on March 17, 2021 as she thought she could safely go home. The patient came back into the emergency department unable to care for herself and requiring extensive pain control. The patient's history otherwise has been unchanged from her previous history on March 16, 2021. Diagnosis: Stroke: No - Discharge Data Discharge Date: 03/22/21 (Admit date: 03/18/2021) Discharge Disposition: DC/Tfer to SNF 03 Condition: Good - Referral to Home Health Primary Care Physician: Marimar Huertas MD - Discharge Diagnosis/Problem(s) (1) Hyponatremia SNOMED Code(s): 53971165 ICD Code: E87.1 - HYPO-OSMOLALITY AND HYPONATREMIA Status: Acute Priority: High (2) Compression fracture of first lumbar vertebra SNOMED Code(s): 709784097, 809992328, [id number] ICD Code: S32.010A - WEDGE COMPRESSION FRACTURE OF FIRST LUMBAR VERTEBRA, INIT Status: Chronic Priority: High Qualifiers: Encounter type: subsequent encounter Fracture healing: with routine healing Qualified Code(s): S32.010D - Wedge compression fracture of first lumbar vertebra, subsequent encounter for fracture with routine healing (3) Failure to thrive SNOMED Code(s): 02496284 ICD Code: [id number] - Status: Chronic Priority: High Qualifiers: Failure to thrive age range: in adult Qualified Code(s): R62.7 - Adult failure to thrive (4) Weakness generalized SNOMED Code(s): 22980142 ICD Code: R53.1 - WEAKNESS Status: Chronic Priority: High (5) Afib SNOMED Code(s): 69344774 ICD Code: I48.91 - UNSPECIFIED ATRIAL FIBRILLATION Status: Chronic Priority: Medium Qualifiers: Atrial fibrillation type: unspecified Qualified Code(s): I48.91 - Unspecified atrial fibrillation (6) Aneurysm SNOMED Code(s): 990020483 ICD Code: I72.9 - ANEURYSM OF UNSPECIFIED SITE Status: Chronic Priority: Low (7) HLD (hyperlipidemia) SNOMED Code(s): 95279697 ICD Code: E78.5 - HYPERLIPIDEMIA, UNSPECIFIED Status: Chronic Priority: Low (8) HTN (hypertension) SNOMED Code(s): 52675395 ICD Code: I10 - ESSENTIAL (PRIMARY) HYPERTENSION Status: Acute Priority: Medium Qualifiers: Hypertension type: unspecified Qualified Code(s): I10 - Essential (primary) hypertension (9) GERD (gastroesophageal reflux disease) SNOMED Code(s): 787730211 ICD Code: K21.9 - GASTRO-ESOPHAGEAL REFLUX DISEASE WITHOUT ESOPHAGITIS Status: Chronic Priority: Low Qualifiers: Esophagitis presence: esophagitis presence not specified Qualified Code(s): K21.9 - Gastro-esophageal reflux disease without esophagitis (10) PUD (peptic ulcer disease) SNOMED Code(s): 83891194 ICD Code: K27.9 - PEPTIC ULC, SITE UNSP, UNSP AC OR CHR, W/O HEMOR OR PERF Status: Chronic Priority: Low (11) Osteoporosis SNOMED Code(s): 40371073 ICD Code: M81.0 - AGE-RELATED OSTEOPOROSIS W/O CURRENT PATHOLOGICAL FRACTURE Status: Chronic Priority: Low Qualifiers: Osteoporosis type: unspecified Presence of current pathological fracture: unspecified Qualified Code(s): M81.0 - Age-related osteoporosis without current pathological fracture (12) Arthritis SNOMED Code(s): 1363326 ICD Code: M19.90 - UNSPECIFIED OSTEOARTHRITIS, UNSPECIFIED SITE Status: Chronic Priority: Low (13) Migraines SNOMED Code(s): 57085214 ICD Code: G43.909 - MIGRAINE, UNSP, NOT INTRACTABLE, WITHOUT STATUS MIGRAINOSUS Status: Chronic Priority: Low Qualifiers: Migraine type: unspecified Status migrainosus presence: without status migrainosus Intractability: not intractable Qualified Code(s): G43.909 - Migraine, unspecified, not intractable, without status migrainosus (14) History of TIA (transient ischemic attack) SNOMED Code(s): 759833486 ICD Code: Z86.73 - PRSNL HX OF TIA (TIA), AND CEREB INFRC W/O RESID DEFICITS Status: Chronic Priority: Low (15) Hypothyroidism SNOMED Code(s): 11832578 ICD Code: E03.9 - HYPOTHYROIDISM, UNSPECIFIED Status: Chronic Priority: Low Qualifiers: Hypothyroidism type: unspecified Qualified Code(s): E03.9 - Hypothyroidism, unspecified (16) BELKYS (iron deficiency anemia) SNOMED Code(s): 46119503 ICD Code: D50.9 - IRON DEFICIENCY ANEMIA, UNSPECIFIED Status: Chronic Priority: Low Qualifiers: Iron deficiency anemia type: unspecified iron deficiency Qualified Code(s): D50.9 - Iron deficiency anemia, unspecified (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 SNOMED Code(s): 305385762 ICD Code: Z90.3 - ACQUIRED ABSENCE OF STOMACH [PART OF] Status: Chronic Priority: Low (18) Chronic constipation SNOMED Code(s): 096562081 ICD Code: K59.09 - OTHER CONSTIPATION Status: Chronic Priority: Medium (19) Anemia SNOMED Code(s): 515180675 ICD Code: D64.9 - ANEMIA, UNSPECIFIED Status: Chronic Priority: Low Qualifiers: Anemia type: unspecified type Qualified Code(s): D64.9 - Anemia, unspecified (20) Hypophosphatemia SNOMED Code(s): 4623357 ICD Code: E83.39 - OTHER DISORDERS OF PHOSPHORUS METABOLISM Status: Acute Priority: High (21) Hypokalemia SNOMED Code(s): 07517668 ICD Code: E87.6 - HYPOKALEMIA Status: Resolved Priority: High (22) Hypomagnesemia SNOMED Code(s): 545804809 ICD Code: E83.42 - HYPOMAGNESEMIA Status: Resolved Priority: High - Patient Summary/Data Consults: Consultations 03/18/21 14:16 OT Evaluation and Treatment [CONS] Routine PT Evaluation and Treatment [CONS] Routine 03/19/21 07:25 Consult to Case Management/Dynamometer Tester Engine [CONS] Routine 03/19/21 09:07 Consult to Environmental Protection Officer [CONS] Routine Labs Pending at D/C: None Recommended Follow-up Testing/Procedures: Follow-up with primary care provider within 5 to 7 days of discharge, sooner if needed. -Recommend repeat CBC, CMP, magnesium, and phosphorus at that visit. -Patient was discharged on twice daily 1 g sodium tablets and 4 days of 400 mg magnesium. Monitor if patient needs to continue this. -Patient's blood pressure was elevated while here and her home blood pressure medications were adjusted. Monitor this. Hospital Course: This is an 86-year-old female who had been hospitalized prior due to acute compression fracture in her lumbar spine and difficulty with ambulation. The patient was discharged and thought she would be able to do well at home, however she returned shortly after discharge saying she is unable to complete ADLs and is having significant pain. She resided at [facility]. She carries a history of A. fib, aortic aneurysm, HLD, HTN, GERD, PUD, history of resection of her stomach, chronic constipation, migraines, history of TIA, hypothyroidism, BELKYS, and anemia. On admission her sodium was noted to be 119. She was started on IV fluids and this continued the next day. Labs were obtained showing a normal urine sodium and urine osmolality and an unremarkable UA. Her magnesium, potassium, and phosphorus were all low and were supplemented throughout her stay. She does report a history of stomach resection at a very young age secondary to peptic ulcer disease and states she has had significant dyspepsia and a markedly reduced appetite for some time. She was given simethicone. Her constipation was treated with laxatives and stool softeners. Our dietitians did work with her and were recommending continued supplementation at discharge. Her intake overall was quite poor. She is placed on hypertonic saline with a good response to her sodium. This was discontinued and ultimately was switched to 1 g 3 times daily with meals sodium supplementation. She was upgraded to ICU for monitoring with her electrolyte abnormalities and was downgraded. Her sodium today was 135 and her p.o. sodium supplementation was switched to 1 g twice daily AC. She did work with PT and OT who are recommending SNF placement. She was receiving Tylenol and oxycodone for her back pain with good control. Given her hyponatremia her HCTZ was discontinued. She was noted to have elevated blood pressures throughout her stay as high as 170s systolic. Her Norvasc was increased to 10 mg daily and she was started on 30 mg Imdur daily for blood pressure control, which did improve her blood pressures overall. Home medications were otherwise continued including Xarelto for A. fib. Family was at bedside and very involved in her care. [facility]. Recommend patient follow-up with her primary care provider within 5 to 7 days of discharge, sooner if needed. Recommend PCP monitor CBC, CMP, mag, and phosphorus. Patient was discharged on 4 days of 400 mg p.o. magnesium supplementation and 1 g twice daily sodium supplementation with meals.Norvasc was increased to 10 mg daily and 30 mg p.o. Imdur was started as noted prior. Patient received 5 mg p.o. every 6 hours as needed oxycodone for moderate pain due to her compression fracture in her back. She is given 80 mg p.o. every 6 hour as needed simethicone shoes for gas and 10 mg p.o. daily as needed Dulcolax rectal suppository for constipation. Recommend dietitian follow patient closely at SNF. Recommend PT/OT continue at [facility]. [facility] to [facility]. - Patient Instructions Diet: Usual Diet as Tolerated Activity: As Tolerated Driving: Do Not Drive Showering/Bathing: May Shower Notify Provider of: Fever, Increased Pain, Nausea and/or Vomiting Other/Special Instructions: Follow-up with primary care provider within 5-7 days of discharge, sooner if needed. Recommend union contract representative follow at SNF. Continue PT/OT at SNF. Take all new medications as prescribed. Should symptoms return or worsen contact primary care provider or return to the Emergency Department. - Discharge Plan *PRESCRIPTION DRUG MONITORING PROGRAM REVIEWED*: No *COPY OF PRESCRIPTION DRUG MONITORING REPORT IN PATIENT TU: No Prescriptions/Med Rec: bisacodyL [Dulcolax] 10 mg RECTAL DAILY PRN #5 supp PRN Reason: Constipation Isosorbide Mononitrate [Imdur] 30 mg PO DAILY #20 tab.er Magnesium Oxide [Magnesium] 400 mg PO DAILY #4 tablet amLODIPine Besylate [Norvasc] 10 mg PO QAM #20 tablet oxyCODONE 5 mg PO Q6H PRN #20 tablet PRN Reason: Pain (Moderate 4-6) Simethicone 80 mg PO Q6H PRN #10 tab.chew PRN Reason: Gas Sodium Chloride 1 gm PO BIDAC #25 tablet Home Medications: Home Meds Lisinopril 40 mg PO QPM 07/21/14 [History] atenoloL [Atenolol] 50 mg PO QAM 07/21/14 [History] Acetaminophen [Tylenol Extra Strength] 500 mg PO TID PRN 11/08/19 [History] Calcium Carb/Vitamin D3/Vit K1 [Calcium + D Soft Chewable Tab] 2 tab PO QPM 11/08/19 [History] Folic Acid 1 mg PO QAM 11/08/19 [History] Latanoprost 1 drop EYEBOTH QPM 11/08/19 [History] Calcium Carbonate [Tums] 400 mg PO ASDIRECTED PRN 12/10/20 [History] Cholecalciferol (Vitamin D3) [Vitamin D3] 1,000 mg PO QAM 12/10/20 [History] Famotidine [Pepcid] 20 mg PO QAM 12/10/20 [History] Levothyroxine [Synthroid] 100 mcg PO QAM 12/10/20 [History] Neomycin/Bacitracin/Polymyxinb [Antibiotic Ointment] 1 applic TOP DAILY PRN 12/10/20 [History] Psyllium Husk/Aspartame [Metamucil Sugar Free] 1 tbsp PO QAM PRN 12/10/20 [Hi story] Rivaroxaban [Xarelto] 15 mg PO PCDINNER 12/10/20 [History] atorvaSTATin [Lipitor] 20 mg PO QPM 12/10/20 [History] hydrALAZINE [Apresoline] 50 mg PO TID 12/10/20 [History] Multivit-Min/FA/Lycopen/Lutein [Centrum Silver Tablet] 1 tab PO QAM 03/16/21 [History] Isosorbide Mononitrate [Imdur] 30 mg PO DAILY #20 tab.er 03/22/21 [Rx] Magnesium Oxide [Magnesium] 400 mg PO DAILY #4 tablet 03/22/21 [Rx] Simethicone 80 mg PO Q6H PRN #10 tab.chew 03/22/21 [Rx] Sodium Chloride 1 gm PO BIDAC #25 tablet 03/22/21 [Rx] amLODIPine Besylate [Norvasc] 10 mg PO QAM #20 tablet 03/22/21 [Rx] bisacodyL [Dulcolax] 10 mg RECTAL DAILY PRN #5 supp 03/22/21 [Rx] oxyCODONE 5 mg PO Q6H PRN #20 tablet 03/22/21 [Rx] Oxygen Therapy Mode: Room Air Patient Handouts: Weakness, [id number], Failure to Thrive, Adult, [id number] Referrals: Marimar Huertas MD [Primary Care Provider] - 03/27/21 11:00 am (Please add Francisca to your list of DR Huertas rounds on Tuesday 03/27 ans she will see her at the long-term.) - Discharge Summary/Plan Comment DC Time >30 min.: Yes (45 mins ) - General Info Date of Service: 03/22/21 Admission Dx/Problem (Free Text: Admission Diagnosis/Problem Admission Diagnosis/Problem Failure to thrive Functional Status: Reports: Pain Controlled, Tolerating Diet, Ambulating, Urinating. Denies: New Symptoms - Review of Systems General: Reports: No Symptoms, Weakness. Denies: Fever, Fatigue, Malaise, Chills HEENT: Reports: No Symptoms. Denies: Headaches, Sore Throat Pulmonary: Reports: No Symptoms. Denies: Shortness of Breath, Cough, Sputum, Wheezing Cardiovascular: Reports: No Symptoms. Denies: Chest Pain, Palpitations, Edema Gastrointestinal: Reports: Constipation, Decreased Appetite. Denies: Abdominal Pain, Diarrhea, Nausea, Vomiting Genitourinary: Reports: No Symptoms. Denies: Pain Musculoskeletal: Reports: Back Pain Skin: Reports: No Symptoms. Denies: Cyanosis Neurological: Reports: No Symptoms, Difficulty Walking, Weakness, Gait Disturbance. Denies: Confusion, Dizziness, Headache, Numbness, Seizure, Syncope, Tingling, Trouble Speaking Psychiatric: Reports: No Symptoms - Patient Data Vitals - Most Recent: Last Vital Signs Temp 97.7 F 03/22/21 03:04 Pulse 59 L 03/22/21 03:04 Resp 14 03/22/21 03:04 BP 161/66 H 03/22/21 03:04 Pulse Ox 96 03/22/21 03:04 Weight - Most Recent: 90 lb 4.8 oz I&O - Last 24 hours: Intake & Output 03/21/21 03/22/21 03/22/21 22:59 06:59 14:59 Intake Total 750 600 Output Total 200 Balance 550 600 Lab Results - Last 24 hrs: Laboratory Results - last 24 hr 03/22/21 03/22/21 Range/Units 05:02 05:02 WBC 7.19 (3.98-10.04) K/mm3 RBC 4.16 (3.98-5.22) M/mm3 Hgb 12.9 (11.2-15.7) gm/dl Hct 39.0 (34.1-44.9) % MCV 93.8 (79.4-94.8) fl MCH 31.0 (25.6-32.2) pg MCHC 33.1 (32.2-35.5) g/dl RDW Std Deviation 45.1 (36.4-46.3) fL Plt Count 276 (182-369) K/mm3 MPV 8.9 L (9.4-12.3) fl Neut % (Auto) 67.3 (34.0-71.1) % Lymph % (Auto) 18.5 L (19.3-51.7) % Baxter % (Auto) 11.7 (4.7-12.5) % Eos % (Auto) 1.5 (0.7-5.8) Baso % (Auto) 0.3 (0.1-1.2) % Neut # (Auto) 4.84 (1.56-6.13) K/mm3 Lymph # (Auto) 1.33 (1.18-3.74) K/mm3 Baxter # (Auto) 0.84 H (0.24-0.36) K/mm3 Eos # (Auto) 0.11 (0.04-0.36) K/mm3 Baso # (Auto) 0.02 (0.01-0.08) K/mm3 Sodium 135 L (136-145) mEq/L Potassium 4.2 (3.5-5.1) mEq/L Chloride 99 (98-107) mEq/L Carbon Dioxide 28 (21-32) mEq/L Anion Gap 12.2 (5-15) BUN 14 (7-18) mg/dL Creatinine 0.6 (0.55-1.02) mg/dL Est Cr Clr Drug Dosing 44.32 mL/min Estimated GFR (MDRD) > 60 (>60) mL/min BUN/Creatinine Ratio 23.3 H (14-18) Glucose 90 (70-99) mg/dL Calcium 9.1 (8.5-10.1) mg/dL Magnesium 1.9 (1.8-2.4) mg/dL Total Bilirubin 0.3 (0.2-1.0) mg/dL AST 26 (15-37) U/L ALT 35 (14-59) U/L Alkaline Phosphatase 86 (46-116) U/L Total Protein 6.4 (6.4-8.2) g/dl Albumin 2.6 L (3.4-5.0) g/dl Globulin 3.8 gm/dL Albumin/Globulin Ratio 0.7 L (1-2) Med Orders - Current: Current Medications Acetaminophen (Acetaminophen 325 Mg Tab) 650 mg PO Q4H PRN PRN Reason: Pain (Mild 1-3)/fever Last Admin: 03/19/21 19:34 Dose: 650 mg Documented by: Amlodipine Besylate (Amlodipine 10 Mg Tab) [facility] [place] Admin: 03/21/21 08:12 Dose: 10 mg Documented by: Atenolol (Atenolol 50 Mg Tab) 50 mg PO BID [facility] Last Admin: 03/21/21 20:52 Dose: Not Given Documented by: Atorvastatin Calcium (Atorvastatin 20 Mg Tab) 20 mg PO QPM [facility] Last Admin: 03/21/21 18:12 Dose: 20 mg Documented by: Bisacodyl (Bisacodyl 10 Mg Supp) 10 mg RECTAL DAILY PRN PRN Reason: Constipation Last Admin: 03/21/21 11:56 Dose: 10 mg Documented by: Calcium Carbonate (Calcium Carbonate/Vitamin D3 600 Mg-200 Units Tab) 2 tab PO QPM [facility] Last Admin: 03/21/21 18:12 Dose: 2 tab Documented by: Calcium Carbonate/Glycine (Calcium Carbonate 500 Mg Tab.Chew) 500 mg PO ASDIRECTED PRN PRN Reason: upset stomach Last Admin: 03/20/21 09:41 Dose: 500 mg Documented by: Cholecalciferol (Cholecalciferol (Vitamin D3) 25 Mcg Tab) 25 mcg PO QAM [facility] Last Admin: 03/21/21 08:11 Dose: 25 mcg Documented by: Docusate Sodium (Docusate Sodium 100 Mg Cap) 100 mg PO BID PRN PRN Reason: Constipation Last Admin: 03/21/21 08:16 Dose: 100 mg Documented by: Famotidine (Famotidine 20 Mg Tab) 20 [facility] [place] Admin: 03/21/21 08:11 Dose: 20 mg Documented by: Folic Acid (Folic Acid 1 Mg Tab) 1 mg PO QAM [facility] Last Admin: 03/21/21 08:12 Dose: 1 mg Documented by: Hydralazine HCl (Hydralazine 25 Mg Tab) 50 mg PO TID [facility] Last Admin: 03/21/21 20:48 Dose: 50 mg Documented by: Hydromorphone HCl (Hydromorphone 0.5 Mg/0.5 Ml Syringe) 0.25 mg IVPUSH Q2H PRN PRN Reason: Pain (severe 7-10) Last Admin: 03/18/21 17:15 Dose: 0.25 mg Documented by: Isosorbide Mononitrate (Isosorbide Mononitrate 30 Mg Tab.Er) 30 mg PO DAILY [facility] Last Admin: 03/21/21 08:12 Dose: 30 mg Documented by: Latanoprost (Latanoprost 0.005% Ophth Soln 2.5 Ml Bottle) 0 ml EYEBOTH QPM [facility] Last Admin: 03/21/21 18:15 Dose: 1 drop Documented by: Levothyroxine Sodium (Levothyroxine 100 Mcg Tab) 100 mcg PO ACBREAKFAST [facility] Last Admin: 03/22/21 06:07 Dose: 100 mcg Documented by: Lisinopril (Lisinopril 20 Mg Tab) 40 mg PO QPM [facility] Last Admin: 03/21/21 18:12 Dose: 40 mg Documented by: Ondansetron HCl (Ondansetron 4 Mg Tab.Dis) 4 mg PO Q4H PRN PRN Reason: nausea, able to take PO Last Admin: 03/18/21 22:07 Dose: 4 mg Documented by: Ondansetron HCl (Ondansetron 4 Mg/2 Ml Sdv) 4 mg IVPUSH Q6H PRN PRN Reason: Nausea/Vomiting Last Admin: 03/19/21 11:52 Dose: 4 mg Documented by: Oxycodone HCl (Oxycodone 5 Mg Tab) 5 mg PO Q4H PRN PRN Reason: Pain (moderate 4-6) Last Admin: 03/22/21 06:07 Dose: 5 mg Documented by: Psyllium Husk (Psyllium Husk Powder Sugar Free 5.85 Gm Packet) 1 pkt PO QAM PRN PRN Reason: Constipation Last Admin: 03/21/21 08:21 Dose: 1 pkt Documented by: Rivaroxaban (Rivaroxaban 15 Mg Tab) 15 mg PO PCDINNER [facility] Last Admin: 03/21/21 18:11 Dose: 15 mg Documented by: Simethicone (Simethicone 80 Mg Tab.Chew) 80 mg PO Q6H PRN PRN Reason: Gas Last Admin: 03/20/21 08:48 Dose: 80 mg Documented by: Sodium Chloride (Sodium Chloride 0.9% 10 Ml Syringe) 10 ml FLUSH ASDIRECTED PRN PRN Reason: Keep Vein Open Last Admin: 03/18/21 10:37 Dose: 10 ml Documented by: Sodium Chloride (Sodium Chloride 1 Gm Tab) 1 gm PO TIDAC [facility] Last Admin: 03/22/21 06:07 Dose: 1 gm Documented by: Temazepam (Temazepam 7.5 Mg Cap) 7.5 mg PO BEDTIME PRN PRN Reason: Sleep Last Admin: 03/22/21 00:26 Dose: 7.5 mg Documented by: Discontinued Medications Amlodipine Besylate (Amlodipine 5 Mg Tab) 5 mg PO [facility] Last Admin: 03/19/21 10:02 Dose: Not Given Documented by: Atenolol (Atenolol 50 Mg Tab) 50 mg PO [facility] Last Admin: 03/20/21 08:49 Dose: 50 mg Documented by: Hydrochlorothiazide (Hydrochlorothiazide 25 Mg Tab) 25 mg PO [facility] Hydromorphone HCl (Hydromorphone 0.5 Mg/0.5 Ml Syringe) 0.25 mg IVPUSH ONETIME ONE Stop: 03/18/21 10:24 Last Admin: 03/18/21 10:37 Dose: 0.25 mg Documented by: Potassium Chloride 10 meq/ (Premix) 100 mls @ 100 mls/hr IV ONETIME ONE Stop: 03/18/21 14:47 Last Admin: 03/18/21 14:21 Dose: 100 mls/hr Documented by: Sodium Chloride (Normal Saline) 1,000 mls @ 100 mls/hr IV ASDIRECTED [facility] Last Admin: 03/18/21 14:22 Dose: 100 mls/hr Documented by: Sodium Chloride (Normal Saline) 1,000 mls @ 75 mls/hr IV ASDIRECTED [facility] Last Admin: 03/19/21 01:53 Dose: 75 mls/hr Documented by: Potassium Chloride 10 meq/ (Premix) 100 mls @ 100 mls/hr IV Q1H RICKY Stop: 03/18/21 18:29 Last Admin: 03/18/21 20:53 Dose: 100 mls/hr Documented by: Sodium Chloride (Normal Saline) 1,000 mls @ 75 mls/hr IV ASDIRECTED [facility] Last Admin: 03/20/21 01:36 Dose: 75 mls/hr Documented by: Sodium Chloride (Sodium Chloride 3%) 500 mls @ 15 mls/hr IV ONETIME RICKY Stop: 03/19/21 14:00 Last Admin: 03/19/21 11:29 Dose: 15 mls/hr Documented by: Magnesium Sulfate 2 gm/ Premix 50 mls @ 25 mls/hr IV ONETIME ONE Stop: 03/19/21 13:59 Last Admin: 03/19/21 13:55 Dose: 25 mls/hr Documented by: Sodium Chloride (Sodium Chloride 3%) 500 mls @ 15 mls/hr IV ONETIME [facility] Stop: 03/19/21 17:00 Sodium Chloride (Sodium Chloride 3%) 30 mls @ 15 mls/hr IV ASDIRECTED [facility] Stop: 03/19/21 21:30 Dextrose/Water (Dextrose 5% In Water) 1,000 mls @ 75 mls/hr IV ASDIRECTED [facility] Last Admin: 03/20/21 08:50 Dose: 75 mls/hr Documented by: Potassium Phosphate 30 mmole/ (Sodium Chloride) 510 mls @ 102 mls/hr IV ONETIME ONE Stop: 03/20/21 12:59 Last Admin: 03/20/21 08:50 Dose: 102 mls/hr Documented by: Magnesium Sulfate 4 gm/ Premix 50 mls @ 12.5 mls/hr IV ONETIME ONE Stop: 03/20/21 16:59 Last Admin: 03/20/21 13:46 Dose: 12.5 mls/hr Documented by: Dextrose/Water (Dextrose 5% In Water) 1,000 mls @ 75 mls/hr IV ASDIRECTED [facility] Potassium Phosphate 30 mmole/ (Sodium Chloride) 510 mls @ 102 mls/hr IV ONETIME ONE Stop: 03/21/21 13:59 Last Admin: 03/21/21 09:25 Dose: 102 mls/hr Documented by: Ketorolac Tromethamine (Ketorolac 15 Mg/Ml Sdv) 15 mg IVPUSH ONETIME ONE Stop: 03/18/21 10:24 Last Admin: 03/18/21 10:34 Dose: 15 mg Documented by: Potassium Chloride (Potassium Chloride 20 Meq Tab.Er) 40 meq PO BID RICKY Potassium Chloride (Potassium Chloride 20 Meq Tab.Er) 20 meq PO ONETIME ONE Stop: 03/20/21 12:16 Last Admin: 03/20/21 13:45 Dose: 20 meq Documented by: Sodium Chloride (Sodium Chloride 1 Gm Tab) 1 gm PO ONETIME ONE Stop: 03/19/21 19:21 Last Admin: 03/19/21 19:34 Dose: 1 gm Documented by: - Exam Quality Assessment: Reports: DVT Prophylaxis. Denies: Supplemental Oxygen, Urine Catheter General: Reports: Alert, Oriented, Cooperative, No Acute Distress HEENT: Reports: Pupils Equal, Pupils Reactive, Mucous Membr. Moist/[place] Neck: Reports: Supple, Trachea Midline Lungs: Reports: Clear to Auscultation, Normal Respiratory Effort Cardiovascular: Reports: Regular Rate, Regular Rhythm GI/Abdominal Exam: Normal Bowel Sounds, Soft, Non-Tender, No Distention, No Abnormal Bruit (Female) Exam: Deferred Rectal (Female) Exam: Deferred Back Exam: Reports: Normal Inspection, Decreased Range of Motion Extremities: Normal Inspection, Normal Range of Motion, Non-Tender, No Pedal Edema, Normal Capillary Refill Skin: Reports: Warm, Dry, Intact Neurological: Reports: No New Focal Deficit Psy/Mental Status: Reports: Alert, Normal Affect, Normal Mood *Q Meaningful Use (DIS) - VTE *Q VTE Mechanical Contraindications *Q: At Risk for Falls VTE Pharmacological Contraindications *Q: Risk of Bleeding <Norris Tran Jr - Last Filed: 03/22/21 15:09> Discharge Summary - Referral to Home Health Primary Care Physician: Marimar Huertas MD - Patient Summary/Data Consults: Consultations 03/18/21 14:16 OT Evaluation and Treatment [CONS] Routine PT Evaluation and Treatment [CONS] Routine 03/19/21 07:25 Consult to Case Management/Dynamometer Tester Engine [CONS] Routine 03/19/21 09:07 Consult to Environmental Protection Officer [CONS] Routine - Discharge Summary/Plan Comment Discharge Summary/Plan Comment: Case personally preceptored and reviewed. Agree with evaluation, assessment and plan. Dr. Rupesh Mccloud Jr., DO - Patient Data Vitals - Most Recent: Last Vital Signs Temp 97.9 F 03/22/21 09:09 Pulse 67 03/22/21 09:13 Resp 15 03/22/21 09:09 BP 133/64 03/22/21 09:13 Pulse Ox 96 03/22/21 09:09 I&O - Last 24 hours: Intake & Output 03/22/21 03/22/21 03/22/21 06:59 14:59 22:59 Intake Total 600 Balance 600 Lab Results - Last 24 hrs: Laboratory Results - last 24 hr 03/22/21 03/22/21 Range/Units 05:02 05:02 WBC 7.19 (3.98-10.04) K/mm3 RBC 4.16 (3.98-5.22) M/mm3 Hgb 12.9 (11.2-15.7) gm/dl Hct 39.0 (34.1-44.9) % MCV 93.8 (79.4-94.8) fl MCH 31.0 (25.6-32.2) pg MCHC 33.1 (32.2-35.5) g/dl RDW Std Deviation 45.1 (36.4-46.3) fL Plt Count 276 (182-369) K/mm3 MPV 8.9 L (9.4-12.3) fl Neut % (Auto) 67.3 (34.0-71.1) % Lymph % (Auto) 18.5 L (19.3-51.7) % Baxter % (Auto) 11.7 (4.7-12.5) % Eos % (Auto) 1.5 (0.7-5.8) Baso % (Auto) 0.3 (0.1-1.2) % Neut # (Auto) 4.84 (1.56-6.13) K/mm3 Lymph # (Auto) 1.33 (1.18-3.74) K/mm3 Baxter # (Auto) 0.84 H (0.24-0.36) K/mm3 Eos # (Auto) 0.11 (0.04-0.36) K/mm3 Baso # (Auto) 0.02 (0.01-0.08) K/mm3 Sodium 135 L (136-145) mEq/L Potassium 4.2 (3.5-5.1) mEq/L Chloride 99 (98-107) mEq/L Carbon Dioxide 28 (21-32) mEq/L Anion Gap 12.2 (5-15) BUN 14 (7-18) mg/dL Creatinine 0.6 (0.55-1.02) mg/dL Est Cr Clr Drug Dosing 44.32 mL/min Estimated GFR (MDRD) > 60 (>60) mL/min BUN/Creatinine Ratio 23.3 H (14-18) Glucose 90 (70-99) mg/dL Calcium 9.1 (8.5-10.1) mg/dL Magnesium 1.9 (1.8-2.4) mg/dL Total Bilirubin 0.3 (0.2-1.0) mg/dL AST 26 (15-37) U/L ALT 35 (14-59) U/L Alkaline Phosphatase 86 (46-116) U/L Total Protein 6.4 (6.4-8.2) g/dl Albumin 2.6 L (3.4-5.0) g/dl Globulin 3.8 gm/dL Albumin/Globulin Ratio 0.7 L (1-2) Med Orders - Current: Current Medications Discontinued Medications Acetaminophen (Acetaminophen 325 Mg Tab) 650 mg PO Q4H PRN PRN Reason: Pain (Mild 1-3)/fever Last Admin: 03/19/21 19:34 Dose: 650 mg Documented by: Amlodipine Besylate (Amlodipine 5 Mg Tab) [facility] [place] Admin: 03/19/21 10:02 Dose: Not Given Documented by: Amlodipine Besylate (Amlodipine 10 Mg Tab) 10 [facility] [place] Admin: 03/22/21 09:13 Dose: 10 mg Documented by: Atenolol (Atenolol 50 Mg Tab) 50 mg PO QAM [facility] Last Admin: 03/20/21 08:49 Dose: 50 mg Documented by: Atenolol (Atenolol 50 Mg Tab) 50 mg PO BID [facility] Last Admin: 03/22/21 09:13 Dose: 50 mg Documented by: Atorvastatin Calcium (Atorvastatin 20 Mg Tab) 20 mg PO QPM [facility] Last Admin: 03/21/21 18:12 Dose: 20 mg Documented by: Bisacodyl (Bisacodyl 10 Mg Supp) 10 mg RECTAL DAILY PRN PRN Reason: Constipation Last Admin: 03/21/21 11:56 Dose: 10 mg Documented by: Calcium Carbonate (Calcium Carbonate/Vitamin D3 600 Mg-200 Units Tab) 2 tab PO QPM [facility] Last Admin: 03/21/21 18:12 Dose: 2 tab Documented by: Calcium Carbonate/Glycine (Calcium Carbonate 500 Mg Tab.Chew) 500 mg PO ASDIRECTED PRN PRN Reason: upset stomach Last Admin: 03/20/21 09:41 Dose: 500 mg Documented by: Cholecalciferol (Cholecalciferol (Vitamin D3) 25 Mcg Tab) 25 mcg PO [facility] Last Admin: 03/22/21 09:11 Dose: 25 mcg Documented by: Docusate Sodium (Docusate Sodium 100 Mg Cap) 100 mg PO BID PRN PRN Reason: Constipation Last Admin: 03/21/21 08:16 Dose: 100 mg Documented by: Famotidine (Famotidine 20 Mg Tab) 20 mg PO [facility] Last Admin: 03/22/21 09:11 Dose: 20 mg Documented by: Folic Acid (Folic Acid 1 Mg Tab) 1 mg PO [facility] Last Admin: 03/22/21 09:13 Dose: 1 mg Documented by: Hydralazine HCl (Hydralazine 25 Mg Tab) 50 mg PO TID [facility] Last Admin: 03/22/21 09:12 Dose: 50 mg Documented by: Hydrochlorothiazide (Hydrochlorothiazide 25 Mg Tab) 25 mg PO [facility] Hydromorphone HCl (Hydromorphone 0.5 Mg/0.5 Ml Syringe) 0.25 mg IVPUSH ONETIME ONE Stop: 03/18/21 10:24 Last Admin: 03/18/21 10:37 Dose: 0.25 mg Documented by: Hydromorphone HCl (Hydromorphone 0.5 Mg/0.5 Ml Syringe) 0.25 mg IVPUSH Q2H PRN PRN Reason: Pain (severe 7-10) Last Admin: 03/18/21 17:15 Dose: 0.25 mg Documented by: Potassium Chloride 10 meq/ (Premix) 100 mls @ 100 mls/hr IV ONETIME ONE Stop: 03/18/21 14:47 Last Admin: 03/18/21 14:21 Dose: 100 mls/hr Documented by: Sodium Chloride (Normal Saline) 1,000 mls @ 100 mls/hr IV ASDIRECTED [facility] Last Admin: 03/18/21 14:22 Dose: 100 mls/hr Documented by: Sodium Chloride (Normal Saline) 1,000 mls @ 75 mls/hr IV ASDIRECTED [facility] Last Admin: 03/19/21 01:53 Dose: 75 mls/hr Documented by: Potassium Chloride 10 meq/ (Premix) 100 mls @ 100 mls/hr IV Q1H [facility] Stop: 03/18/21 18:29 Last Admin: 03/18/21 20:53 Dose: 100 mls/hr Documented by: Sodium Chloride (Normal Saline) 1,000 mls @ 75 mls/hr IV ASDIRECTED [facility] Last Admin: 03/20/21 01:36 Dose: 75 mls/hr Documented by: Sodium Chloride (Sodium Chloride 3%) 500 mls @ 15 mls/hr IV ONETIME [facility] Stop: 03/19/21 14:00 Last Admin: 03/19/21 11:29 Dose: 15 mls/hr Documented by: Magnesium Sulfate 2 gm/ Premix 50 mls @ 25 mls/hr IV ONETIME ONE Stop: 03/19/21 13:59 Last Admin: 03/19/21 13:55 Dose: 25 mls/hr Documented by: Sodium Chloride (Sodium Chloride 3%) 500 mls @ 15 mls/hr IV ONETIME [facility] Stop: 03/19/21 17:00 Sodium Chloride (Sodium Chloride 3%) 30 mls @ 15 mls/hr IV ASDIRECTED [facility] Stop: 03/19/21 21:30 Dextrose/Water (Dextrose 5% In Water) 1,000 mls @ 75 mls/hr IV ASDIRECTED [facility] Last Admin: 03/20/21 08:50 Dose: 75 mls/hr Documented by: Potassium Phosphate 30 mmole/ (Sodium Chloride) 510 mls @ 102 mls/hr IV ONETIME ONE Stop: 03/20/21 12:59 Last Admin: 03/20/21 08:50 Dose: 102 mls/hr Documented by: Magnesium Sulfate 4 gm/ Premix 50 mls @ 12.5 mls/hr IV ONETIME ONE Stop: 03/20/21 16:59 Last Admin: 03/20/21 13:46 Dose: 12.5 mls/hr Documented by: Dextrose/Water (Dextrose 5% In Water) 1,000 mls @ 75 mls/hr IV ASDIRECTED [facility] Potassium Phosphate 30 mmole/ (Sodium Chloride) 510 mls @ 102 mls/hr IV ONETIME ONE Stop: 03/21/21 13:59 Last Admin: 03/21/21 09:25 Dose: 102 mls/hr Documented by: Isosorbide Mononitrate (Isosorbide Mononitrate 30 Mg Tab.Er) 30 mg PO DAILY [facility] Last Admin: 03/22/21 09:13 Dose: 30 mg Documented by: Ketorolac Tromethamine (Ketorolac 15 Mg/Ml Sdv) 15 mg IVPUSH ONETIME ONE Stop: 03/18/21 10:24 Last Admin: 03/18/21 10:34 Dose: 15 mg Documented by: Latanoprost (Latanoprost 0.005% Ophth Soln 2.5 Ml Bottle) 0 ml EYEBOTH QPM [facility] Last Admin: 03/21/21 18:15 Dose: 1 drop Documented by: Levothyroxine Sodium (Levothyroxine 100 Mcg Tab) 100 mcg PO AC[facility]AKFAST [facility] Last Admin: 03/22/21 06:07 Dose: 100 mcg Documented by: Lisinopril (Lisinopril 20 Mg Tab) 40 mg PO QPM [facility] Last Admin: 03/21/21 18:12 Dose: 40 mg Documented by: Ondansetron HCl (Ondansetron 4 Mg Tab.Dis) 4 mg PO Q4H PRN PRN Reason: nausea, able to take PO Last Admin: 03/18/21 22:07 Dose: 4 mg Documented by: Ondansetron HCl (Ondansetron 4 Mg/2 Ml Sdv) 4 mg IVPUSH Q6H PRN PRN Reason: Nausea/Vomiting Last Admin: 03/19/21 11:52 Dose: 4 mg Documented by: Oxycodone HCl (Oxycodone 5 Mg Tab) 5 mg PO Q4H PRN PRN Reason: Pain (moderate 4-6) Last Admin: 03/22/21 06:07 Dose: 5 mg Documented by: Potassium Chloride (Potassium Chloride 20 Meq Tab.Er) 40 meq PO BID [facility] Potassium Chloride (Potassium Chloride 20 Meq Tab.Er) 20 meq PO ONETIME ONE Stop: 03/20/21 12:16 Last Admin: 03/20/21 13:45 Dose: 20 meq Documented by: Psyllium Husk (Psyllium Husk Powder Sugar Free 5.85 Gm Packet) 1 pkt PO QAM PRN PRN Reason: Constipation Last Admin: 03/21/21 08:21 Dose: 1 pkt Documented by: Rivaroxaban (Rivaroxaban 15 Mg Tab) 15 mg PO PCDINNER [facility] Last Admin: 03/21/21 18:11 Dose: 15 mg Documented by: Simethicone (Simethicone 80 Mg Tab.Chew) 80 mg PO Q6H PRN PRN Reason: Gas Last Admin: 03/20/21 08:48 Dose: 80 mg Documented by: Sodium Chloride (Sodium Chloride 0.9% 10 Ml Syringe) 10 ml FLUSH ASDIRECTED PRN PRN Reason: Keep Vein Open Last Admin: 03/18/21 10:37 Dose: 10 ml Documented by: Sodium Chloride (Sodium Chloride 1 Gm Tab) 1 gm PO ONETIME ONE Stop: 03/19/21 19:21 Last Admin: 03/19/21 19:34 Dose: 1 gm Documented by: Sodium Chloride (Sodium Chloride 1 Gm Tab) 1 gm PO TIDAC [facility] Last Admin: 03/22/21 12:15 Dose: Not Given Documented by: Temazepam (Temazepam 7.5 Mg Cap) 7.5 mg PO BEDTIME PRN PRN Reason: Sleep Last Admin: 03/22/21 00:26 Dose: 7.5 mg Documented by:
[2021-03-22] MEDS: Cholecalciferol (Vitamin D3) 25 MCG Tab PO SCH (09:11)
[2021-03-22] MEDS: Famotidine 20 MG Tab PO SCH (09:11)
[2021-03-22] MEDS: hydrALAZINE 25 MG Tab PO SCH (09:12)
[2021-03-22] MEDS: amLODIPine 10 MG Tab PO SCH (09:13)
[2021-03-22] MEDS: Isosorbide Mononitrate 30 MG Tab.ER PO SCH (09:13)
[2021-03-22] MEDS: Atenolol 50 MG Tab PO SCH (09:13)
[2021-03-22] MEDS: Folic Acid 1 MG Tab PO SCH (09:13)
[2021-03-22 09:14] VITALS: BP 133/64; PULSE 67
== END 2021-03-22 11:15 | DRG 560 ==
LOC: JD.ED 09:55 → JD.MS 14:16 → JD.ICU 03-19 10:57 → JD.MS 03-21 08:30
PROVIDERS: ADMIT Hospitalist; ATTEND Hospitalist
DX: S32.010D Wedge compression fracture of first lumbar vertebra, subsequent encounter for fracture with routine healing (principal); E87.1 Hypo-osmolality and hyponatremia; R62.7 Adult failure to thrive; R53.1 Weakness; I72.9 Aneurysm of unspecified site; E78.5 Hyperlipidemia, unspecified; I10 Essential (primary) hypertension; Z66 Do not resuscitate; K21.9 Gastro-esophageal reflux disease without esophagitis; M81.0 Age-related osteoporosis without current pathological fracture; M19.90 Unspecified osteoarthritis, unspecified site; G43.909 Migraine, unspecified, not intractable, without status migrainosus; E03.9 Hypothyroidism, unspecified; D50.9 Iron deficiency anemia, unspecified; K59.09 Other constipation; E83.39 Other disorders of phosphorus metabolism; E87.6 Hypokalemia; E83.42 Hypomagnesemia; K25.9 Gastric ulcer, unspecified as acute or chronic, without hemorrhage or perforation; I48.91 Unspecified atrial fibrillation; E78.00 Pure hypercholesterolemia, unspecified; E50.9 Vitamin A deficiency, unspecified; H54.7 Unspecified visual loss; Z90.3 Acquired absence of stomach [part of]; Z86.73 Personal history of transient ischemic attack (TIA), and cerebral infarction without residual deficits; Z79.899 Other long term (current) drug therapy; Z79.890 Hormone replacement therapy; Z87.11 Personal history of peptic ulcer disease; Z79.01 Long term (current) use of anticoagulants
CPT/HCPCS: 36415; 74018; 74018-26; 80048; 80053; 81001; 83735; 83930; 83935; 84100; 84295; 84300; 84443; 85025; 96365; 96375; 97110-GP; 97116-GP; 97162-GP; 97166-GO; 97530-GO; 97530-GP; 99222; 99233; 99239; 99284; 99285-25; A9270-GY; J1170; J1885; J2405; J3475; J3480; J3490; J7030; J7040; J7060; J7131

== ENCOUNTER 2023-01-11 13:29 | Observation (INO) | payer MEDICARE, OTHER ==
[2023-01-11 15:47] LABS: ESTIMATED GFR 49 mL/min (>60)
[2023-01-11 16:11] LABS: CORONAVIRUS COVID-19 NAA NEGATIVE (NEGATIVE)
[2023-01-11] MEDS ORDERED: Docusate Sodium 100 MG Cap PO PRN (16:50)
[2023-01-11] MEDS ORDERED: Polyethylene Glycol 3350 Powder 17 GM Packet PO PRN (16:50)
[2023-01-11] MEDS ORDERED: Ondansetron 4 MG Tab.DIS PO PRN (16:50)
[2023-01-11] MEDS ORDERED: Sodium Chloride 0.9% 10 ML Syringe FLUSH PRN (16:50)
[2023-01-11] MEDS ORDERED: Ondansetron 4 MG/2 ML SDV IV PRN (16:50)
[2023-01-11] MEDS ORDERED: Heparin Sodium 5,000 Units/ML Vial SUBCUT SCH (17:00)
[2023-01-11] MEDS: Acetaminophen 325 MG Tab PO PRN ×2 (18:23→21:49)
[2023-01-11] MEDS: Heparin Sodium 5,000 Units/ML Vial SUBCUT SCH ×2 (21:50→22:20)
[2023-01-12] MEDS: Heparin Sodium 5,000 Units/ML Vial SUBCUT SCH (05:25)
[2023-01-12] MEDS ORDERED: Levothyroxine 100 MCG Tab PO SCH ×2 (06:00→08:15)
[2023-01-12] MEDS ORDERED: Polyethylene Glycol 3350 Powder 17 GM Packet PO PRN (08:06)
[2023-01-12] MEDS ORDERED: Acetaminophen/HYDROcodone 325-5 MG Tab PO PRN (08:10)
[2023-01-12] MEDS ORDERED: amLODIPine 10 MG Tab PO SCH (09:00)
[2023-01-12] MEDS ORDERED: hydrALAZINE 25 MG Tab PO SCH (09:00)
[2023-01-12] MEDS: Docusate Sodium 100 MG Cap PO SCH ×2 (09:40→20:34)
[2023-01-12] MEDS: Acetaminophen 325 MG Tab PO PRN (15:20)
[2023-01-12] MEDS ORDERED: LEVOTHYROXINE 100 MCG PO ONE (16:00)
[2023-01-12] MEDS: ISOSORBIDE MONONITRATE 30 MG PO SCH (16:14)
[2023-01-12] MEDS: Furosemide 20 MG Tab ** PATIENT'S OWN MED PO SCH (16:15)
[2023-01-12] MEDS: OMEPRAZOLE 20 MG PO SCH (16:16)
[2023-01-12] MEDS: POTASSIUM CHLORIDE 10 MEQ PO SCH (16:17)
[2023-01-12] MEDS: ATENOLOL 50 MG PO SCH (16:19)
[2023-01-12] MEDS: Magnesium Oxide 400 MG Tab PO SCH (16:20)
[2023-01-12] MEDS: Cholecalciferol (Vitamin D3) 25 MCG Tab PO SCH (16:28)
[2023-01-12] MEDS: Carboxymethylcellulose Sodium 1% Ophth Gel 15 ML Bottle EYEBOTH SCH ×2 (16:29→20:35)
[2023-01-12] MEDS ORDERED: LISINOPRIL 40 MG PO SCH (18:00)
[2023-01-12] MEDS ORDERED: RIVAROXABAN 15 MG PO SCH (19:00)
[2023-01-12] MEDS ORDERED: LATANOPROST 0.005% EYEBOTH SCH (21:00)
[2023-01-12] MEDS ORDERED: atorvaSTATin 20 MG Tab ** PATIENT'S OWN MED PO SCH (21:00)
[2023-01-13] MEDS ORDERED: LEVOTHYROXINE 112 MCG PO SCH (06:00)
[2023-01-13] MEDS: Acetaminophen 325 MG Tab PO PRN (06:11)
[2023-01-13] MEDS: OMEPRAZOLE 20 MG PO SCH (06:11)
[2023-01-13] MEDS: Docusate Sodium 100 MG Cap PO SCH (10:01)
[2023-01-13] MEDS: Cholecalciferol (Vitamin D3) 25 MCG Tab PO SCH (10:01)
[2023-01-13] MEDS: Furosemide 20 MG Tab ** PATIENT'S OWN MED PO SCH (10:02)
[2023-01-13] MEDS: Magnesium Oxide 400 MG Tab PO SCH (10:02)
[2023-01-13] MEDS: ISOSORBIDE MONONITRATE 30 MG PO SCH (10:03)
[2023-01-13] MEDS: POTASSIUM CHLORIDE 10 MEQ PO SCH (10:03)
[2023-01-13] MEDS: ATENOLOL 50 MG PO SCH (10:04)
[2023-01-13 10:05] VITALS: BP 133/68
[2023-01-13 10:06] VITALS: PULSE 81
[2023-01-13] MEDS: Carboxymethylcellulose Sodium 1% Ophth Gel 15 ML Bottle EYEBOTH SCH (10:27)
[2023-01-14] MEDS ORDERED: LEVOTHYROXINE 100 MCG PO SCH (06:00)
== END 2023-01-13 13:07 ==
LOC: JD.ED 13:29 → JD.MS 16:50
PROVIDERS: ADMIT Hospitalist; ATTEND Hospitalist
DX: R53.1 Weakness (principal); I48.91 Unspecified atrial fibrillation; R63.4 Abnormal weight loss; K21.9 Gastro-esophageal reflux disease without esophagitis; E78.00 Pure hypercholesterolemia, unspecified; I10 Essential (primary) hypertension; M81.0 Age-related osteoporosis without current pathological fracture; E03.9 Hypothyroidism, unspecified; Z79.890 Hormone replacement therapy; Z79.899 Other long term (current) drug therapy; Z20.822 Contact with and (suspected) exposure to COVID-19
CPT/HCPCS: 0241U; 36415; 71045; 80048; 80053; 81001; 83735; 84100; 84443; 84484; 85025; 86140; 87641; 93005; 96372; 97116; 97161; 97166; 99285; A9270; G0378; J1644; U0002; 93010